=== PATIENT | female | born 1980 ===

== ENCOUNTER 2020-07-04 11:26 | Outpatient (REF) | payer OTHER, SELFPAY ==
--- NOTE | 2020-07-04 11:44 | XR_ITS ---
EXAMINATION: XR SOFT TISSUE NECK CLINICAL INDICATION: Cervalgia COMPARISON: None TECHNIQUE: 2 views of the soft tissue neck were obtained. FINDINGS: Soft tissue films of the neck demonstrate a normal larynx, pharynx and upper trachea. No soft tissue swelling or opaque foreign body is demonstrated. There is straightening of the cervical spine. No significant disc space narrowing is seen. No bony destructive lesions are seen. XR/XR soft tissue neck IMPRESSION: Unremarkable examination.
[2020-07-04 12:40] LABS: MANUAL DIFF FLAG NO
[2020-07-04 12:53] LABS: Basophils Percent Auto 0.4 % (0-2); Eosinophils Absolute Auto 0.1 X10*3/uL (0.0-0.4); Eosinophils Percent Auto 1.7 % (0-4); Hematocrit 40.7 % (37-47); Hemoglobin 12.6 g/dl (12.0-16.0); Imm Gran Abs Auto 0.01 X10*3/uL (0.00-0.03); Imm Gran Pct Auto 0.1 % (0.0-0.4); Lymphocytes Absolute Auto 1.9 X10*3/uL (1.2-4.9); Lymphocytes Percent Auto 27.5 % (20-40); Mean Corpuscular Hemoglobin 27.6 pg (27.0-33.0); Mean Corpuscular Volume 89.1 fL (80-98); Mean Platelet Volume 11.7 fL (9.4-12.3); Monocytes Absolute Auto 0.5 X10*3/uL (0.1-1.2); Monocytes Percent Auto 7.6 % (2-11); Neutrophils Absolute Auto 4.3 X10*3/uL (2.0-8.3); Neutrophils Percent Auto 62.7 % (45-73); Platelet Count 282 X10*3/uL (160-400); Red Blood Count 4.57 X10*6/uL (4.20-5.50); Red Cell Distribution Width 13.7 % (11.0-16.0); White Blood Count 6.9 X10*3/uL (4.8-10.8)
[2020-07-04 13:29] LABS: Anion Gap 12 (12-20); Blood Urea Nitrogen 15 mg/dL (9-16); Calcium 8.7 mg/dL (8.4-10.2); Carbon Dioxide 26 mmol/L (22-29); Chloride 105 mmol/L (96-108); Cholesterol 168 mg/dL; Estimated Glomerular Filt Rate > 60; Glucose Fasting 104 mg/dL (60-99); HDL Cholesterol 47 mg/dL; LDL Cholesterol Calculated 94 mg/dl; Potassium 4.2 mmol/l (3.3-5.1); Sodium 139 mmol/L (135-145); Triglycerides 135 mg/dL
[2020-07-04 14:09] LABS: Erythrocyte Sedimentation Rate 10 MM/HR (0-20)
== END 2020-07-04 11:27 | disposition home or self-care (01) ==
LOC: HO.LAB 11:26
PROVIDERS: PCP Internal Medicine; Visit Provider Nurse Practitioner Family
DX: M54.2 Cervicalgia (principal); M19.90 Unspecified osteoarthritis, unspecified site; E13.69 Other specified diabetes mellitus with other specified complication
CPT/HCPCS: 36415; 70360; 80048; 80061; 85025; 85652

== ENCOUNTER 2020-07-12 16:10 | Outpatient (REF) | payer OTHER, SELFPAY | END 2020-07-12 16:11 | disposition home or self-care (01) | LOC: HO.LAB 16:10 | PROVIDERS: Visit Provider Nurse Practitioner Family | DX: Z20.828 Contact with and (suspected) exposure to other viral communicable diseases (principal); R06.02 Shortness of breath | CPT/HCPCS: U0003 ==

== ENCOUNTER 2020-09-18 16:07 | Outpatient (REF) | payer OTHER, SELFPAY ==
--- NOTE | 2020-09-18 16:12 | XR_ITS ---
EXAMINATION: XR CHEST CLINICAL INFORMATION: Moderate persistent asthma with acute exacerbation COMPARISON: Previous chest x-rays most recent November 2019 TECHNIQUE: 2 views of the chest were obtained. FINDINGS: No significant abnormality is noted involving the heart, lungs, mediastinum, bony thorax or soft tissues. XR/XR chest 2V IMPRESSION: Unremarkable examination.
== END 2020-09-18 16:08 | disposition home or self-care (01) ==
LOC: HO.XRAY 16:07
PROVIDERS: PCP Internal Medicine; Visit Provider Internal Medicine
DX: J45.41 Moderate persistent asthma with (acute) exacerbation (principal)
CPT/HCPCS: 71046

== ENCOUNTER 2020-09-29 | Outpatient (REF) | payer OTHER, SELFPAY ==
[2020-09-29 14:49] LABS: MANUAL DIFF FLAG NO
[2020-09-29 14:54] LABS: Basophils Percent Auto 0.5 % (0-2); Eosinophils Absolute Auto 0.2 X10*3/uL (0.0-0.4); Eosinophils Percent Auto 2.5 % (0-4); Hematocrit 39.6 % (37-47); Hemoglobin 12.7 g/dl (12.0-16.0); Imm Gran Abs Auto 0.02 X10*3/uL (0.00-0.03); Imm Gran Pct Auto 0.3 % (0.0-0.4); Lymphocytes Absolute Auto 2.2 X10*3/uL (1.2-4.9); Lymphocytes Percent Auto 29.4 % (20-40); Mean Corpuscular HGB Conc 32.1 g/dl (31.0-35.0); Mean Corpuscular Hemoglobin 28.2 pg (27.0-33.0); Mean Platelet Volume 11.4 fL (9.4-12.3); Monocytes Absolute Auto 0.5 X10*3/uL (0.1-1.2); Monocytes Percent Auto 6.9 % (2-11); Neutrophils Absolute Auto 4.6 X10*3/uL (2.0-8.3); Neutrophils Percent Auto 60.4 % (45-73); Platelet Count 306 X10*3/uL (160-400); Red Cell Distribution Width 14.1 % (11.0-16.0); White Blood Count 7.6 X10*3/uL (4.8-10.8)
[2020-09-29 15:24] LABS: Alanine Aminotransferase 20 U/L (0-31); Albumin Level 4.3 g/dL (3.5-5.0); Alkaline Phosphatase 91 U/L (39-117); Anion Gap 11 (12-20); Aspartate Amino Transferase 18 U/L (5-31); Bilirubin Total 0.3 mg/dL (0.0-1.0); Blood Urea Nitrogen 12 mg/dL (9-16); C Reactive Protein 0.68 mg/dL (< or = 0.50); Calcium 9.3 mg/dL (8.4-10.2); Carbon Dioxide 28 mmol/L (22-29); Chloride 104 mmol/L (96-108); Creatinine Clr Calc Pharmacy 109.1; Estimated Glomerular Filt Rate > 60; Glucose Random 119 mg/dL (60-115); Potassium 4.3 mmol/l (3.3-5.1); Sodium 139 mmol/L (135-145); Total Protein 7.5 g/dL (6.5-8.0)
[2020-09-29 16:07] LABS: Erythrocyte Sedimentation Rate 12 MM/HR (0-20)
[2020-10-01 04:01] LABS: HBc Num1 0.06 S/CO (0.00-0.79); HBsAGNum1 0.18 S/CO (0.00-0.99); Hepatitis B Core Antibody Nonreactive (Nonreactive); Hepatitis B Surface Antigen Negative (Negative); ~HepC Num1 0.07 S/CO (0.00-0.79); ~Hepatitis B Surface Antibody NONREACTIVE (Nonreactive); ~Hepatitis C Antibody Nonreactive (Nonreactive)
[2020-10-01 04:15] LABS: Hepatitis A Antibody IgM 0.13 Index (0-0.79); ~Hepatitis A Antibody IgM Nonreactive (Nonreactive)
[2020-10-02 01:02] LABS: TS Negative Control Passed; TS Panel A 0; TS Panel B 0; TS Positive Control Passed; TSpotTB Negative (SeeBelow)
== END 2020-09-29 00:01 | disposition home or self-care (01) ==
LOC: HO.LNP
PROVIDERS: Visit Provider Student in an Organized Health Care Education/Training Program
DX: M05.9 Rheumatoid arthritis with rheumatoid factor, unspecified (principal)
CPT/HCPCS: 36415; 80053; 85025; 85652; 86140; 86481; 86704; 86706; 86709; 86803; 87340

== ENCOUNTER → 2020-09-29 12:48 | Outpatient (BNVA) | payer OTHER, SELFPAY | PROVIDERS: PCP Internal Medicine; Referring Provider Internal Medicine; Visit Provider Student in an Organized Health Care Education/Training Program | DX: M05.9 Rheumatoid arthritis with rheumatoid factor, unspecified (principal) | CPT/HCPCS: 36415; 80053; 85025; 86704; 86706; 87340; 99212 ==

== ENCOUNTER 2020-10-03 10:38 | Emergency (ER) | payer OTHER, SELFPAY ==
[2020-10-03 11:40] VITALS: BP 134/82; PULSE 78; RESP 20; TEMP 36.7; O2SAT 100; BMI 36.6
--- NOTE | 2020-10-03 11:52 | XR_ITS ---
EXAMINATION: XR CHEST CLINICAL INFORMATION: Dyspnea. COMPARISON: Chest 09/18/2020 TECHNIQUE: Frontal view of the chest was obtained. FINDINGS: No significant abnormality is noted involving the heart, lungs, mediastinum, bony thorax or soft tissues. XR/XR chest 1V IMPRESSION: Unremarkable chest examination.
--- NOTE | 2020-10-03 11:53 | ED_ITS ---
HPI - URI/Sore Throat General Chief Complaint: Upper Respiratory Symptoms Stated Complaint: covid symptons Time Seen by Provider: 10/03/20 11:43 Source: patient Mode of arrival: ambulatory Limitations: no limitations History of Present Illness MD elicited complaint: other (body aches, cough, chest tightness, asthma) Pertinent past history: asthma Onset (ago): day(s) (5) Consistency: constant Severity: moderate Able to tolerate fluids by mouth: Yes Exacerbating factors: nothing Relieving factors: nothing Associated symptoms: chills, myalgias, headache, nasal congestion and cough Treatments prior to arrival: other (uses her inhalers, states prednisone never works for her) Related Data Home Medications Medication Instructions Recorded Confirmed aspirin 81 mg chewable tablet 81 mg PO DAILY 06/08/20 09/18/20 metformin 500 mg tablet 500 mg PO DAILY 06/08/20 09/18/20 Previous Rx's Medication Instructions Recorded albuterol sulfate 2.5 mg INHALATION .3 to 4 times 09/27/20 daily PRN #90 ml albuterol sulfate 90 mcg/actuation 2 puff INHALATION Q4-6H PRN #6.7 g 09/27/20 aerosol inhaler fluticasone propionate 110 1 puff INHALATION BID 30 Days #12 g 09/27/20 mcg/actuation HFA aerosol inhaler prednisone 5 mg tablet See Rx Instructions PO DAILY #30 09/29/20 tab hydrocodone-homatropine 5 ml PO Q6H PRN #60 ml 10/03/20 Allergies Allergy/AdvReac Type Severity Reaction Status Date / Time doxycycline Allergy Unknown itch and Verified 09/29/20 12:52 rash UNKNOWN ANTIOBIOTIC Allergy Unknown UNKNOWN Uncoded 09/18/20 15:50 Review of Systems Review of Systems: Constitutional : positive Fever, positive Chills, positive fatigue, positive Malaise ENT/Mouth : positive sore throat, positive runny nose Eyes: No Discharge Cardiovascular : pos Chest Pain, No SOB Respiratory : pos Cough, No Sputum Gastrointestinal : No Nausea, No Vomiting, No Diarrhea Genitourinary : No Dysuria, No Urinary Frequency Musculoskeletal : positive Myalgia Skin : No rash Neuro : pos Headache all other systems reviewed and are negative [facility] Past Medical History Attestation statement: The following information was validated with the patient. Medical History Arthritis Asthma Asthma exacerbation Depression Diabetes Diabetes mellitus Fibromyalgia Frequent headaches Neck pain Obesity (BMI 30-39.9) Rheumatoid arthritis Seropositive rheumatoid arthritis Surgical History History of tooth extraction Family History Family History (Updated 09/29/20 @ 12:55 by Monika Max CMA) Father HTN (hypertension) Mother Asthma CVD (cardiovascular disease) Brain cancer Maternal Aunt Breast cancer Social History Social History Alcohol intake: never Smoking Status: Never smoker Advance Directives: No Advance Directives Information Provided: No Physical Exam Vital Signs: Vital Signs: Last Vital Signs Temp 98.0 F 10/03/20 11:40 Pulse 78 10/03/20 11:40 Resp 20 10/03/20 11:40 BP 134/82 10/03/20 11:40 Pulse Ox 100 10/03/20 11:40 Body Mass Index 36.6 Appearance: Alert. Oriented X3. No acute distress. Eyes: Pupils equal, round and reactive to light. ENT: Pharynx normal. Neck: Normal inspection. Neck supple. CVS: Normal heart rate and rhythm. Pulses normal. Respiratory: No respiratory distress. Breath sounds normal. Abdomen: Soft and nontender. Skin: Skin warm and dry. Normal skin color. Normal skin turgor. Extremities: No lower extremity edema. No calf ttp Neuro: Oriented X 3. No motor deficit. No sensory deficit. MDM - URI/Sore Throat MDM Narrative Medical decision making narrative: 40 yo female with asthma has INH at home c/o cough x 1 week but yesterday noted body aches, headaches, viral symptoms, chest tightness - will need EKG, CXR, COVID swab - PO medications for body aches, she declines prednisone states it doesn't help her, given symptoms doubt ACS, she is not tachy or hypoxic doubt PE Lab Data Labs: Lab Results 10/03/20 Range/Units 12:08 Coronavirus (PCR) NEGATIVE (Negative) Influenza Type A (PCR) NEGATIVE (Negative) Influenza Type B (PCR) NEGATIVE (Negative) RSV RNA Qual (PCR) NEGATIVE (Negative) ECG Data Attestation: I personally reviewed and interpreted this ECG as follows: ECG interpretation date: 10/03/20 ECG interpretation time: 13:27 Interpretation: Rate: 69 Rhythm: NSR [place]: normal Normal P waves. Normal JAMARI. Normal QRS complex. ST T wave : normal no DARIEL qTC: normal prior studies: no acute ischemia The study has been interpreted contemporaneously by me. . Discharge Plan Discharge Clinical Impression: Acute viral syndrome Patient Disposition: Home, Self-Care Instructions: Viral Syndrome (ED) Additional Instructions: return to ED for any worsening symptoms or concerns if symptoms persist you may want to repeat testing for COVID in 3 days Prescriptions: New hydrocodone-homatropine 5-1.5 mg/5 mL (5 mL) syrup 5 ml PO Q6H PRN (Reason: cough) Qty: 60 RF: 0 No Action albuterol sulfate 90 mcg/actuation HFA aerosol inhaler 2 puff inhalation Q4-6H PRN (Reason: shortness of breath or wheezing) Qty: 6.7 RF: 0 albuterol sulfate 2.5 mg /3 mL (0.083 %) solution for nebulization 2.5 mg inhalation .3 to 4 times daily PRN (Reason: shortness of breath or wheezing) Qty: 90 RF: 0 Flovent HFA 110 mcg/actuation HFA aerosol inhaler 1 puff inhalation BID 30 Days Qty: 12 RF: 5 metformin 500 mg tablet 500 mg PO DAILY RF: 0 aspirin 81 mg tablet,chewable 81 mg PO DAILY RF: 0 prednisone 5 mg tablet See Rx Instructions PO DAILY Qty: 30 RF: 0 Referrals: Edward Lima MD [Primary Care Provider] - 2 days (if not better) Stand Alone Forms: Work/School Release
--- NOTE | 2020-10-03 12:05 | ECG_ITS ---
Test Reason : SOB Blood Pressure : / mmHG Vent. Rate : 069 BPM Atrial Rate : 069 BPM P-R Int : 148 ms QRS Dur : 086 ms QT Int : 398 ms P-R-T Axes : 041 -02 003 degrees QTc Int : 426 ms Normal sinus rhythm with sinus arrhythmia Normal ECG When compared with ECG of 16-NOV-2019 11:50, No significant change was found Referred By: Renata Huitron Electronically Signed By:David Pineda
[2020-10-03] MEDS: Acetaminophen 325 MG TABLET 650 MG PO (12:18)
[2020-10-03 12:59] LABS: Influenza A PCR NEGATIVE (Negative); Influenza B PCR NEGATIVE (Negative); Resp Syncy Virus RNA Qual PCR NEGATIVE (Negative); SARS COV2 PCR INHOUSE NEGATIVE (Negative)
== END 2020-10-03 13:35 | disposition home or self-care (01) ==
PROVIDERS: Emergency Provider Emergency Medicine; PCP Internal Medicine
DX: B34.9 Viral infection, unspecified (principal); Z20.822 Contact with and (suspected) exposure to COVID-19; J45.909 Unspecified asthma, uncomplicated; E11.9 Type 2 diabetes mellitus without complications; Z79.899 Other long term (current) drug therapy
CPT/HCPCS: 0241U; 36415; 71045; 93005; 99283

== ENCOUNTER 2020-10-07 10:44 | Emergency (ER) | payer OTHER, SELFPAY ==
[2020-10-07 11:03] VITALS: BP 132/84; PULSE 91; RESP 18; TEMP 36.8; O2SAT 97; BMI 36.6
--- NOTE | 2020-10-07 12:36 | PC.NURSE ---
ric rodney at bedside for exam, pt napping at present time
--- NOTE | 2020-10-07 12:57 | ED_ITS ---
HPI - General Adult General Chief complaint: Extremity Problem Stated complaint: left side pain Time Seen by Provider: 10/07/20 12:57 History of Present Illness HPI narrative: Patient complains of left sided body pain for several weeks She has a headache which is more severe than normal headaches but she has had headaches before, it is gradual onset, it is a dull aching pain, there is no fever no injury She does have left-sided chest wall and left shoulder pain which is worse when touched and with movement but it is coming and going and is not continuous, it is not provoked by anything and sometimes lasts for hours or all day, the last episode was this morning about 6 or 7 hours ago. At this time she has no chest pain or shortness of breath no nausea no vomiting She also complains that she sometimes has tingling on the left side in her whole body on the left side but has never had weakness of any limb Related Data Home Medications Medication Instructions Recorded Confirmed aspirin 81 mg chewable tablet 81 mg PO DAILY 06/08/20 09/18/20 metformin 500 mg tablet 500 mg PO DAILY 06/08/20 09/18/20 Previous Rx's Medication Instructions Recorded albuterol sulfate 2.5 mg INHALATION .3 to 4 times 09/27/20 daily PRN #90 ml fluticasone propionate 110 1 puff INHALATION BID 30 Days #12 g 09/27/20 mcg/actuation HFA aerosol inhaler prednisone 5 mg tablet See Rx Instructions PO DAILY #30 09/29/20 tab hydrocodone-homatropine 5 ml PO Q6H PRN #60 ml 10/03/20 gabapentin 100 mg capsule 200 mg PO TID PRN 30 Days #90 cap 10/05/20 adalimumab 40 mg/0.4 mL 40 mg SUBCUT Q2W #2 ea 10/06/20 subcutaneous syringe kit albuterol sulfate 90 mcg/actuation 2 puff INHALATION Q6H PRN 30 Days 10/07/20 aerosol inhaler #8.5 g diazepam [Valium] 10 mg PO BID PRN #7 tab 10/07/20 hydrocodone-acetaminophen 1 tab PO Q6H PRN #10 tab 10/07/20 ibuprofen 600 mg PO Q6H PRN #20 tab 10/07/20 Allergies Allergy/AdvReac Type Severity Reaction Status Date / Time doxycycline Allergy Unknown itch and Verified 10/07/20 11:10 rash UNKNOWN ANTIOBIOTIC Allergy Unknown UNKNOWN Uncoded 10/07/20 11:10 Review of Systems Review of Systems: Positive for headache chest pain with movement and tingling Negatives are no fever no chills no dizziness no weakness no fainting no confusion, no abrupt onset headache no vision change no nausea no vomiting no in jury, chest pain is not exertional, no sweating, no abdominal pain, no leg swelling or calf pain or swelling, no weakness no loss of sensation, no loss of balance Yes all other systems are reviewed and are negative [facility] Past Medical History Attestation statement: The following information was validated with the patient. [facility] Narrative: Patient has been seen recently by both her doctor and a visit to the ER for similar complaints several days ago, including a negative COVID test on 10/03 Source: nursing notes reviewed Medical History Arthritis Asthma Asthma exacerbation Depression Diabetes Diabetes mellitus Fibromyalgia Frequent headaches Neck pain Obesity (BMI 30-39.9) Rheumatoid arthritis Seropositive rheumatoid arthritis Surgical History History of tooth extraction Family History Family History (Updated 09/29/20 @ 12:55 by Monika Max CMA) Father HTN (hypertension) Mother Asthma CVD (cardiovascular disease) Brain cancer Maternal Aunt Breast cancer Social History Social History Alcohol intake: unknown Smoking Status: Never smoker Use of substances other than those prescribed or required for medical reasons: Unknown Advance Directives: No Advance Directives Information Provided: Yes Physical Exam Vital Signs: Vital Signs: Last Vital Signs Temp 97.9 F 10/07/20 15:20 Pulse 68 10/07/20 15:20 Resp 17 10/07/20 15:20 BP 118/74 10/07/20 15:20 Pulse Ox 99 10/07/20 15:20 Body Mass Index 36.6 General appearance no acute distress, A&O x3, cooperative Pupils equal round reactive to light, extraocular motions intact, pharynx is clear Neck is supple Chest is clear to auscultation bilaterally with full symmetric equal breath sounds, chest wall did have left-sided tenderness and pain is easily reproduced to the left side chest wall with movement and deep breath, no respiratory distress The heart rate and rhythm regular, no murmur Abdomen is soft nontender Extremities no edema no rash, there is no calf tenderness or swelling Neuro the patient is interacting verbally normally with good understanding, the gait is normal with normal balance, cranial nerves 2 through tell of intact as tested The cerebellar was normal Motor is 5/5 x4 and sensation was intact and symmetrical Course Course Course Narrative: Patient's head CT was done for further evaluation of her headache and the feeling of tingling on the left side, head CT was normal with no evidence of bleed or mass EKG was normal, troponin was normal with last episode of chest pain over 3 hours ago On exam we can induce the chest pain with movements of her arm, palpation of the chest wall and movement of the arm so consistent with musculoskeletal chest wall pain 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 Result diagrams: 10/07/20 14:45 10/07/20 14:45 Labs: Lab Results 10/07/20 10/07/20 10/07/20 Range/Units 14:45 14:45 14:45 WBC 8.5 (4.8-10.8) X10*3/uL RBC 4.65 (4.20-5.50) X10*6/uL Hgb 13.2 (12.0-16.0) g/dl Hct 41.0 (37-47) % MCV 88.2 (80-98) fL MCH 28.4 (27.0-33.0) pg MCHC 32.2 (31.0-35.0) g/dl RDW 13.9 (11.0-16.0) % Plt Count 282 (160-400) X10*3/uL MPV 10.8 (9.4-12.3) fL Immature Gran % (Auto) 0.2 (0.0-0.4) % Neut % (Auto) 58.1 (45-73) % Lymph % (Auto) 32.1 (20-40) % Chase % (Auto) 6.7 (2-11) % Eos % (Auto) 2.5 (0-4) % Baso % (Auto) 0.4 (0-2) % Lymph # (Auto) 2.7 (1.2-4.9) X10*3/uL Chase # (Auto) 0.6 (0.1-1.2) X10*3/uL Eos # (Auto) 0.2 (0.0-0.4) X10*3/uL Baso # (Auto) 0.0 (0.0-0.2) X10*3/uL Abs Immat Gran (auto) 0.02 (0.00-0.03) X10*3/uL Absolute Neuts (auto) 5.0 (2.0-8.3) X10*3/uL Absolute Nucleated RBC 0.000 (0.0-0.012) X10*3/uL Nucleated RBC % (auto) 0.0 (0.0-0.2) /100WBC Sodium 141 (135-145) mmol/L Potassium 4.4 (3.3-5.1) mmol/L Chloride 107 (96-108) mmol/L Carbon Dioxide 22 (22-29) mmol/L Anion Gap 16 (12-20) BUN 15 (9-16) mg/dL Creatinine 0.77 (0.5-1.4) mg/dL Estim Creat Clear Calc 113.6 Estimated GFR > 60 Random Glucose 86 (60-115) mg/dL Calcium 9.4 (8.4-10.2) mg/dL Troponin I High Sens < 3.5 (<3.5-17.0) ng/L Imaging Data CT scan - head: Radiologist's impression: FINDINGS: There is no evidence of acute intracranial hemorrhage or territorial infarction. No abnormal mass effect or midline shift is seen. Brady to white matter differentiation is well preserved. No extra-axial fluid collections are identified. The ventricles are normal in size. There is no abnormal attenuation within the brain parenchyma. The osseous structures and soft tissues are normal. The mastoid air cells and visualized portions of the paranasal sinuses are well aerated. CT/CT head/brain wo con IMPRESSION: No acute intracranial pathology. Dictated By:DEMETRIO PECK MDSigned By:<Electronically signed by DEMETRIO PECK MD in ECG Data Interpretation: EKG was sinus rhythm, normal sinus rhythm with a rate of 70, GA was normal, QRS duration was normal, QTC normal, no acute ST changes no acute ischemic changes Discharge Plan Discharge Clinical Impression: Chest wall pain Headache Qualifiers: Headache type: unspecified Headache chronicity pattern: unspecified pattern Intractability: not intractable Qualified Code(s): R51.9 - Headache, unspecified Left shoulder pain Qualifiers: Chronicity: unspecified Qualified Code(s): M25.512 - Pain in left shoulder Patient Disposition: Home, Self-Care Additional Instructions: Follow with primary doctor and 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 Our workup today including a head CT and evaluation of her heart with EKG and troponin testing did not show any emergent condition We wrote a short term course of muscle relaxer and narcotic pain medicine Prescriptions: New diazepam [Valium] 10 mg tablet 10 mg PO BID PRN (Reason: muscle spasm) Qty: 7 RF: 0 hydrocodone-acetaminophen 5-325 mg tablet 1 tab PO Q6H PRN (Reason: pain) Qty: 10 RF: 0 ibuprofen 600 mg tablet 600 mg PO Q6H PRN (Reason: pain) Qty: 20 RF: 0 No Action albuterol sulfate 2.5 mg /3 mL (0.083 %) solution for nebulization 2.5 mg inhalation .3 to 4 times daily PRN (Reason: shortness of breath or wheezing) Qty: 90 RF: 0 Flovent HFA 110 mcg/actuation HFA aerosol inhaler 1 puff inhalation BID 30 Days Qty: 12 RF: 5 Humira(CF) 40 mg/0.4 mL syringe kit 40 mg subcut Q2W Qty: 2 RF: 3 albuterol sulfate [ProAir HFA] 90 mcg/actuation HFA aerosol inhaler 2 puff inhalation Q6H PRN (Reason: shortness of breath or wheezing) 30 Days Qty: 8.5 RF: 5 hydrocodone-homatropine 5-1.5 mg/5 mL (5 mL) syrup 5 ml PO Q6H PRN (Reason: cough) Qty: 60 RF: 0 gabapentin 100 mg capsule 200 mg PO TID PRN (Reason: pain) 30 Days Qty: 90 RF: 0 metformin 500 mg tablet 500 mg PO DAILY RF: 0 aspirin 81 mg tablet,chewable 81 mg PO DAILY RF: 0 prednisone 5 mg tablet See Rx Instructions PO DAILY Qty: 30 RF: 0 Stand Alone Forms: Work/School Release
--- NOTE | 2020-10-07 13:29 | CT_ITS ---
EXAMINATION: CT HEAD WITHOUT CONTRAST CLINICAL INFORMATION: Headache COMPARISON: None TECHNIQUE: Contiguous axial imaging was performed from the skull base to vertex without intravenous administration of contrast. This CT examination was performed using dose optimization techniques as appropriate, variously including the following: *Automated exposure control *Adjustment of mA and/or kV according to patient size (this includes techniques or standardized protocols for targeted exams where dose is matched to indication/reason for exam; i.e. extremities or head) *Use of iterative reconstruction technique DLP: 746 mGy-cm FINDINGS: There is no evidence of acute intracranial hemorrhage or territorial infarction. No abnormal mass effect or midline shift is seen. Brady to white matter differentiation is well preserved. No extra-axial fluid collections are identified. The ventricles are normal in size. There is no abnormal attenuation within the brain parenchyma. The osseous structures and soft tissues are normal. The mastoid air cells and visualized portions of the paranasal sinuses are well aerated. CT/CT head/brain wo con IMPRESSION: No acute intracranial pathology.
--- NOTE | 2020-10-07 13:31 | ECG_ITS ---
Test Reason : LEFT ARM PAIN Blood Pressure : / mmHG Vent. Rate : 070 BPM Atrial Rate : 070 BPM P-R Int : 146 ms QRS Dur : 096 ms QT Int : 406 ms P-R-T Axes : 046 000 000 degrees QTc Int : 438 ms Normal sinus rhythm with sinus arrhythmia Nonspecific T wave changes When compared with ECG of 03-OCT-2020 12:59, No significant change was found Referred By: Parag Rico Electronically Signed By:David Pineda
[2020-10-07 14:53] LABS: MANUAL DIFF FLAG NO
[2020-10-07 14:54] LABS: Basophils Percent Auto 0.4 % (0-2); Eosinophils Absolute Auto 0.2 X10*3/uL (0.0-0.4); Eosinophils Percent Auto 2.5 % (0-4); Hemoglobin 13.2 g/dl (12.0-16.0); Imm Gran Abs Auto 0.02 X10*3/uL (0.00-0.03); Imm Gran Pct Auto 0.2 % (0.0-0.4); Lymphocytes Absolute Auto 2.7 X10*3/uL (1.2-4.9); Lymphocytes Percent Auto 32.1 % (20-40); Mean Corpuscular HGB Conc 32.2 g/dl (31.0-35.0); Mean Corpuscular Hemoglobin 28.4 pg (27.0-33.0); Mean Corpuscular Volume 88.2 fL (80-98); Mean Platelet Volume 10.8 fL (9.4-12.3); Monocytes Absolute Auto 0.6 X10*3/uL (0.1-1.2); Monocytes Percent Auto 6.7 % (2-11); Neutrophils Percent Auto 58.1 % (45-73); Platelet Count 282 X10*3/uL (160-400); Red Blood Count 4.65 X10*6/uL (4.20-5.50); Red Cell Distribution Width 13.9 % (11.0-16.0); White Blood Count 8.5 X10*3/uL (4.8-10.8)
[2020-10-07 15:06] VITALS: BP 118/74; PULSE 71; RESP 16; O2SAT 99
[2020-10-07 15:20] VITALS: BP 118/74; PULSE 68; RESP 17; TEMP 36.6; O2SAT 99
[2020-10-07 15:27] LABS: Anion Gap 16 (12-20); Blood Urea Nitrogen 15 mg/dL (9-16); Calcium 9.4 mg/dL (8.4-10.2); Carbon Dioxide 22 mmol/L (22-29); Chloride 107 mmol/L (96-108); Creatinine Clr Calc Pharmacy 113.6; Estimated Glomerular Filt Rate > 60; Glucose Random 86 mg/dL (60-115); Potassium 4.4 mmol/L (3.3-5.1); Sodium 141 mmol/L (135-145)
[2020-10-07 15:35] LABS: Troponin-I High Sensitivity < 3.5 ng/L (<3.5-17.0)
[2020-10-07] MEDS: Ketorolac Tromethamine 30 MG/ML VIAL IM (17:10)
[2020-10-07 17:13] VITALS: BP 115/67; PULSE 85; RESP 16; O2SAT 100
== END 2020-10-07 17:14 | disposition home or self-care (01) ==
PROVIDERS: Physician Assistant Medical; Emergency Provider Emergency Medicine; PCP Internal Medicine
DX: R07.89 Other chest pain (principal); R51.9 Headache, unspecified; M25.512 Pain in left shoulder; E11.9 Type 2 diabetes mellitus without complications; M06.9 Rheumatoid arthritis, unspecified; Z79.84 Long term (current) use of oral hypoglycemic drugs; Z79.899 Other long term (current) drug therapy
CPT/HCPCS: 36415; 70450; 80048; 84484; 85025; 93005; 96372; 99284; J1885

== ENCOUNTER 2020-10-11 08:26 | Outpatient (REF) | payer OTHER, SELFPAY ==
--- NOTE | 2020-10-11 08:31 | XR_ITS ---
EXAMINATION: XR CERVICAL SPINE CLINICAL INFORMATION: Neck pain. COMPARISON: None TECHNIQUE: 3 views of the cervical spine were obtained. FINDINGS: There is mild straightening of cervical lordosis. The vertebral heights, alignment and disc heights are normal. There is no visible acute fracture, dislocation or subluxation seen. The neural foramina are widely patent. There is no visible acute fracture, dislocation or lytic process. The soft tissues are normal. XR/XR cervical spine 4V IMPRESSION: Unremarkable cervical spine exam.
== END 2020-10-11 08:27 | disposition home or self-care (01) ==
LOC: HO.XRAY 08:26
PROVIDERS: PCP Internal Medicine; Visit Provider Physician Assistant
DX: M54.2 Cervicalgia (principal); M54.12 Radiculopathy, cervical region
CPT/HCPCS: 72050

== ENCOUNTER → 2020-10-19 14:41 | Outpatient (BNVA) | payer OTHER, SELFPAY | PROVIDERS: PCP Internal Medicine; Visit Provider Student in an Organized Health Care Education/Training Program ==

== ENCOUNTER 2020-11-27 15:00 | Outpatient (RCR) | payer OTHER, SELFPAY ==
--- NOTE | 2020-10-26 15:31 | MHC.PT.EP ---
[facility] [place] Office [place] Office [place] Office [address] Nicholas Herrera [address] [phone] F: [phone] F: [phone] F: [phone] F: [phone] Physical Therapy Plan of Care Date of Evaluation: 10/26/20 Date of Surgery: Diagnosis: cervical radiculopathy Assessment: The patient arrived with pain in chest, left arm, left side and anterior side of neck, and radiculopathy in left arm. Pt is presenting with symptoms consistent with a posterolateral derangement of the cervical spine. The patient has poor standing, sitting posture consisting of anterior pelvic tilt, knees locked out, and trunk kyphosis. Pt is a good candidate for skilled PT. Frequency and Duration: The patient will be seen 2x/week x 4 weeks. Short Term Goals: 2 weeks 1.Pt to able to demonstrate proper sitting posture with the use of a lumbar roll to decrease aggravating factors. 2.Pt to be able to demonstrate proper posture for common leisure activities such as crocheting and phone/tablet use. 3.For the patient to demonstrate proper upright sitting posture with use of the lumbar roll to improve compliance and carryover. Segmental Paving Supervisor Goals: 1. Pt to be able to return to normal PLOF without limiting pain. 2. Pt to be able to return to overhead reaching without pain or limitation. 3. Pt to be able to manage her pain with selected exercise and stretching regime. Treatment Plan: Modalities to reduce pain, spasms and effusion. Manual therapy to restore motion and function. Therapeutic exercise to improve strength and flexibility. Neuromuscular re-education for posture and balance. Therapeutic activities to return to functional activities of daily living. Electronically signed by: Edna Balbuena PT DPT Please sign and return to therapist. Thank you for your referral.
--- NOTE | 2021-01-02 14:33 | MHC.PT.DC ---
[facility] [place] Office [place] Office [place] Office [address] Nicholsa Herrera [address] [phone] F: [phone] F: [phone] F: [phone] F: [phone] Physical Therapy Discharge Report Diagnosis: cervical radiculopathy Date of Surgery: Date of Evaluation: 10/26/20 Date of Discharge: 01/02/21 Treatments to Date: 10 Cancellations to Date: 0 No Shows to Date: 0 Discharge Status: Discharge Summary: 11/27/20- Pt arrived stating she had significant neck and back pain. Per pt her sciatica was acting up. She was unable to tolerate sitting position due to back pain. Prone press ups were attempted for back pain. She noted a decrease in LE and back pain but was unable to do it due to pec pain. She requested performing exercises for neck only in supine or standing. Due to this session was focused on stretches in supine and standing. She was able to perform all exercises without any increase in pain. Pt overall has not noted much relief with PT. Due to lack of improvement pt to be d/c from therapy in 2 visits. Same discusses with primary PT and patient and every one was in agreement with the plan. ( pt did not show up to her last scheduled visits. Therefore pt d/c from PT) Electronically signed by: Edna Balbuena PT DPT Please sign and return to therapist. Thank you for your referral.
== END 2021-01-02 14:34 | disposition other institution (70) ==
LOC: HO.PT 15:00
PROVIDERS: PCP Internal Medicine; Visit Provider Physician Assistant
DX: M54.12 Radiculopathy, cervical region (principal)
CPT/HCPCS: 97110; 97112; 97140; 97162

== ENCOUNTER → 2020-12-06 08:02 | Outpatient (BNVA) | payer OTHER, SELFPAY | PROVIDERS: PCP Internal Medicine; Visit Provider Student in an Organized Health Care Education/Training Program ==

== ENCOUNTER 2021-01-08 13:37 | Outpatient (REF) | payer OTHER, SELFPAY ==
--- NOTE | ~2021-01-08 | XR_ITS ---
EXAMINATION: XR CHEST CLINICAL INFORMATION: Respiratory disorder COMPARISON: Chest 10/03/2020 TECHNIQUE: 2 views of the chest were obtained. FINDINGS: The lungs are well-expanded and clear. The heart size and pulmonary vascularity is normal. No gross bony abnormality seen. XR/XR chest 2V IMPRESSION: Unremarkable chest exam. No change from 10/03/2020.
== END 2021-01-08 13:38 | disposition home or self-care (01) ==
LOC: HO.HMGCX 13:37
PROVIDERS: PCP Internal Medicine; Visit Provider Nurse Practitioner Family
DX: U07.1 COVID-19 (principal); J98.8 Other specified respiratory disorders
CPT/HCPCS: 71046

== ENCOUNTER 2021-01-13 09:36 | Emergency (ER) | payer OTHER, SELFPAY ==
--- NOTE | ~2021-01-13 | CT_ITS ---
EXAMINATION: CT ANGIOGRAM OF THE CHEST WITH AND WITHOUT CONTRAST (CT PULMONARY ANGIOGRAM FOR PE) CLINICAL INFORMATION: Reason for Exam hx of covid c sough/sob ? pe elevated d-dimer COMPARISON: None TECHNIQUE: Prior to contrast administration, noncontrast localization images were obtained. Subsequently, multidetector volumetric imaging was performed from the thoracic inlet to below the diaphragms following the administration of 65 mL Omnipaque 350 intravenous contrast. No contrast reaction reported Sagittal, coronal, and MIP oblique sagittal reformatted images were obtained on the CT workstation, uploaded to PACS, and reviewed. This CT examination was performed using dose optimization techniques as appropriate, variously including the following: *Automated exposure control *Adjustment of mA and/or kV according to patient size (this includes techniques or standardized protocols for targeted exams where dose is matched to indication/reason for exam; i.e. extremities or head) *Use of iterative reconstruction technique Total exam dose-length product 320 mGy-cm FINDINGS: QUALITY OF STUDY/CONTRAST BOLUS: Satisfactory. PULMONARY ARTERIES: No evidence of central or segmental pulmonary emboli. THORACIC AORTA: No aneurysm. LUNG: Small patchy opacity in the left lung base, probably atelectasis. No lobar consolidation. No suspicious nodules. PLEURA: No pleural effusion or pneumothorax. MEDIASTINUM: Normal heart size. No pericardial effusion. No hilar or mediastinal lymphadenopathy. No evidence of septal bowing or right heart strain. CHEST WALL/AXILLA: No axillary or internal mammary lymphadenopathy. OSSEOUS STRUCTURES: No acute or suspicious osseous abnormality. UPPER ABDOMEN: Unremarkable. No reflux of contrast into the hepatic veins to suggest elevated right heart pressures. CT/CT angio chest PE protocol IMPRESSION: 1. No evidence of filling defects to suggest central or segmental pulmonary emboli. 2. Mild left basilar atelectasis. No lobar consolidation. VTE: negative
--- NOTE | ~2021-01-13 | XR_ITS ---
EXAMINATION: XR CHEST CLINICAL INFORMATION: Shortness of breath. Chest discomfort. COMPARISON: None TECHNIQUE: Frontal view of the chest was obtained. FINDINGS: Lungs are well-inflated and clear. Trachea is midline in position. No interstitial disease, consolidation or mass. No pulmonary edema, pleural effusion or pneumothorax. Cardiac silhouette and pulmonary vessels are normal in size. The mediastinum and lydia have normal contour. The visualized bones, and upper abdomen, are unremarkable. XR/XR chest 1V IMPRESSION: No acute cardiopulmonary abnormality.
[2021-01-13 09:47] VITALS: BP 148/84; PULSE 96; RESP 19; TEMP 36.6; O2SAT 100; BMI 32.3
--- NOTE | 2021-01-13 10:20 | ECG_ITS ---
Test Reason : SOB Blood Pressure : / mmHG Vent. Rate : 079 BPM Atrial Rate : 079 BPM P-R Int : 148 ms QRS Dur : 082 ms QT Int : 384 ms P-R-T Axes : 052 000 -04 degrees QTc Int : 440 ms Normal sinus rhythm Nonspecific ST and T wave abnormality Borderline ECG When compared with ECG of 07-OCT-2020 13:50, No significant change was found Referred By: Sonia Gutierrez Electronically Signed By:ALEXEI YOUNG
--- NOTE | 2021-01-13 10:21 | ED.URI ---
HPI - URI/Sore Throat General Chief Complaint: Upper Respiratory Symptoms Stated Complaint: cough,sob,headache Time Seen by Provider: 01/13/21 10:03 Source: patient Mode of arrival: ambulatory Limitations: language barrier (Azerbaijani-speaking) History of Present Illness HPI Narrative: 40-year-old female with a past medical history of diabetes, obesity, frequent headaches, fibromyalgia, depression, cervical radiculopathy, rheumatoid arthritis, asthma and COVID on 12/19/2020 presenting to the ED with complaints of persistent cough since 12/08/2020 with associated chest wall discomfort, body aches, fatigue, malaise, chills, shortness of breath, dyspnea on exertion and orthopnea worsened the past few days. Reports she has never really recovered from her symptoms that started on 12/08/2020 they are just persistent and worsening. She denies any measured fevers, dizziness, headaches, nausea/vomiting, palpitations, abdominal pain, back pain, dysuria, hematuria, diarrhea, constipation, palpitations, lower extremity edema or any other symptoms complaints or concerns at this time. Related Data Home Medications Medication Instructions Recorded Confirmed aspirin 81 mg chewable tablet 81 mg PO DAILY 06/08/20 11/28/20 metformin 500 mg tablet 500 mg PO DAILY 06/08/20 11/28/20 Previous Rx's Medication Instructions Recorded fluticasone propionate 110 1 puff INHALATION BID 30 Days #12 g 09/27/20 mcg/actuation HFA aerosol inhaler albuterol sulfate 90 mcg/actuation 2 puff INHALATION Q6H PRN 30 Days 10/07/20 aerosol inhaler #8.5 g ibuprofen 600 mg PO Q6H PRN #20 tab 10/07/20 acetaminophen 500 mg tablet 500 mg PO Q6H PRN 10 Days #40 tab 12/22/20 ondansetron HCl 4 mg tablet 4 mg PO Q8H PRN 5 Days #15 tab 12/22/20 albuterol sulfate 2.5 mg CONTINUOUS NEBULIZATION .3 01/04/21 to 4 times daily PRN 30 Days #180 ml miscellaneous medical supply 1 ea MISCELLANEOUS .4 times a day 01/04/21 PRN 360 Days #1 ea dexamethasone 4 mg tablet 4 mg PO DAILY #18 tab MDD 01/08/21 TID*3days;BID*3days;1tab*3days levofloxacin 750 mg tablet 750 mg PO DAILY 5 Days #5 tab 01/08/21 albuterol sulfate 1 inh INHALATION QID PRN #8.5 g 01/13/21 azithromycin See Rx Instructions .ROUTE 01/13/21 .COMPLEX #6 tab codeine-guaifenesin [Guaifenesin 5 ml PO Q6H PRN #120 ml 01/13/21 AC] cyclobenzaprine 10 mg PO Q8H #10 tab 01/13/21 dexamethasone [Decadron] 6 mg PO DAILY 10 Days #10 tab 01/13/21 Allergies Allergy/AdvReac Type Severity Reaction Status Date / Time doxycycline Allergy Unknown itch and Verified 01/08/21 13:21 rash UNKNOWN ANTIOBIOTIC Allergy Unknown UNKNOWN Uncoded 01/08/21 13:21 Review of Systems Review of Systems: Constitutional : Positive chills/fatigue/malaise, No Weight loss, No Fever, No Night Sweats ENT/Mouth : No Hearing loss, No Ear Pain, No Nasal Congestion, No Sinus Pain, No Hoarseness, No sore throat, No Rhinorrhea, No Swallowing Difficulty Eyes: No Eye Pain, No Swelling, No Redness, No Foreign Body, No Discharge, No Vision Changes Cardiovascular : Positive shortness of breath/dyspnea on exertion/orthopnea/chest discomfort, No Edema, No extremity swelling, No Palpitations Respiratory : Positive Cough, No Sputum, No Wheezing Gastrointestinal : No Nausea, No Vomiting, No Diarrhea, No abdominal Pain, No Hematochezia, No Melena Genitourinary : No irregular bleeding, No Dysuria, No Urinary Frequency, No Hematuria, No Urinary Incontinence, No Urgency, No Flank Pain, No Urinary Flow Changes, No Hesitancy Musculoskeletal : Positive myalgias, No joint pain, No Joint Swelling Skin : No Skin Lesions, No rash Neuro : No Weakness, No Numbness, No Paresthesias, No Loss of Consciousness, No Dizziness, No Headache Psych : No Anxiety/Panic, No Depression, No SI/HI/AH/VH Heme/Lymph: No Bruising, No Bleeding,No Lymphadenopathy Endocrine : No Polyuria, No Polydipsia, No Temperature Intolerance Yes all other systems are reviewed and are negative [facility] Past Medical History Attestation statement: The following information was validated with the patient. Medical History (Updated 01/13/21 @ 14:24 by DARNELL Thompson) Asthma Depression Diabetes mellitus Fatigue Fibromyalgia Frequent headaches Obesity (BMI 30-39.9) Seropositive rheumatoid arthritis Surgical History History of tooth extraction Family History Family History Father HTN (hypertension) Mother Asthma CVD (cardiovascular disease) Brain cancer Maternal Aunt Breast cancer Social History Social History Alcohol intake: unknown Smoking Status: Never smoker Advance Directives: No Advance Directives Information Provided: Yes Patient : No Physical Exam Vital Signs: Vital Signs: Last Vital Signs Temp 98 F 01/13/21 09:47 Pulse 74 01/13/21 11:40 Resp 18 01/13/21 11:40 BP 102/68 01/13/21 11:40 Pulse Ox 98 01/13/21 11:40 Body Mass Index 32.3 vital signs have been reviewed as normal and appeared to be correct. Blood pressure normal. Heart rate normal. Respiration rate normal. Temperature normal. Oxygen saturation normal. Appearance: Alert. Oriented X3. No acute distress. Head: Normal external exam. Normocephalic. Eyes: PERRLA. EOMI. Conjunctiva and sclera normal. Eyelids normal. ENT: Pharynx normal. Uvula midline. Moist mucous membranes. No trismus noted. No drooling noted. No muffled voice noted. Neck: Normal inspection. Neck supple. FROM. No adenopathy. No meningeal signs. CVS: Normal heart rate and rhythm. Heart sound normal. No murmurs noted. Pulses normal throughout. Respiratory: No respiratory distress. Painless inspiration. Breath sounds normal. No wheezes/rales/rhonchi noted. Chest nontender. No accessory muscle usage noted or decreased air movement noted. Abdomen: Soft and nontender. Nondistended. No guarding. No rigidity. Bowel sounds normal in all 4 quadrants. No distention noted. No organomegaly noted. No visible injury noted. No rebound tenderness. Negative Rovsing sign. Negative obturator's sign. Negative psoas sign. Negative Young sign. Back: No CVA tenderness. Full range of motion noted. Skin: Skin warm and dry. Normal skin color. Normal skin turgor. No rashes/lesions/lacerations noted. Extremities: Extremities exhibit normal range of motion. Extremities nontender. Neuro: Oriented X 3. No motor deficit. No sensory deficit. Reflexes normal. Normal steady gait. Course Course Course Narrative: 14:20pm - labs reviewed and patient with an elevated D-dimer at 02:35 otherwise all other labs are within normal limits. Serum quant negative. UA within normal limits no evidence of UTI. Chest x-ray negative for any acute processes. Due to patient's elevated D-dimer she had a CTA of her chest and was negative for PE or any other acute processes. EKG normal sinus rhythm no acute ischemic changes are noted. Therefore will DC home with instructions return if any new or worsening symptoms and symptomatic treatment along with antibiotics and to follow up with primary care provider. Patient understands agrees with this plan. MDM - URI/Sore Throat MDM Narrative Medical decision making narrative: 10:30am - 40-year-old female with a past medical history of diabetes, obesity, frequent headaches, fibromyalgia, depression, cervical radiculopathy, rheumatoid arthritis, asthma and COVID on 12/19/2020 presenting to the ED with complaints of persistent cough since 12/08/2020 with associated chest wall discomfort, body aches, fatigue, malaise, chills, shortness of breath, dyspnea on exertion and orthopnea worsened the past few days. - Plan: Labs, chest x-ray, EKG then re-evaluate. Medical Records Attestation: I reviewed the patient's medical records. Lab Data Attestation: I reviewed the patient's lab results. Result diagrams: 01/13/21 10:29 01/13/21 10:29 Labs: Lab Results 01/13/21 01/13/21 01/13/21 Range/Units 10:29 10:29 10:29 WBC 7.0 (4.8-10.8) X10*3/uL RBC 4.34 (4.20-5.50) X10*6/uL Hgb 12.4 (12.0-16.0) g/dl Hct 38.1 (37-47) % MCV 87.8 (80-98) fL MCH 28.6 (27.0-33.0) pg MCHC 32.5 (31.0-35.0) g/dl RDW 14.3 (11.0-16.0) % Plt Count 243 (160-400) X10*3/uL MPV 11.1 (9.4-12.3) fL Immature Gran % (Auto) 0.4 (0.0-0.4) % Neut % (Auto) 54.3 (45-73) % Lymph % (Auto) 34.8 (20-40) % [place] % (Auto) 8.0 (2-11) % Eos % (Auto) 2.1 (0-4) % Baso % (Auto) 0.4 (0-2) % Lymph # (Auto) 2.4 (1.2-4.9) X10*3/uL [place] # (Auto) 0.6 (0.1-1.2) X10*3/uL Eos # (Auto) 0.2 (0.0-0.4) X10*3/uL Baso # (Auto) 0.0 (0.0-0.2) X10*3/uL Abs Immat Gran (auto) 0.03 (0.00-0.03) X10*3/uL Absolute Neuts (auto) 3.8 (2.0-8.3) X10*3/uL Absolute Nucleated RBC 0.000 (0.0-0.012) X10*3/uL Nucleated RBC % (auto) 0.0 (0.0-0.2) /100WBC Hold Purple Top SEE NOTE PT (10.8-13.0) SEC INR (0.9-1.1) D-Dimer NG/ML Sodium (135-145) mmol/L Potassium (3.3-5.1) mmol/L Chloride (96-108) mmol/L Carbon Dioxide (22-29) mmol/L Anion Gap (12-20) BUN (9-16) mg/dL Creatinine (0.5-1.4) mg/dL Estim Creat Clear Calc Estimated GFR Random Glucose (60-115) mg/dL Calcium (8.4-10.2) mg/dL Magnesium 1.9 (1.6-2.6) mg/dL Ferritin (10-250) ng/mL Total Bilirubin (0.0-1.0) mg/dL AST (5-31) U/L ALT (0-31) U/L Alkaline Phosphatase (39-117) U/L Lactate Dehydrogenase (122-220) U/L Troponin I High Sens (<3.5-17.0) ng/L C-Reactive Protein (< or = 0.50) mg/dL B-Natriuretic Peptide (<100) pg/mL Total Protein (6.5-8.0) g/dL Albumin (3.5-5.0) g/dL Procalcitonin ng/mL Beta HCG, Quant mIU/mL Urine Color Urine Appearance Urine pH (5.0-8.0) Ur Specific [place] (1.005-1.025) Urine Protein (NEG-TRACE) MG/DL Urine Glucose (UA) (NEG) MG/DL Urine Ketones (NEG) MG/DL Urine Blood (NEG) Urine Nitrite (NEG) Ur Leukocyte Esterase (NEG) 01/13/21 01/13/21 01/13/21 Range/Units 10:29 10:29 10:29 WBC (4.8-10.8) X10*3/uL RBC (4.20-5.50) X10*6/uL Hgb (12.0-16.0) g/dl Hct (37-47) % MCV (80-98) fL MCH (27.0-33.0) pg MCHC (31.0-35.0) g/dl RDW (11.0-16.0) % Plt Count (160-400) X10*3/uL MPV (9.4-12.3) fL Immature Gran % (Auto) (0.0-0.4) % Neut % (Auto) (45-73) % Lymph % (Auto) (20-40) % [place] % (Auto) (2-11) % Eos % (Auto) (0-4) % Baso % (Auto) (0-2) % Lymph # (Auto) (1.2-4.9) X10*3/uL [place] # (Auto) (0.1-1.2) X10*3/uL Eos # (Auto) (0.0-0.4) X10*3/uL Baso # (Auto) (0.0-0.2) X10*3/uL Abs Immat Gran (auto) (0.00-0.03) X10*3/uL Absolute Neuts (auto) (2.0-8.3) X10*3/uL Absolute Nucleated RBC (0.0-0.012) X10*3/uL Nucleated RBC % (auto) (0.0-0.2) /100WBC Hold Purple Top PT 12.6 (10.8-13.0) SEC INR 1.1 (0.9-1.1) D-Dimer 235 NG/ML Sodium 143 (135-145) mmol/L Potassium 4.2 (3.3-5.1) mmol/L Chloride 109 H (96-108) mmol/L Carbon Dioxide 27 (22-29) mmol/L Anion Gap 11 L (12-20) BUN 16 (9-16) mg/dL Creatinine 0.71 (0.5-1.4) mg/dL Estim Creat Clear Calc 119.4 Estimated GFR > 60 Random Glucose 151 H D (60-115) mg/dL Calcium 9.1 (8.4-10.2) mg/dL Magnesium (1.6-2.6) mg/dL Ferritin 25 (10-250) ng/mL Total Bilirubin 0.5 (0.0-1.0) mg/dL AST 15 (5-31) U/L ALT 28 (0-31) U/L Alkaline Phosphatase 93 (39-117) U/L Lactate Dehydrogenase 127 (122-220) U/L Troponin I High Sens < 3.5 (<3.5-17.0) ng/L C-Reactive Protein 0.61 H (< or = 0.50) mg/dL B-Natriuretic Peptide 44 (<100) pg/mL Total Protein 6.9 (6.5-8.0) g/dL Albumin 4.0 (3.5-5.0) g/dL Procalcitonin ng/mL Beta HCG, Quant < 2 mIU/mL Urine Color Urine Appearance Urine pH (5.0-8.0) Ur Specific [place] (1.005-1.025) Urine Protein (NEG-TRACE) MG/DL Urine Glucose (UA) (NEG) MG/DL Urine Ketones (NEG) MG/DL Urine Blood (NEG) Urine Nitrite (NEG) Ur Leukocyte Esterase (NEG) 01/13/21 01/13/21 Range/Units 10:29 12:27 WBC (4.8-10.8) X10*3/uL RBC (4.20-5.50) X10*6/uL Hgb (12.0-16.0) g/dl Hct (37-47) % MCV (80-98) fL MCH (27.0-33.0) pg MCHC (31.0-35.0) g/dl RDW (11.0-16.0) % Plt Count (160-400) X10*3/uL MPV (9.4-12.3) fL Immature Gran % (Auto) (0.0-0.4) % Neut % (Auto) (45-73) % Lymph % (Auto) (20-40) % [place] % (Auto) (2-11) % Eos % (Auto) (0-4) % Baso % (Auto) (0-2) % Lymph # (Auto) (1.2-4.9) X10*3/uL [place] # (Auto) (0.1-1.2) X10*3/uL Eos # (Auto) (0.0-0.4) X10*3/uL Baso # (Auto) (0.0-0.2) X10*3/uL Abs Immat Gran (auto) (0.00-0.03) X10*3/uL Absolute Neuts (auto) (2.0-8.3) X10*3/uL Absolute Nucleated RBC (0.0-0.012) X10*3/uL Nucleated RBC % (auto) (0.0-0.2) /100WBC Hold Purple Top PT (10.8-13.0) SEC INR (0.9-1.1) D-Dimer NG/ML Sodium (135-145) mmol/L Potassium (3.3-5.1) mmol/L Chloride (96-108) mmol/L Carbon Dioxide (22-29) mmol/L Anion Gap (12-20) BUN (9-16) mg/dL Creatinine (0.5-1.4) mg/dL Estim Creat Clear Calc Estimated GFR Random Glucose (60-115) mg/dL Calcium (8.4-10.2) mg/dL Magnesium (1.6-2.6) mg/dL Ferritin (10-250) ng/mL Total Bilirubin (0.0-1.0) mg/dL AST (5-31) U/L ALT (0-31) U/L Alkaline Phosphatase (39-117) U/L Lactate Dehydrogenase (122-220) U/L Troponin I High Sens (<3.5-17.0) ng/L C-Reactive Protein (< or = 0.50) mg/dL B-Natriuretic Peptide (<100) pg/mL Total Protein (6.5-8.0) g/dL Albumin (3.5-5.0) g/dL Procalcitonin < 0.02 ng/mL Beta HCG, Quant mIU/mL Urine Color YELLOW Urine Appearance CLEAR Urine pH 6.0 (5.0-8.0) Ur Specific [place] 1.025 (1.005-1.025) Urine Protein NEG (NEG-TRACE) MG/DL Urine Glucose (UA) NEG (NEG) MG/DL Urine Ketones NEG (NEG) MG/DL Urine Blood NEG (NEG) Urine Nitrite NEG (NEG) Ur Leukocyte Esterase NEG (NEG) Imaging Data Chest x-ray: Attestation: I personally reviewed and interpreted this imaging study as follows: Radiologist's impression: FINDINGS: Lungs are well-inflated and clear. Trachea is midline in position. No interstitial disease, consolidation or mass. No pulmonary edema, pleural effusion or pneumothorax. Cardiac silhouette and pulmonary vessels are normal in size. The mediastinum and lydia have normal contour. The visualized bones, and upper abdomen, are unremarkable. XR/XR chest 1V IMPRESSION: No acute cardiopulmonary abnormality. CT of chest for PE: Attestation: I personally reviewed and interpreted this imaging study as follows: Radiologist's impression: FINDINGS: QUALITY OF STUDY/CONTRAST BOLUS: Satisfactory. PULMONARY ARTERIES: No evidence of central or segmental pulmonary emboli. THORACIC AORTA: No aneurysm. LUNG: Small patchy opacity in the left lung base, probably atelectasis. No lobar consolidation. No suspicious nodules. PLEURA: No pleural effusion or pneumothorax. MEDIASTINUM: Normal heart size. No pericardial effusion. No hilar or mediastinal lymphadenopathy. No evidence of septal bowing or right heart strain. CHEST WALL/AXILLA: No axillary or internal mammary lymphadenopathy. OSSEOUS STRUCTURES: No acute or suspicious osseous abnormality. UPPER ABDOMEN: Unremarkable. No reflux of contrast into the hepatic veins to suggest elevated right heart pressures. CT/CT angio chest PE protocol IMPRESSION: 1. No evidence of filling defects to suggest central or segmental pulmonary emboli. 2. Mild left basilar atelectasis. No lobar consolidation. VTE: negative ECG Data Attestation: I personally reviewed and interpreted this ECG as follows: ECG interpretation date: 01/13/21 ECG interpretation time: 10:30 Interpretation: Normal sinus rhythm ventricular rate of 79 with normal MS interval normal QRS duration normal QT/QTC interval. No acute ischemic changes are noted. Similar when compared to prior EKG 10/07/2020 Critical Care Time Critical Care Time Critical Care Time: Yes Total Critical Care Time: 60 Attestation: I personally attest to this time spent taking care of the patient Discharge Plan Discharge Clinical Impression: COVID-19 [place] Patient Disposition: Home, Self-Care Instructions: COVID-19 (Coronavirus Disease 2019) (ED) Prescriptions: New cyclobenzaprine 10 mg tablet 10 mg PO Q8H Qty: 10 RF: 0 azithromycin 250 mg tablet See Rx Instructions .ROUTE .COMPLEX Qty: 6 RF: 0 codeine-guaifenesin [Guaifenesin AC] 10-100 mg/5 mL liquid 5 ml PO Q6H PRN (Reason: cold symptoms) Qty: 120 RF: 0 albuterol sulfate 90 mcg/actuation HFA aerosol inhaler 1 inh inhalation QID PRN (Reason: shortness of breath or wheezing) Qty: 8.5 RF: 0 dexamethasone [Decadron] 6 mg tablet 6 mg PO DAILY 10 Days Qty: 10 RF: 0 No Action Flovent HFA 110 mcg/actuation HFA aerosol inhaler 1 puff inhalation BID 30 Days Qty: 12 RF: 5 albuterol sulfate [ProAir HFA] 90 mcg/actuation HFA aerosol inhaler 2 puff inhalation Q6H PRN (Reason: shortness of breath or wheezing) 30 Days Qty: 8.5 RF: 5 ondansetron HCl 4 mg tablet 4 mg PO Q8H PRN (Reason: nausea and vomiting) 5 Days Qty: 15 RF: 1 acetaminophen 500 mg tablet 500 mg PO Q6H PRN (Reason: fever or pain) 10 Days Qty: 40 RF: 1 albuterol sulfate 2.5 mg /3 mL (0.083 %) solution for nebulization 2.5 mg continuous nebulization .3 to 4 times daily PRN (Reason: shortness of breath or wheezing) 30 Days Qty: 180 RF: 3 miscellaneous medical supply Misc 1 ea miscellaneous .4 times a day PRN (Reason: shortness of breath or wheezing) 360 Days Qty: 1 RF: 0 ibuprofen 600 mg tablet 600 mg PO Q6H PRN (Reason: pain) Qty: 20 RF: 0 metformin 500 mg tablet 500 mg PO DAILY RF: 0 aspirin 81 mg tablet,chewable 81 mg PO DAILY RF: 0 dexamethasone [Decadron] 4 mg tablet 4 mg PO DAILY MDD TID*3days;BID*3days;1tab*3days Qty: 18 RF: 0 levofloxacin 750 mg tablet 750 mg PO DAILY 5 Days Qty: 5 RF: 0 Referrals: Edward Lima MD [Primary Care Provider] - 2 days Stand Alone Forms: Work/School Release Print Language: Azerbaijani
[2021-01-13 10:37] LABS: MANUAL DIFF FLAG NO
[2021-01-13 10:39] LABS: Basophils Percent Auto 0.4 % (0-2); Eosinophils Absolute Auto 0.2 X10*3/uL (0.0-0.4); Eosinophils Percent Auto 2.1 % (0-4); Hematocrit 38.1 % (37-47); Hemoglobin 12.4 g/dl (12.0-16.0); Imm Gran Abs Auto 0.03 X10*3/uL (0.00-0.03); Imm Gran Pct Auto 0.4 % (0.0-0.4); Lymphocytes Absolute Auto 2.4 X10*3/uL (1.2-4.9); Lymphocytes Percent Auto 34.8 % (20-40); Mean Corpuscular HGB Conc 32.5 g/dl (31.0-35.0); Mean Corpuscular Hemoglobin 28.6 pg (27.0-33.0); Mean Corpuscular Volume 87.8 fL (80-98); Mean Platelet Volume 11.1 fL (9.4-12.3); Monocytes Absolute Auto 0.6 X10*3/uL (0.1-1.2); Neutrophils Absolute Auto 3.8 X10*3/uL (2.0-8.3); Neutrophils Percent Auto 54.3 % (45-73); Platelet Count 243 X10*3/uL (160-400); Red Blood Count 4.34 X10*6/uL (4.20-5.50); Red Cell Distribution Width 14.3 % (11.0-16.0)
[2021-01-13 10:45] LABS: INTERNATIONAL NORM RATIO 1.1 (0.9-1.1); Prothrombin Time 12.6 SEC (10.8-13.0)
[2021-01-13 10:48] LABS: D Dimer 235 NG/ML
[2021-01-13 11:08] LABS: Magnesium 1.9 mg/dL (1.6-2.6)
[2021-01-13 11:10] LABS: Alanine Aminotransferase 28 U/L (0-31); Alkaline Phosphatase 93 U/L (39-117); Anion Gap 11 (12-20); Aspartate Amino Transferase 15 U/L (5-31); Bilirubin Total 0.5 mg/dL (0.0-1.0); Blood Urea Nitrogen 16 mg/dL (9-16); C Reactive Protein 0.61 mg/dL (< or = 0.50); Calcium 9.1 mg/dL (8.4-10.2); Carbon Dioxide 27 mmol/L (22-29); Chloride 109 mmol/L (96-108); Creatinine Clr Calc Pharmacy 119.4; Estimated Glomerular Filt Rate > 60; Glucose Random 151 mg/dL (60-115); Lactate Dehydrogenase 127 U/L (122-220); Potassium 4.2 mmol/L (3.3-5.1); Sodium 143 mmol/L (135-145); Total Protein 6.9 g/dL (6.5-8.0)
[2021-01-13 11:16] LABS: B Type Natriuretic Peptide 44 pg/mL (<100); Troponin-I High Sensitivity < 3.5 ng/L (<3.5-17.0)
[2021-01-13 11:19] LABS: HCG Quantitative < 2 mIU/mL
[2021-01-13 11:28] LABS: Procalcitonin < 0.02 ng/mL
[2021-01-13 11:31] LABS: Ferritin 25 ng/mL (10-250)
[2021-01-13 11:40] VITALS: BP 102/68; PULSE 74; RESP 18; O2SAT 98
[2021-01-13 12:34] LABS: Appearance Urine CLEAR; Color Urine YELLOW; Glucose Urine UA NEG (NEG); Leukocyte Esterase Urine NEG (NEG); Nitrite Urine NEG (NEG); Specific Gravity - Urine 1.025 (1.005-1.025); Urine Blood NEG (NEG); Urine Ketones NEG (NEG); Urine Protein NEG (NEG-TRACE)
[2021-01-13] MEDS: iohexoL 350 MG/ML 100 ML INFUS..BTL IV (13:46)
[2021-01-13] MEDS: Butalb/Acetamin/Caff 50/325/40 TABLET 2 TAB PO (14:54)
[2021-01-13 14:57] VITALS: BP 108/67; PULSE 77; RESP 17; O2SAT 99
== END 2021-01-13 14:58 | disposition home or self-care (01) ==
PROVIDERS: Physician Assistant Medical; Emergency Provider Emergency Medicine; PCP Internal Medicine
DX: U07.1 COVID-19 (principal); R07.89 Other chest pain; J98.11 Atelectasis; E11.9 Type 2 diabetes mellitus without complications; J45.909 Unspecified asthma, uncomplicated
CPT/HCPCS: 36415; 71045; 71275; 80053; 81003; 82728; 83615; 83735; 83880; 84145; 84484; 84702; 85025; 85379; 85610; 86140; 93005; 99284; 99291; Q9967

== ENCOUNTER → 2021-03-16 07:49 | Outpatient (BNVA) | payer OTHER, SELFPAY | PROVIDERS: PCP Internal Medicine; Visit Provider Surgery ==

== ENCOUNTER 2021-03-21 07:23 | Outpatient (REF) | payer OTHER, SELFPAY ==
[2021-03-21 08:26] LABS: MANUAL DIFF FLAG NO
[2021-03-21 08:37] LABS: Basophils Percent Auto 0.7 % (0-2); Eosinophils Absolute Auto 0.1 X10*3/uL (0.0-0.4); Hematocrit 38.3 % (37-47); Hemoglobin 12.2 g/dl (12.0-16.0); Imm Gran Abs Auto 0.02 X10*3/uL (0.00-0.03); Imm Gran Pct Auto 0.3 % (0.0-0.4); Lymphocytes Absolute Auto 1.8 X10*3/uL (1.2-4.9); Lymphocytes Percent Auto 29.9 % (20-40); Mean Corpuscular HGB Conc 31.9 g/dl (31.0-35.0); Mean Corpuscular Hemoglobin 28.4 pg (27.0-33.0); Mean Corpuscular Volume 89.3 fL (80-98); Mean Platelet Volume 11.8 fL (9.4-12.3); Monocytes Absolute Auto 0.5 X10*3/uL (0.1-1.2); Monocytes Percent Auto 7.7 % (2-11); Neutrophils Absolute Auto 3.6 X10*3/uL (2.0-8.3); Neutrophils Percent Auto 59.4 % (45-73); Platelet Count 249 X10*3/uL (160-400); Red Blood Count 4.29 X10*6/uL (4.20-5.50); Red Cell Distribution Width 14.1 % (11.0-16.0); White Blood Count 6.1 X10*3/uL (4.8-10.8)
[2021-03-21 09:00] LABS: Estimated Average Glucose 114 mg/dL; Hemoglobin A1c % 5.6 %
[2021-03-21 09:19] LABS: Erythrocyte Sedimentation Rate 7 MM/HR (0-20)
[2021-03-21 09:23] LABS: Alanine Aminotransferase 20 U/L (0-31); Alkaline Phosphatase 81 U/L (39-117); Anion Gap 13 (12-20); Aspartate Amino Transferase 19 U/L (5-31); Bilirubin Total 0.4 mg/dL (0.0-1.0); Blood Urea Nitrogen 12 mg/dL (9-16); C Reactive Protein 0.65 mg/dL (< or = 0.50); Calcium 9.2 mg/dL (8.4-10.2); Carbon Dioxide 25 mmol/L (22-29); Chloride 107 mmol/L (96-108); Cholesterol 152 mg/dL; Estimated Glomerular Filt Rate > 60; Ferritin 15 ng/mL (10-250); Glucose Random 105 mg/dL (60-115); HDL Cholesterol 43 mg/dL; Iron 68 mcg/dL (30-160); LDL Cholesterol Calculated 98 mg/dl; Percent Iron Saturation 17 % (15-50); Potassium 4.6 mmol/L (3.3-5.1); Sodium 140 mmol/L (135-145); TSH reflex Free T4 1.36 uIU/mL (0.32-4.0); Total Iron Binding Capacity 396 mcg/dL (228-428); Total Protein 6.8 g/dL (6.5-8.0); Triglycerides 58 mg/dL; Unsaturated Iron Binding 328 ug/dL; Vitamin D 25-OH Total 20.8 ng/mL (>30)
[2021-03-21 09:24] LABS: TSH reflex Free T4 1.45 uIU/mL (0.32-4.0)
[2021-03-21 09:32] LABS: Vitamin B12 359 pg/mL (200-900)
[2021-03-22 14:31] LABS: H Pylori Breath Test NOT DETECTED (NOT DETECTED)
[2021-03-22 14:56] LABS: Calcium (PTHI) 9.2 mg/dL (8.6-10.2); PTHI 54 pg/mL (14-64)
[2021-03-22 23:26] LABS: Insulin Level Total 7.5 uIU/mL
[2021-03-24 16:56] LABS: Zinc 70 mcg/dL (60-130)
[2021-03-26 03:31] LABS: Vitamin A 35 mcg/dL (38-98)
[2021-03-28 13:16] LABS: Vitamin B1 9 nmol/L (8-30)
== END 2021-03-21 07:24 | disposition home or self-care (01) ==
LOC: HO.LAB 07:23
PROVIDERS: Student in an Organized Health Care Education/Training Program; PCP Internal Medicine; Visit Provider Surgery
DX: M05.9 Rheumatoid arthritis with rheumatoid factor, unspecified (principal); R53.83 Other fatigue; E66.9 Obesity, unspecified; J45.909 Unspecified asthma, uncomplicated
CPT/HCPCS: 36415; 80053; 80061; 82306; 82607; 82728; 82746; 83013; 83036; 83525; 83540; 83970; 84425; 84443; 84590; 84630; 85025; 85652; 86140; 99211

== ENCOUNTER 2021-04-17 08:11 | Outpatient (REF) | payer OTHER, SELFPAY ==
--- NOTE | ~2021-04-17 | FL_ITS ---
EXAMINATION: XR GI SERIES CLINICAL INFORMATION: Obesity. COMPARISON: None. TECHNIQUE: Air contrast upper GI examination. FINDINGS: There is normal elevation of the soft palate while saying candy. There is normal apposition of the focal cords while saying E. Patient drank thin and thick barium without aspiration or nasopharyngeal reflux. There was normal esophageal motility without mucosal abnormality. The stomach appears unremarkable without evidence of abnormal mass lesion, ulceration, or nondistensibility. There was no delay in gastric emptying. The duodenal bulb and sweep appeared unremarkable. FLUOROSCOPY TIME: 2.1 minutes. DOSE AREA PRODUCT: 19.671 Gy-cm2 (vega-centimeter squared). FL/FL upper GI series IMPRESSION: Normal air contrast upper GI examination.
--- NOTE | ~2021-04-17 | US_ITS ---
EXAMINATION: US COMPLETE ABDOMEN WITH LIVER ELASTOGRAPHY CLINICAL INFORMATION: This is a 40-year-old female with a diagnosis of obesity, unspecified. COMPARISON: None. TECHNIQUE: Real-time imaging of the abdominal viscera. Noninvasive ultrasound liver fibrosis assessment is performed using Davi ElastPQ point quantification shear wave elastography (pSWE) with a C5-2 MHz transducer. Multiple elastography samples are obtained. FINDINGS: PANCREAS: Normal. The visualized pancreatic head and body are normal in appearance. The remainder of the pancreas is obscured from visualization by the overlying bowel gas. ABDOMINAL AORTA: The proximal, middle, and distal aortic segments are normal in caliber. INFERIOR VENA CAVA: Visualized portions are normal. LIVER: Normal. The liver demonstrates normal size, contour and echogenicity. No focal lesion or intrahepatic biliary duct dilatation. The right lobe measures 21.1 cm in length. The left lobe measures 12.2 cm in length. Portal flow is hepatopedal Shear wave liver elastography median stiffness is 1.50 m/s (reference: normal median stiffness is 1.3 m/s or less). IQR/median stiffness to assess sampling precision is 0.62 (reference: good quality data set is IQR/median stiffness of 0.15 or less). GALLBLADDER: Normal. The gallbladder is physiologically distended without evidence of stones, sludge, polyps, wall thickening or pericholecystic fluid. COMMON BILE DUCT: Normal in caliber measuring 0.3 cm in diameter. RIGHT KIDNEY: Normal. No hydronephrosis. No renal calculi or focal parenchymal lesions. The kidney 11.3 cm in maximum dimension. LEFT KIDNEY: Normal. No hydronephrosis. No renal calculi or focal parenchymal lesions. The kidney measures 11.6 cm in maximum dimension. SPLEEN: Normal. The spleen 9.7 cm in maximum dimension. FREE FLUID: None. US/US abdomen comp w elastography IMPRESSION: 1. The liver appears enlarged with primary hepatocellular disease. 2. Liver elastography: Although measurements appear to rule out compensated advanced chronic liver disease, there is statistical variability of the sampling which decreases accuracy. REFERENCE: Society of Radiologists in Ultrasound Liver Stiffness Thresholds (2019): LIVER STIFFNESS THRESHOLDS: *Liver Stiffness equal or less than 1.3 m/s: High probability of being normal. *Liver Stiffness less than 1.7 m/s: In the absence of other known clinical signs, rules out compensated advanced chronic liver disease. *Liver Stiffness 1.7-2.1 m/s: Suggestive of compensated advanced chronic liver disease but need further test for confirmation. *Liver Stiffness over 2.1 m/s: Rules in compensated advanced chronic liver disease. *Liver Stiffness over 2.4 m/s: Suggestive of clinically significant portal hypertension. QUALITY OF DATA SET: *IQR/Median value equal or less than 0.15 implies a quality data set. *IQR/Median value over 0.15 implies a poor quality data set. SIGNIFICANT CHANGE FROM PRIOR EXAM: Significant change if liver stiffness measurement is 10% or greater from prior exam. OTHER CONSIDERATIONS: The stage of liver fibrosis may be overestimated in the setting of acute hepatitis, liver inflammation, elevated liver function tests, hepatic vascular congestion, obstructive cholestasis, non-fasting state, and infiltrative diseases such as amyloidosis and lymphoma. In some patients with NAFLD, the liver stiffness thresholds for compensated advanced chronic liver disease may be lower. In causes other than viral hepatitis and NAFLD, liver stiffness thresholds are not well established.
== END 2021-04-17 08:12 | disposition home or self-care (01) ==
LOC: HO.US 08:11
PROVIDERS: Visit Provider Surgery
DX: Z01.818 Encounter for other preprocedural examination (principal); E66.01 Morbid (severe) obesity due to excess calories; J45.909 Unspecified asthma, uncomplicated; K21.9 Gastro-esophageal reflux disease without esophagitis; E11.9 Type 2 diabetes mellitus without complications
CPT/HCPCS: 74240; 76705; 76981

== ENCOUNTER 2021-04-26 14:06 | Outpatient (REF) | payer OTHER, SELFPAY | END 2021-04-26 14:07 | disposition home or self-care (01) | LOC: HO.LNP 14:06 | PROVIDERS: Visit Provider Hospitalist | DX: Z20.822 Contact with and (suspected) exposure to COVID-19 (principal); B34.9 Viral infection, unspecified | CPT/HCPCS: U0003; U0005 ==

== ENCOUNTER → 2021-04-30 07:19 | Outpatient (BNVA) | payer OTHER, SELFPAY | PROVIDERS: PCP Internal Medicine; Visit Provider Surgery ==

== ENCOUNTER 2021-05-01 12:55 | Outpatient (REF) | payer OTHER, SELFPAY ==
--- NOTE | ~2021-05-01 | US_ITS ---
EXAMINATION: US THYROID CLINICAL INFORMATION: Localized swelling, mass and lump, neck. COMPARISON: X-ray soft tissue neck dated 07/04/2020. Ultrasound soft tissue head/neck thyroid dated 03/01/2020. TECHNIQUE: Linear transducer grayscale and color Doppler examination with attention to the region of the thyroid. FINDINGS: SIZE: Measurements of the thyroid lobes and nodules are given in sagittal, anteroposterior and transverse dimensions respectively. Right Thyroid Lobe: 5.1 x 1.3 x 1.5 cm, volume 5.2 mL. Previously 4.8 x 1.4 x 1.5 cm, volume 5.3 mL. Parenchyma: The gland echotexture is homogeneous. Thyroid vascularity is normal. Left Thyroid Lobe: 4.9 x 1.1 x 1.6 cm, volume 4.5 mL. Previously 4.1 x 1.2 x 1.6 cm, volume 4.1 mL. Parenchyma: The gland echotexture is homogeneous. Thyroid vascularity is normal. Isthmus: 0.2 cm in maximum AP dimension. Previously 0.2 cm. No focal thyroid nodule is seen. NODES: There are prominent bilateral level 2 cervical lymph nodes on the right measuring 2.7 x 0.6 x 1.4 cm and on the left measuring 2.1 x 0.8 x 1.8 cm. These demonstrate normal ultrasound morphology and flow. US/US thyroid IMPRESSION: Normal-appearing thyroid gland. Prominent bilateral cervical lymph nodes.
== END 2021-05-01 12:56 | disposition home or self-care (01) ==
LOC: HO.HMGCX 12:55
PROVIDERS: PCP Internal Medicine; Visit Provider Hospitalist
DX: R22.1 Localized swelling, mass and lump, neck (principal)
CPT/HCPCS: 76536

== ENCOUNTER 2021-05-10 10:47 | Outpatient (REF) | payer OTHER, SELFPAY ==
--- NOTE | ~2021-05-10 | XR_ITS ---
EXAMINATION: XR LUMBOSACRAL SPINE CLINICAL INFORMATION: Low back pain COMPARISON: Lumbar spine radiographs on 04/01/2019 TECHNIQUE: Three views of the lumbosacral spine. FINDINGS: The vertebral bodies and posterior elements are normal. The disc spaces are preserved and the vertebral alignment is normal. The paraspinal soft tissues are normal. XR/XR lumbar spine 2-3V IMPRESSION: Unremarkable examination.
== END 2021-05-10 10:48 | disposition home or self-care (01) ==
LOC: HO.XRAY 10:47
PROVIDERS: PCP Internal Medicine; Visit Provider Nurse Practitioner Family
DX: M54.5 Low back pain (principal)
CPT/HCPCS: 72100

== ENCOUNTER → 2021-05-15 14:51 | Outpatient (BNVA) | payer OTHER, SELFPAY | PROVIDERS: PCP Internal Medicine; Referring Provider Internal Medicine; Visit Provider Dietitian, Registered | DX: E66.01 Morbid (severe) obesity due to excess calories (principal); E11.9 Type 2 diabetes mellitus without complications; R53.83 Other fatigue; Z68.33 Body mass index [BMI] 33.0-33.9, adult; Z88.1 Allergy status to other antibiotic agents | CPT/HCPCS: 97802 ==

== ENCOUNTER → 2021-06-01 08:13 | Outpatient (BNVA) | payer OTHER, SELFPAY | PROVIDERS: PCP Internal Medicine; Visit Provider Surgery ==

== ENCOUNTER → 2021-06-08 07:05 | Outpatient (BNVA) | payer OTHER, SELFPAY | PROVIDERS: PCP Internal Medicine; Visit Provider Surgery ==

== ENCOUNTER 2021-06-14 16:00 | Outpatient (RCR) | payer OTHER, SELFPAY ==
--- NOTE | 2021-06-12 18:54 | MHC.PT.EP ---
[facility] [place] Office [place] Office [place] Office [address] Nicholas Herrera [address] [phone] F: [phone] F: [phone] F: [phone] F: [phone] Physical Therapy Plan of Care Date of Evaluation: Date of Surgery: n/a Diagnosis: LBP Assessment: Pt is a 41/yo F referred to PT for eval and treat of LBP. Signs and symptoms are consistent with lumbar dysfunction resulting in decreased tolerance for WB activities like standing and walking, difficulty with sitting for duration, disrupted sleep, and decreased tolerance physically tasking activities at her work. Functional limitations are secondary to limited lumbar and hip ROM, decreased L IR strength, TTP of R QL and L2-3 to 5, antalgic gait, hx of insult to LBP, as well as pain w/ radicular symptoms in B LE. Pt is deemed appropriate to receive skilled PT to address her physical impairment and improve her functional ability. 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 Manual therapy to restore motion and function. Therapeutic exercise to improve strength and flexibility. Neuromuscular re-education for posture and balance. Therapeutic activities to return to functional activities of daily living. Electronically signed by: Mickey Hicks PT Please sign and return to therapist. Thank you for your referral.
--- NOTE | 2021-09-17 09:09 | MHC.PT.DC ---
[facility] [place] Office [place] Office [place] Office [address] Herrera [address] [phone] F: [phone] F: [phone] F: [phone] F: [phone] Physical Therapy Discharge Report Diagnosis: LBP Date of Surgery: n/a Date of Evaluation: 06/12/21 Date of Discharge: 09/17/21 Treatments to Date: 2 Cancellations to Date: 2 No Shows to Date: 2 Discharge Status: Visit Non-compliance Discharge Summary: 06/13: pt responds well to extension based exercise - pt challenged with abdominal and Hip strengthening exercise. pt responded with appropriate fatigue and centralized symptoms. trial STS and TM walk for next visit - cont progressing pt's POC according to pt response. Pt is a 41/yo F referred to PT for eval and treat of LBP. Signs and symptoms are consistent with lumbar dysfunction resulting in decreased tolerance for WB activities like standing and walking, difficulty with sitting for duration, disrupted sleep, and decreased tolerance physically tasking activities at her work. Functional limitations are secondary to limited lumbar and hip ROM, decreased L IR strength, TTP of R QL and L2-3 to 5, antalgic gait, hx of insult to LBP, as well as pain w/ radicular symptoms in B LE. Pt is deemed appropriate to receive skilled PT to address her physical impairment and improve her functional ability. Electronically signed by: Mickey Hicks PT. Please sign and return to therapist. Thank you for your referral.
== END 2021-09-17 09:10 | disposition home or self-care (01) ==
LOC: HO.PTCHIC 16:00
PROVIDERS: PCP Internal Medicine; Visit Provider Internal Medicine
DX: M54.50 Low back pain, unspecified (principal)
CPT/HCPCS: 97110; 97161

== ENCOUNTER 2021-06-19 12:36 | Outpatient (REF) | payer OTHER, SELFPAY ==
[2021-06-19 13:03] LABS: MANUAL DIFF FLAG NO
[2021-06-19 13:31] LABS: Basophils Percent Auto 0.5 % (0-2); Eosinophils Absolute Auto 0.3 X10*3/uL (0.0-0.4); Eosinophils Percent Auto 4.4 % (0-4); Hematocrit 39.5 % (37-47); Hemoglobin 12.8 g/dl (12.0-16.0); Imm Gran Abs Auto 0.02 X10*3/uL (0.00-0.03); Imm Gran Pct Auto 0.3 % (0.0-0.4); Lymphocytes Absolute Auto 2.6 X10*3/uL (1.2-4.9); Lymphocytes Percent Auto 34.5 % (20-40); Mean Corpuscular HGB Conc 32.4 g/dl (31.0-35.0); Mean Corpuscular Hemoglobin 28.1 pg (27.0-33.0); Mean Corpuscular Volume 86.8 fL (80-98); Mean Platelet Volume 11.5 fL (9.4-12.3); Monocytes Absolute Auto 0.6 X10*3/uL (0.1-1.2); Monocytes Percent Auto 7.5 % (2-11); Neutrophils Percent Auto 52.8 % (45-73); Platelet Count 278 X10*3/uL (160-400); Red Blood Count 4.55 X10*6/uL (4.20-5.50); Red Cell Distribution Width 14.1 % (11.0-16.0); White Blood Count 7.5 X10*3/uL (4.8-10.8)
[2021-06-19 13:59] LABS: Alanine Aminotransferase 24 U/L (0-31); Albumin Level 4.3 g/dL (3.5-5.0); Alkaline Phosphatase 81 U/L (39-117); Anion Gap 11 (12-20); Aspartate Amino Transferase 20 U/L (5-31); Bilirubin Total 0.3 mg/dL (0.0-1.0); Blood Urea Nitrogen 14 mg/dL (9-16); C Reactive Protein 0.63 mg/dL (< or = 0.50); Calcium 9.6 mg/dL (8.4-10.2); Carbon Dioxide 28 mmol/L (22-29); Chloride 104 mmol/L (96-108); Estimated Glomerular Filt Rate > 60; Glucose Random 85 mg/dL (60-115); Potassium 4.6 mmol/L (3.3-5.1); Sodium 138 mmol/L (135-145); Total Protein 7.4 g/dL (6.5-8.0)
[2021-06-19 14:36] LABS: Erythrocyte Sedimentation Rate 10 MM/HR (0-20)
== END 2021-06-19 12:37 | disposition home or self-care (01) ==
LOC: HO.LAB 12:36
PROVIDERS: PCP Internal Medicine; Visit Provider Nurse Practitioner Family
DX: R10.9 Unspecified abdominal pain (principal); M05.9 Rheumatoid arthritis with rheumatoid factor, unspecified
CPT/HCPCS: 36415; 80053; 85025; 85652; 86140; 99212

== ENCOUNTER 2021-06-19 14:19 | Emergency (ER) | payer OTHER, SELFPAY ==
--- NOTE | ~2021-06-19 | CT_ITS ---
EXAMINATION: CT ABDOMEN AND PELVIS WITH CONTRAST CLINICAL INFORMATION: Right lower quadrant pain COMPARISON: None TECHNIQUE: Multidetector volumetric images were obtained from the superior aspect of the liver through the pubic symphysis following administration 85 mL of Omnipaque 350 intravenous contrast. Sagittal and coronal reformatted images were obtained on the technologist's workstation. Oral contrast: Yes This CT examination was performed using dose optimization techniques as appropriate, variously including the following: *Automated exposure control *Adjustment of mA and/or kV according to patient size (this includes techniques or standardized protocols for targeted exams where dose is matched to indication/reason for exam; i.e. extremities or head) *Use of iterative reconstruction technique DLP: 572 mGy-cm FINDINGS: LUNG BASES: The visualized lung bases are unremarkable. LIVER, GALLBLADDER, AND BILIARY TREE: The liver is normal in size, shape, and attenuation. No focal hepatic lesion or biliary ductal dilatation is present. The gallbladder is unremarkable with no evidence of radiopaque gallstones, gallbladder wall thickening, or obvious pericholecystic inflammatory changes. PANCREAS: Unremarkable. SPLEEN: Unremarkable. ADRENAL GLANDS: Unremarkable. KIDNEYS AND URETERS: The kidneys are lobulated in shape. The kidneys are otherwise normal. No renal stone or hydronephrosis is seen. No evidence of pyelonephritis is seen. BLADDER: Unremarkable. GASTROINTESTINAL TRACT: The small and large bowel are unremarkable. The appendix is unremarkable. ABDOMINAL WALL: No significant hernia is appreciated. LYMPH NODES: Normal. VASCULAR: Unremarkable. PELVIC VISCERA: Unremarkable. OSSEOUS STRUCTURES: Unremarkable. CT/CT abdomen pelvis w con IMPRESSION: Unremarkable exam. No renal stone, hydronephrosis or evidence of pyelonephritis. Normal-appearing appendix.
[2021-06-19 14:38] VITALS: BP 139/77; PULSE 75; RESP 18; TEMP 36.9; O2SAT 100; BMI 33.9
[2021-06-19 15:01] LABS: MANUAL DIFF FLAG NO
[2021-06-19 15:06] LABS: Appearance Urine CLEAR; Color Urine YELLOW; Glucose Urine UA NEG (NEG); Leukocyte Esterase Urine NEG (NEG); Nitrite Urine NEG (NEG); Urine Blood NEG (NEG); Urine Ketones NEG (NEG); Urine Protein NEG (NEG-TRACE)
[2021-06-19 15:07] LABS: Basophils Percent Auto 0.5 % (0-2); Eosinophils Absolute Auto 0.3 X10*3/uL (0.0-0.4); Eosinophils Percent Auto 3.8 % (0-4); Hematocrit 38.6 % (37-47); Hemoglobin 12.5 g/dl (12.0-16.0); Imm Gran Abs Auto 0.03 X10*3/uL (0.00-0.03); Imm Gran Pct Auto 0.4 % (0.0-0.4); Lymphocytes Absolute Auto 3.1 X10*3/uL (1.2-4.9); Mean Corpuscular HGB Conc 32.4 g/dl (31.0-35.0); Mean Corpuscular Volume 86.5 fL (80-98); Monocytes Absolute Auto 0.6 X10*3/uL (0.1-1.2); Monocytes Percent Auto 6.5 % (2-11); Neutrophils Absolute Auto 4.5 X10*3/uL (2.0-8.3); Neutrophils Percent Auto 52.8 % (45-73); Platelet Count 279 X10*3/uL (160-400); Red Blood Count 4.46 X10*6/uL (4.20-5.50); White Blood Count 8.5 X10*3/uL (4.8-10.8)
[2021-06-19 15:19] LABS: Alanine Aminotransferase 24 U/L (0-31); Albumin Level 4.3 g/dL (3.5-5.0); Alkaline Phosphatase 81 U/L (39-117); Anion Gap 13 (12-20); Aspartate Amino Transferase 20 U/L (5-31); Bilirubin Total 0.4 mg/dL (0.0-1.0); Blood Urea Nitrogen 12 mg/dL (9-16); Calcium 9.3 mg/dL (8.4-10.2); Carbon Dioxide 24 mmol/L (22-29); Chloride 103 mmol/L (96-108); Creatinine Clr Calc Pharmacy 124.8; Estimated Glomerular Filt Rate > 60; Glucose Random 84 mg/dL (60-115); Potassium 4.3 mmol/L (3.3-5.1); Sodium 136 mmol/L (135-145); Total Protein 7.5 g/dL (6.5-8.0)
--- NOTE | 2021-06-19 19:58 | ED.ABDPAIN ---
HPI - Abdominal Pain General Chief Complaint: Abdominal Pain Stated Complaint: rt side abd pain Time Seen by Provider: 06/19/21 19:34 Source: patient Mode of arrival: ambulatory History of Present Illness HPI narrative: 41-year-old female with a past medical history of asthma, depression, diabetes, fibromyalgia, frequent headaches, obesity, rheumatoid arthritis, presenting to the ED complaining intermittent headache, right flank, and RLQ abdominal pain radiating to right side x2 weeks. Admits symptoms wax and wane. Denies fever, chills, nausea, vomiting, diarrhea/constipation, dysuria/hematuria, vaginal bleeding/discharge MD elicited complaint: abdominal pain and flank pain Related Data Home Medications Medication Instructions Recorded Confirmed aspirin 81 mg chewable tablet 81 mg PO DAILY 06/08/20 06/19/21 etanercept 50 mg/mL (1 mL) 50 mg SUBCUT QWEEK 05/10/21 06/19/21 subcutaneous pen injector (Enbrel SureClick) Previous Rx's Medication Instructions Recorded albuterol sulfate 90 mcg/actuation 2 puff INHALATION Q6H PRN 30 Days 10/07/20 aerosol inhaler (ProAir HFA) #8.5 g acetaminophen 500 mg tablet 500 mg PO Q6H PRN 10 Days #40 tab 12/22/20 albuterol sulfate 2.5 mg CONTINUOUS NEBULIZATION .3 01/04/21 to 4 times daily PRN 30 Days #180 ml miscellaneous medical supply 1 ea MISCELLANEOUS .4 times a day 01/04/21 PRN 360 Days #1 ea albuterol sulfate 90 mcg/actuation 1 inh INHALATION QID PRN #8.5 g 01/13/21 aerosol inhaler mecobalamin (vitamin B12) 1,000 1,000 mcg SUBLINGUAL DAILY #30 tab 03/23/21 mcg disintegrating tablet,sublingual cholecalciferol (vitamin D3) 125 125 mcg PO DAILY 90 Days #90 cap 05/02/21 mcg (5,000 unit) capsule fluticasone propionate 110 2 puff INHALATION BID 30 Days #12 g 05/02/21 mcg/actuation HFA aerosol inhaler (Flovent HFA) metformin 500 mg tablet 500 mg PO DAILY 90 Days #90 tab 05/02/21 montelukast 10 mg tablet 10 mg PO BEDTIME 90 Days #90 tab 05/02/21 cyclobenzaprine 10 mg tablet 10 mg PO BEDTIME #10 tab 05/09/21 meloxicam 15 mg tablet 15 mg PO DAILY #14 tab 05/09/21 aluminum-mag hydroxide-simethicone 5 ml PO 5XD PRN #30 ml 06/19/21 200 mg-200 mg-20 mg/5 mL oral susp (Maalox Advanced) famotidine 20 mg tablet (Pepcid) 20 mg PO DAILY #10 tab 06/19/21 Allergies Allergy/AdvReac Type Severity Reaction Status Date / Time doxycycline Allergy Unknown itch and Verified 06/19/21 14:38 rash Review of Systems Review of Systems Constitutional: No Fever, No Chills, No Fatigue, No Malaise ENT/Mouth: No Ear Pain, No Nasal Congestion, No Hoarseness, No sore throat Eyes: No Eye Pain, No Swelling, No Redness,No Vision Changes Cardiovascular: No Chest Pain, No SOB, No Orthopnea, No Palpitations Respiratory: No Cough, No Dyspnea Gastrointestinal: No Nausea, No Vomiting, No Diarrhea, No Constipation, + Abdominal pain Genitourinary: No irregular bleeding, No Dysuria, No Urinary Frequency, No Hematuria, + Flank Pain, No Urinary Flow Changes Musculoskeletal: No joint pain, No Myalgias, No Joint Swelling Skin: No Skin Lesions, No rash Neuro: No Weakness, No Loss of Consciousness, No Dizziness, + Headache Yes all other systems are reviewed and are negative Physical Exam Vital Signs: Vital Signs: Last Vital Signs Temp 98.4 F 06/19/21 14:38 Pulse 60 06/19/21 21:15 Resp 16 06/19/21 21:15 BP 114/71 06/19/21 21:15 Pulse Ox 100 06/19/21 21:15 Body Mass Index 33.9 Const: General: cooperative, healthy appearing, no acute distress and well developed Orientation/consciousness: patient oriented x3 Limitations: no limitations HENMT: Head: Yes normal to inspection and Yes atraumatic Ears: hearing grossly normal bilaterally General nose exam: Normal external nose present Face and sinus: Yes normal facial exam Eyes: General: appearance normal, both eyes and all related structures EOM: EOMs intact bilaterally Neck: Neck: Yes normal visual inspection and Yes no meningeal signs Resp: Effort & Inspection: normal respiratory effort Auscultation: lung sounds not diminished Cardio: Rate: regular rate Heart sounds: S1 normal heart sound present and S2 normal heart sound present GI: Inspection: Yes normal to inspection Palpation (GI): Soft to palpation, Tenderness to palpation present (GI) in the RLQ, no guarding and not rigid : General: Yes CVA tenderness on the right Back/Spine/Pelvis: Back: CVA tenderness Skin: Rashes: no rashes Wounds: no wounds Neuro: General: patient oriented x3 and no meningeal signs Gait exam (Neuro): Normal gait present Extrem: General: Yes normal to inspection Course Course Course Narrative: -2213--no leukocytosis, labs otherwise unremarkable. UA negative. CT abdomen pelvis w con IMPRESSION: Unremarkable exam. No renal stone, hydronephrosis or evidence of pyelonephritis. Normal-appearing appendix. 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 Patient verbalized understanding feel safe for discharge home MDM - Abdominal Pain MDM Narrative Medical decision making narrative: 41-year-old female with a past medical history of asthma, depression, diabetes, fibromyalgia, frequent headaches, obesity, rheumatoid arthritis, presenting to the ED complaining intermittent headache, right flank, and RLQ abdominal pain radiating to right side x2 weeks. On exam VSS, NAD, nontoxic appearing, right CVAT and RLQ TTP noted on exam, abdomen is soft. Concern for renal stone/pyelo vs appendicitis. R/o infectious etiology. Lower concern for diverticulitis, cholecystitis/cholelithiasis or pancreatitis Plan: Labs, UA, IVF, CT AP, reassess Medical Records Attestation: I reviewed the patient's medical records. Lab Data Attestation: I reviewed the patient's lab results. Result diagrams: 06/19/21 14:52 06/19/21 14:52 Labs: Lab Results 06/19/21 06/19/21 06/19/21 Range/Units 14:52 14:52 14:52 WBC 8.5 (4.8-10.8) X10*3/uL RBC 4.46 (4.20-5.50) X10*6/uL Hgb 12.5 (12.0-16.0) g/dl Hct 38.6 (37-47) % MCV 86.5 (80-98) fL MCH 28.0 (27.0-33.0) pg MCHC 32.4 (31.0-35.0) g/dl RDW 14.0 (11.0-16.0) % Plt Count 279 (160-400) X10*3/uL MPV 11.0 (9.4-12.3) fL Immature Gran % (Auto) 0.4 (0.0-0.4) % Neut % (Auto) 52.8 (45-73) % Lymph % (Auto) 36.0 (20-40) % [place] % (Auto) 6.5 (2-11) % Eos % (Auto) 3.8 (0-4) % Baso % (Auto) 0.5 (0-2) % Lymph # (Auto) 3.1 (1.2-4.9) X10*3/uL [place] # (Auto) 0.6 (0.1-1.2) X10*3/uL Eos # (Auto) 0.3 (0.0-0.4) X10*3/uL Baso # (Auto) 0.0 (0.0-0.2) X10*3/uL Abs Immat Gran (auto) 0.03 (0.00-0.03) X10*3/uL Absolute Neuts (auto) 4.5 (2.0-8.3) X10*3/uL Absolute Nucleated RBC 0.000 (0.0-0.012) X10*3/uL Nucleated RBC % (auto) 0.0 (0.0-0.2) /100WBC Sodium 136 (135-145) mmol/L Potassium 4.3 (3.3-5.1) mmol/L Chloride 103 (96-108) mmol/L Carbon Dioxide 24 (22-29) mmol/L Anion Gap 13 (12-20) BUN 12 (9-16) mg/dL Creatinine 0.69 (0.5-1.4) mg/dL Estim Creat Clear Calc 124.8 Estimated GFR > 60 Random Glucose 84 (60-115) mg/dL Calcium 9.3 (8.4-10.2) mg/dL Magnesium 1.9 (1.6-2.6) mg/dL Total Bilirubin 0.4 (0.0-1.0) mg/dL AST 20 (5-31) U/L ALT 24 (0-31) U/L Alkaline Phosphatase 81 (39-117) U/L Total Protein 7.5 (6.5-8.0) g/dL Albumin 4.3 (3.5-5.0) g/dL Lipase 10 (8-78) U/L Beta HCG, Quant < 2 mIU/mL Urine Color YELLOW Urine Appearance CLEAR Urine pH 7.0 (5.0-8.0) Ur Specific [place] 1.020 (1.005-1.025) Urine Protein NEG (NEG-TRACE) MG/DL Urine Glucose (UA) NEG (NEG) MG/DL Urine Ketones NEG (NEG) MG/DL Urine Blood NEG (NEG) Urine Nitrite NEG (NEG) Ur Leukocyte Esterase NEG (NEG) Discharge Plan Discharge Clinical Impression: Abdominal pain Qualifiers: Abdominal location: right lower quadrant Qualified Code(s): R10.31 - Right lower quadrant pain Patient Disposition: Home, Self-Care Instructions: Abdominal Pain (ED) Additional Instructions: Blood work and urine look unremarkable CT scan did not show any acute findings It is important for you to follow-up with your primary care doctor as well as manager of product Maalox and Pepcid will help with acid reduction If her symptoms persist or worsen, pain becomes unbearable, you are unable to eat or drink, or developed fever please return to the ED Los an?lisis de patrick y la orina parecen normales La tomograf?a computarizada no mostr? geneva?n hallazgo frantz Es importante que realice un seguimiento con saba m?dico de atenci?n primaria y con saba gastroenter?logo. Maalox y Pepcid ayudar?n con la reducci?n del ?cido. Si moshe s?ntomas persisten o empeoran, el dolor se vuelve insoportable, no puede comer ni beber, o tiene fiebre, vuelva al servicio de urgencias. Prescriptions: New alum-mag hydroxide-simeth [Maalox Advanced] 200-200-20 mg/5 mL suspension 5 ml PO 5XD PRN (Reason: dyspepsia) Qty: 30 RF: 0 famotidine [Pepcid] 20 mg tablet 20 mg PO DAILY Qty: 10 RF: 0 No Action albuterol sulfate [ProAir HFA] 90 mcg/actuation HFA aerosol inhaler 2 puff inhalation Q6H PRN (Reason: shortness of breath or wheezing) 30 Days Qty: 8.5 RF: 5 acetaminophen 500 mg tablet 500 mg PO Q6H PRN (Reason: fever or pain) 10 Days Qty: 40 RF: 1 albuterol sulfate 2.5 mg /3 mL (0.083 %) solution for nebulization 2.5 mg continuous nebulization .3 to 4 times daily PRN (Reason: shortness of breath or wheezing) 30 Days Qty: 180 RF: 3 miscellaneous medical supply Misc 1 ea miscellaneous .4 times a day PRN (Reason: shortness of breath or wheezing) 360 Days Qty: 1 RF: 0 mecobalamin (vitamin B12) 1,000 mcg tablet,disintegrating 1,000 mcg sublingual DAILY Qty: 30 RF: 2 albuterol sulfate 90 mcg/actuation HFA aerosol inhaler 1 inh inhalation QID PRN (Reason: shortness of breath or wheezing) Qty: 8.5 RF: 0 meloxicam 15 mg tablet 15 mg PO DAILY Qty: 14 RF: 0 cyclobenzaprine 10 mg tablet 10 mg PO BEDTIME Qty: 10 RF: 0 aspirin 81 mg tablet,chewable 81 mg PO DAILY RF: 0 montelukast 10 mg tablet 10 mg PO BEDTIME 90 Days Qty: 90 RF: 1 Flovent HFA 110 mcg/actuation HFA aerosol inhaler 2 puff inhalation BID 30 Days Qty: 12 RF: 5 cholecalciferol (vitamin D3) 125 mcg (5,000 unit) capsule 125 mcg PO DAILY 90 Days Qty: 90 RF: 3 metformin 500 mg tablet 500 mg PO DAILY 90 Days Qty: 90 RF: 1 Enbrel SureClick 50 mg/mL (1 mL) pen injector 50 mg subcut QWEEK RF: 0 Referrals: Edward Lima MD [Primary Care Provider] - 2 days Carlyn Hale MD [Physician] - 1 week (as needed) Print Language: [facility] Past Medical History Attestation statement: The following information was validated with the patient. Medical History Asthma Depression Diabetes mellitus Fatigue Fibromyalgia Frequent headaches Non-insulin dependent diabetes mellitus Obesity Obesity (BMI 30-39.9) Seropositive rheumatoid arthritis Surgical History History of tooth extraction Hx of section Family History Family History Father HTN (hypertension) Mother Asthma CVD (cardiovascular disease) Brain cancer Maternal Aunt Breast cancer Sister No problems noted. Sister No problems noted. Sister No problems noted. Son Arthritis Daughter Lupus Daughter No problems noted. Social History Social History Housing: House Alcohol intake: never Patient Tobacco Use Status: Never used Tobacco Second Hand Smoke Exposure: Yes Advance Directives: No Advance Directives Information Provided: Yes Patient : No service: No Current occupational status: employed
[2021-06-19 20:12] LABS: Lipase 10 U/L (8-78); Magnesium 1.9 mg/dL (1.6-2.6)
[2021-06-19 20:22] LABS: HCG Quantitative < 2 mIU/mL
[2021-06-19] MEDS: iohexoL 350 MG/ML 100 ML INFUS..BTL IV (21:05)
[2021-06-19] MEDS: 0.9 % Sodium Chloride 1,000 ML 999 ML IVCONT (21:07)
[2021-06-19] MEDS: Ketorolac Tromethamine 15 MG/ML VIAL IVPUSH (21:08)
[2021-06-19 21:15] VITALS: BP 114/71; PULSE 60; RESP 16; O2SAT 100
== END 2021-06-19 23:03 | disposition home or self-care (01) ==
PROVIDERS: Physician Assistant; Emergency Provider Emergency Medicine Emergency Medical Services; PCP Internal Medicine
DX: R10.31 Right lower quadrant pain (principal)
CPT/HCPCS: 36415; 74177; 80053; 81003; 83690; 83735; 84702; 85025; 96361; 96374; 99284; J1885; Q9967

== ENCOUNTER → 2021-09-14 15:05 | Outpatient (BNVA) | payer OTHER, SELFPAY | PROVIDERS: PCP Internal Medicine; Visit Provider Internal Medicine Pulmonary Disease | DX: J45.41 Moderate persistent asthma with (acute) exacerbation (principal); Z91.09 Other allergy status, other than to drugs and biological substances | CPT/HCPCS: 99202 ==

== ENCOUNTER 2021-09-14 15:24 | Outpatient (REF) | payer OTHER, SELFPAY ==
[2021-09-14 15:34] LABS: MANUAL DIFF FLAG NO
[2021-09-14 16:48] LABS: Basophils Percent Auto 0.5 % (0-2); Eosinophils Absolute Auto 0.2 X10*3/uL (0.0-0.4); Eosinophils Percent Auto 2.6 % (0-4); Hematocrit 40.6 % (37.0-47.0); Imm Gran Abs Auto 0.02 X10*3/uL (0.00-0.03); Imm Gran Pct Auto 0.3 % (0.0-0.4); Lymphocytes Absolute Auto 2.7 X10*3/uL (1.2-4.9); Mean Corpuscular Volume 87.3 fL (80.0-98.0); Mean Platelet Volume 11.1 fL (9.4-12.3); Monocytes Absolute Auto 0.4 X10*3/uL (0.1-1.2); Monocytes Percent Auto 5.5 % (2-11); Neutrophils Absolute Auto 3.3 x10*3/uL (2.0-8.3); Neutrophils Percent Auto 50.1 % (45-73); Platelet Count 314 X10*3/uL (160-400); Red Blood Count 4.65 X10*6/uL (4.20-5.50); Red Cell Distribution Width 13.7 % (11.0-16.0); White Blood Count 6.5 X10*3/uL (4.8-10.8)
== END 2021-09-14 15:25 | disposition home or self-care (01) ==
LOC: HO.LAB 15:24
PROVIDERS: PCP Internal Medicine; Visit Provider Internal Medicine Pulmonary Disease
DX: Z91.09 Other allergy status, other than to drugs and biological substances (principal)
CPT/HCPCS: 36415; 82785; 85025; 86003

== ENCOUNTER 2021-09-28 09:00 | Outpatient (REF) | payer OTHER, SELFPAY ==
--- NOTE | ~2021-09-28 | XR_ITS ---
EXAMINATION: XR LUMBOSACRAL SPINE CLINICAL INFORMATION: Radiculopathy, lumbar region COMPARISON: CT abdomen and pelvis 06/19/2021 TECHNIQUE: Three views of the lumbosacral spine. FINDINGS: Vertebral body heights are preserved. Mild intervertebral disc height loss at L5-S1 with minimal retrolisthesis of L5 on S1. Small marginal osteophyte formation throughout the lumbar spine. Posterior elements are intact. Sacroiliac joints intact. XR/XR lumbar spine 2-3V IMPRESSION: Mild degenerative disc disease and minimal retrolisthesis at L5-S1.
== END 2021-09-28 09:01 | disposition home or self-care (01) ==
LOC: HO.XRAY 09:00
PROVIDERS: PCP Internal Medicine; Visit Provider Nurse Practitioner Acute Care
DX: M54.16 Radiculopathy, lumbar region (principal); M05.9 Rheumatoid arthritis with rheumatoid factor, unspecified; R10.31 Right lower quadrant pain
CPT/HCPCS: 72100; 99212

== ENCOUNTER 2021-10-03 12:00 | Outpatient (REF) | payer OTHER, SELFPAY ==
[2021-10-03 12:18] LABS: MANUAL DIFF FLAG NO
[2021-10-03 12:36] LABS: Basophils Percent Auto 0.5 % (0-2); Eosinophils Absolute Auto 0.2 X10*3/uL (0.0-0.4); Eosinophils Percent Auto 3.2 % (0-4); Hematocrit 39.6 % (37.0-47.0); Hemoglobin 12.6 g/dl (12.0-16.0); Imm Gran Abs Auto 0.02 X10*3/uL (0.00-0.03); Imm Gran Pct Auto 0.3 % (0.0-0.4); Lymphocytes Absolute Auto 1.7 X10*3/uL (1.2-4.9); Mean Corpuscular HGB Conc 31.8 g/dl (31.0-35.0); Mean Corpuscular Hemoglobin 27.7 pg (27.0-33.0); Mean Platelet Volume 11.2 fL (9.4-12.3); Monocytes Absolute Auto 0.6 X10*3/uL (0.1-1.2); Monocytes Percent Auto 9.1 % (2-11); Neutrophils Absolute Auto 4.1 x10*3/uL (2.0-8.3); Neutrophils Percent Auto 61.9 % (45-73); Platelet Count 260 X10*3/uL (160-400); Red Blood Count 4.55 X10*6/uL (4.20-5.50); Red Cell Distribution Width 14.3 % (11.0-16.0); White Blood Count 6.6 X10*3/uL (4.8-10.8)
[2021-10-03 12:36] LABS: Appearance Urine CLEAR; Color Urine YELLOW; Glucose Urine UA NEG (NEG); Leukocyte Esterase Urine NEG (NEG); Nitrite Urine NEG (NEG); Specific Gravity - Urine 1.025 (1.005-1.025); Urine Blood NEG (NEG); Urine Ketones NEG (NEG); Urine Protein NEG (NEG-TRACE)
[2021-10-03 12:53] LABS: Estimated Average Glucose 123 mg/dL; Hemoglobin A1c % 5.9 %
[2021-10-03 12:57] LABS: Creatinine Urine 98.29 mg/dL; Microalbum/Creatinine Ratio Ur 7.1 ug/mg cr
[2021-10-03 12:59] LABS: Alanine Aminotransferase 16 U/L (0-31); Albumin Level 4.1 g/dL (3.5-5.0); Alkaline Phosphatase 83 U/L (39-117); Anion Gap 13 (12-20); Aspartate Amino Transferase 15 U/L (5-31); Bilirubin Total 0.2 mg/dL (0.0-1.0); Blood Urea Nitrogen 10 mg/dL (9-16); C Reactive Protein 1.08 mg/dL (< or = 0.50); Calcium 9.7 mg/dL (8.4-10.2); Carbon Dioxide 26 mmol/L (22-29); Chloride 106 mmol/L (96-108); Cholesterol 179 mg/dL; Estimated Glomerular Filt Rate > 60; Glucose Fasting 118 mg/dL (60-99); HDL Cholesterol 39 mg/dL; LDL Cholesterol Calculated 111 mg/dl; Potassium 4.6 mmol/L (3.3-5.1); Sodium 140 mmol/L (135-145); Total Protein 7.5 g/dL (6.5-8.0); Triglycerides 145 mg/dL
[2021-10-03 13:15] LABS: Erythrocyte Sedimentation Rate 20 MM/HR (0-20)
[2021-10-03 13:19] LABS: TSH reflex Free T4 1.64 uIU/mL (0.32-4.0)
[2021-10-04 06:47] LABS: Immunoglobulin E 41 kU/L (<OR=114)
== END 2021-10-03 12:01 | disposition home or self-care (01) ==
LOC: HO.LAB 12:00
PROVIDERS: Internal Medicine Pulmonary Disease; PCP Internal Medicine; Visit Provider Nurse Practitioner Family
DX: R53.83 Other fatigue (principal); M05.9 Rheumatoid arthritis with rheumatoid factor, unspecified; E11.9 Type 2 diabetes mellitus without complications; E66.9 Obesity, unspecified; J45.909 Unspecified asthma, uncomplicated; Z91.09 Other allergy status, other than to drugs and biological substances; E78.00 Pure hypercholesterolemia, unspecified
CPT/HCPCS: 36415; 80053; 80061; 81003; 82043; 82785; 83036; 84443; 85025; 85652; 86140

== ENCOUNTER 2021-10-09 15:01 | Outpatient (REF) | payer OTHER, SELFPAY ==
--- NOTE | 2021-10-09 16:27 | PFT_ITS ---
INDICATION: Dyspnea. SPIROMETRY: The FEV1 to FVC 90% with an FEV1 of 2.51 L which is 81% predicted, FVC of 2.78 L, which is 74% predicted. No significant response to bronchodilators noted. Maximum voluntary ventilation 81% predicted. LUNG VOLUMES: Total lung capacity 82% predicted with an expiratory reserve volume of 26% predicted. DIFFUSION CAPACITY: DLCO 94% predicted. COMPARISONS: None. INTERPRETATION: No definitive obstructive nor restrictive ventilatory defects identified. No significant response to bronchodilators noted. Normal maximum voluntary ventilation. Her total lung capacity is low normal, which could be secondary to an elevated BMI, although occult interstitial lung conditions cannot be ruled out. Diffusion capacity is within normal limits. If asthma is in the differential, methacholine challenge may be helpful in assessing for hyper-reactive airways, otherwise clinical correlation warranted. MD LIA Jones/MODL / [id number]
== END 2021-10-09 15:02 | disposition home or self-care (01) ==
LOC: HO.RESP 15:01
PROVIDERS: PCP Internal Medicine; Visit Provider Internal Medicine Pulmonary Disease
DX: J45.41 Moderate persistent asthma with (acute) exacerbation (principal); Z91.09 Other allergy status, other than to drugs and biological substances
CPT/HCPCS: 94060; 94727; 94729; 99212

== ENCOUNTER 2021-10-24 08:19 | Outpatient (REF) | payer OTHER, SELFPAY | END 2021-10-24 08:20 | disposition home or self-care (01) | LOC: HO.MDS 08:19 | PROVIDERS: PCP Internal Medicine; Visit Provider Internal Medicine Pulmonary Disease | DX: J45.50 Severe persistent asthma, uncomplicated (principal) | CPT/HCPCS: 96372; J2357 ==

== ENCOUNTER 2021-11-21 08:37 | Outpatient (REF) | payer OTHER, SELFPAY | END 2021-11-21 08:38 | disposition home or self-care (01) | LOC: HO.MDS 08:37 | PROVIDERS: PCP Internal Medicine; Visit Provider Internal Medicine Pulmonary Disease | DX: J45.50 Severe persistent asthma, uncomplicated (principal) | CPT/HCPCS: 96372; J2357 ==

== ENCOUNTER → 2021-11-27 13:52 | Outpatient (BNVA) | payer OTHER, SELFPAY | PROVIDERS: PCP Internal Medicine; Visit Provider Nurse Practitioner Family | DX: M05.9 Rheumatoid arthritis with rheumatoid factor, unspecified (principal); M54.16 Radiculopathy, lumbar region; M25.511 Pain in right shoulder; M25.512 Pain in left shoulder; M25.561 Pain in right knee; M25.562 Pain in left knee; Z79.899 Other long term (current) drug therapy | CPT/HCPCS: 99212 ==

== ENCOUNTER 2021-11-29 06:29 | Outpatient (REF) | payer OTHER, SELFPAY ==
--- NOTE | ~2021-11-29 | XR_ITS ---
EXAMINATION: XR knee RT 3V, XR knee LT 3V CLINICAL INFORMATION: Reason for Exam M25.561 - Pain in right knee COMPARISON: None available at the time of this dictation. TECHNIQUE: frontal, lateral, tunnel and patella sunrise views FINDINGS: BONES: No fracture or dislocation is present. JOINTS: Narrowing of joint spaces and developed osteophytes from the edges of articular surfaces suggest degenerative osteoarthritis. This has involved left more than right knee, medial more than lateral compartments. SOFT TISSUE: Normal XR/XR knee RT 3V IMPRESSION: Mild to moderate degenerative osteoarthritis involving left more than right knee, medial more than lateral compartments. No joint effusion, no bone erosions.
--- NOTE | ~2021-11-29 | XR_ITS ---
EXAMINATION: XR knee RT 3V, XR knee LT 3V CLINICAL INFORMATION: Reason for Exam M25.561 - Pain in right knee COMPARISON: None available at the time of this dictation. TECHNIQUE: frontal, lateral, tunnel and patella sunrise views FINDINGS: BONES: No fracture or dislocation is present. JOINTS: Narrowing of joint spaces and developed osteophytes from the edges of articular surfaces suggest degenerative osteoarthritis. This has involved left more than right knee, medial more than lateral compartments. SOFT TISSUE: Normal XR/XR knee LT 3V IMPRESSION: Mild to moderate degenerative osteoarthritis involving left more than right knee, medial more than lateral compartments. No joint effusion, no bone erosions.
[2021-11-29 06:46] LABS: MANUAL DIFF FLAG NO
[2021-11-29 07:02] LABS: Basophils Percent Auto 0.4 % (0-2); Eosinophils Absolute Auto 0.2 X10*3/uL (0.0-0.4); Eosinophils Percent Auto 2.7 % (0-4); Hematocrit 39.2 % (37.0-47.0); Hemoglobin 12.6 g/dl (12.0-16.0); Imm Gran Abs Auto 0.05 X10*3/uL (0.00-0.03); Imm Gran Pct Auto 0.6 % (0.0-0.4); Lymphocytes Percent Auto 24.2 % (20-40); Mean Corpuscular HGB Conc 32.1 g/dl (31.0-35.0); Mean Corpuscular Hemoglobin 28.3 pg (27.0-33.0); Mean Corpuscular Volume 87.9 fL (80.0-98.0); Mean Platelet Volume 11.1 fL (9.4-12.3); Monocytes Absolute Auto 0.6 X10*3/uL (0.1-1.2); Monocytes Percent Auto 7.6 % (2-11); Neutrophils Absolute Auto 5.2 x10*3/uL (2.0-8.3); Neutrophils Percent Auto 64.5 % (45-73); Platelet Count 271 X10*3/uL (160-400); Red Blood Count 4.46 X10*6/uL (4.20-5.50); Red Cell Distribution Width 14.9 % (11.0-16.0); White Blood Count 8.1 X10*3/uL (4.8-10.8)
[2021-11-29 07:48] LABS: Erythrocyte Sedimentation Rate 13 MM/HR (0-20)
[2021-11-29 08:14] LABS: Appearance Urine CLEAR; Color Urine YELLOW; Glucose Urine UA NEG (NEG); Leukocyte Esterase Urine NEG (NEG); Nitrite Urine NEG (NEG); PH 5.5 (5.0-8.0); Specific Gravity - Urine >= 1.030 (1.005-1.025); Urine Blood NEG (NEG); Urine Ketones NEG (NEG); Urine Protein NEG (NEG-TRACE)
[2021-11-29 08:19] LABS: Estimated Average Glucose 120 mg/dL; Hemoglobin A1c % 5.8 %
[2021-11-29 09:38] LABS: Alanine Aminotransferase 21 U/L (0-31); Albumin Level 4.1 g/dL (3.5-5.0); Alkaline Phosphatase 89 U/L (39-117); Anion Gap 12 (12-20); Aspartate Amino Transferase 19 U/L (5-31); Bilirubin Total 0.6 mg/dL (0.0-1.0); Blood Urea Nitrogen 12 mg/dL (9-16); C Reactive Protein 1.32 mg/dL (< or = 0.50); Calcium 9.5 mg/dL (8.4-10.2); Carbon Dioxide 23 mmol/L (22-29); Chloride 107 mmol/L (96-108); Cholesterol 176 mg/dL; Estimated Glomerular Filt Rate > 60; Glucose Fasting 151 mg/dL (60-99); HDL Cholesterol 47 mg/dL; LDL Cholesterol Calculated 98 mg/dl; Potassium 4.5 mmol/L (3.3-5.1); Sodium 137 mmol/L (135-145); Total Protein 7.4 g/dL (6.5-8.0); Triglycerides 157 mg/dL
[2021-11-29 10:08] LABS: TSH reflex Free T4 2.21 uIU/mL (0.32-4.0)
[2021-11-29 14:47] LABS: Vitamin D 25-OH Total 16.6 ng/mL (>30)
== END 2021-11-29 06:30 | disposition home or self-care (01) ==
LOC: HO.XRAY 06:29
PROVIDERS: PCP Internal Medicine; Visit Provider Nurse Practitioner Family
DX: M25.561 Pain in right knee (principal); M25.562 Pain in left knee; E78.00 Pure hypercholesterolemia, unspecified; E11.9 Type 2 diabetes mellitus without complications; I10 Essential (primary) hypertension; E55.9 Vitamin D deficiency, unspecified; M05.9 Rheumatoid arthritis with rheumatoid factor, unspecified
CPT/HCPCS: 36415; 73562; 80053; 80061; 81003; 82306; 83036; 84443; 85025; 85652; 86140

== ENCOUNTER 2021-12-12 09:01 | Emergency (ER) | payer OTHER, SELFPAY ==
--- NOTE | ~2021-12-12 | XR_ITS ---
EXAMINATION: XR CHEST CLINICAL INFORMATION: Chest pain. COMPARISON: 01/13/2021 chest radiograph. TECHNIQUE: 2 views of the chest were obtained. FINDINGS: No significant abnormality is noted involving the heart, lungs, mediastinum, bony thorax or soft tissues. XR/XR chest 2V IMPRESSION: No acute cardiopulmonary process.
[2021-12-12 09:04] VITALS: BP 144/84; PULSE 85; RESP 16; TEMP 36.8; O2SAT 99; BMI 35.5
[2021-12-12 09:37] VITALS: BP 132/86; PULSE 68; RESP 25; TEMP 37.2; O2SAT 98
--- NOTE | 2021-12-12 09:38 | ED_ITS ---
HPI - General Adult General Chief complaint: General Medical Stated complaint: headaches/chest pains/numbness on the tounge Time Seen by Provider: 12/12/21 09:35 Source: patient and talkback host Mode of arrival: ambulatory Limitations: language barrier History of Present Illness HPI narrative: ?41-year-old female with a past medical history of asthma, depression, diabetes, fibromyalgia, frequent headaches, obesity, rheumatoid arthritis here with complaints of left sided BROWN since waking this morning with pressure behind both of her eyes with nausea and numbness on the tip of her tongue. H/o frequent BROWN and this feels similar although denies history of migraines. No photophobia/vomiting/fever/neck pain or stiffness. Pain radiates from the head to the left side of the chest and down the left arm with no associated paresthesias or weakness. No associated SOB, cough, AP, vomiting, diarrhea, leg swelling or leg pain. No recent travel or sick contact. Related Data Home Medications Medication Instructions Recorded Confirmed aspirin 81 mg chewable tablet 81 mg PO DAILY 06/08/20 12/05/21 Previous Rx's Medication Instructions Recorded acetaminophen 500 mg tablet 500 mg PO Q6H PRN 10 Days #40 tab 12/22/20 albuterol sulfate 2.5 mg (3 mL) CONTINUOUS 01/04/21 NEBULIZATION .3 to 4 times daily PRN 30 Days #180 ml miscellaneous medical supply 1 ea MISCELLANEOUS .4 times a day 01/04/21 PRN 360 Days #1 ea albuterol sulfate 90 mcg/actuation 1 inh INHALATION QID PRN #8.5 g 01/13/21 aerosol inhaler montelukast 10 mg tablet 10 mg PO BEDTIME 90 Days #90 tab 05/02/21 aluminum-mag hydroxide-simethicone 5 ml PO 5XD PRN #30 ml 06/19/21 200 mg-200 mg-20 mg/5 mL oral susp (Maalox Advanced) famotidine 20 mg tablet (Pepcid) 20 mg PO DAILY #10 tab 06/19/21 fluticasone propionate 230 2 puff INHALATION BID 30 Days #1 ea 09/16/21 mcg-salmeterol 21 mcg/actuation HFA inhaler (Advair HFA) omalizumab 150 mg subcutaneous 300 mg SUBCUT Q4W 28 Days #1 ea 10/11/21 solution (Xolair) cyclobenzaprine 10 mg tablet 10 mg PO BEDTIME #10 tab 10/24/21 adalimumab 40 mg/0.4 mL See Rx Instructions SUBCUT 11/29/21 subcutaneous pen kit (Humira(CF) .COMPLEX #2 ea Pen) albuterol sulfate 90 mcg/actuation 2 puff INHALATION Q6H PRN 30 Days 12/05/21 aerosol inhaler (ProAir HFA) #8.5 g pregabalin 75 mg capsule 75 mg PO BID 30 Days #60 cap 12/05/21 trazodone 50 mg tablet 50 mg PO BEDTIME PRN 30 Days #30 12/05/21 tab Allergies Allergy/AdvReac Type Severity Reaction Status Date / Time doxycycline Allergy Unknown itch and Verified 12/05/21 16:15 rash Review of Systems Review of Systems: Yes all other systems are reviewed and are negative Constitutional: Constitutional: Reports no additional constitutional complaints, Denies body ache(s), Denies chills, Denies fever(s), Reports headache(s) and Denies weakness Eyes: Eyes: Reports no additional eye complaints and Denies change in vision ENT: Reports system reviewed and no additional complaints, except as documented, Denies dizziness, Reports headache(s), Denies nasal congestion, Denies nasal discharge and Denies neck pain Cardiovascular: Cardiovascular: Reports no additional cardiovascular complaints, Reports chest pain, Denies leg edema and Denies dyspnea Respiratory: Respiratory: Reports no additional respiratory complaints, Denies cough and Denies dyspnea Gastrointestinal: Gastrointestinal: Reports no additional gastrointestinal complaints, Denies abdominal pain, Denies diarrhea, Reports nausea and Denies vomiting Genitourinary: Genitourinary: Reports no additional female genitourinary complaints and Denies urinary incontinence Musculoskeletal: Musculoskeletal: Reports no additional musculoskeletal complaints, Denies back pain, Denies arthralgias, Denies joint swelling, Denies neck pain, Reports numbness, Reports radiating pain into limb and Denies tingling Integumentary/Breasts: Skin/Breast: Reports system reviewed and no additional complaints, except as docu and Denies rash Neurologic: Reports system reviewed and no additional complaints, except as documented, Denies dizziness, Reports headache(s), Reports numbness, Denies tingling and Denies weakness PMF Past Medical History Attestation statement: The following information was validated with the patient. Source: old records reviewed and nursing notes reviewed Medical History Asthma Depression Diabetes mellitus Fatigue Fibromyalgia Fibromyalgia Frequent headaches Insomnia Non-insulin dependent diabetes mellitus Obesity Obesity (BMI 30-39.9) Seropositive rheumatoid arthritis Surgical History History of tooth extraction Hx of section Family History Family History Father HTN (hypertension) Mother Asthma CVD (cardiovascular disease) Brain cancer Maternal Aunt Breast cancer Sister No problems noted. Sister No problems noted. Sister No problems noted. Son Arthritis Daughter Lupus Daughter No problems noted. Social History Social History Housing: House Alcohol intake: never Patient Tobacco Use Status: Never used Tobacco e-Cigarette/Vaping Use: Never Used Second Hand Smoke Exposure: Yes Advance Directives: No Advance Directives Information Provided: Yes Patient : No service: No Current occupational status: unemployed Cognitive needs: No Hearing needs: No Vision needs: No Physical Exam ED Vital Signs: Vital Signs - 24 hr 12/12/21 09:04 12/12/21 09:37 12/12/21 11:01 Temperature 98.3 F 99.0 F 98.3 F Pulse Rate 85 68 67 Respiratory Rate 16 25 H 16 Blood Pressure 144/84 H 132/86 118/76 Pulse Oximetry 99 98 100 12/12/21 13:18 Temperature Pulse Rate 74 Respiratory Rate 25 H Blood Pressure 107/71 Pulse Oximetry 96 BMI result Body Mass Index 35.5 Const General: cooperative, healthy appearing, comfortable and no acute distress Orientation/consciousness: patient oriented x3 Limitations: no limitations HENMT Head: Yes normal to inspection Ears: hearing grossly normal bilaterally and TM's normal bilaterally General nose exam: Normal external nose present Face and sinus: Yes normal facial exam Mouth: Normal oral and palatal mucosa present Teeth and gingiva: dentition normal Throat: Yes posterior oropharynx normal, Yes tonsils normal and Yes uvula midline Eyes General: appearance normal, both eyes and all related structures Pupils: Equal, round and reactive pupils present Neck Neck: Yes normal visual inspection, Yes full ROM, Yes no lymphadenopathy and Yes no meningeal signs Chest Chest palpation & inspection: normal inspection of the chest Resp Effort & Inspection: normal respiratory effort Auscultation: clear to auscultation bilaterally Cardio Rate: regular rate Rhythm: regular rhythm Peripheral pulses: Peripheral pulses 2+ throughout GI Inspection: Yes normal to inspection Palpation (GI): Soft to palpation and nontender General: Yes no CVA tenderness Back/Spine/Pelvis Back: no CVA tenderness Thoracic/Lumbar Spine: thoracic and lumbar spine normal to inspection Skin General skin exam: no rashes or lesions noted Neuro General: patient oriented x3, moves all extremities and no meningeal signs Cranial nerves: Yes CN's II-XII intact bilaterally, Yes Equal, round and reactive pupils present, Yes Bilaterally intact EOM present, Yes Nystagmus not present, Yes Normal facial strength present and Yes Midline tongue present Cognition (Neuro): normal cognition Speech: Other speech findings present (Neuro) (normal speech) Gait exam (Neuro): Normal gait present Motor exam (neuro): 5/5 motor strength present throughout Sensory Exam: Normal double simultaneous stimulation for sensation Coordination: [id number] test normal, [id number] test normal and tandem gait normal Extrem General: Yes normal to inspection, Yes no pedal edema and Yes no calf tenderness Course Course Course Narrative: 41 yo female here with complaints of waking with left sided BROWN with radiation to left chest and down left arm with associated pressure behind both eyes, [place], numbness in the top of her tongue. Normal neuro exam with no deficits. VSS. Has h/o recurrent BROWN. CP seems atypical for ACS. Will check EKG, CXR, labs. Give NSB, analgesia. 1200-patient feels symptoms are improving (chest pain gone, numbness gone, headache just a little pain ) Fluids continue to infuse. Anticipate discharge post fluids. 1320-fluids completed. Patient is feeling improved. Will discharge home. Reviewed worrisome signs and symptoms of when to return to the emergency department. Comfortable discharge home. Medical Decision Making MDM Narrative Medical decision making narrative: ACS-less likely with normal EKG, flat troponin, atypical symptoms BROWN-which feels similar to previous BROWN's, no reports of trauma/injury or sudden onset concerning for ICH, normal neurological exam Medical Records Medical records reviewed: Yes I reviewed the patient's medical records. Lab Data Lab results reviewed: Yes I reviewed the patient's lab results. Result diagrams: 12/12/21 10:39 12/12/21 10:39 Labs: Lab Results 12/12/21 12/12/21 12/12/21 Range/Units 10:15 10:15 10:39 WBC 6.7 (4.8-10.8) X10*3/uL RBC 4.40 (4.20-5.50) X10*6/uL Hgb 12.2 (12.0-16.0) g/dl Hct 38.8 (37.0-47.0) % MCV 88.2 (80.0-98.0) fL MCH 27.7 (27.0-33.0) pg MCHC 31.4 (31.0-35.0) g/dl RDW 14.1 (11.0-16.0) % Plt Count 261 (160-400) X10*3/uL MPV 10.9 (9.4-12.3) fL Immature Gran % (Auto) 0.3 (0.0-0.4) % Neut % (Auto) 56.6 (45-73) % Lymph % (Auto) 31.8 (20-40) % [place]born % (Auto) 8.5 (2-11) % Eos % (Auto) 2.4 (0-4) % Baso % (Auto) 0.4 (0-2) % Lymph # (Auto) 2.1 (1.2-4.9) X10*3/uL [place] # (Auto) 0.6 (0.1-1.2) X10*3/uL Eos # (Auto) 0.2 (0.0-0.4) X10*3/uL Baso # (Auto) 0.0 (0.0-0.2) X10*3/uL Abs Immat Gran (auto) 0.02 (0.00-0.03) X10*3/uL Absolute Neuts (auto) 3.8 (2.0-8.3) x10*3/uL Absolute Nucleated RBC 0.000 (0.0-0.012) X10*3/uL Nucleated RBC % (auto) 0.0 (0.0-0.2) /100WBC PT (9.9-13.0) SEC INR (0.9-1.1) Sodium (135-145) mmol/L Potassium (3.3-5.1) mmol/L Chloride (96-108) mmol/L Carbon Dioxide (22-29) mmol/L Anion Gap (12-20) BUN (9-16) mg/dL Creatinine (0.5-1.4) mg/dL Estim Creat Clear Calc Estimated GFR Random Glucose (60-115) mg/dL Calcium (8.4-10.2) mg/dL Magnesium (1.6-2.6) mg/dL Total Bilirubin (0.0-1.0) mg/dL Direct Bilirubin (0.0-0.5) mg/dL AST (5-31) U/L ALT (0-31) U/L Alkaline Phosphatase (39-117) U/L Troponin I High Sens (<3.5-17.0) ng/L Total Protein (6.5-8.0) g/dL Albumin (3.5-5.0) g/dL COVID-19 (MICHAEL) Negative (Negative) COVID-19 Clin Com See Note Influenza Type A (ANGELICA) Negative (Negative) Influenza Type B (ANGELICA) Negative (Negative) Influenza A & B Note See Note 12/12/21 12/12/21 12/12/21 Range/Units 10:39 10:39 10:39 WBC (4.8-10.8) X10*3/uL RBC (4.20-5.50) X10*6/uL Hgb (12.0-16.0) g/dl Hct (37.0-47.0) % MCV (80.0-98.0) fL MCH (27.0-33.0) pg MCHC (31.0-35.0) g/dl RDW (11.0-16.0) % Plt Count (160-400) X10*3/uL MPV (9.4-12.3) fL Immature Gran % (Auto) (0.0-0.4) % Neut % (Auto) (45-73) % Lymph % (Auto) (20-40) % Sanborn % (Auto) (2-11) % Eos % (Auto) (0-4) % Baso % (Auto) (0-2) % Lymph # (Auto) (1.2-4.9) X10*3/uL [place]born # (Auto) (0.1-1.2) X10*3/uL Eos # (Auto) (0.0-0.4) X10*3/uL Baso # (Auto) (0.0-0.2) X10*3/uL Abs Immat Gran (auto) (0.00-0.03) X10*3/uL Absolute Neuts (auto) (2.0-8.3) x10*3/uL Absolute Nucleated RBC (0.0-0.012) X10*3/uL Nucleated RBC % (auto) (0.0-0.2) /100WBC PT 11.9 (9.9-13.0) SEC INR 1.0 (0.9-1.1) Sodium 137 (135-145) mmol/L Potassium 4.6 (3.3-5.1) mmol/L Chloride 107 (96-108) mmol/L Carbon Dioxide 22 (22-29) mmol/L Anion Gap 13 (12-20) BUN 10 (9-16) mg/dL Creatinine 0.66 (0.5-1.4) mg/dL Estim Creat Clear Calc 133.6 Estimated GFR > 60 Random Glucose 85 (60-115) mg/dL Calcium 9.1 (8.4-10.2) mg/dL Magnesium 2.1 (1.6-2.6) mg/dL Total Bilirubin 0.3 (0.0-1.0) mg/dL Direct Bilirubin < 0.2 (0.0-0.5) mg/dL AST 20 (5-31) U/L ALT 28 (0-31) U/L Alkaline Phosphatase 84 (39-117) U/L Troponin I High Sens < 3.5 (<3.5-17.0) ng/L Total Protein 6.9 (6.5-8.0) g/dL Albumin 3.9 (3.5-5.0) g/dL COVID-19 (MICHAEL) (Negative) COVID-19 Clin Com Influenza Type A (ANGELICA) (Negative) Influenza Type B (ANGELICA) (Negative) Influenza A & B Note Imaging Data Chest x-ray: Attestation: I personally reviewed and interpreted this imaging study as follows: Radiologist's impression: [id number] [place] [address] XRay Report Signed Patient: Candace Amaya MR#: [id number] : 1980 Acct:[id number] Age/Sex: 41 / F ADM Date: 12/12/21 Loc: .ED Attending Dr: Ordering Physician: Annalisa Lopez NP Date of Service: 12/12/21 Procedure(s): XR chest 2V Accession Number(s): [id number] cc: Annalisa Lopez NP~ EXAMINATION: XR CHEST CLINICAL INFORMATION: Chest pain. COMPARISON: 01/13/2021 chest radiograph. TECHNIQUE: 2 views of the chest were obtained. FINDINGS: No significant abnormality is noted involving the heart, lungs, mediastinum, bony thorax or soft tissues. XR/XR chest 2V IMPRESSION: No acute cardiopulmonary process. ECG Data Attestation: I personally reviewed and interpreted this ECG as follows: Interpretation: Normal sinus rhythm with a rate of 69, normal ND, normal QRS, normal QT, T-wave inversions in leads 3 and V1 which are unchanged when compared to EKG 01/13/2021 Discharge Plan Discharge Clinical Impression: Headache, Atypical chest pain Patient Disposition: Home, Self-Care Instructions: Chest Pain (ED), Acute Headache (DC) Additional Instructions: Testing for flu and COVID are negative. Your blood work was normal as well as your EKG and chest x-ray Drink plenty of fluids, get rest, avoid stress, follow-up with your PCP Prescriptions: No Action acetaminophen 500 mg tablet 500 mg PO Q6H PRN (Reason: fever or pain) 10 Days Qty: 40 1RF albuterol sulfate 2.5 mg /3 mL (0.083 %) solution for nebulization 2.5 mg continuous nebulization .3 to 4 times daily PRN (Reason: shortness of breath or wheezing) 30 Days Qty: 180 3RF miscellaneous medical supply Misc 1 ea miscellaneous .4 times a day PRN (Reason: shortness of breath or wheezing) 360 Days Qty: 1 0RF Rx Instructions: Nebulizer Machine Advair HFA 230-21 mcg/actuation HFA aerosol inhaler 2 puff inhalation BID 30 Days Qty: 1 6RF Xolair 150 mg recon soln 300 mg subcut Q4W 28 Days Qty: 1 12RF Rx Instructions: requires multiple injection sites; do not exceed 150 mg per injection site Humira(CF) Pen 40 mg/0.4 mL pen injector kit See Rx Instructions subcut .COMPLEX Qty: 2 1RF Rx Instructions: inject one - 40 mg/0.4 mL pen every 2 weeks subcut albuterol sulfate [ProAir HFA] 90 mcg/actuation HFA aerosol inhaler 2 puff inhalation Q6H PRN (Reason: shortness of breath or wheezing) 30 Days Qty: 8.5 0RF albuterol sulfate 90 mcg/actuation HFA aerosol inhaler 1 inh inhalation QID PRN (Reason: shortness of breath or wheezing) Qty: 8.5 0RF alum-mag hydroxide-simeth [Maalox Advanced] 200-200-20 mg/5 mL suspension 5 ml PO 5XD PRN (Reason: dyspepsia) Qty: 30 0RF Rx Instructions: administer between meals and at bedtime famotidine [Pepcid] 20 mg tablet 20 mg PO DAILY Qty: 10 0RF aspirin 81 mg tablet,chewable 81 mg PO DAILY 0RF montelukast 10 mg tablet 10 mg PO BEDTIME 90 Days Qty: 90 1RF pregabalin 75 mg capsule 75 mg PO BID 30 Days Qty: 60 1RF trazodone 50 mg tablet 50 mg PO BEDTIME PRN (Reason: sleep) 30 Days Qty: 30 1RF cyclobenzaprine 10 mg tablet 10 mg PO BEDTIME Qty: 10 0RF Referrals: Edward Lima MD [Primary Care Provider] - 1 week (for a re-evaluation) Interventions: ED Discharge Assessment Last Done: 12/12/21 13:31 Discharge Date/Time: 12/12/21 13:32 Print Language: Citizen [place]
--- NOTE | 2021-12-12 09:49 | ECG_ITS ---
Test Reason : CHEST PAIN Blood Pressure : / mmHG Vent. Rate : 069 BPM Atrial Rate : 069 BPM P-R Int : 152 ms QRS Dur : 094 ms QT Int : 406 ms P-R-T Axes : 040 000 002 degrees QTc Int : 435 ms Normal sinus rhythm Normal ECG When compared to the previous EKG of No significant changes seen Referred By: Annalisa Lopez Electronically Signed By:DONTE HERNANDEZ MD
[2021-12-12 10:37] LABS: COVID-19 Test Negative (Negative)
[2021-12-12 10:41] LABS: Influenza A Negative (Negative); Influenza B2 Negative (Negative)
[2021-12-12 10:43] LABS: MANUAL DIFF FLAG NO
[2021-12-12 10:49] LABS: Basophils Percent Auto 0.4 % (0-2); Eosinophils Absolute Auto 0.2 X10*3/uL (0.0-0.4); Eosinophils Percent Auto 2.4 % (0-4); Hematocrit 38.8 % (37.0-47.0); Hemoglobin 12.2 g/dl (12.0-16.0); Imm Gran Abs Auto 0.02 X10*3/uL (0.00-0.03); Imm Gran Pct Auto 0.3 % (0.0-0.4); Lymphocytes Absolute Auto 2.1 X10*3/uL (1.2-4.9); Lymphocytes Percent Auto 31.8 % (20-40); Mean Corpuscular HGB Conc 31.4 g/dl (31.0-35.0); Mean Corpuscular Hemoglobin 27.7 pg (27.0-33.0); Mean Corpuscular Volume 88.2 fL (80.0-98.0); Mean Platelet Volume 10.9 fL (9.4-12.3); Monocytes Absolute Auto 0.6 X10*3/uL (0.1-1.2); Monocytes Percent Auto 8.5 % (2-11); Neutrophils Absolute Auto 3.8 x10*3/uL (2.0-8.3); Neutrophils Percent Auto 56.6 % (45-73); Platelet Count 261 X10*3/uL (160-400); Red Cell Distribution Width 14.1 % (11.0-16.0); White Blood Count 6.7 X10*3/uL (4.8-10.8)
[2021-12-12 10:56] LABS: Prothrombin Time 11.9 SEC (9.9-13.0)
[2021-12-12 11:00] LABS: Alanine Aminotransferase 28 U/L (0-31); Albumin Level 3.9 g/dL (3.5-5.0); Alkaline Phosphatase 84 U/L (39-117); Anion Gap 13 (12-20); Aspartate Amino Transferase 20 U/L (5-31); Bilirubin Direct < 0.2 mg/dL (0.0-0.5); Bilirubin Total 0.3 mg/dL (0.0-1.0); Blood Urea Nitrogen 10 mg/dL (9-16); Calcium 9.1 mg/dL (8.4-10.2); Carbon Dioxide 22 mmol/L (22-29); Chloride 107 mmol/L (96-108); Creatinine Clr Calc Pharmacy 133.6; Estimated Glomerular Filt Rate > 60; Glucose Random 85 mg/dL (60-115); Magnesium 2.1 mg/dL (1.6-2.6); Potassium 4.6 mmol/L (3.3-5.1); Sodium 137 mmol/L (135-145); Total Protein 6.9 g/dL (6.5-8.0)
[2021-12-12 11:01] VITALS: BP 118/76; PULSE 67; RESP 16; TEMP 36.8; O2SAT 100
[2021-12-12] MEDS: Ketorolac Tromethamine 30 MG/ML VIAL IVPUSH (11:03)
[2021-12-12] MEDS: 0.9 % Sodium Chloride 1,000 ML 999 ML IV (11:03)
[2021-12-12] MEDS: LORazepam 2 MG/ML VIAL 0.5 MG IVPUSH (11:04)
[2021-12-12 11:06] LABS: Troponin-I High Sensitivity < 3.5 ng/L (<3.5-17.0)
[2021-12-12 13:18] VITALS: BP 107/71; PULSE 74; RESP 25; O2SAT 96
== END 2021-12-12 13:32 | disposition home or self-care (01) ==
PROVIDERS: Nurse Practitioner Family; Emergency Provider Emergency Medicine Emergency Medical Services; PCP Internal Medicine
DX: R51.9 Headache, unspecified (principal); R20.0 Anesthesia of skin; R07.89 Other chest pain; Z20.822 Contact with and (suspected) exposure to COVID-19; Z79.899 Other long term (current) drug therapy
CPT/HCPCS: 36415; 71046; 80048; 80076; 83735; 84484; 85025; 85610; 87502; 87635; 93005; 96361; 96374; 96375; 99284; J1885; J2060

== ENCOUNTER 2021-12-19 08:33 | Outpatient (REF) | payer OTHER, SELFPAY | END 2021-12-19 08:34 | disposition home or self-care (01) | LOC: HO.MDS 08:33 | PROVIDERS: PCP Internal Medicine; Visit Provider Internal Medicine Pulmonary Disease | DX: J45.50 Severe persistent asthma, uncomplicated (principal) | CPT/HCPCS: 96372; J2357 ==

== ENCOUNTER 2022-01-02 10:13 | Emergency (ER) | payer OTHER, SELFPAY ==
[2022-01-02 11:16] VITALS: BP 159/99; PULSE 108; RESP 18; TEMP 37.1; O2SAT 100; BMI 37.0
--- NOTE | 2022-01-02 11:50 | ED_ITS ---
HPI - Allergic Reaction General Chief complaint: Allergic Reaction Stated complaint: Swollen Lips/Trouble swallowing/body aches Time Seen by Provider: 01/02/22 11:50 Source: patient Mode of arrival: ambulatory Limitations: no limitations History of Present Illness HPI narrative: 41 y/o female with history of fibromyalgia, asthma, RA who presents to the ER c/o diffuse body and joint pain for the last 2 weeks as well as what she feels are swollen bottom lip. She feels like she may be having an allergic reaction to her new medications - Humira and Xolair. She states symptoms have been present for 2 weeks but worsening over the last 3 days. She states her leg muscles are very sore and she cannot take it anymore. She also has diffuse body aches, mostly in her LE. She called her [facility] but could not be seen today so she came to the ER for further evaluation. MD complaint: facial swelling Onset (ago): week(s) Exposure: medication Symptoms: lip swelling Severity: mild Treatment prior to arrival: none Previous Allergic Reaction History: none Related Data Home Medications Medication Instructions Recorded Confirmed aspirin 81 mg chewable tablet 81 mg PO DAILY 06/08/20 12/20/21 Previous Rx's Medication Instructions Recorded albuterol sulfate 2.5 mg (3 mL) CONTINUOUS 01/04/21 NEBULIZATION .3 to 4 times daily PRN 30 Days #180 ml miscellaneous medical supply 1 ea MISCELLANEOUS .4 times a day 01/04/21 PRN 360 Days #1 ea albuterol sulfate 90 mcg/actuation 1 inh INHALATION QID PRN #8.5 g 01/13/21 aerosol inhaler montelukast 10 mg tablet 10 mg PO BEDTIME 90 Days #90 tab 05/02/21 aluminum-mag hydroxide-simethicone 5 ml PO 5XD PRN #30 ml 06/19/21 200 mg-200 mg-20 mg/5 mL oral susp (Maalox Advanced) famotidine 20 mg tablet (Pepcid) 20 mg PO DAILY #10 tab 06/19/21 fluticasone propionate 230 2 puff INHALATION BID 30 Days #1 ea 09/16/21 mcg-salmeterol 21 mcg/actuation HFA inhaler (Advair HFA) omalizumab 150 mg subcutaneous 300 mg SUBCUT Q4W 28 Days #1 ea 10/11/21 solution (Xolair) cyclobenzaprine 10 mg tablet 10 mg PO BEDTIME #10 tab 10/24/21 adalimumab 40 mg/0.4 mL See Rx Instructions SUBCUT 11/29/21 subcutaneous pen kit (Humira(CF) .COMPLEX #2 ea Pen) albuterol sulfate 90 mcg/actuation 2 puff INHALATION Q6H PRN 30 Days 12/05/21 aerosol inhaler (ProAir HFA) #8.5 g pregabalin 75 mg capsule 75 mg PO BID 30 Days #60 cap 12/05/21 trazodone 50 mg tablet 50 mg PO BEDTIME PRN 30 Days #30 12/05/21 tab acetaminophen 500 mg tablet 1,000 mg PO Q6H PRN #40 tab 12/20/21 ondansetron HCl 4 mg tablet 4 mg PO Q12H PRN #10 tab 12/20/21 Allergies Allergy/AdvReac Type Severity Reaction Status Date / Time doxycycline Allergy Unknown itch and Verified 12/20/21 16:26 rash Review of Systems Review of Systems: Constitutional: No Fever, No Chills ENT/Mouth: + sore throat, No Rhinorrhea, No Swallowing Difficulty Cardiovascular: No Chest Pain, No SOB, No Orthopnea, No Edema Respiratory: No Cough, No Sputum, No Wheezing, No dyspnea Gastrointestinal: No Nausea, No Vomiting, No Diarrhea, No abdominal Pain Genitourinary: No Dysuria, No Urinary Frequency, No Hematuria Musculoskeletal: + joint pain, + Myalgias Skin: No Skin Lesions, No rash Neuro: + Weakness, No Numbness, No Dizziness, + Headache Psych: +Anxiety/Panic, + Depression Heme/Lymph: No Bruising, No Lymphadenopathy Endocrine: No Polyuria, No Polydipsia [facility] Past Medical History Medical History Asthma Depression Diabetes mellitus Fatigue Fibromyalgia Fibromyalgia Frequent headaches Insomnia Non-insulin dependent diabetes mellitus Obesity Obesity (BMI 30-39.9) Seropositive rheumatoid arthritis Surgical History History of tooth extraction Hx of section Family History Family History Father HTN (hypertension) Mother Asthma CVD (cardiovascular disease) Brain cancer Maternal Aunt Breast cancer Sister No problems noted. Sister No problems noted. Sister No problems noted. Son Arthritis Daughter Lupus Daughter No problems noted. Social History Social History Housing: House Alcohol intake: never Patient Tobacco Use Status: Never used Tobacco e-Cigarette/Vaping Use: Never Used Second Hand Smoke Exposure: Yes Advance Directives: No service: No Current occupational status: unemployed Cognitive needs: No Hearing needs: No Vision needs: No Physical Exam ED Vital Signs: Vital Signs - 24 hr 01/02/22 11:16 Temperature 98.8 F Pulse Rate 108 H Respiratory Rate 18 Blood Pressure 159/99 H Pulse Oximetry 100 BMI result Body Mass Index 37.0 Appearance: Alert. Oriented X3. No acute distress. Eyes: Pupils equal, round and reactive to light. ENT: Pharynx with mild generalized erythema. Lips are normal in appearance. normal voice and handling secretions normally. Neck: Normal inspection. Neck supple. CVS: Normal heart rate and rhythm. Pulses normal. Respiratory: No respiratory distress. Breath sounds normal. Abdomen: Soft and nontender. +BS x4 Skin: Skin warm and dry. Normal skin color. Normal skin turgor. No rashes. Extremities: No lower extremity edema. Compartments soft and compressible. Joints and soft tissues are diffusely tender without any skin changes or warmth. Normal ROM throughout. Neuro: Oriented X 3. No motor deficit. No sensory deficit. Course Course Course Narrative: 41 y/o female with history of RA, fibromyalgia, asthma presenting with diffuse body aches and joint pains, worsening over the last 2 weeks. She does not have any evidence of angioedema or allergic reaction from her Humira and Xolair. Airway is patent. Will check COVID and Flu swabs. Reevaluation(s) Reevaluation #1: Patient found to be Influenza A positive. Not in treatment window for Tamiflu. She is stable for discharge home with supportive care. MDM - Allergic Reaction Lab Data Labs: Lab Results 01/02/22 01/02/22 Range/Units 12:58 12:58 COVID-19 (MICHAEL) Negative (Negative) COVID-19 Clin Com See Note Influenza Type A (ANGELICA) Positive A (Negative) Influenza Type B (ANGELICA) Negative (Negative) Influenza A & B Note See Note Critical Care Time Critical Care Time Critical Care Time: No Discharge Plan Discharge Clinical Impression: Influenza A Patient Disposition: Home, Self-Care Instructions: Influenza (DC) Additional Instructions: You were found to be Influenza A POSITIVE today. Rest. Drink plenty of fluids. Do not go out in public while you are not feeling well. Take over the counter cold/flu medications as needed for your symptoms. Take Tylenol and/or Motrin as needed for fevers and body aches. Follow up with your doctor this week. If you develop new or worsening symptoms call 911 or come back to the ER for further evaluation. Prescriptions: No Action albuterol sulfate 2.5 mg /3 mL (0.083 %) solution for nebulization 2.5 mg continuous nebulization .3 to 4 times daily PRN (Reason: shortness of breath or wheezing) 30 Days Qty: 180 3RF miscellaneous medical supply Misc 1 ea miscellaneous .4 times a day PRN (Reason: shortness of breath or wheezing) 360 Days Qty: 1 0RF Rx Instructions: Nebulizer Machine Advair HFA 230-21 mcg/actuation HFA aerosol inhaler 2 puff inhalation BID 30 Days Qty: 1 6RF Xolair 150 mg recon soln 300 mg subcut Q4W 28 Days Qty: 1 12RF Rx Instructions: requires multiple injection sites; do not exceed 150 mg per injection site Humira(CF) Pen 40 mg/0.4 mL pen injector kit See Rx Instructions subcut .COMPLEX Qty: 2 1RF Rx Instructions: inject one - 40 mg/0.4 mL pen every 2 weeks subcut albuterol sulfate [ProAir HFA] 90 mcg/actuation HFA aerosol inhaler 2 puff inhalation Q6H PRN (Reason: shortness of breath or wheezing) 30 Days Qty: 8.5 0RF albuterol sulfate 90 mcg/actuation HFA aerosol inhaler 1 inh inhalation QID PRN (Reason: shortness of breath or wheezing) Qty: 8.5 0RF alum-mag hydroxide-simeth [Maalox Advanced] 200-200-20 mg/5 mL suspension 5 ml PO 5XD PRN (Reason: dyspepsia) Qty: 30 0RF Rx Instructions: administer between meals and at bedtime famotidine [Pepcid] 20 mg tablet 20 mg PO DAILY Qty: 10 0RF aspirin 81 mg tablet,chewable 81 mg PO DAILY 0RF montelukast 10 mg tablet 10 mg PO BEDTIME 90 Days Qty: 90 1RF pregabalin 75 mg capsule 75 mg PO BID 30 Days Qty: 60 1RF trazodone 50 mg tablet 50 mg PO BEDTIME PRN (Reason: sleep) 30 Days Qty: 30 1RF cyclobenzaprine 10 mg tablet 10 mg PO BEDTIME Qty: 10 0RF ondansetron HCl 4 mg tablet 4 mg PO Q12H PRN (Reason: nausea and vomiting) Qty: 10 0RF acetaminophen 500 mg tablet 1,000 mg PO Q6H PRN (Reason: headache) Qty: 40 0RF Print Language: [place]se
[2022-01-02 13:40] LABS: COVID-19 Test Negative (Negative); IDNOW Serial# 16C4AD1C; Influenza A Positive (Negative); Influenza B2 Negative (Negative)
[2022-01-02 13:50] VITALS: BP 106/68; PULSE 86; RESP 14; O2SAT 96
[2022-01-02] MEDS: Ketorolac Tromethamine 30 MG/ML VIAL IM (13:51)
[2022-01-02] MEDS: oxyCODONE HCl Immed Release 5 MG TABLET PO (13:52)
== END 2022-01-02 14:00 | disposition home or self-care (01) ==
PROVIDERS: Physician Assistant; Emergency Provider Emergency Medicine; PCP Internal Medicine
DX: J10.1 Influenza due to other identified influenza virus with other respiratory manifestations (principal); J45.909 Unspecified asthma, uncomplicated; E11.9 Type 2 diabetes mellitus without complications; M05.9 Rheumatoid arthritis with rheumatoid factor, unspecified; Z79.899 Other long term (current) drug therapy; Z20.822 Contact with and (suspected) exposure to COVID-19
CPT/HCPCS: 87502; 87635; 96372; 99284; J1885

== ENCOUNTER 2022-01-16 08:24 | Outpatient (REF) | payer OTHER, SELFPAY | END 2022-01-16 08:25 | disposition home or self-care (01) | LOC: HO.MDS 08:24 | PROVIDERS: Visit Provider Internal Medicine Pulmonary Disease | DX: J45.50 Severe persistent asthma, uncomplicated (principal) | CPT/HCPCS: 96372; 99212; J2357 ==

== ENCOUNTER 2022-02-13 10:33 | Outpatient (REF) | payer OTHER, SELFPAY | END 2022-02-13 10:34 | disposition home or self-care (01) | LOC: HO.MDS 10:33 | PROVIDERS: Visit Provider Internal Medicine Pulmonary Disease | DX: J45.50 Severe persistent asthma, uncomplicated (principal) | CPT/HCPCS: 96372; J2357 ==

== ENCOUNTER 2022-02-22 06:50 | Outpatient (REF) | payer OTHER, SELFPAY ==
[2022-02-22 07:00] LABS: MANUAL DIFF FLAG NO
[2022-02-22 07:24] LABS: Basophils Percent Auto 0.5 % (0-2); Eosinophils Absolute Auto 0.1 X10*3/uL (0.0-0.4); Eosinophils Percent Auto 2.1 % (0-4); Hematocrit 38.5 % (37.0-47.0); Hemoglobin 12.4 g/dl (12.0-16.0); Imm Gran Abs Auto 0.02 X10*3/uL (0.00-0.03); Imm Gran Pct Auto 0.3 % (0.0-0.4); Lymphocytes Absolute Auto 1.9 X10*3/uL (1.2-4.9); Lymphocytes Percent Auto 28.2 % (20-40); Mean Corpuscular HGB Conc 32.2 g/dl (31.0-35.0); Mean Corpuscular Volume 86.9 fL (80.0-98.0); Mean Platelet Volume 11.5 fL (9.4-12.3); Monocytes Absolute Auto 0.5 X10*3/uL (0.1-1.2); Monocytes Percent Auto 7.3 % (2-11); Neutrophils Percent Auto 61.6 % (45-73); Platelet Count 245 X10*3/uL (160-400); Red Blood Count 4.43 X10*6/uL (4.20-5.50); Red Cell Distribution Width 14.6 % (11.0-16.0); White Blood Count 6.6 X10*3/uL (4.8-10.8)
[2022-02-22 07:39] LABS: Estimated Average Glucose 123 mg/dL; Hemoglobin A1c % 5.9 %
[2022-02-22 07:50] LABS: Alanine Aminotransferase 28 U/L (0-31); Albumin Level 3.9 g/dL (3.5-5.0); Alkaline Phosphatase 76 U/L (39-117); Anion Gap 13 (12-20); Aspartate Amino Transferase 24 U/L (5-31); Bilirubin Total 0.4 mg/dL (0.0-1.0); Blood Urea Nitrogen 11 mg/dL (9-16); Calcium 8.9 mg/dL (8.4-10.2); Carbon Dioxide 23 mmol/L (22-29); Chloride 106 mmol/L (96-108); Cholesterol 163 mg/dL; Estimated Glomerular Filt Rate > 60; Glucose Fasting 118 mg/dL (60-99); HDL Cholesterol 42 mg/dL; LDL Cholesterol Calculated 98 mg/dl; Potassium 4.6 mmol/L (3.3-5.1); Sodium 137 mmol/L (135-145); Triglycerides 117 mg/dL
[2022-02-22 07:54] LABS: Appearance Urine CLEAR; Color Urine YELLOW; Glucose Urine UA NEG (NEG); Leukocyte Esterase Urine NEG (NEG); Nitrite Urine NEG (NEG); PH 5.5 (5.0-8.0); Specific Gravity - Urine >= 1.030 (1.005-1.025); Urine Blood NEG (NEG); Urine Ketones NEG (NEG); Urine Protein NEG (NEG-TRACE)
[2022-02-22 08:05] LABS: TSH reflex Free T4 1.61 uIU/mL (0.32-4.0); Vitamin D 25-OH Total 22.7 ng/mL (>30)
== END 2022-02-22 06:51 | disposition home or self-care (01) ==
LOC: HO.LAB 06:50
PROVIDERS: Absent Provider Nurse Practitioner Family; PCP Internal Medicine; Visit Provider Internal Medicine
DX: E55.9 Vitamin D deficiency, unspecified (principal); I10 Essential (primary) hypertension; E78.00 Pure hypercholesterolemia, unspecified; E11.9 Type 2 diabetes mellitus without complications
CPT/HCPCS: 36415; 80053; 80061; 81003; 82306; 83036; 84443; 85025

== ENCOUNTER 2022-02-27 11:16 | Outpatient (REF) | payer OTHER, SELFPAY ==
[2022-02-27 11:27] LABS: MANUAL DIFF FLAG NO
[2022-02-27 11:41] LABS: Basophils Percent Auto 0.3 % (0-2); Eosinophils Absolute Auto 0.1 X10*3/uL (0.0-0.4); Eosinophils Percent Auto 1.4 % (0-4); Hematocrit 38.9 % (37.0-47.0); Hemoglobin 12.9 g/dl (12.0-16.0); Imm Gran Abs Auto 0.03 X10*3/uL (0.00-0.03); Imm Gran Pct Auto 0.4 % (0.0-0.4); Lymphocytes Percent Auto 29.5 % (20-40); Mean Corpuscular HGB Conc 33.2 g/dl (31.0-35.0); Mean Corpuscular Hemoglobin 28.4 pg (27.0-33.0); Mean Corpuscular Volume 85.5 fL (80.0-98.0); Mean Platelet Volume 11.4 fL (9.4-12.3); Monocytes Absolute Auto 0.5 X10*3/uL (0.1-1.2); Monocytes Percent Auto 7.4 % (2-11); Neutrophils Absolute Auto 4.2 x10*3/uL (2.0-8.3); Platelet Count 239 X10*3/uL (160-400); Red Blood Count 4.55 X10*6/uL (4.20-5.50); Red Cell Distribution Width 14.4 % (11.0-16.0); White Blood Count 6.9 X10*3/uL (4.8-10.8)
[2022-02-27 12:05] LABS: Alanine Aminotransferase 22 U/L (0-31); Albumin Level 4.1 g/dL (3.5-5.0); Alkaline Phosphatase 83 U/L (39-117); Anion Gap 11 (12-20); Aspartate Amino Transferase 19 U/L (5-31); Bilirubin Total 0.3 mg/dL (0.0-1.0); Blood Urea Nitrogen 13 mg/dL (9-16); C Reactive Protein 0.78 mg/dL (< or = 0.50); Calcium 9.4 mg/dL (8.4-10.2); Carbon Dioxide 23 mmol/L (22-29); Chloride 108 mmol/L (96-108); Estimated Glomerular Filt Rate > 60; Glucose Random 125 mg/dL (60-115); Potassium 4.2 mmol/L (3.3-5.1); Sodium 138 mmol/L (135-145); Total Protein 7.4 g/dL (6.5-8.0)
[2022-02-27 12:27] LABS: Erythrocyte Sedimentation Rate 9 MM/HR (0-20)
[2022-02-27 14:06] LABS: Appearance Urine CLEAR; Color Urine YELLOW; Glucose Urine UA NEG (NEG); Leukocyte Esterase Urine NEG (NEG); Nitrite Urine NEG (NEG); PH 5.5 (5.0-8.0); Specific Gravity - Urine >= 1.030 (1.005-1.025); Urine Blood NEG (NEG); Urine Ketones NEG (NEG); Urine Protein NEG (NEG-TRACE)
[2022-02-27 14:42] LABS: Creatinine Urine 155.65 mg/dL; Total Protein Urine Random < 7 mg/dL (<12)
[2022-03-01 13:47] LABS: Anti Nuclear Antibody Screen NEGATIVE (NEGATIVE)
[2022-03-02 07:37] LABS: Anti DNA DS Antibody <1 IU/mL; SM/Ribonucleoprotein Ab <1.0 NEG AI (<1.0 NEG); Smith Protein <1.0 NEG AI (<1.0 NEG)
== END 2022-02-27 11:17 | disposition home or self-care (01) ==
LOC: HO.LAB 11:16
PROVIDERS: PCP Internal Medicine; Visit Provider Nurse Practitioner Family
DX: M05.9 Rheumatoid arthritis with rheumatoid factor, unspecified (principal); M54.16 Radiculopathy, lumbar region; M25.561 Pain in right knee; M25.562 Pain in left knee; M25.512 Pain in left shoulder; R30.0 Dysuria
CPT/HCPCS: 36415; 80053; 81003; 84156; 85025; 85652; 86038; 86039; 86140; 86225; 86235; 99212

== ENCOUNTER 2022-03-06 06:45 | Outpatient (REF) | payer OTHER, SELFPAY ==
--- NOTE | ~2022-03-06 | XR_ITS ---
EXAMINATION: BILATERAL FOOT, BILATERAL HAND AND LEFT SHOULDER. CLINICAL INFORMATION: Rheumatoid arthritis with positive rheumatoid factor. COMPARISON: None TECHNIQUE: 3 views each foot. 3 views each hand. 4 views left shoulder. FINDINGS: Left shoulder: The glenohumeral and AC joint is maintained normal. No bony erosive changes, loose bodies or dislocation seen. There is no fracture. The soft tissues are normal. Left foot: The joint spaces and visualized bones are mostly unremarkable. No bony erosive changes. The ankle mortise and 6 subtalar joints are normal. The small calcaneal heel and retrocalcaneal enthesophytes. Right foot: The joint spaces and visualized bones are unremarkable. No fracture, dislocation seen. Ankle mortise and subtalar joints are normal. There is a small calcaneal and retrocalcaneal enthesophytes. There is mild loss of first metatarsophalangeal joint with dorsal spurring. Left hand: The PIP, DIP and MCP joint space is maintained. The intercarpal and radiocarpal joint spaces are normal as well. No fracture, dislocation is bony erosive changes. The soft tissues are normal. Right hand: The PIP, DIP and MCP joint space is maintained normal. No bony erosive changes. The intercarpal and radiocarpal joint spaces are normal. The soft tissues are normal. No visible fracture or dislocation seen. XR/XR hand LT min 3V IMPRESSION: Mild dorsal spurring first metatarsal phalangeal joint right foot. Small calcaneal spur. Mild calcaneal heel and retrocalcaneal enthesophyte left foot. Rest of the left foot is unremarkable. Unremarkable left shoulder. Unremarkable bilateral hand and wrist exam.
--- NOTE | ~2022-03-06 | XR_ITS ---
EXAMINATION: BILATERAL FOOT, BILATERAL HAND AND LEFT SHOULDER. CLINICAL INFORMATION: Rheumatoid arthritis with positive rheumatoid factor. COMPARISON: None TECHNIQUE: 3 views each foot. 3 views each hand. 4 views left shoulder. FINDINGS: Left shoulder: The glenohumeral and AC joint is maintained normal. No bony erosive changes, loose bodies or dislocation seen. There is no fracture. The soft tissues are normal. Left foot: The joint spaces and visualized bones are mostly unremarkable. No bony erosive changes. The ankle mortise and 6 subtalar joints are normal. The small calcaneal heel and retrocalcaneal enthesophytes. Right foot: The joint spaces and visualized bones are unremarkable. No fracture, dislocation seen. Ankle mortise and subtalar joints are normal. There is a small calcaneal and retrocalcaneal enthesophytes. There is mild loss of first metatarsophalangeal joint with dorsal spurring. Left hand: The PIP, DIP and MCP joint space is maintained. The intercarpal and radiocarpal joint spaces are normal as well. No fracture, dislocation is bony erosive changes. The soft tissues are normal. Right hand: The PIP, DIP and MCP joint space is maintained normal. No bony erosive changes. The intercarpal and radiocarpal joint spaces are normal. The soft tissues are normal. No visible fracture or dislocation seen. XR/XR foot LT 2V IMPRESSION: Mild dorsal spurring first metatarsal phalangeal joint right foot. Small calcaneal spur. Mild calcaneal heel and retrocalcaneal enthesophyte left foot. Rest of the left foot is unremarkable. Unremarkable left shoulder. Unremarkable bilateral hand and wrist exam.
--- NOTE | ~2022-03-06 | XR_ITS ---
EXAMINATION: BILATERAL FOOT, BILATERAL HAND AND LEFT SHOULDER. CLINICAL INFORMATION: Rheumatoid arthritis with positive rheumatoid factor. COMPARISON: None TECHNIQUE: 3 views each foot. 3 views each hand. 4 views left shoulder. FINDINGS: Left shoulder: The glenohumeral and AC joint is maintained normal. No bony erosive changes, loose bodies or dislocation seen. There is no fracture. The soft tissues are normal. Left foot: The joint spaces and visualized bones are mostly unremarkable. No bony erosive changes. The ankle mortise and 6 subtalar joints are normal. The small calcaneal heel and retrocalcaneal enthesophytes. Right foot: The joint spaces and visualized bones are unremarkable. No fracture, dislocation seen. Ankle mortise and subtalar joints are normal. There is a small calcaneal and retrocalcaneal enthesophytes. There is mild loss of first metatarsophalangeal joint with dorsal spurring. Left hand: The PIP, DIP and MCP joint space is maintained. The intercarpal and radiocarpal joint spaces are normal as well. No fracture, dislocation is bony erosive changes. The soft tissues are normal. Right hand: The PIP, DIP and MCP joint space is maintained normal. No bony erosive changes. The intercarpal and radiocarpal joint spaces are normal. The soft tissues are normal. No visible fracture or dislocation seen. XR/XR foot RT 2V IMPRESSION: Mild dorsal spurring first metatarsal phalangeal joint right foot. Small calcaneal spur. Mild calcaneal heel and retrocalcaneal enthesophyte left foot. Rest of the left foot is unremarkable. Unremarkable left shoulder. Unremarkable bilateral hand and wrist exam.
--- NOTE | ~2022-03-06 | XR_ITS ---
EXAMINATION: BILATERAL FOOT, BILATERAL HAND AND LEFT SHOULDER. CLINICAL INFORMATION: Rheumatoid arthritis with positive rheumatoid factor. COMPARISON: None TECHNIQUE: 3 views each foot. 3 views each hand. 4 views left shoulder. FINDINGS: Left shoulder: The glenohumeral and AC joint is maintained normal. No bony erosive changes, loose bodies or dislocation seen. There is no fracture. The soft tissues are normal. Left foot: The joint spaces and visualized bones are mostly unremarkable. No bony erosive changes. The ankle mortise and 6 subtalar joints are normal. The small calcaneal heel and retrocalcaneal enthesophytes. Right foot: The joint spaces and visualized bones are unremarkable. No fracture, dislocation seen. Ankle mortise and subtalar joints are normal. There is a small calcaneal and retrocalcaneal enthesophytes. There is mild loss of first metatarsophalangeal joint with dorsal spurring. Left hand: The PIP, DIP and MCP joint space is maintained. The intercarpal and radiocarpal joint spaces are normal as well. No fracture, dislocation is bony erosive changes. The soft tissues are normal. Right hand: The PIP, DIP and MCP joint space is maintained normal. No bony erosive changes. The intercarpal and radiocarpal joint spaces are normal. The soft tissues are normal. No visible fracture or dislocation seen. XR/XR shoulder LT min 2V IMPRESSION: Mild dorsal spurring first metatarsal phalangeal joint right foot. Small calcaneal spur. Mild calcaneal heel and retrocalcaneal enthesophyte left foot. Rest of the left foot is unremarkable. Unremarkable left shoulder. Unremarkable bilateral hand and wrist exam.
--- NOTE | ~2022-03-06 | XR_ITS ---
EXAMINATION: BILATERAL FOOT, BILATERAL HAND AND LEFT SHOULDER. CLINICAL INFORMATION: Rheumatoid arthritis with positive rheumatoid factor. COMPARISON: None TECHNIQUE: 3 views each foot. 3 views each hand. 4 views left shoulder. FINDINGS: Left shoulder: The glenohumeral and AC joint is maintained normal. No bony erosive changes, loose bodies or dislocation seen. There is no fracture. The soft tissues are normal. Left foot: The joint spaces and visualized bones are mostly unremarkable. No bony erosive changes. The ankle mortise and 6 subtalar joints are normal. The small calcaneal heel and retrocalcaneal enthesophytes. Right foot: The joint spaces and visualized bones are unremarkable. No fracture, dislocation seen. Ankle mortise and subtalar joints are normal. There is a small calcaneal and retrocalcaneal enthesophytes. There is mild loss of first metatarsophalangeal joint with dorsal spurring. Left hand: The PIP, DIP and MCP joint space is maintained. The intercarpal and radiocarpal joint spaces are normal as well. No fracture, dislocation is bony erosive changes. The soft tissues are normal. Right hand: The PIP, DIP and MCP joint space is maintained normal. No bony erosive changes. The intercarpal and radiocarpal joint spaces are normal. The soft tissues are normal. No visible fracture or dislocation seen. XR/XR hand RT min 3V IMPRESSION: Mild dorsal spurring first metatarsal phalangeal joint right foot. Small calcaneal spur. Mild calcaneal heel and retrocalcaneal enthesophyte left foot. Rest of the left foot is unremarkable. Unremarkable left shoulder. Unremarkable bilateral hand and wrist exam.
== END 2022-03-06 06:46 | disposition home or self-care (01) ==
LOC: HO.XRAY 06:45
PROVIDERS: PCP Internal Medicine; Visit Provider Nurse Practitioner Family
DX: M05.9 Rheumatoid arthritis with rheumatoid factor, unspecified (principal)
CPT/HCPCS: 73030; 73130; 73620

== ENCOUNTER 2022-03-25 11:37 | Outpatient (REF) | payer OTHER, SELFPAY | END 2022-03-25 11:38 | disposition home or self-care (01) | LOC: HO.MDS 11:37 | PROVIDERS: Visit Provider Internal Medicine Pulmonary Disease | DX: J45.50 Severe persistent asthma, uncomplicated (principal) | CPT/HCPCS: 96372; J2357 ==

== ENCOUNTER → 2022-03-27 09:56 | Outpatient (BNVA) | payer OTHER, SELFPAY | PROVIDERS: PCP Internal Medicine; Visit Provider Internal Medicine Pulmonary Disease | DX: J45.41 Moderate persistent asthma with (acute) exacerbation (principal); Z91.09 Other allergy status, other than to drugs and biological substances; Z79.899 Other long term (current) drug therapy | CPT/HCPCS: 99212 ==

== ENCOUNTER 2022-04-12 09:01 | Outpatient (REF) | payer OTHER, SELFPAY ==
--- NOTE | ~2022-04-12 | MR_ITS ---
EXAMINATION: MR OF THE BRAIN WITHOUT CONTRAST CLINICAL INFORMATION: 41-year-old with chronic headaches and diplopia with decreased vision. Evaluate for possible parasellar lesion. COMPARISON: None TECHNIQUE: Multiplanar multisequence MR imaging of the brain was done utilizing routine sequences with the addition of thin-section 3-D T2-weighted imaging. FINDINGS: Brain Volume: Within normal limits within the limitations of qualitative assessment. Structural: Partially empty sella, normal variant. Brain and Meninges: DWI sequence demonstrates no restricted diffusion. Specifically, there is no evidence for acute or subacute cerebral ischemia/infarct. A few scattered punctate foci of FLAIR/T2 signal hyperintensity are seen within the subcortical white matter of both cerebral hemispheres which are nonspecific findings. Given the patient's history, these could be secondary to migraine-associated vasculopathy. The remainder of the brain is normal in morphology and signal intensity. Gradient refocused imaging demonstrates no evidence for hemorrhage, hemosiderin staining or abnormal mineral deposition. Thin-section 3-D T2-weighted imaging of the sella and parasellar regions was limited due to susceptibility artifact from the sphenoid sinus. Within these limitations, no suprasellar or juxtasellar masses are identified. The optic tract and optic chiasm appear uncompromised within the limitations of the study. Ventricles and Subarachnoid Spaces: The ventricular system and subarachnoid spaces are within normal limits without hydrocephalus. Orbital Structures: The visualized orbital structures are grossly unremarkable within the limitations of the study. Vascular: Signal voids are noted in the visualized major intracranial vessels. Osseous Structures, Sinuses/Mastoids, Extracranial Soft Tissues: Minor mucosal thickening in the ethmoid complex and right maxillary sinus. Osseous marrow signal intensity appears grossly unremarkable. Visualized extracranial soft tissue structures appear unremarkable. MR/MR head/brain wo con IMPRESSION: 1. Scattered nonspecific subcortical white matter T2 hyperintensities in the cerebral hemispheres. These could reflect migraine-associated vasculopathy in the appropriate clinical setting. 2. No acute intracranial process. No evidence for hemorrhage, extra-axial fluid collection, space-occupying process, mass effect, or hydrocephalus. 3. Limited assessment of the sella and parasellar regions is unrevealing. No obvious mass effect on the optic chiasm. Dedicated MRI of the orbits and optic apparatus can be done for additional assessment if clinically warranted.
== END 2022-04-12 09:02 | disposition home or self-care (01) ==
LOC: HO.MRI 09:01
PROVIDERS: Visit Provider Psychiatry & Neurology Neurology
DX: G43.909 Migraine, unspecified, not intractable, without status migrainosus (principal); H53.2 Diplopia; H54.7 Unspecified visual loss
CPT/HCPCS: 70551

== ENCOUNTER 2022-04-23 13:48 | Outpatient (REF) | payer OTHER, SELFPAY ==
[2022-04-23 19:02] LABS: CT PCR NOT DETECTED (Not Detect.); NG PCR NOT DETECTED (Not Detect.)
[2022-04-24 13:07] LABS: BV Int Neg Control Negative (Negative); BV Int Pos Control Positive (Positive)
[2022-04-27 06:12] LABS: HPV mRNA E6/E7 rflx Not Detected (Not Detected)
== END 2022-04-23 13:49 | disposition home or self-care (01) ==
LOC: HO.LAB 13:48
PROVIDERS: Visit Provider Obstetrics & Gynecology
DX: Z01.419 Encounter for gynecological examination (general) (routine) without abnormal findings (principal); R31.29 Other microscopic hematuria; R10.31 Right lower quadrant pain; B37.3 Candidiasis of vulva and vagina
CPT/HCPCS: 87086; 87147; 87480; 87491; 87510; 87591; 87624; 87660; 88142; 99212

== ENCOUNTER → 2022-05-02 09:20 | Outpatient (BNVA) | payer OTHER, SELFPAY | PROVIDERS: PCP Internal Medicine; Visit Provider Internal Medicine Pulmonary Disease | DX: J45.41 Moderate persistent asthma with (acute) exacerbation (principal); Z91.09 Other allergy status, other than to drugs and biological substances; M05.9 Rheumatoid arthritis with rheumatoid factor, unspecified; M25.512 Pain in left shoulder; M25.561 Pain in right knee; M25.562 Pain in left knee; M79.671 Pain in right foot; M79.672 Pain in left foot; M79.7 Fibromyalgia; M54.16 Radiculopathy, lumbar region; R30.0 Dysuria | CPT/HCPCS: 99212 ==

== ENCOUNTER 2022-05-09 06:16 | Outpatient (REF) | payer OTHER, SELFPAY ==
[2022-05-09 07:43] LABS: C Reactive Protein 0.85 mg/dL (< or = 0.50)
[2022-05-09 08:32] LABS: Erythrocyte Sedimentation Rate 11 MM/HR (0-20)
== END 2022-05-09 06:17 | disposition home or self-care (01) ==
LOC: HO.LAB 06:16
PROVIDERS: Absent Provider Internal Medicine; PCP Internal Medicine; Visit Provider Nurse Practitioner Family
DX: M05.9 Rheumatoid arthritis with rheumatoid factor, unspecified (principal)
CPT/HCPCS: 36415; 85652; 86140

== ENCOUNTER 2022-05-10 13:50 | Outpatient (REF) | payer OTHER, SELFPAY ==
--- NOTE | ~2022-05-10 | MM_ITS ---
EXAMINATION: MM SCREENING DIGITAL BREAST TOMOSYNTHESIS, BILATERAL CLINICAL INFORMATION: Screening. Asymptomatic. Age 41. No prior breast imaging. The lifetime risk of breast cancer based on the Tyrer-Cuzick Model is 11%. COMPARISON: None (current study represents initial baseline exam). TECHNIQUE: Digital breast tomosynthesis is performed in both the craniocaudal and mediolateral oblique views along with computer-aided detection (CAD). Synthesized 2D images are generated from the tomosynthesis. FINDINGS: There are scattered areas of fibroglandular density (ACR BI-RADS breast composition Category b). There are no significant masses, abnormal calcifications, or other abnormalities. Breast tissue composition borders on heterogeneously dense. No architectural abnormality. The axilla are unremarkable. MM/MM tomosynthesis screening BI IMPRESSION: No mammographic evidence of malignancy. ASSESSMENT: BI-RADS 1: Negative RECOMMENDATION: Routine annual mammography screening. This patient's information was entered into a reminder system with a target due date for their next mammogram.
== END 2022-05-10 13:51 | disposition home or self-care (01) ==
LOC: HO.MAMMO 13:50
PROVIDERS: PCP Internal Medicine; Visit Provider Obstetrics & Gynecology
DX: Z12.31 Encounter for screening mammogram for malignant neoplasm of breast (principal)
CPT/HCPCS: 77063; 77067

== ENCOUNTER → 2022-05-22 15:11 | Outpatient (BNVA) | payer OTHER, SELFPAY | PROVIDERS: PCP Internal Medicine; Visit Provider Physician Assistant Surgical | DX: E66.9 Obesity, unspecified (principal); Z68.37 Body mass index [BMI] 37.0-37.9, adult | CPT/HCPCS: 99212 ==

== ENCOUNTER 2022-05-27 06:26 | Outpatient (REF) | payer OTHER, SELFPAY ==
[2022-05-27 06:46] LABS: MANUAL DIFF FLAG NO
[2022-05-27 07:39] LABS: Alanine Aminotransferase 30 U/L (0-31); Albumin Level 4.1 g/dL (3.5-5.0); Alkaline Phosphatase 89 U/L (39-117); Anion Gap 16 (12-20); Aspartate Amino Transferase 17 U/L (5-31); Bilirubin Total 0.5 mg/dL (0.0-1.0); Blood Urea Nitrogen 12 mg/dL (9-16); C Reactive Protein 1.86 mg/dL (< or = 0.50); Calcium 9.3 mg/dL (8.4-10.2); Carbon Dioxide 23 mmol/L (22-29); Chloride 104 mmol/L (96-108); Cholesterol 196 mg/dL; Estimated Glomerular Filt Rate > 60; Glucose Random 127 mg/dL (60-115); HDL Cholesterol 46 mg/dL; Iron 80 mcg/dL (30-160); LDL Cholesterol Calculated 127 mg/dl; Percent Iron Saturation 18 % (15-50); Potassium 3.9 mmol/L (3.3-5.1); Sodium 139 mmol/L (135-145); Total Iron Binding Capacity 434 mcg/dL (228-428); Total Protein 7.3 g/dL (6.5-8.0); Triglycerides 117 mg/dL; Unsaturated Iron Binding 354 ug/dL
[2022-05-27 07:46] LABS: Basophils Percent Auto 0.5 % (0-2); Eosinophils Absolute Auto 0.2 X10*3/uL (0.0-0.4); Eosinophils Percent Auto 2.3 % (0-4); Hematocrit 38.7 % (37.0-47.0); Hemoglobin 12.5 g/dl (12.0-16.0); Imm Gran Abs Auto 0.05 X10*3/uL (0.00-0.03); Imm Gran Pct Auto 0.6 % (0.0-0.4); Lymphocytes Absolute Auto 2.8 X10*3/uL (1.2-4.9); Lymphocytes Percent Auto 33.7 % (20-40); Mean Corpuscular HGB Conc 32.3 g/dl (31.0-35.0); Mean Corpuscular Hemoglobin 27.6 pg (27.0-33.0); Mean Corpuscular Volume 85.4 fL (80.0-98.0); Mean Platelet Volume 11.3 fL (9.4-12.3); Monocytes Absolute Auto 0.7 X10*3/uL (0.1-1.2); Monocytes Percent Auto 7.8 % (2-11); Neutrophils Absolute Auto 4.6 x10*3/uL (2.0-8.3); Neutrophils Percent Auto 55.1 % (45-73); Platelet Count 274 X10*3/uL (160-400); Red Blood Count 4.53 X10*6/uL (4.20-5.50); White Blood Count 8.4 X10*3/uL (4.8-10.8)
[2022-05-27 07:51] LABS: Estimated Average Glucose 134 mg/dL; Hemoglobin A1c % 6.3 %
[2022-05-27 08:00] LABS: Ferritin 35 ng/mL (10-250); Insulin 22 uU/mL (2-29); TSH reflex Free T4 2.79 uIU/mL (0.32-4.0); Vitamin D 25-OH Total 26.4 ng/mL (>30)
[2022-05-27 08:09] LABS: Folate 10.8 ng/mL (> or = 4.0); Vitamin B12 325 pg/mL (200-900)
[2022-05-28 12:47] LABS: Calcium (PTHI) 9.3 mg/dL (8.6-10.2); PTHI 82 pg/mL (16-77)
[2022-05-29 12:21] LABS: Anti DNA DS Antibody <1 IU/mL; Antibody to SS-A Antigen <1.0 NEG AI (<1.0 NEG); Antibody to SS-B Antigen <1.0 NEG AI (<1.0 NEG)
[2022-05-30 01:27] LABS: Zinc 82 mcg/dL (60-130)
[2022-05-30 13:32] LABS: Anti Nuclear Antibody Screen NEGATIVE (NEGATIVE)
[2022-05-30 18:37] LABS: Vitamin A 40 mcg/dL (38-98)
[2022-06-01 12:42] LABS: Vitamin B1 9 nmol/L (8-30)
== END 2022-05-27 06:27 | disposition home or self-care (01) ==
LOC: HO.LAB 06:26
PROVIDERS: Absent Provider Physician Assistant Medical; PCP Internal Medicine; Visit Provider Physician Assistant Surgical
DX: L30.9 Dermatitis, unspecified (principal); E66.9 Obesity, unspecified
CPT/HCPCS: 36415; 80053; 80061; 82306; 82607; 82728; 82746; 83036; 83525; 83540; 83970; 84425; 84443; 84590; 84630; 85025; 86038; 86039; 86140; 86225; 86235

== ENCOUNTER 2022-05-28 06:37 | Outpatient (REF) | payer OTHER, SELFPAY ==
--- NOTE | ~2022-05-28 | XR_ITS ---
EXAMINATION: XR CHEST CLINICAL INFORMATION: Bariatric service evaluation. E66.9. COMPARISON: Chest radiographs 12/12/2021, 01/13/2021 TECHNIQUE: 2 views of the chest were obtained. FINDINGS: The lungs are clear. There is no airspace consolidation or groundglass opacity or effusion. The costophrenic sulci are well-defined. The heart is normal in size. The hilar and mediastinal contours are normal. No acute bony abnormality. XR/XR chest 2V IMPRESSION: Unremarkable examination.
--- NOTE | 2022-05-28 06:57 | ECG_ITS ---
Test Reason : e66.9 Blood Pressure : / mmHG Vent. Rate : 079 BPM Atrial Rate : 079 BPM P-R Int : 152 ms QRS Dur : 082 ms QT Int : 400 ms P-R-T Axes : 053 006 000 degrees QTc Int : 458 ms Normal sinus rhythm Normal ECG When compared with ECG of 12-DEC-2021 10:03, No significant change was found Referred By: Rolando Doyle Electronically Signed By:TEMO GUTIERREZ
== END 2022-05-28 06:38 | disposition home or self-care (01) ==
LOC: HO.XRAY 06:37
PROVIDERS: PCP Internal Medicine; Visit Provider Physician Assistant Surgical
DX: E66.9 Obesity, unspecified (principal)
CPT/HCPCS: 71046; 93005

== ENCOUNTER 2022-06-19 07:42 | Outpatient (REF) | payer OTHER, SELFPAY | END 2022-06-19 07:43 | disposition home or self-care (01) | LOC: HO.MDS 07:42 | PROVIDERS: Visit Provider Internal Medicine Pulmonary Disease | DX: J45.50 Severe persistent asthma, uncomplicated (principal) | CPT/HCPCS: 96372; 97802; J2182 ==

== ENCOUNTER → 2022-07-03 13:55 | Outpatient (BNVA) | payer OTHER, SELFPAY | PROVIDERS: PCP Internal Medicine; Visit Provider Internal Medicine Pulmonary Disease | DX: J45.41 Moderate persistent asthma with (acute) exacerbation (principal); Z91.09 Other allergy status, other than to drugs and biological substances; Z79.899 Other long term (current) drug therapy | CPT/HCPCS: 99212 ==

== ENCOUNTER 2022-07-11 13:17 | Outpatient (REF) | payer OTHER, SELFPAY ==
--- NOTE | ~2022-07-11 | US_ITS ---
EXAMINATION: US PELVIS CLINICAL INFORMATION: Pain COMPARISON: Previous CT of the abdomen and pelvis June 2021 TECHNIQUE: Ultrasound of the pelvis is performed using both transabdominal and transvaginal transducers along with Doppler. Transvaginal imaging is performed due to inadequate visualization transabdominally. FINDINGS: The uterus is anteverted and retroflexed and measures 8.1 x 4.3 x 4.9 cm in dimension. There is a 1.1 x 1.2 x 1 cm iso to slightly hyperechoic lesion in the anterior upper uterine body suggestive of a fibroid. No other focal uterine lesion. Endometrial thickness is normal measuring 1.3 cm. There are nabothian cysts in the cervix. The right ovary measures 3.8 x 2.4 x 2.8 cm. There is a 1.5 x 1 x 1.2 cm cyst with internal echoes probably representing a corpus luteum. The left ovary measures 1.9 x 1.4 x 1.5 cm. There is question of a 1.2 x 0.8 x 1.6 cm left adnexal cysts in between the left ovary and uterus possibly representing a hydatid or cyst of Morganii versus a small amount of loculated pelvic fluid. No other evidence of pelvic fluid. US/US pelvic and transvaginal IMPRESSION: Small uterine fibroid. Small right ovarian cyst probably representing a corpus luteum. Question small left 1.2 x 0.6 x 1.6 cm left paraovarian or adnexal cyst, possibly representing a hydatid of Morgagni vs loculated fluid. Otherwise unremarkable exam.
== END 2022-07-11 13:18 | disposition home or self-care (01) ==
LOC: HO.US 13:17
PROVIDERS: Visit Provider Obstetrics & Gynecology
DX: R10.2 Pelvic and perineal pain (principal)
CPT/HCPCS: 76830; 76856

== ENCOUNTER → 2022-07-22 14:18 | Outpatient (BNVA) | payer OTHER, SELFPAY | PROVIDERS: PCP Internal Medicine; Visit Provider Obstetrics & Gynecology | DX: R10.2 Pelvic and perineal pain (principal); R31.29 Other microscopic hematuria; D21.9 Benign neoplasm of connective and other soft tissue, unspecified; N83.299 Other ovarian cyst, unspecified side | CPT/HCPCS: 81003; 99212 ==

== ENCOUNTER → 2022-08-14 13:56 | Outpatient (BNVA) | payer OTHER, SELFPAY | PROVIDERS: PCP Internal Medicine; Visit Provider Internal Medicine Pulmonary Disease | DX: J45.41 Moderate persistent asthma with (acute) exacerbation (principal); Z91.09 Other allergy status, other than to drugs and biological substances | CPT/HCPCS: 99212 ==

== ENCOUNTER 2022-08-30 07:43 | Outpatient (REF) | payer OTHER, SELFPAY | END 2022-08-30 07:44 | disposition home or self-care (01) | LOC: HO.MDS 07:43 | PROVIDERS: Visit Provider Internal Medicine Pulmonary Disease | DX: J45.50 Severe persistent asthma, uncomplicated (principal) | CPT/HCPCS: 96372 ==

== ENCOUNTER 2022-09-11 06:38 | Outpatient (REF) | payer OTHER, SELFPAY ==
[2022-09-11 06:47] LABS: MANUAL DIFF FLAG NO
[2022-09-11 07:37] LABS: Basophils Percent Auto 0.4 % (0-2); Eosinophils Absolute Auto 0.1 X10*3/uL (0.0-0.4); Eosinophils Percent Auto 0.9 % (0-4); Hemoglobin 12.3 g/dl (12.0-16.0); Imm Gran Abs Auto 0.03 X10*3/uL (0.00-0.03); Imm Gran Pct Auto 0.4 % (0.0-0.4); Lymphocytes Absolute Auto 2.5 X10*3/uL (1.2-4.9); Lymphocytes Percent Auto 32.4 % (20-40); Mean Corpuscular HGB Conc 32.4 g/dl (31.0-35.0); Mean Corpuscular Hemoglobin 27.3 pg (27.0-33.0); Mean Corpuscular Volume 84.4 fL (80.0-98.0); Mean Platelet Volume 11.2 fL (9.4-12.3); Monocytes Absolute Auto 0.6 X10*3/uL (0.1-1.2); Neutrophils Absolute Auto 4.5 x10*3/uL (2.0-8.3); Neutrophils Percent Auto 57.9 % (45-73); Platelet Count 284 X10*3/uL (160-400); Red Cell Distribution Width 14.6 % (11.0-16.0); White Blood Count 7.7 X10*3/uL (4.8-10.8)
[2022-09-11 07:46] LABS: Estimated Average Glucose 131 mg/dL; Hemoglobin A1c % 6.2 %
[2022-09-11 07:59] LABS: Alanine Aminotransferase 28 U/L (0-31); Albumin Level 3.8 g/dL (3.5-5.0); Alkaline Phosphatase 83 U/L (39-117); Anion Gap 9 (12-20); Aspartate Amino Transferase 18 U/L (5-31); Bilirubin Total 0.4 mg/dL (0.0-1.0); Blood Urea Nitrogen 11 mg/dL (9-16); C Reactive Protein 0.98 mg/dL (< or = 0.50); Calcium 9.1 mg/dL (8.4-10.2); Carbon Dioxide 25 mmol/L (22-29); Chloride 107 mmol/L (96-108); Cholesterol 167 mg/dL; Estimated Glomerular Filt Rate > 60; Glucose Fasting 105 mg/dL (60-99); Glucose Random 103 mg/dL (60-115); HDL Cholesterol 41 mg/dL; LDL Cholesterol Calculated 103 mg/dl; Potassium 4.7 mmol/L (3.3-5.1); Sodium 136 mmol/L (135-145); Total Protein 6.8 g/dL (6.5-8.0); Triglycerides 116 mg/dL
[2022-09-11 08:23] LABS: Erythrocyte Sedimentation Rate 13 MM/HR (0-20)
== END 2022-09-11 06:39 | disposition home or self-care (01) ==
LOC: HO.LAB 06:38
PROVIDERS: Absent Provider Internal Medicine; PCP Internal Medicine; Visit Provider Nurse Practitioner Family
DX: E11.9 Type 2 diabetes mellitus without complications (principal); E78.00 Pure hypercholesterolemia, unspecified; M05.9 Rheumatoid arthritis with rheumatoid factor, unspecified; I10 Essential (primary) hypertension
CPT/HCPCS: 36415; 80053; 80061; 83036; 85025; 85652; 86140

== ENCOUNTER → 2022-09-16 08:56 | Outpatient (BNVA) | payer OTHER, SELFPAY | PROVIDERS: PCP Internal Medicine; Visit Provider Nurse Practitioner Family | DX: M05.9 Rheumatoid arthritis with rheumatoid factor, unspecified (principal); R20.0 Anesthesia of skin; R20.2 Paresthesia of skin; M54.16 Radiculopathy, lumbar region; M25.561 Pain in right knee; M25.562 Pain in left knee | CPT/HCPCS: 99212 ==

== ENCOUNTER 2022-09-27 07:42 | Outpatient (REF) | payer OTHER, SELFPAY | END 2022-09-27 07:43 | disposition home or self-care (01) | LOC: HO.MDS 07:42 | PROVIDERS: Visit Provider Internal Medicine Pulmonary Disease | DX: J45.50 Severe persistent asthma, uncomplicated (principal) | CPT/HCPCS: 96372; J2182 ==

== ENCOUNTER 2022-10-11 06:12 | Outpatient (REF) | payer OTHER, SELFPAY ==
[2022-10-11 06:23] LABS: MANUAL DIFF FLAG NO
[2022-10-11 08:11] LABS: Basophils Percent Auto 0.5 % (0-2); Eosinophils Absolute Auto 0.1 X10*3/uL (0.0-0.4); Eosinophils Percent Auto 0.9 % (0-4); Hematocrit 37.5 % (37.0-47.0); Hemoglobin 12.1 g/dl (12.0-16.0); Imm Gran Abs Auto 0.02 X10*3/uL (0.00-0.03); Imm Gran Pct Auto 0.3 % (0.0-0.4); Lymphocytes Absolute Auto 1.9 X10*3/uL (1.2-4.9); Lymphocytes Percent Auto 32.9 % (20-40); Mean Corpuscular HGB Conc 32.3 g/dl (31.0-35.0); Mean Corpuscular Hemoglobin 27.5 pg (27.0-33.0); Mean Corpuscular Volume 85.2 fL (80.0-98.0); Mean Platelet Volume 12.2 fL (9.4-12.3); Monocytes Absolute Auto 0.4 X10*3/uL (0.1-1.2); Monocytes Percent Auto 6.8 % (2-11); Neutrophils Absolute Auto 3.4 x10*3/uL (2.0-8.3); Neutrophils Percent Auto 58.6 % (45-73); Platelet Count 266 X10*3/uL (160-400); Red Cell Distribution Width 14.7 % (11.0-16.0); White Blood Count 5.9 X10*3/uL (4.8-10.8)
[2022-10-11 08:15] LABS: Appearance Urine Clear; Color Urine Yellow; Glucose Urine UA Negative (Negative); Leukocyte Esterase Urine Trace (Negative); Nitrite Urine Negative (Negative); PH 6.5 (5.0-9.0); UMIC TRIGGER UACC YES; Urine Blood Negative (Negative); Urine Ketones Negative (Negative); Urine Protein Negative (Neg-Trace)
[2022-10-11 08:21] LABS: Bacteria Urine None Seen (None Seen); Hyaline Casts Urine 0-2 /LPF (0-2); RBC Urine 0-2 /HPF (0-2); Squamous Epithelial Cell Urine 0-2 /HPF (0-2); WBC Urine 0-5 /HPF (0-5)
[2022-10-11 08:40] LABS: Alanine Aminotransferase 23 U/L (0-31); Albumin Level 3.9 g/dL (3.5-5.0); Alkaline Phosphatase 89 U/L (39-117); Anion Gap 11 (12-20); Aspartate Amino Transferase 18 U/L (5-31); Bilirubin Total 0.5 mg/dL (0.0-1.0); Blood Urea Nitrogen 12 mg/dL (9-16); C Reactive Protein 0.96 mg/dL (< or = 0.50); Calcium 9.1 mg/dL (8.4-10.2); Carbon Dioxide 25 mmol/L (22-29); Chloride 106 mmol/L (96-108); Estimated Glomerular Filt Rate > 60; Glucose Random 125 mg/dL (60-115); Potassium 4.5 mmol/L (3.3-5.1); Rheumatoid Factor 52.7 IU/mL (<15.0); Sodium 137 mmol/L (135-145); Total Protein 6.8 g/dL (6.5-8.0)
[2022-10-11 08:59] LABS: TSH reflex Free T4 2.57 uIU/mL (0.32-4.0)
[2022-10-11 09:01] LABS: Erythrocyte Sedimentation Rate 16 MM/HR (0-20)
[2022-10-15 21:08] LABS: CK-BB None Detected (None Detected); CK-MB 0 % (<5); CK-MM 100 % (95-100); Creatine Kinase,Total,Serum 48 U/L (29-143)
[2022-10-16 14:13] LABS: Anti Nuclear Antibody Screen NEGATIVE (NEGATIVE)
== END 2022-10-11 06:13 | disposition home or self-care (01) ==
LOC: HO.LAB 06:12
PROVIDERS: Nurse Practitioner Family; Physician Assistant Surgical; PCP Internal Medicine; Visit Provider Internal Medicine
DX: M79.7 Fibromyalgia (principal); R30.0 Dysuria; M54.50 Low back pain, unspecified; M25.50 Pain in unspecified joint; E66.9 Obesity, unspecified; M05.9 Rheumatoid arthritis with rheumatoid factor, unspecified
CPT/HCPCS: 36415; 80053; 81001; 81003; 82552; 84443; 85025; 85652; 86038; 86039; 86140; 86431

== ENCOUNTER → 2022-10-23 10:37 | Outpatient (BNVA) | payer OTHER, SELFPAY | PROVIDERS: PCP Internal Medicine; Visit Provider Internal Medicine Pulmonary Disease | DX: J45.41 Moderate persistent asthma with (acute) exacerbation (principal); Z91.09 Other allergy status, other than to drugs and biological substances | CPT/HCPCS: 99212 ==

== ENCOUNTER 2022-10-24 10:44 | Outpatient (REF) | payer OTHER, SELFPAY ==
--- NOTE | ~2022-10-24 | US_ITS ---
EXAMINATION: US PELVIS COMPLETE CLINICAL INFORMATION: Benign neoplasm of connective tissue COMPARISON: Ultrasound 07/11/2020 TECHNIQUE: Transabdominal and transvaginal imaging was performed. FINDINGS: The uterus is of normal size and echogenicity measuring 7.4 x 4.3 x 4.9 cm. A regular homogeneous endometrium is identified measuring 0.6 cm. Previously seen myoma was not identified. Both ovaries are of normal size. The right measures 2.9 x 2.3 x 2.3 cm for a volume of 8.0 mL. The left measures 2.0 x 1.9 x 1.7 cm for a volume of 3.4 mL. Simple 0.9 cm left paraovarian cyst, likely benign, no follow-up imaging recommended. A 0.8 cm echogenic lesion without internal vascularity in the left ovary. There is no pelvic free fluid. US/US pelvic and transvaginal IMPRESSION: A 0.8 cm echogenic lesion without internal vascularity in the left ovary, unclear if this could be technical artifact versus small dermoid, not previously seen. Recommend a 6-8 week follow-up pelvic ultrasound, if findings persist MRI could be obtained, although the lesion may remain too small to characterize given small size. Previously seen myoma was not identified. A 0.9 cm simple left paraovarian cyst, likely benign no follow-up imaging recommended.
== END 2022-10-24 10:45 | disposition home or self-care (01) ==
LOC: HO.US 10:44
PROVIDERS: Visit Provider Obstetrics & Gynecology
DX: N83.299 Other ovarian cyst, unspecified side (principal); D21.9 Benign neoplasm of connective and other soft tissue, unspecified
CPT/HCPCS: 76830; 76856

== ENCOUNTER 2022-10-25 07:18 | Outpatient (REF) | payer OTHER, SELFPAY | END 2022-10-25 07:19 | disposition home or self-care (01) | LOC: HO.MDS 07:18 | PROVIDERS: Visit Provider Internal Medicine Pulmonary Disease | DX: J45.50 Severe persistent asthma, uncomplicated (principal) | CPT/HCPCS: 96372 ==

== ENCOUNTER 2022-11-27 20:09 | Emergency (ER) | payer OTHER, SELFPAY ==
--- NOTE | ~2022-11-27 | XR_ITS ---
EXAMINATION: Right ankle and right knee. CLINICAL INDICATIONS: Trauma. COMPARISON: Right knee 11/29/2021. TECHNIQUE: 4 views right knee and 3 views right ankle. FINDINGS: Right knee: There is no visible acute fracture, dislocation or subluxation seen. There is mild periarticular spurring medial compartment. There are no loose bodies or joint effusion. Right ankle: There is moderate lateral malleolar soft tissue swelling. No visible acute fracture, dislocation or subluxation seen. There is a small calcaneal heel enthesophyte. XR/XR knee RT 3V IMPRESSION: 1. Moderate lateral malleolar soft tissue swelling likely ligamentous injury. No visible acute fracture or dislocation seen. 2. Small calcaneal heel enthesophyte. 3. Mild periarticular spurring medial compartment. No visible acute fracture or dislocation seen. No joint effusion noted.
--- NOTE | ~2022-11-27 | XR_ITS ---
EXAMINATION: Right ankle and right knee. CLINICAL INDICATIONS: Trauma. COMPARISON: Right knee 11/29/2021. TECHNIQUE: 4 views right knee and 3 views right ankle. FINDINGS: Right knee: There is no visible acute fracture, dislocation or subluxation seen. There is mild periarticular spurring medial compartment. There are no loose bodies or joint effusion. Right ankle: There is moderate lateral malleolar soft tissue swelling. No visible acute fracture, dislocation or subluxation seen. There is a small calcaneal heel enthesophyte. XR/XR ankle RT min 3V IMPRESSION: 1. Moderate lateral malleolar soft tissue swelling likely ligamentous injury. No visible acute fracture or dislocation seen. 2. Small calcaneal heel enthesophyte. 3. Mild periarticular spurring medial compartment. No visible acute fracture or dislocation seen. No joint effusion noted.
[2022-11-27 20:35] VITALS: BP 123/90; PULSE 101; RESP 20; TEMP 37; O2SAT 98; BMI 37.3
--- NOTE | 2022-11-27 20:40 | ED.GENADULT ---
HPI - General Adult General Chief complaint: Extremity Injury, Lower Stated complaint: Fall/ Right ankle pain Time Seen by Provider: 11/28/22 00:38 Related Data Previous Rx's Medication Instructions Recorded fluticasone propionate 230 2 puff inhalation BID #36 ea 04/12/22 mcg-salmeterol 21 mcg/actuation HFA inhaler (Advair HFA) albuterol sulfate 2.5 mg/3 mL 2.5 mg (3 mL) continuous 01/21/23 (0.083 %) solution for nebulization nebulization .3 to 4 times daily PRN shortness of breath or wheezing 30 days #180 mL albuterol sulfate 90 mcg/actuation 2 puff inhalation Q6H PRN 05/28/23 aerosol inhaler (ProAir HFA) shortness of breath or wheezing 30 days #8.5 grams blood sugar diagnostic (FreeStyle #100 ea 05/28/23 Lite Strips) lancets 28 gauge (FreeStyle #100 ea 05/28/23 Lancets) metformin 500 mg tablet 500 mg PO DAILY 90 days #90 tabs 05/28/23 Allergies Allergy/AdvReac Type Severity Reaction Status Date / Time doxycycline Allergy Unknown itch and Verified 05/28/23 11:08 rash adalimumab [From Humira] Allergy Rash Verified 05/28/23 11:08 PMFSH Past Medical History Medical History Insomnia Fibromyalgia Non-insulin dependent diabetes mellitus Obesity Fatigue Seropositive rheumatoid arthritis Frequent headaches Depression Fibromyalgia Obesity (BMI 30-39.9) Diabetes mellitus Asthma Surgical History Hx of section History of tooth extraction Family History Family History Father HTN (hypertension) Mother Asthma CVD (cardiovascular disease) Brain cancer Maternal Aunt Breast cancer Sister No problems noted. Sister No problems noted. Sister No problems noted. Son Arthritis Daughter Lupus Daughter No problems noted. Social History Social History Housing: House Alcohol intake: never Patient Tobacco Use Status: Never used Tobacco e-Cigarette/Vaping Use: Never Used Second Hand Smoke Exposure: Yes service: No Current occupational status: unemployed Cognitive needs: No Hearing needs: No Vision needs: No Physical Exam ED Vital Signs: Vital Signs - 24 hr 11/27/22 20:35 Temperature 98.6 F Pulse Rate 101 H Respiratory Rate 20 Blood Pressure 123/90 H Pulse Oximetry 98 Oxygen Delivery Method Room Air BMI result Body Mass Index 37.3 Course Course Course Narrative: 42-year-old female primarily German-speaking presents for evaluation of right ankle and knee pain. She reports that she is walking the stairs when she tripped and twisted the leg. She is ambulatory with a noticeable limp. X-rays ordered Medications Administered Discontinued Medications Generic Name Dose Route Start Last Admin Trade Name Freq PRN Reason Stop Dose Admin Ibuprofen 600 mg 11/28/22 00:56 11/28/22 01:13 Ibuprofen 600 Mg Tablet PO 11/28/22 00:57 600 mg ONCE ONE Administration Discharge Plan Discharge Clinical Impression: Right ankle sprain, Contusion of right knee Patient Disposition: Home, Self-Care Additional Instructions: Please follow-up with your primary care physician tomorrow. If you have any worsening or new symptoms, please return to the emergency room or call 911 Prescriptions: No Action Advair HFA 230-21 mcg/actuation HFA aerosol inhaler 2 puff inhalation BID Qty: 36 2RF (DME) FreeStyle Lite Strips Strip See Rx Instructions .Route Qty: 100 12RF Rx Instructions: As directed- To test blood sugar daily - ONCE A DAY (DME) lancets [FreeStyle Lancets] 28 gauge misc See Rx Instructions .Route Qty: 100 12RF Rx Instructions: As directed- to test blood sugar daily - ONCE A DAY albuterol sulfate [ProAir HFA] 90 mcg/actuation HFA aerosol inhaler 2 puff inhalation Q6H PRN (Reason: shortness of breath or wheezing) 30 Days Qty: 8.5 0RF metformin 500 mg tablet 500 mg PO DAILY 90 Days Qty: 90 1RF albuterol sulfate 2.5 mg /3 mL (0.083 %) solution for nebulization 2.5 mg continuous nebulization .3 to 4 times daily PRN (Reason: shortness of breath or wheezing) 30 Days Qty: 180 3RF Referrals: Paola Patel PA-C [Physician Sealing Machine Operator] - 12/05/22 Interventions: ED Discharge Assessment Last Done: 11/28/22 01:21 Discharge Date/Time: 11/28/22 01:22
--- NOTE | 2022-11-28 00:57 | ED.LOWEXIN ---
HPI - Extremity Injury (Lower) General Chief Complaint: Extremity Injury, Lower Stated Complaint: Fall/ Right ankle pain Time Seen by Provider: 11/28/22 00:38 Source: patient Mode of arrival: ambulatory Limitations: no limitations History of Present Illness HPI Narrative: Patient comes to the emergency room complaining of right knee pain and right ankle pain. Patient states that she was in the stairs, missed a step and injured her ankle. Patient has been able to bear weight minimally with the assistance of a cane that she brought from home. Patient denies any other injuries, patient is not on any blood thinners Related Data Home Medications Medication Instructions Recorded Confirmed aspirin 81 mg chewable tablet 81 mg PO DAILY 06/08/20 10/11/22 meloxicam 15 mg tablet 15 mg PO DAILY 02/27/22 10/11/22 gabapentin 300 mg capsule 600 mg PO BID PRN 05/02/22 10/11/22 mepolizumab 100 mg/mL subcutaneous mg subcut 09/16/22 10/11/22 syringe (Nucala) Previous Rx's Medication Instructions Recorded albuterol sulfate 2.5 mg/3 mL 2.5 mg (3 mL) continuous 01/04/21 (0.083 %) solution for nebulization nebulization .3 to 4 times daily PRN shortness of breath or wheezing 30 days #180 mL miscellaneous medical supply 1 ea miscellaneous .4 times a day 01/04/21 PRN shortness of breath or wheezing 12 months #1 ea cyclobenzaprine 10 mg tablet 10 mg PO BEDTIME Muscle spasm #10 10/24/21 tabs albuterol sulfate 90 mcg/actuation 2 puff inhalation Q6H PRN 12/05/21 aerosol inhaler (ProAir HFA) shortness of breath or wheezing 30 days #8.5 grams acetaminophen 500 mg tablet 1,000 mg PO Q6H PRN headache #40 12/20/21 tabs ondansetron HCl 4 mg tablet 4 mg PO Q12H PRN nausea and 12/20/21 vomiting #10 tabs blood sugar diagnostic (FreeStyle #100 ea 02/14/22 Lite Strips) lancets 28 gauge (FreeStyle #100 ea 02/14/22 Lancets) fluticasone propionate 230 2 puff inhalation BID #36 ea 04/12/22 mcg-salmeterol 21 mcg/actuation HFA inhaler (Advair HFA) cholecalciferol (vitamin D3) 125 125 mcg PO DAILY #30 caps 05/27/22 mcg (5,000 unit) capsule montelukast 10 mg tablet 10 mg PO BEDTIME #90 tabs 07/13/22 cock up splints #2 ea 09/16/22 metformin 500 mg tablet 500 mg PO DAILY 30 days #30 tabs 09/27/22 cyanocobalamin (vitamin B-12) 1,000 mcg sublingual DAILY #30 tabs 10/07/22 1,000 mcg sublingual tablet pregabalin 50 mg capsule 50 mg PO TID 30 days #90 caps 10/10/22 azithromycin 250 mg tablet See Rx Instructions PO .COMPLEX #6 10/23/22 tabs ibuprofen 600 mg tablet 600 mg PO QID PRN pain #20 tabs 11/28/22 Allergies Allergy/AdvReac Type Severity Reaction Status Date / Time doxycycline Allergy Unknown itch and Verified 11/01/22 09:02 rash adalimumab [From Humira] Allergy Rash Verified 11/01/22 09:02 Review of Systems Review of Systems: Constitutional : No Weight loss, No Fever, No Chills, No Night Sweats, No Fatigue, No Malaise ENT/Mouth : No Hearing loss, No Ear Pain, No Nasal Congestion, No Sinus Pain, No Hoarseness, No sore throat, No Rhinorrhea, No Swallowing Difficulty Eyes: No Eye Pain, No Swelling, No Redness, No Foreign Body, No Discharge, No Vision Changes Cardiovascular : No Chest Pain, No SOB, No Dyspnea on Exertion, No Orthopnea, No Edema, No Palpitations Respiratory : No Cough, No Sputum, No Wheezing, No Smoke Exposure, No Dyspnea Gastrointestinal : No Nausea, No Vomiting, No Diarrhea, No Constipation, No abdominal Pain, No Hematochezia, No Melena Genitourinary : no irregular bleeding, No Dysuria, No Urinary Frequency, No Hematuria, No Urinary Incontinence, No Urgency, No Flank Pain, No Urinary Flow Changes, No Hesitancy Musculoskeletal : Complaining of right knee pain and also right ankle pain and swelling. No Myalgias, No Joint Swelling Skin : No Skin Lesions, No rash Neuro : No Weakness, No Numbness, No Paresthesias, No Loss of Consciousness, No Dizziness, No Headache Psych : No Anxiety/Panic, No Depression, No SI/HI/AH/VH, No Social Issues, Heme/Lymph: No Bruising, No Bleeding,No Lymphadenopathy Endocrine : No Polyuria, No Polydipsia, No Temperature Intolerance [facility] Past Medical History Medical History Asthma Depression Diabetes mellitus Fatigue Fibromyalgia Fibromyalgia Frequent headaches Insomnia Non-insulin dependent diabetes mellitus Obesity Obesity (BMI 30-39.9) Seropositive rheumatoid arthritis Surgical History History of tooth extraction Hx of section Family History Family History Father HTN (hypertension) Mother Asthma CVD (cardiovascular disease) Brain cancer Maternal Aunt Breast cancer Sister No problems noted. Sister No problems noted. Sister No problems noted. Son Arthritis Daughter Lupus Daughter No problems noted. Social History Social History Housing: House Alcohol intake: never Patient Tobacco Use Status: Never used Tobacco e-Cigarette/Vaping Use: Never Used Second Hand Smoke Exposure: Yes Advance Directives: No service: No Current occupational status: unemployed Cognitive needs: No Hearing needs: No Vision needs: No Physical Exam Vital Signs: Vital Signs: Last Vital Signs Temp 98.6 F 11/27/22 20:35 Pulse 101 H 11/27/22 20:35 Resp 20 11/27/22 20:35 BP 123/90 H 11/27/22 20:35 Pulse Ox 98 11/27/22 20:35 O2 Del Method 11/27/22 20:35 BMI result Body Mass Index 37.3 Const: Other: Appearance: Alert. Oriented X3. No acute distress. Eyes: Pupils equal, round and reactive to light. ENT: Pharynx normal. Neck: Normal inspection. Neck supple. No lymph nodes noted. No crepitus CVS: Normal heart rate and rhythm. Pulses normal. Normal S1 and S2 Respiratory: No respiratory distress. Breath sounds normal. No Wheezing. No rales Abdomen: Soft and nontender. No rigidity. No distention. Skin: Skin warm and dry. Normal skin color. Normal skin turgor. Extremities: No lower extremity edema. Mild pain to palpation over the patella on the right side, no obvious effusion. Patient able to flex and extend the knee. Also, there is swelling to the lateral malleolus, pain to palpation to the malleolus and the right heel. Pedal pulses present bilaterally Neuro: Oriented X 3. No motor deficit. No sensory deficit. Moving all extremities. No slurred speech. CN 2 through 12 grossly intact Psych: calm, cooperative, normal affect Course Course Course Narrative: - Medical Decision Making Medical Decision Making [facility] Narrative: -x-rays negative for fracture. -patient was given p.o. ibuprofen -patient was provided with crutches -discussed with the patient to try to keep her ankle moving with small exercises to avoid stiffening of the joint Differential Diagnosis Differential Diagnoses: The differential diagnosis associated with the presentation includes (Malleolar fracture, sprain ankle, contusion, joint effusion) Independent Interpretation I performed an independent interpretation of an: Plain X-Ray (My interpretation of ankle x-ray: No fracture) Radiology Impression Discussion of test interpretation with radiology: I have reviewed the radiologist's reading. Radiologist Impression: FINDINGS: Right knee: There is no visible acute fracture, dislocation or subluxation seen. There is mild periarticular spurring medial compartment. There are no loose bodies or joint effusion. Right ankle: There is moderate lateral malleolar soft tissue swelling. No visible acute fracture, dislocation or subluxation seen. There is a small calcaneal heel enthesophyte. XR/XR knee RT 3V IMPRESSION: 1.? Moderate lateral malleolar soft tissue swelling likely ligamentous injury. No visible acute fracture or dislocation seen. 2.? Small calcaneal heel enthesophyte. 3.? Mild periarticular spurring medial compartment. No visible acute fracture or dislocation seen. No joint effusion noted. Discharge Plan Discharge Clinical Impression: Right ankle sprain, Contusion of right knee Patient Disposition: Home, Self-Care Instructions: Ankle Sprain (ED), Knee Pain (ED), R.I.C.E. Treatment (ED) Additional Instructions: Please follow-up with your primary care physician tomorrow. If you have any worsening or new symptoms, please return to the emergency room or call 911 Prescriptions: New ibuprofen 600 mg tablet 600 mg PO QID PRN (Reason: pain) Qty: 20 0RF No Action albuterol sulfate 2.5 mg /3 mL (0.083 %) solution for nebulization 2.5 mg continuous nebulization .3 to 4 times daily PRN (Reason: shortness of breath or wheezing) 30 Days Qty: 180 3RF [facility] 1 ea miscellaneous .4 times a day PRN (Reason: shortness of breath or wheezing) 360 Days Qty: 1 0RF Rx Instructions: Nebulizer Machine albuterol sulfate [ProAir HFA] 90 mcg/actuation HFA aerosol inhaler 2 puff inhalation Q6H PRN (Reason: shortness of breath or wheezing) 30 Days Qty: 8.5 0RF (DME) lancets [FreeStyle Lancets] 28 gauge misc See Rx Instructions .Route Qty: 100 12RF Rx Instructions: As directed- to test blood sugar daily - ONCE A DAY (DME) FreeStyle Lite Strips Strip See Rx Instructions .Route Qty: 100 12RF Rx Instructions: As directed- To test blood sugar daily - ONCE A DAY Advair HFA 230-21 mcg/actuation HFA aerosol inhaler 2 puff inhalation BID Qty: 36 2RF cholecalciferol (vitamin D3) 125 mcg (5,000 unit) capsule 125 mcg PO DAILY Qty: 30 2RF montelukast 10 mg tablet 10 mg PO BEDTIME Qty: 90 0RF metformin 500 mg tablet 500 mg PO DAILY 30 Days Qty: 30 3RF cyanocobalamin (vitamin B-12) 1,000 mcg tablet, sublingual 1,000 mcg sublingual DAILY Qty: 30 2RF aspirin 81 mg tablet,chewable 81 mg PO DAILY cyclobenzaprine 10 mg tablet 10 mg PO BEDTIME Qty: 10 0RF ondansetron HCl 4 mg tablet 4 mg PO Q12H PRN (Reason: nausea and vomiting) Qty: 10 0RF acetaminophen 500 mg tablet 1,000 mg PO Q6H PRN (Reason: headache) Qty: 40 0RF pregabalin 50 mg capsule 50 mg PO TID 30 Days Qty: 90 0RF azithromycin 250 mg tablet See Rx Instructions PO .COMPLEX Qty: 6 0RF Rx Instructions: For 250 mg dose pack: take 500 mg today (day 1), then 250 mg for 4 days (days 2-5) PO Nucala 100 mg/mL syringe subcut (DME) cock up splints See Rx Instructions .Route .MEDSUPPLY Qty: 2 0RF Rx Instructions: wear on both wrists at night meloxicam 15 mg tablet 15 mg PO DAILY gabapentin 300 mg capsule 600 mg PO BID PRN Referrals: Paola Patel PA-C [Physician Form Worker] - 12/05/22
[2022-11-28] MEDS: Ibuprofen 600 MG TABLET PO (01:13)
== END 2022-11-28 01:22 | disposition home or self-care (01) ==
PROVIDERS: Emergency Provider Emergency Medicine; PCP Internal Medicine
DX: S93.401A Sprain of unspecified ligament of right ankle, initial encounter (principal); S80.01XA Contusion of right knee, initial encounter; W10.8XXA Fall (on) (from) other stairs and steps, initial encounter; E11.9 Type 2 diabetes mellitus without complications; Y93.89 Activity, other specified; Y92.9 Unspecified place or not applicable; Y99.9 Unspecified external cause status
CPT/HCPCS: 73562; 73610; 99283; 99284

== ENCOUNTER → 2023-01-06 08:30 | Outpatient (BNVA) | payer OTHER, SELFPAY | PROVIDERS: PCP Internal Medicine; Visit Provider Obstetrics & Gynecology | DX: N83.292 Other ovarian cyst, left side (principal) | CPT/HCPCS: 99212 ==

== ENCOUNTER 2023-01-09 12:52 | Outpatient (REF) | payer OTHER, SELFPAY ==
--- NOTE | ~2023-01-09 | US_ITS ---
EXAMINATION: US PELVIS CLINICAL INFORMATION: Ovarian cyst; the last menstrual period was on 12/11/2022. COMPARISON: Pelvic ultrasound dated 10/24/2022. TECHNIQUE: Ultrasound of the pelvis is performed using both transabdominal and transvaginal transducers along with Doppler. Transvaginal imaging is performed due to inadequate visualization transabdominally. FINDINGS: Uterus: The uterus is anteverted and measures 7.8 x 4.2 x 5.2 cm. There is a mildly arcuate appearance. Nabothian cysts are seen within the cervix. The double wall endometrial thickness is 1.0 mm. The uterus is smooth in contour and has normal myometrial echogenicity. No visible fibroid. Adnexa: Both ovaries are visualized. There is normal color flow to the adnexa. There is no ovarian torsion. There is trace right paraovarian free fluid. A 9 mm left paraovarian cyst is incidentally redemonstrated. Right ovary measures 3.7 x 2.2 x 2.7 cm, volume 11.6 mL. The right ovary contains a 2.3 cm physiologic cyst. Left ovary measures 2.1 x 2.4 x 1.6 cm, volume 4.3 mL. The left ovary contains a 2 mm punctate, echogenic focus. US/US pelvic and transvaginal IMPRESSION: 1. The previously noted left ovarian 8 mm echogenic lesion is less well appreciated than was noted previously. A 2 mm punctate echogenic focus is now appreciated within the left ovary, possibly a benign calcification related to a dermoid tumor. This could be further evaluated with MRI, if clinically indicated. Consider Gynecology evaluation and management. 2. A 9 mm left paraovarian cyst incidentally redemonstrated. 3. Nabothian cysts are seen within the cervix. 4. There is trace right paraovarian free fluid.
== END 2023-01-09 12:53 | disposition home or self-care (01) ==
LOC: HO.HMGCX 12:52
PROVIDERS: PCP Internal Medicine; Visit Provider Obstetrics & Gynecology
DX: N83.299 Other ovarian cyst, unspecified side (principal)
CPT/HCPCS: 76830; 76856

== ENCOUNTER → 2023-02-19 08:42 | Outpatient (BNVA) | payer OTHER, SELFPAY | PROVIDERS: PCP Internal Medicine; Visit Provider Obstetrics & Gynecology | DX: R93.5 Abnormal findings on diagnostic imaging of other abdominal regions, including retroperitoneum (principal) | CPT/HCPCS: 99212 ==

== ENCOUNTER 2023-04-15 06:03 | Outpatient (REF) | payer OTHER, SELFPAY ==
[2023-04-15 06:30] LABS: MANUAL DIFF FLAG NO
[2023-04-15 07:12] LABS: Basophils Percent Auto 0.4 % (0-2); Eosinophils Absolute Auto 0.2 X10*3/uL (0.0-0.4); Hemoglobin 12.4 g/dl (12.0-16.0); Imm Gran Abs Auto 0.01 X10*3/uL (0.00-0.03); Imm Gran Pct Auto 0.1 % (0.0-0.4); Lymphocytes Absolute Auto 1.9 X10*3/uL (1.2-4.9); Lymphocytes Percent Auto 25.1 % (20-40); Mean Corpuscular HGB Conc 31.8 g/dl (31.0-35.0); Mean Corpuscular Hemoglobin 27.3 pg (27.0-33.0); Mean Corpuscular Volume 85.9 fL (80.0-98.0); Mean Platelet Volume 11.6 fL (9.4-12.3); Monocytes Absolute Auto 0.5 X10*3/uL (0.1-1.2); Monocytes Percent Auto 6.9 % (2-11); Neutrophils Absolute Auto 4.8 x10*3/uL (2.0-8.3); Neutrophils Percent Auto 64.5 % (45-73); Platelet Count 257 X10*3/uL (160-400); Red Blood Count 4.54 X10*6/uL (4.20-5.50); Red Cell Distribution Width 15.4 % (11.0-16.0); White Blood Count 7.4 X10*3/uL (4.8-10.8)
[2023-04-15 07:24] LABS: Estimated Average Glucose 126 mg/dL
[2023-04-15 07:44] LABS: Appearance Urine Clear; Color Urine Yellow; Glucose Urine UA Negative (Negative); Leukocyte Esterase Urine Moderate (2+) (Negative); Nitrite Urine Negative (Negative); PH 5.5 (5.0-9.0); Specific Gravity - Urine >= 1.030 (1.005-1.025); UMIC TRIGGER UACC YES; Urine Blood Negative (Negative); Urine Ketones Trace mg/dL (Negative); Urine Protein Negative (Neg-Trace)
[2023-04-15 07:45] LABS: Creatinine Urine 224.42 mg/dL; Microalbum/Creatinine Ratio Ur 6.2 ug/mg cr
[2023-04-15 07:47] LABS: Bacteria Urine Trace (None Seen); Hyaline Casts Urine 0-2 /LPF (0-2); RBC Urine 0-2 /HPF (0-2); UACC Culture Trigger YES
[2023-04-15 07:52] LABS: Alanine Aminotransferase 21 U/L (0-31); Albumin Level 3.9 g/dL (3.5-5.0); Alkaline Phosphatase 73 U/L (39-117); Anion Gap 12 (12-20); Aspartate Amino Transferase 19 U/L (5-31); Bilirubin Total 0.6 mg/dL (0.0-1.0); Blood Urea Nitrogen 13 mg/dL (9-16); Calcium 9.2 mg/dL (8.4-10.2); Carbon Dioxide 24 mmol/L (22-29); Chloride 109 mmol/L (96-108); Cholesterol 142 mg/dL; Estimated Glomerular Filt Rate > 60; Glucose Fasting 124 mg/dL (60-99); HDL Cholesterol 35 mg/dL; LDL Cholesterol Calculated 90 mg/dl; Potassium 4.3 mmol/L (3.3-5.1); Sodium 141 mmol/L (135-145); Total Protein 7.2 g/dL (6.5-8.0); Triglycerides 86 mg/dL
[2023-04-15 08:07] LABS: TSH reflex Free T4 1.82 uIU/mL (0.32-4.0); Vitamin D 25-OH Total 31.1 ng/mL (>30)
== END 2023-04-15 06:04 | disposition home or self-care (01) ==
LOC: HO.LAB 06:03
PROVIDERS: PCP Internal Medicine; Visit Provider Internal Medicine
DX: E78.00 Pure hypercholesterolemia, unspecified (principal); E11.9 Type 2 diabetes mellitus without complications; E55.9 Vitamin D deficiency, unspecified; I10 Essential (primary) hypertension
CPT/HCPCS: 36415; 80053; 80061; 81001; 82043; 82306; 83036; 84443; 85025; 87086; 87147

== ENCOUNTER 2023-04-24 13:42 | Outpatient (AMB) | payer OTHER, SELFPAY ==
[2023-04-24 13:49] VITALS: BP 122/82; BMI 36.6
--- NOTE | 2023-04-24 13:49 | MHC.OFFVIS ---
Intake Vital Signs 04/24/23 13:49 Height 5 ft 5 in Weight 220 lb BMI 36.6 BP 122/82 Intake Visit Reasons: [employer] annual exam/MRI Follow up Director Of Sustainability Required: Yes Director Of Sustainability Language: Shipping Receiving Clerk Name: Monika CAMPBELL Information Interpreted: non-clinical & clinical Wastewater Manager: Wastewater Manager Present (Monika) Allergies doxycycline Allergy (Unknown, Verified 04/24/23 13:53) itch and rash adalimumab [From Humira] Allergy (Verified 04/24/23 13:53) Rash Is last menstrual period known: Yes Last menstrual period: 04/21/23 Post menopausal: No HPI HPI Comments History of Present Illness Details Presenting for follow-up pelvic MRI regarding ovarian calcifications seen on pelvic ultrasound in 01/28. Pelvic MRI done at [facility] showed a suspicious lesion on either ovary with a left corpus luteum cyst [facility] Medical History Asthma Depression Diabetes mellitus Fatigue Fibromyalgia Fibromyalgia Frequent headaches Insomnia Non-insulin dependent diabetes mellitus Obesity Obesity (BMI 30-39.9) Seropositive rheumatoid arthritis Surgical History History of tooth extraction Hx of section Family History Father HTN (hypertension) Mother Asthma CVD (cardiovascular disease) Brain cancer Maternal Aunt Breast cancer Sister No problems noted. Sister No problems noted. Sister No problems noted. Son Arthritis Daughter Lupus Daughter No problems noted. Social History Housing: House Alcohol intake: never Patient Tobacco Use Status: Never used Tobacco e-Cigarette/Vaping Use: Never Used Second Hand Smoke Exposure: Yes service: No Current occupational status: unemployed Cognitive needs: No Hearing needs: No Vision needs: No Female Reproductive History Menstrual Age of Menarche: 15 Duration of menses: 3-5 days Date of last menstrual period: 04/21/23 control method: none Total pregnancies: 3 Full term: 3 Number of Living Children: 3 Date of last pap smear: 04/24/22 (negative) Date of Mammogram: 05/10/22 Review of Systems Const All systems reviewed & are unremarkable except as noted in HPI and below Reports as per HPI and Reports no additional complaints GI Reports no additional complaints Reports no additional complaints Physical Exam Vital Signs: Last Vital Signs BP 122/82 04/24/23 13:49 BMI result Body Mass Index 36.6 Assessment & Plan Assessment & Plan (1) Abnormal ultrasound of ovary: Comment: Left ovarian mm punctate echogenic focus Code(s): R93.5 - Abnormal findings on diagnostic imaging of other abdominal regions, including retroperitoneum Plan: Discussed with the patient the finding on MRI no suspicious ovarian lesions bilaterally, the patient was reassured. All questions answered, the patient verbalized understanding Coding Level of Care Code Est Pt Level 3 (37625) Diagnoses Abnormal ultrasound of ovary R93.5
== END 2023-04-24 15:12 | disposition home or self-care (01) ==
PROVIDERS: PCP Internal Medicine; Visit Provider Obstetrics & Gynecology
DX: R93.5 Abnormal findings on diagnostic imaging of other abdominal regions, including retroperitoneum (principal)
CPT/HCPCS: 99213

== ENCOUNTER → 2023-04-24 13:42 | Outpatient (BNVA) | payer OTHER, SELFPAY | PROVIDERS: PCP Internal Medicine; Visit Provider Obstetrics & Gynecology | DX: R93.5 Abnormal findings on diagnostic imaging of other abdominal regions, including retroperitoneum (principal) | CPT/HCPCS: 99212 ==

== ENCOUNTER 2023-04-30 10:41 | Outpatient (AMB) | payer OTHER, SELFPAY ==
--- NOTE | 2023-04-30 10:43 | A.OFFVIS_ITS ---
Intake Vital Signs 04/30/23 10:45 Height 5 ft 5 in Weight 221 lb 9.033 oz BMI 36.9 BP 118/80 Blood Pressure Location Lt brachial Position Sitting Pulse 96 Pulse Source Pulse Oximeter Pulse Oximetry (%) 99 Oxygen Delivery Method Room Air Intake Visit Reasons: Asthma Allergies doxycycline Allergy (Unknown, Verified 04/30/23 10:48) itch and rash adalimumab [From Humira] Allergy (Verified 04/30/23 10:48) Rash HPI Asthma HPI Details 42-year-old lady, nonsmoker, with underlying history of rheumatoid arthritis previously on Humira now followed for moderate to severe persistent allergic asthma.? Previously on Xolair, stopped secondary to development of rash, though unclear whether from Xolair or Humira.? Patient states that her rash has not improved after being off Xolair, however her breathing symptoms did get worse when off of it.? Later she has been started on Nucala, however she complained of severe headache and some difficulty breathing after the 1st injection, however then patient thought that it was related to her rheumatologic medication and was restarted on Nucala with improved control of her symptoms.? Recently patient decided to stop Nucala and now continues on Advair 230 and albuterol MDI/nebs with good control of his symptoms. She denies any recent exacerbations. [facility] Medical History Asthma Depression Diabetes mellitus Fatigue Fibromyalgia Fibromyalgia Frequent headaches Insomnia Non-insulin dependent diabetes mellitus Obesity Obesity (BMI 30-39.9) Seropositive rheumatoid arthritis Surgical History History of tooth extraction Hx of section Family History Father HTN (hypertension) Mother Asthma CVD (cardiovascular disease) Brain cancer Maternal Aunt Breast cancer Sister No problems noted. Sister No problems noted. Sister No problems noted. Son Arthritis Daughter Lupus Daughter No problems noted. Social History Housing: House Alcohol intake: never Patient Tobacco Use Status: Never used Tobacco e-Cigarette/Vaping Use: Never Used Second Hand Smoke Exposure: Yes service: No Current occupational status: unemployed Cognitive needs: No Hearing needs: No Vision needs: No Female Reproductive History Menstrual Age of Menarche: 15 Review of Systems Const Denies daytime sleepiness, Denies excessive sweating, Denies fatigue, Denies fever(s), Denies lethargy, Denies malaise, Denies night sweats, Denies snoring and Denies weight loss Eyes Denies blurry vision and Denies itchy eyes ENT Denies nasal congestion, Denies post nasal drip, Denies sinus pain, Denies sinus pressure and Denies other ( Thrush) Card Denies chest pain, Denies pedal edema, Denies dyspnea, Denies orthopnea and Denies paroxysmal nocturnal dyspnea Resp Denies cough, Denies hemoptysis, Denies excessive phlegm production, Denies dyspnea, Denies snoring and Denies wheezing GI Denies abdominal pain and Denies heartburn Musc Denies myalgias, Denies arthralgias and Denies joint swelling Skin/Breast Denies rash Neuro Denies memory loss and Denies seizure-like activity Psych Denies abnormal sleep pattern, Denies anxiety and Denies memory loss Endo Denies excessive sweating, Denies fatigue and Denies heat intolerance Kelvin/Lymph Denies easy bruising Aller/Immun Denies itchy eyes, Denies seasonal rhinorrhea and Denies wheezing Physical Exam Vital Signs: Last Vital Signs Pulse 96 04/30/23 10:45 BP 118/80 04/30/23 10:45 Pulse Ox 99 04/30/23 10:45 Oxygen Delivery Method Room Air 04/30/23 10:45 BMI result Body Mass Index 36.9 Const General: no acute distress and alert Nutritional Appearance: obese Orientation/consciousness: Other orientation findings ( oriented) HEENT Head: Yes atraumatic Eyes General: appearance normal, both eyes and all related structures Sclerae: sclerae normal EOM: EOMs intact bilaterally Neck Neck: Yes supple Lymphatic: no lymphadenopathy noted Resp Effort & Inspection: normal respiratory effort and no use of accessory muscles Auscultation: clear to auscultation bilaterally Cardio Rate: regular rate Rhythm: regular rhythm Heart sounds: no gallops, no murmurs and no rubs Skin General skin exam: other ( warm) Extrem General: No clubbing, No cyanosis and No edema Assessment & Plan Assessment & Plan (1) Asthma: Code(s): J45.909 - Unspecified asthma, uncomplicated Qualifiers: Asthma severity: moderate Asthma persistence: persistent Asthma complication type: with acute exacerbation Qualified Code(s): J45.41 - Moderate persistent asthma with (acute) exacerbation Plan: Now well controlled on Advair and albuterol MDI. Continue current regimen. Coding Level of Care Code Est Pt Level 3 (54195) Diagnoses Asthma J45.41 Asthma severity: moderate Asthma persistence: persistent Asthma complication type: with acute exacerbation
[2023-04-30 10:45] VITALS: BP 118/80; PULSE 96; O2SAT 99; BMI 36.9
== END 2023-04-30 10:53 | disposition home or self-care (01) ==
PROVIDERS: PCP Internal Medicine; Visit Provider Internal Medicine Pulmonary Disease
DX: J45.41 Moderate persistent asthma with (acute) exacerbation (principal)
CPT/HCPCS: 99213

== ENCOUNTER → 2023-04-30 10:41 | Outpatient (BNVA) | payer OTHER, SELFPAY | PROVIDERS: PCP Internal Medicine; Visit Provider Internal Medicine Pulmonary Disease | DX: J45.41 Moderate persistent asthma with (acute) exacerbation (principal); Z79.899 Other long term (current) drug therapy | CPT/HCPCS: 99212 ==

== ENCOUNTER 2023-05-16 12:37 | Outpatient (REF) | payer OTHER, SELFPAY | END 2023-05-16 12:38 | disposition home or self-care (01) | LOC: HO.MAMMO 12:37 | PROVIDERS: PCP Internal Medicine; Visit Provider Internal Medicine | DX: Z12.31 Encounter for screening mammogram for malignant neoplasm of breast (principal) | CPT/HCPCS: 77063; 77067 ==

== ENCOUNTER → 2023-05-16 12:45 | Outpatient (BNV) | payer OTHER, SELFPAY | PROVIDERS: PCP Internal Medicine; Visit Provider Radiology Diagnostic Radiology | DX: Z12.31 Encounter for screening mammogram for malignant neoplasm of breast (principal) | CPT/HCPCS: 77063; 77067 ==

== ENCOUNTER 2023-05-17 09:53 | Outpatient (AMB) | payer OTHER, SELFPAY ==
--- NOTE | 2023-05-17 09:56 | MHC.OFFWIV ---
Intake Vital Signs 05/17/23 09:59 Temp 98.4 F Temp Source Oral Pulse Oximetry (%) 96 Oxygen Delivery Method Room Air Intake Visit Reasons: EST/itchy eyes and neck Intake Note: Pt c/o rash in eyes and back of ears x 1 week Patient Tobacco Use Status: Never used Tobacco Allergies doxycycline Allergy (Unknown, Verified 05/17/23 09:58) itch and rash adalimumab [From Humira] Allergy (Verified 05/17/23 09:58) Rash HPI HPI Comments History of Present Illness Details 45 year old female hx asthma presents w/ rash to fack and left side of neck few days, patient reports rash is itchy and uncomfortable. Denies fevers, chills, numbness, tingling, recent illness, penile discharge, urinary changes, changes in bowel habits, chest pain, shortness of breath, headache, vision changes, dizziness weakness, changes in vision. Physical examination with maculopapular rash to face and left side of neck, no signs of gangrene or necrotizing infection. Concerns for possible contact dermatitis versus heat rash versus folliculitis versus eczema versus psoriasis. Unlikely necrotizing infection, gangrene,. History and physical exam not consistent with shingles Plan- prednisone and dc home w/ pcp follow-up. Educated patient on diagnosis and treatment plan, answered all question, patient verbalizes understanding. At this time patient will be discharged home, advised to return with new or worsening symptoms. Educated on worrisome signs and symptoms and when to return. At this time I feel comfortable discharge [facility] Medical History Asthma Depression Diabetes mellitus Fatigue Fibromyalgia Fibromyalgia Frequent headaches Insomnia Non-insulin dependent diabetes mellitus Obesity Obesity (BMI 30-39.9) Seropositive rheumatoid arthritis Surgical History History of tooth extraction Hx of section Family History Father HTN (hypertension) Mother Asthma CVD (cardiovascular disease) Brain cancer Maternal Aunt Breast cancer Sister No problems noted. Sister No problems noted. Sister No problems noted. Son Arthritis Daughter Lupus Daughter No problems noted. Social History Housing: House Alcohol intake: never Patient Tobacco Use Status: Never used Tobacco e-Cigarette/Vaping Use: Never Used Second Hand Smoke Exposure: Yes service: No Current occupational status: unemployed Cognitive needs: No Hearing needs: No Vision needs: No Female Reproductive History Menstrual Age of Menarche: 15 Review of Systems Const Details: Constitutional : No Weight loss, No Fever, No Chills, No Fatigue, No Malaise ENT/Mouth : No sore throat, No Rhinorrhea Eyes: No Eye Pain, No Swelling, No Redness Cardiovascular : No Chest Pain, No SOB, No Dyspnea on Exertion, No Orthopnea, No Edema, No Palpitations Respiratory : No Cough, No Sputum, No Wheezing Gastrointestinal : No Nausea, No Vomiting, No Diarrhea, No Constipation, No abdominal Pain, No Hematochezia, No Melena Genitourinary : No Dysuria, No Urinary Frequency, No Hematuria, Musculoskeletal : No joint pain, No Myalgias, No Joint Swelling Skin : No Skin Lesions, + rash Neuro : No Weakness, No Numbness, No Dizziness, No Headache Psych : No Anxiety/Panic, No Depression All other systems reviewed and are negative All systems reviewed & are unremarkable except as noted in HPI and below Physical Exam Vital Signs: Last Vital Signs Temp 98.4 F 05/17/23 09:59 Pulse Ox 96 05/17/23 09:59 Oxygen Delivery Method Room Air 05/17/23 09:59 Vital signs stable Appearance: Alert.? Oriented X3.? No acute distress.? Head: Normocephalic, atraumatic, no step-offs or deformities Eyes: Pupils equal, round and reactive to light.? CVS: Normal heart rate and rhythm.? Pulses normal.? Respiratory: No respiratory distress.? Breath sounds normal.? Abdomen: Soft and nontender.? Skin: Skin warm and dry.? Normal skin color.? Normal skin turgor.?+ maculopapular rash to face and left side of neck, no signs of gangrene or necrotizing infection. Extremities: No lower extremity edema.? No calf ttp. 5/5 strength to bilateral upper and lower extremities Neuro: Oriented X 3.? No motor deficit.? No sensory deficit. CN 2-12 intact Assessment & Plan Assessment & Plan (1) Rash: Code(s): R21 - Rash and other nonspecific skin eruption Plan Take your medications as prescribed. If you were prescribed antibiotics today, it is important that you take your medication to their entirety, do not skip any doses, do not finish them early. Follow-up with your primary care provider this week. Return to the emergency department with new or worsening symptoms. Such as fevers, chills, chest pain, shortness of breath, nausea, vomiting, dizziness, headache, vision changes, lethargy In case of emergency call 911 Medications: New prednisone 40 mg (2 x 20 mg) PO DAILY 10 tabs 0RF 5 days Coding Level of Care Code Est Pt Level 3 (81155) Diagnoses Rash R21
[2023-05-17 09:59] VITALS: TEMP 36.9; O2SAT 96
== END 2023-05-17 10:18 | disposition home or self-care (01) ==
PROVIDERS: PCP Internal Medicine; Visit Provider Physician Assistant
DX: R21 Rash and other nonspecific skin eruption (principal)
CPT/HCPCS: 99051; 99213

== ENCOUNTER 2023-05-19 15:47 | Outpatient (AMB) | payer OTHER, SELFPAY ==
--- NOTE | 2023-05-19 15:52 | MHC.OFFVIS ---
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 Plant Machinist Name: Gem #[id number] Accompanied by: Self / Same As Patient Allergies doxycycline Allergy (Unknown, Verified 05/19/23 15:54) itch and rash adalimumab [From Humira] Allergy (Verified 05/19/23 15:54) Rash Medication List - Last Reconciled 05/19/23 by Cookie Carter MD albuterol sulfate 90 mcg/actuation (ProAir HFA) 2 puffs inhalation Q6H PRN 30 days albuterol sulfate 2.5 mg (3 mL) continuous nebulization .3 to 4 times daily PRN 30 days blood sugar diagnostic (FreeStyle Lite Strips) As directed- To test blood sugar daily - ONCE A DAY fluticasone propion-salmeterol 230-21 mcg/actuation (Advair HFA) 2 puffs inhalation BID lancets (FreeStyle Lancets) As directed- to test blood sugar daily - ONCE A DAY metformin 500 mg PO DAILY prednisone 40 mg (2 x 20 mg) PO DAILY 5 days HPI HPI Comments History of Present Illness Details This is a 42-year-old female who was previously diagnosed with seropositive RA (++RF-ve CCP) presents for follow-up. States that she feels well overall on she denies any swollen or painful or stiff joints. States that she has been off all medications for rheumatoid arthritis and is now using teas and she feels better overall. Her only pain is intermittent left knee pain with walking. [facility] Medical History Insomnia Fibromyalgia Non-insulin dependent diabetes mellitus Obesity Fatigue Seropositive rheumatoid arthritis Frequent headaches Depression Fibromyalgia Obesity (BMI 30-39.9) Diabetes mellitus Asthma Surgical History Hx of section History of tooth extraction Family History Father HTN (hypertension) Mother Asthma CVD (cardiovascular disease) Brain cancer Maternal Aunt Breast cancer Sister No problems noted. Sister No problems noted. Sister No problems noted. Son Arthritis Daughter Lupus Daughter No problems noted. Social History Housing: House Alcohol intake: never Patient Tobacco Use Status: Never used Tobacco e-Cigarette/Vaping Use: Never Used Second Hand Smoke Exposure: Yes service: No Current occupational status: unemployed Cognitive needs: No Hearing needs: No Vision needs: No Female Reproductive History Menstrual Age of Menarche: 15 Review of Systems [facility]ralgias and Denies joint swelling Physical Exam Vital Signs: Last Vital Signs Temp 97.3 F 05/19/23 15:53 Pulse 82 05/19/23 15:53 BP 126/70 05/19/23 15:53 Pulse Ox 99 05/19/23 15:53 BMI result Body Mass Index 36.1 Const General: cooperative, healthy appearing and comfortable Nutritional Appearance: obese Orientation/consciousness: patient oriented x3 Limitations: no limitations HEENT Head: Yes normocephalic and Yes atraumatic Mouth: moist mucous membranes Resp Effort & Inspection: normal respiratory effort and able to speak in complete sentences Auscultation: clear to auscultation bilaterally Neuro General: patient oriented x3 Extrem Other: No active synovitis Bilateral knee crepitus Left knee pain with flexion Normal nailfold capillaroscopy Assessment & Plan Assessment & Plan (1) Osteoarthritis of left knee: Code(s): M17.12 - Unilateral primary osteoarthritis, left knee Qualifiers: Osteoarthritis type: primary Qualified Code(s): M17.12 - Unilateral primary osteoarthritis, left knee Plan: This is a 42-year-old female was previously diagnosed with seropositive RA presents for follow-up. Patient was diagnosed with seropositive RA (++RF-ve CCP) in 2018. She has been on numerous DMARDs which were ineffective and could not be tolerated. Over the last 16 months or so patient has been off all DMARDs with improvement in her joint pain. Her only pain today is left knee pain which is likely due to left knee osteoarthritis. Advised patient to use Voltaren gel as needed Follow-up as needed Plan I spent 15 minutes reviewing patient's chart, evaluating patient, ordering diagnostic workup, counseling patient and documenting in the chart Coding Level of Care Code Est Pt Level 3 (72775) Diagnoses Primary osteoarthritis of left knee M17.12 Osteoarthritis type: primary
[2023-05-19 15:53] VITALS: BP 126/70; PULSE 82; TEMP 36.3; O2SAT 99; BMI 36.1
== END 2023-05-19 16:11 | disposition home or self-care (01) ==
PROVIDERS: PCP Internal Medicine; Referring Provider Internal Medicine; Visit Provider Student in an Organized Health Care Education/Training Program
DX: M17.12 Unilateral primary osteoarthritis, left knee (principal)
CPT/HCPCS: 99213

== ENCOUNTER → 2023-05-19 15:47 | Outpatient (BNVA) | payer OTHER, SELFPAY | PROVIDERS: PCP Internal Medicine; Referring Provider Internal Medicine; Visit Provider Student in an Organized Health Care Education/Training Program | DX: M17.12 Unilateral primary osteoarthritis, left knee (principal); M05.9 Rheumatoid arthritis with rheumatoid factor, unspecified | CPT/HCPCS: 99212 ==

== ENCOUNTER 2023-05-28 10:37 | Outpatient (AMB) | payer OTHER, SELFPAY ==
[2023-05-28 10:44] VITALS: BP 118/78; PULSE 90; O2SAT 98; BMI 35.5
--- NOTE | 2023-05-28 10:44 | A.OFFPC_ITS ---
Vital Signs 05/28/23 10:44 Height 5 ft 5 in Weight 213 lb 8 oz BMI 35.5 BP 118/78 Blood Pressure Location Lt brachial Position Sitting Pulse 90 Pulse Source Pulse Oximeter Pulse Oximetry (%) 98 Oxygen Delivery Method Room Air Intake Visit Reasons: pe Healthcare Marketer Required: No Accompanied by: Self / Same As Patient Allergies doxycycline Allergy (Unknown, Verified 10/01/23 10:13) itch and rash adalimumab [From Humira] Allergy (Verified 10/01/23 10:13) Rash Medication List - Last Reconciled 05/28/23 by Edward Liam MD albuterol sulfate 90 mcg/actuation (ProAir HFA) 2 puffs inhalation Q6H PRN 30 days albuterol sulfate 2.5 mg (3 mL) continuous nebulization .3 to 4 times daily PRN 30 days blood sugar diagnostic (FreeStyle Lite Strips) As directed- To test blood sugar daily - ONCE A DAY fluticasone propion-salmeterol 230-21 mcg/actuation (Advair HFA) 2 puffs inhalation BID lancets (FreeStyle Lancets) As directed- to test blood sugar daily - ONCE A DAY metformin 500 mg PO DAILY Tobacco use date assessed: 05/28/23 Dental Screening Dental Screen Date: 05/28/23 Did you have a dental visit in the last 12 months?: No Did you have a dental problem in the last 6 months where you did not have access to dental care?: No Was dental information given to patient?: No HPI pe HPI Details Patient comes in today for her annual physical examination States that she feels okay She denies any headaches or dizziness Denies any chest pains, no SOB No nausea/vomiting, no abdominal pain No change in bowel habits noted Denies any acute urinary symptoms Needs her Metformin Rx refilled Would also like to request for a referral to help address her excess abdominal skin folds as she has been experiencing frequent and recurrent irritation and sometimes infection of her skin under the excess skin folds around her abdomen for the past few months Had her follow up labs done earlier last month - to discuss her results States that she is up-to-date with her annual mammography and annual pap smear/ob/gyn physician exam [facility] Medical History Insomnia Fibromyalgia Non-insulin dependent diabetes mellitus Obesity Fatigue Seropositive rheumatoid arthritis Frequent headaches Depression Fibromyalgia Obesity (BMI 30-39.9) Diabetes mellitus Asthma Surgical History Hx of tubal ligation Hx of section History of tooth extraction Family History Father HTN (hypertension) Mother Asthma CVD (cardiovascular disease) Brain cancer Maternal Aunt Breast cancer Sister No problems noted. Sister No problems noted. Sister No problems noted. Son Arthritis Daughter Lupus Daughter No problems noted. Social History Housing: House Alcohol intake: never Patient Tobacco Use Status: Never used Tobacco e-Cigarette/Vaping Use: Never Used Second Hand Smoke Exposure: Yes service: No Current occupational status: unemployed Cognitive needs: No Hearing needs: No Vision needs: No Female Reproductive History Menstrual Age of Menarche: 15 Questionnaire PHQ-9 Over the last 2 weeks, how often have you been bothered by any of the following problems? 1. Little interest or pleasure in doing things: not at all 2. Feeling down, depressed, or hopeless: not at all 3. Trouble falling or staying asleep, or sleeping too much: not at all 4. Feeling tired or having little energy: not at all 5. Poor appetite or overeating: not at all 6. Feeling bad about yourself - or that you are a failure or have let yourself or your family down: not at all 7. Trouble concentrating on things, such as reading the newspaper or watching television: not at all 8. Moving or speaking so slowly that other people could have noticed. Or the opposite - being so fidgety or restless that you have been moving around a lot more than usual: not at all 9. Thoughts that you would be better off or of hurting yourself in some way: not at all Total score: 0 Depression Screening Interpretation: Negative 71402 - PHQ-9 Billing: Yes Source: Developed by Drs. Philippe Root, Aimee Stevens, Samuel Patricio and colleagues, with an educational sadie from [employer]. Thrive Questionnaire Date Thrive assessed: 05/28/23 I am a: Patient What is your living situation today?: I have a steady place to live Within the past 12 months, did the food you bought not last and you didn't have the money to get more?: Never true Within the past 12 months, did you worry whether your food would run out before you got money to buy more?: Never true Do you have trouble paying for medicines?: No Do you have trouble getting transportation to medical appointments?: No Do you have trouble paying your heating and electricity bill?: No Do you have trouble taking care of your child, family member or friend?: No Do you have trouble with day-to-day activities such as bathing, preparing meals, shopping, managing finances, etc.?: No Are you currently unemployed and looking for a job?: No Are you interested in more education?: No Please select the resources that you would like help with: None Currently or been in a relationship where the following occur: no concerns reported AUDIT C Alcohol Use Questionnaire (AUDIT-C) 1. How often do you have a drink containing alcohol?: Never 3. How often do you have six or more drinks on one occasion?: Never Total Score: 0 Score Reviewed/Action Taken: Yes MARCOS-7 AMB Questionnaire MARCOS-7 Date MARCOS - 7 assessed: 05/28/23 Feeling nervous, anxious, or on edge: 0 = Not at all Not being able to stop or control worryin = Not at all Worrying too much about different things: 0 = Not at all Trouble relaxin = Not at all Being so restless that it is hard to sit still: 0 = Not at all Becoming easily annoyed or irritable: 0 = Not at all Feeling afraid as if something awful might happen: 0 = Not at all Total MARCOS-7 score (0-4 normal; 5-9 mild; 10-14 moderate; 15-21 severe): 0 Source: Developed by Drs. Philippe Root, Aimee Stevens, Samuel Patricio and colleagues, with an educational sadie from [employer]. Review of Systems Const Denies chills, Denies fatigue, Denies fever(s), Denies headache(s) and Denies malaise Eyes Denies blurry vision, Denies change in vision, Denies irritation and Denies itchy eyes ENT Denies dysphagia, Denies dizziness, Denies otalgia, Denies headache(s), Denies nasal congestion, Denies neck pain, Denies odynophagia, Denies sinus pain and Denies sore throat Card Denies chest pain, Denies rapid heart rate, Denies irregular heart rhythm, Denies palpitations and Denies dyspnea Resp Denies chest congestion, Denies cough, Denies dyspnea and Denies wheezing GI Denies abdominal pain, Denies bloating, Denies constipation, Denies dysphagia, Denies heartburn, Denies diarrhea, Denies nausea, Denies odynophagia and Denies vomiting Denies hematuria, Denies urinary frequency, Denies dysuria, Denies urinary incontinence and Denies urinary urgency Musc Denies back pain, Denies arthralgias, Denies joint swelling, Denies muscle weakness and Denies neck pain Skin/Breast Details: (+) recurrent rash and skin infections under her excess abdominal skin folds Denies breast pain, Denies breast mass and Denies unusual bruising Neuro Denies dizziness, Denies headache(s) and Denies paresthesias Psych Denies anxiety and Denies depression Endo Denies fatigue and Denies palpitations Kelvin/Lymph Denies easy bruising Aller/Immun Denies itchy eyes and Denies wheezing Physical exam (Primary Care) Vital Signs: Last Vital Signs Pulse 90 05/28/23 10:44 BP 118/78 05/28/23 10:44 Pulse Ox 98 05/28/23 10:44 Oxygen Delivery Method Room Air 05/28/23 10:44 BMI result Body Mass Index 35.5 Tobacco/Smoking Status: Tobacco use Status Tobacco use date assessed 05/28/23 05/28/23 10:49 Patient Tobacco Use Status Never used Tobacco 05/28/23 10:49 e-Cigarette/Vaping Use Never Used 05/28/23 10:49 PHQ-9: PHQ-9 Score PHQ-9: Total score 0 05/28/23 11:10 Depression Screening Interpretation: Negative Thrive Assessment: Date of Thrive Assessment Date Thrive assessed 05/28/23 05/28/23 10:49 Currently or been in a relationship where the following occur: no concerns reported Const General: no acute distress, alert and awake Orientation/consciousness: patient oriented x3 HENMT Head: Yes normocephalic and Yes atraumatic Ears: external ears normal, TM's normal bilaterally and EAC's normal General nose exam: No nasal discharge present Face and sinus: Yes normal facial exam and Yes sinuses nontender Teeth and gingiva: dentition normal Throat: Yes posterior oropharynx normal and Yes tonsils normal (no TP congestion) Eyes Eyelids: Yes eyelids normal Conjunctivae: conjunctivae normal Pupils: Equal, round and reactive pupils present EOM: EOMs intact bilaterally Neck Neck: Yes no lymphadenopathy and Yes supple Thyroid: Thyroid normal Resp Auscultation: clear to auscultation bilaterally, no rales and no wheezes Cardio Rate: regular rate Rhythm: regular rhythm Heart sounds: no murmurs GI Palpation (GI): Soft to palpation, nontender and No hepatosplenomegaly present Auscultation: normal bowel sounds General: Yes no CVA tenderness Back/Spine/Pelvis Back: no CVA tenderness Thoracic/Lumbar Spine: thoracic and lumbar spine normal to inspection Skin Other: (+) scattered scars and some small nodular lesions under the abdominal pannus on both sides Neuro General: patient oriented x3, moves all extremities, no focal motor deficits and CN's II-XI intact bilaterally Cranial nerves: Yes Equal, round and reactive pupils present Cognition (Neuro): normal cognition Gait exam (Neuro): Normal gait present Extrem General: Yes no clubbing, cyanosis or edema Results Reviewed Results Reviewed: Laboratory Tests 04/15/23 04/15/23 06:25 06:29 WBC 7.4 Hgb 12.4 Hct 39.0 Plt Count 257 Sodium 141 Potassium 4.3 Creatinine 0.73 Estimated GFR > 60 Fasting Glucose 124 H Hemoglobin A1c % 6.0 Calcium 9.2 AST 19 ALT 21 Triglycerides 86 Cholesterol 142 LDL Cholesterol, Calc 90 HDL Cholesterol 35 25-OH Vitamin D Total 31.1 TSH 1.82 Urine pH 5.5 Ur Specific [place] >= 1.030 H Urine Protein Negative Urine Glucose (UA) Negative Urine Blood Negative Microalb/Creat Ratio 6.2 Assessment and Plan Assessment & Plan (1) Annual physical exam: Code(s): Z00.00 - Encounter for general adult medical examination without abnormal findings Plan: Results of her labs done last month reviewed and discussed with patient (2) Symptomatic abdominal panniculus: Code(s): E65 - Localized adiposity Plan: Per request, will refer her to plastic surgery for consideration for abdominoplasty to help address her recurrent symptomatic panniculitis (3) Asthma: Code(s): J45.909 - Unspecified asthma, uncomplicated Qualifiers: Asthma severity: moderate Asthma persistence: persistent Asthma complication type: with acute exacerbation Qualified Code(s): J45.41 - Moderate persistent asthma with (acute) exacerbation Plan: Stable/controlled lately Continue Advair HFA 230-21 mcg 2 puffs BID and Albuterol HFA 2 inhalations every 6 hours PRN Also uses her nebulizer when needed She was on Nucala 100 mg SQ Q 4 weeks previously but felt that the injection was actually making her asthma feel worse Follow up with pulmonary as scheduled (4) Seropositive rheumatoid arthritis: Comment: Methotrexate 08/2018- 03/2019- GI upset Leflunomide 10/2018- 03/2019- GI upset Sulfasalzine 03/2019- 06/2019- GI upset 03/2019 - 09/2020 not seen in clinic 09/2020- Humira started due to synovitis on exam. Took 3 doses and was changed to Enbrel 11/2020 due to continued pain. Enbrel was stopped 11/2020 due to COVID and was discontinued in 06/2021 due to abdominal pain at the injection site. Restarted on Humira 09/2021 due to active synovitis on exam- stopped due to rash 01/2022. Code(s): M05.9 - Rheumatoid arthritis with rheumatoid factor, unspecified Plan: Follow up with rheumatology as scheduled Patient has not been able to tolerate trials of several biologics and DMARDs so far, including MTx, Sulfasalazine, Leflunomide and Humira Labs done a few months ago revealed normal ESR although CRP was slightly elevated; patient was advised that she does not have any clinical evidence of joint inflammation at this time and given her intolerance to multiple Tx options, did not recommend any additional Tx at this time She has been advised to wear wrist splints at night regularly to see if her hand and wrist symptoms will improve; will otherwise have her get EMG & NCV for further evaluation of 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 (5) Fibromyalgia: Code(s): M79.7 - Fibromyalgia Plan: Encouraged again on regular exercise and physical activity to help manage her fibromyalgia symptoms more effectively Was on Cyclobenzaprine 10 mg every 8 hours PRN and Pregabalin 50 mg TID and previously on Gabapentin 600 mg TID in the past but none of these have helped much with her symptoms and she is currently OFF all of these Rx (6) Diabetes mellitus: Code(s): E11.9 - Type 2 diabetes mellitus without complications Qualifiers: Diabetes mellitus type: type 2 Diabetes mellitus buttermaker continuous churn insulin use: without buttermaker continuous churn use Diabetes mellitus complication status: without complication Qualified Code(s): E11.9 - Type 2 diabetes mellitus without complications Plan: HgbA1c was last at 6.0% on her labs done last month (was at 6.2% a few months ago) - goal is <7.0% Reinforced diabetic diet Continue Metformin 500 mg QD Will recheck her labs in 4 months for follow up (7) Lumbar back pain with radiculopathy affecting lower extremity: Code(s): M54.16 - Radiculopathy, lumbar region Plan: Had an MRI of the lumbar spine done through [facility] a few months ago - copy of this is not available for review Was being scheduled for a lumbar spine injection at [facility] but this never happened - we also have not received any correspondence at all from [facility] for review despite putting in requests for them Follow up with [facility] as scheduled (8) Vitamin D deficiency: Code(s): E55.9 - Vitamin D deficiency, unspecified Plan: Continue Vitamin D3 5000 units QD (9) Obesity (BMI 30-39.9): Code(s): E66.9 - Obesity, unspecified Plan: Reinforced diet/exercise as tolerated/lose weight Follow up with [facility] Management at [facility] as scheduled Plan Follow up in 4 months Orders: Orders Comprehensive [place]. Panel Fast 4 Months E78.00 - Pure hypercholesterolemia, unspecified Complete Blood Count Auto Diff 4 Months I10 - Essential (primary) hypertension Microalbumin, Random (w Creat) 4 Months E11.9 - Type 2 diabetes mellitus without complications Vitamin D 25-OH Total 4 Months E55.9 - Vitamin D deficiency, unspecified Lipid Panel 4 Months E78.00 - Pure hypercholesterolemia, unspecified Hemoglobin A1c 4 Months E11.9 - Type 2 diabetes mellitus without complications UA CC w/rflx Micro + Cult 4 Months R30.0 - Dysuria Referrals Plastic Surgery Referral E65 - Localized adiposity, B37.2 - Candidiasis of skin and nail Medications: Changed From metformin 500 mg PO DAILY To metformin 500 mg PO DAILY 90 tabs 1RF 90 days Coding Level of Care Code Est Pt Prev Care 40-64y(13781) Diagnoses Annual physical exam Z00.00 Symptomatic abdominal panniculus E65 Moderate persistent asthma with acute exacerbation J45.41 Asthma severity: moderate Asthma persistence: persistent Asthma complication type: with acute exacerbation Seropositive rheumatoid arthritis M05.9 Fibromyalgia M79.7 Type 2 diabetes mellitus without complication, without long-term current use of insulin E11.9 Diabetes mellitus type: type 2 Diabetes mellitus skilled nursing insulin use: without buttermaker continuous churn use Diabetes mellitus complication status: without complication Lumbar back pain with radiculopathy affecting lower extremity M54.16 Vitamin D deficiency E55.9 Obesity (BMI 30-39.9) E66.9
== END 2023-05-28 11:16 | disposition home or self-care (01) ==
PROVIDERS: Visit Provider Internal Medicine
DX: Z00.00 Encounter for general adult medical examination without abnormal findings (principal); M05.9 Rheumatoid arthritis with rheumatoid factor, unspecified; E11.9 Type 2 diabetes mellitus without complications; E65 Localized adiposity; J45.41 Moderate persistent asthma with (acute) exacerbation; M79.7 Fibromyalgia; M54.16 Radiculopathy, lumbar region; E55.9 Vitamin D deficiency, unspecified; E66.9 Obesity, unspecified
CPT/HCPCS: 99396

== ENCOUNTER 2023-08-28 13:15 | Outpatient (AMB) | payer OTHER, SELFPAY ==
[2023-08-28 13:19] VITALS: BP 112/68; BMI 36.1
--- NOTE | 2023-08-28 13:19 | MHC.OFFVIS ---
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 No complaints. Last Pap/HPV was negative in 04/29 Last Mammogram was BI-RADS 1 in 05/31 [facility] Medical History Insomnia Fibromyalgia Non-insulin dependent diabetes mellitus Obesity Fatigue Seropositive rheumatoid arthritis Frequent headaches Depression Fibromyalgia Obesity (BMI 30-39.9) Diabetes mellitus Asthma Surgical History Hx of tubal ligation Hx of section History of tooth extraction Family History Father HTN (hypertension) Mother Asthma CVD (cardiovascular disease) Brain cancer Maternal Aunt Breast cancer Sister No problems noted. Sister No problems noted. Sister No problems noted. Son Arthritis Daughter Lupus Daughter No problems noted. Social History Housing: House Alcohol intake: never Patient Tobacco Use Status: Never used Tobacco e-Cigarette/Vaping Use: Never Used Second Hand Smoke Exposure: Yes service: No Current occupational status: unemployed Cognitive needs: No Hearing needs: No Vision needs: No Female Reproductive History Menstrual Age of Menarche: 15 Duration of menses: 3-5 days Date of last menstrual period: 08/01/23 control method: permanent sterilization Total pregnancies: 3 Full term: 3 Number of Living Children: 3 Date of last pap smear: 04/24/22 (negative) Date of Mammogram: 05/16/23 Review of Systems Const All systems reviewed & are unremarkable except as noted in HPI and below Card Reports as per HPI Resp Reports as per HPI GI Reports as per HPI and Reports no additional complaints Reports as per HPI Physical Exam Vital Signs: Last Vital Signs BP 112/68 08/28/23 13:19 BMI result Body Mass Index 36.1 Const General: cooperative, healthy appearing and comfortable Chest Chest palpation & inspection: normal inspection of the chest and normal palpation of entire chest wall Breast/axilla inspection: normal inspection of the breasts and normal inspection of the axillae Breast/axilla palpation: normal palpation of the breasts, normal palpation of the axillae and no axillary lymphadenopathy Resp Effort & Inspection: normal respiratory effort Auscultation: clear to auscultation bilaterally Percussion: percussion normal Cardio Palpation: normal PMI Rate: regular rate Rhythm: regular rhythm Heart sounds: no murmurs and no rubs Peripheral pulses: Peripheral pulses 2+ throughout GI Inspection: Yes normal to inspection Palpation (GI): Soft to palpation, nontender, no guarding, not rigid and No hepatosplenomegaly present Percussion: Yes normal to percussion Auscultation: normal bowel sounds Rectal Exam - Female: deferred General: Yes bladder normal to palpation External Female Exam: No lesion Speculum Exam - Vagina: normal appearance of the vagina, normal palpation, normal vaginal discharge and not erythematous Speculum Exam - Cervix: normal appearance of the cervix and normal palpation Bimanual exam- vagina & uterus: normal bimanual exam, normal palpation, uterine size normal, bladder normal to palpation, consistency normal and normal palpation Bimanual Exam- Adnexa, other: normal adnexae, no masses and no tenderness Assessment & Plan Assessment & Plan (1) Well woman exam: Code(s): Z01.419 - Encounter for gynecological examination (general) (routine) without abnormal findings Plan: Cotesting not indicated this year. Instructions given the patient to schedule next screen Mammogram in 06/01. Counseled the patient about the recommended dietary allowance of 1000 mg of Calcium & 600 IU of vitamin D. The patient was instructed to perform monthly self-breast exams and to schedule an annual exam in a year; All questions answered and the patient verbalized understanding. Instructed the patient to schedule annual exam in a year Coding Level of Care Code Est Pt Prev Care 40-64y(66239) Diagnoses Well woman exam Z01.419
== END 2023-08-28 13:44 | disposition home or self-care (01) ==
PROVIDERS: PCP Internal Medicine; Visit Provider Obstetrics & Gynecology
DX: Z01.419 Encounter for gynecological examination (general) (routine) without abnormal findings (principal)
CPT/HCPCS: 99396

== ENCOUNTER → 2023-08-28 13:15 | Outpatient (BNVA) | payer OTHER, SELFPAY | PROVIDERS: PCP Internal Medicine; Visit Provider Obstetrics & Gynecology | DX: Z01.419 Encounter for gynecological examination (general) (routine) without abnormal findings (principal) | CPT/HCPCS: 99396 ==

== ENCOUNTER 2023-09-26 06:54 | Outpatient (REF) | payer OTHER, SELFPAY ==
[2023-09-26 07:05] LABS: MANUAL DIFF FLAG NO
[2023-09-26 07:37] LABS: Basophils Percent Auto 0.5 % (0-2); Eosinophils Absolute Auto 0.2 X10*3/uL (0.0-0.4); Eosinophils Percent Auto 2.3 % (0-4); Hematocrit 38.8 % (37.0-47.0); Hemoglobin 12.5 g/dl (12.0-16.0); Imm Gran Abs Auto 0.02 X10*3/uL (0.00-0.03); Imm Gran Pct Auto 0.3 % (0.0-0.4); Lymphocytes Absolute Auto 2.7 X10*3/uL (1.2-4.9); Mean Corpuscular HGB Conc 32.2 g/dl (31.0-35.0); Mean Corpuscular Hemoglobin 27.2 pg (27.0-33.0); Mean Corpuscular Volume 84.5 fL (80.0-98.0); Mean Platelet Volume 11.3 fL (9.4-12.3); Monocytes Absolute Auto 0.5 X10*3/uL (0.1-1.2); Monocytes Percent Auto 6.9 % (2-11); Neutrophils Absolute Auto 4.4 x10*3/uL (2.0-8.3); Platelet Count 284 X10*3/uL (160-400); Red Blood Count 4.59 X10*6/uL (4.20-5.50); Red Cell Distribution Width 14.6 % (11.0-16.0); White Blood Count 7.9 X10*3/uL (4.8-10.8)
[2023-09-26 07:39] LABS: Appearance Urine Clear; Color Urine Yellow; Glucose Urine UA Negative (Negative); Leukocyte Esterase Urine Trace (Negative); Nitrite Urine Negative (Negative); Specific Gravity - Urine 1.025 (1.005-1.025); UMIC TRIGGER UACC YES; Urine Blood Negative (Negative); Urine Ketones Negative (Negative); Urine Protein Negative (Neg-Trace)
[2023-09-26 07:45] LABS: Bacteria Urine 1+ (None Seen); Hyaline Casts Urine 0-2 /LPF (0-2); RBC Urine 0-2 /HPF (0-2); WBC Urine 0-5 /HPF (0-5)
[2023-09-26 07:49] LABS: Estimated Average Glucose 126 mg/dL
[2023-09-26 08:08] LABS: Creatinine Urine 148.33 mg/dL
[2023-09-26 08:18] LABS: Alanine Aminotransferase 25 U/L (0-31); Albumin Level 3.9 g/dL (3.5-5.0); Alkaline Phosphatase 86 U/L (39-117); Anion Gap 13 (12-20); Aspartate Amino Transferase 22 U/L (5-31); Bilirubin Total 0.3 mg/dL (0.0-1.0); Blood Urea Nitrogen 10 mg/dL (9-16); Calcium 9.3 mg/dL (8.4-10.2); Carbon Dioxide 26 mmol/L (22-29); Chloride 107 mmol/L (96-108); Cholesterol 160 mg/dL (<200); Estimated Glomerular Filt Rate > 60; Glucose Fasting 120 mg/dL (60-99); HDL Cholesterol 47 mg/dL (>40); LDL Cholesterol Calculated 94 mg/dL (<100); Potassium 4.4 mmol/L (3.3-5.1); Sodium 142 mmol/L (135-145); Total Protein 7.2 g/dL (6.5-8.0); Triglycerides 99 mg/dL (<150)
[2023-09-26 08:30] LABS: Vitamin D 25-OH Total 15.9 ng/mL (>30)
== END 2023-09-26 06:55 | disposition home or self-care (01) ==
LOC: HO.LAB 06:54
PROVIDERS: PCP Internal Medicine; Visit Provider Internal Medicine
DX: E78.00 Pure hypercholesterolemia, unspecified (principal); E55.9 Vitamin D deficiency, unspecified; I10 Essential (primary) hypertension; E11.9 Type 2 diabetes mellitus without complications; R30.0 Dysuria
CPT/HCPCS: 36415; 80053; 80061; 81001; 82043; 82306; 82570; 83036; 85025

== ENCOUNTER 2023-10-01 09:31 | Outpatient (AMB) | payer OTHER, SELFPAY ==
[2023-10-01 09:43] VITALS: BP 100/72; PULSE 101; O2SAT 97; BMI 35.3
--- NOTE | 2023-10-01 09:43 | MHC.PC.OV ---
Vital Signs 10/01/23 09:43 Height 5 ft 5 in Weight 212 lb 4 oz BMI 35.3 BP 100/72 Blood Pressure Location Lt brachial Position Sitting Pulse 101 H Pulse Source Pulse Oximeter Pulse Oximetry (%) 97 Oxygen Delivery Method Room Air Intake Visit Reasons: 4mon F/U Hand Coke Drawer Required: No Accompanied by: Self / Same As Patient Allergies doxycycline Allergy (Unknown, Verified 10/01/23 10:13) itch and rash adalimumab [From Humira] Allergy (Verified 10/01/23 10:13) Rash Medication List - Last Reconciled 10/01/23 by Edward Lima MD albuterol sulfate 2.5 mg (3 mL) continuous nebulization .3 to 4 times daily PRN 30 days albuterol sulfate 90 mcg/actuation (ProAir HFA) 2 puffs inhalation Q6H PRN 30 days blood sugar diagnostic (FreeStyle Lite Strips) As directed- To test blood sugar daily - ONCE A DAY fluticasone propion-salmeterol 230-21 mcg/actuation (Advair HFA) 2 puffs inhalation BID lancets (FreeStyle Lancets) As directed- to test blood sugar daily - ONCE A DAY metformin 500 mg PO DAILY 90 days Tobacco use date assessed: 10/01/23 Dental Screening Dental Screen Date: 10/01/23 Did you have a dental visit in the last 12 months?: No Did you have a dental problem in the last 6 months where you did not have access to dental care?: No Was dental information given to patient?: Patient has dentist HPI 4mon F/U HPI Details Patient comes in today for her follow up visit States that she feels okay She denies any headaches or dizziness Denies any chest pains, no SOB - states that her asthma has been well-controlled lately and she only has to use her inhalers when needed No nausea/vomiting, no abdominal pain No change in bowel habits noted States that she has been experiencing recurrent pain over her right side just above her right hip recently and that the pain seems to radiate inward to her right groin area at times States that the pain occurs even when she is sitting down although prolonged walking seems to aggravate it further Does not recall any recent injury or trauma to her right hip area Had her follow up labs done last week - to discuss her results States that she has not yet heard back from the plastic surgeon that she was referred to a few months ago for consideration for abdominoplasty [facility] [place] Medical History Insomnia Fibromyalgia Non-insulin dependent diabetes mellitus Obesity Fatigue Seropositive rheumatoid arthritis Frequent headaches Depression Fibromyalgia Obesity (BMI 30-39.9) Diabetes mellitus Asthma Surgical History Hx of tubal ligation Hx of section History of tooth extraction Family History Father HTN (hypertension) Mother Asthma CVD (cardiovascular disease) Brain cancer Maternal Aunt Breast cancer Sister No problems noted. Sister No problems noted. Sister No problems noted. Son Arthritis Daughter Lupus Daughter No problems noted. Social History Housing: House Alcohol intake: never Patient Tobacco Use Status: Never used Tobacco e-Cigarette/Vaping Use: Never Used Second Hand Smoke Exposure: Yes service: No Current occupational status: unemployed Cognitive needs: No Hearing needs: No Vision needs: No Female Reproductive History Menstrual Age of Menarche: 15 Questionnaire PHQ-9 Over the last 2 weeks, how often have you been bothered by any of the following problems? 1. Little interest or pleasure in doing things: not at all 2. Feeling down, depressed, or hopeless: not at all 3. Trouble falling or staying asleep, or sleeping too much: not at all 4. Feeling tired or having little energy: not at all 5. Poor appetite or overeating: not at all 6. Feeling bad about yourself - or that you are a failure or have let yourself or your family down: not at all 7. Trouble concentrating on things, such as reading the newspaper or watching television: not at all 8. Moving or speaking so slowly that other people could have noticed. Or the opposite - being so fidgety or restless that you have been moving around a lot more than usual: not at all 9. Thoughts that you would be better off or of hurting yourself in some way: not at all Total score: 0 Depression Screening Interpretation: Negative Depression Screening Done: Yes 69103 - PHQ-9 Billing: Yes Source: Developed by Drs. Philippe Root, Aimee Stevens, Samuel Patricio and colleagues, with an educational sadie from [email or web address]. Thrive Questionnaire Date Thrive assessed: 10/01/23 I am a: Patient What is your living situation today?: I have a steady place to live Within the past 12 months, did the food you bought not last and you didn't have the money to get more?: Never true Within the past 12 months, did you worry whether your food would run out before you got money to buy more?: Never true Do you have trouble paying for medicines?: No Do you have trouble getting transportation to medical appointments?: No Do you have trouble paying your heating and electricity bill?: No Do you have trouble taking care of your child, family member or friend?: No Do you have trouble with day-to-day activities such as bathing, preparing meals, shopping, managing finances, etc.?: No Are you currently unemployed and looking for a job?: No Are you interested in more education?: No Please select the resources that you would like help with: None Currently or been in a relationship where the following occur: no concerns reported THRIVE Score: 0 AUDIT C Alcohol Use Questionnaire (AUDIT-C) 1. How often do you have a drink containing alcohol?: Never 3. How often do you have six or more drinks on one occasion?: Never Total Score: 0 Score Reviewed/Action Taken: Yes MARCOS-7 AMB Questionnaire MARCOS-7 Date MARCOS - 7 assessed: 10/01/23 Feeling nervous, anxious, or on edge: 0 = Not at all Not being able to stop or control worryin = Not at all Worrying too much about different things: 0 = Not at all Trouble relaxin = Not at all Being so restless that it is hard to sit still: 0 = Not at all Becoming easily annoyed or irritable: 0 = Not at all Feeling afraid as if something awful might happen: 0 = Not at all Total MARCOS-7 score (0-4 normal; 5-9 mild; 10-14 moderate; 15-21 severe): 0 Source: Developed by Aimee Cameron Kurt Kroenke and colleagues, with an educational sadie from [email or web address]. Review of Systems Const Denies chills, Denies fatigue, Denies fever(s) and Denies headache(s) ENT Denies dysphagia, Denies dizziness, Denies otalgia, Denies headache(s), Denies neck pain, Denies odynophagia and Denies sore throat Card Denies chest pain, Denies rapid heart rate, Denies irregular heart rhythm, Denies palpitations and Denies dyspnea Resp Denies chest congestion, Denies cough, Denies dyspnea and Denies wheezing GI Denies abdominal pain, Denies constipation, Denies dysphagia, Denies diarrhea, Denies nausea, Denies odynophagia and Denies vomiting Denies urinary frequency, Denies dysuria and Denies urinary urgency Musc Reports back pain (on and off), Reports arthralgias (increased pain over the right hip area - see HPI) and Denies neck pain Skin/Breast Details: (+) recurrent rash and skin infections under her excess abdominal skin folds Neuro Denies dizziness and Denies headache(s) Psych Denies anxiety and Denies depression Endo Denies fatigue and Denies palpitations Aller/Immun Denies wheezing Physical exam (Primary Care) Vital Signs: Last Vital Signs Pulse 101 H 10/01/23 09:43 BP 100/72 10/01/23 09:43 Pulse Ox 97 10/01/23 09:43 Oxygen Delivery Method Room Air 10/01/23 09:43 BMI result Body Mass Index 35.3 Tobacco/Smoking Status: Tobacco use Status Tobacco use date assessed 10/01/23 10/01/23 09:47 Patient Tobacco Use Status Never used Tobacco 10/01/23 09:47 e-Cigarette/Vaping Use Never Used 10/01/23 09:47 PHQ-9: PHQ-9 Score PHQ-9: Total score 0 10/01/23 10:14 Depression Screening Interpretation: Negative Thrive Assessment: Date of Thrive Assessment Date Thrive assessed 10/01/23 10/01/23 09:47 Currently or been in a relationship where the following occur: no concerns reported Const General: no acute distress and alert HENMT Ears: TM's normal bilaterally and EAC's normal Throat: Yes posterior oropharynx normal and Yes tonsils normal (no TP congestion) Neck Neck: Yes no lymphadenopathy and Yes supple Thyroid: Thyroid normal Resp Auscultation: clear to auscultation bilaterally, no rales and no wheezes Cardio Rate: regular rate Rhythm: regular rhythm Heart sounds: no murmurs GI Palpation (GI): Soft to palpation and nontender Auscultation: normal bowel sounds General: Yes no CVA tenderness Back/Spine/Pelvis Back: no CVA tenderness Thoracic/Lumbar Spine: lumbar spinal tenderness (mild) Skin Other: (+) scattered scars and some small nodular lesions under the abdominal pannus on both sides Extrem General: Yes no clubbing, cyanosis or edema Right lower extremity: hip/thigh Details: tenderness (mild) Location: of the hip Location: laterally and anteromedially and normal ROM Results Reviewed Results Reviewed: Laboratory Tests 09/26/23 09/26/23 09/26/23 07:03 07:03 07:03 WBC 7.9 Hgb 12.5 Hct 38.8 Plt Count 284 Sodium 142 Potassium 4.4 Creatinine 0.68 Estimated GFR > 60 Fasting Glucose 120 H Hemoglobin A1c % 6.0 Calcium 9.3 AST 22 ALT 25 Triglycerides 99 Cholesterol 160 LDL Cholesterol, Calc 94 HDL Cholesterol 47 25-OH Vitamin D Total 15.9 L Urine pH Ur Specific [place] Urine Protein Urine Glucose (UA) Urine Blood Urine Nitrite Ur Leukocyte Esterase Microalb/Creat Ratio 09/26/23 09/26/23 07:05 07:05 WBC Hgb Hct Plt Count Sodium Potassium Creatinine Estimated GFR Fasting Glucose Hemoglobin A1c % Calcium AST ALT Triglycerides Cholesterol LDL Cholesterol, Calc HDL Cholesterol 25-OH Vitamin D Total Urine pH 6.0 Ur Specific [place] 1.025 Urine Protein Negative Urine Glucose (UA) Negative Urine Blood Negative Urine Nitrite Negative Ur Leukocyte Esterase Trace H Microalb/Creat Ratio 6.0 Assessment and Plan Assessment & Plan (1) Asthma: Code(s): J45.909 - Unspecified asthma, uncomplicated Qualifiers: Asthma severity: moderate Asthma persistence: persistent Asthma complication type: with acute exacerbation Qualified Code(s): J45.41 - Moderate persistent asthma with (acute) exacerbation Plan: Stable/controlled lately Continue Advair HFA 230-21 mcg 2 puffs BID and Albuterol HFA 2 inhalations every 6 hours PRN Also uses her nebulizer when needed She was on Nucala 100 mg SQ Q 4 weeks previously but felt that the injection was actually making her asthma feel worse Follow up with pulmonary as scheduled (2) Seropositive rheumatoid arthritis: Comment: Methotrexate 08/2018- 03/2019- GI upset Leflunomide 10/2018- 03/2019- GI upset Sulfasalzine 03/2019- 06/2019- GI upset 03/2019 - 09/2020 not seen in clinic 09/2020- Humira started due to synovitis on exam. Took 3 doses and was changed to Enbrel 11/2020 due to continued pain. Enbrel was stopped 11/2020 due to COVID and was discontinued in 06/2021 due to abdominal pain at the injection site. Restarted on Humira 09/2021 due to active synovitis on exam- stopped due to rash 01/2022. Code(s): M05.9 - Rheumatoid arthritis with rheumatoid factor, unspecified Plan: Follow up with rheumatology as scheduled Patient has not been able to tolerate trials of several biologics and DMARDs so far, including MTx, Sulfasalazine, Leflunomide and Humira Labs done a few months ago revealed normal ESR although CRP was slightly elevated; patient was advised that she does not have any clinical evidence of joint inflammation at this time and given her intolerance to multiple Tx options, did not recommend any additional Tx at this time She has been advised to wear wrist splints at night regularly to see if her hand and wrist symptoms will improve; will otherwise have her get EMG & NCV for further evaluation of 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 (3) Fibromyalgia: Code(s): M79.7 - Fibromyalgia Plan: Encouraged again on regular exercise and physical activity to help manage her fibromyalgia symptoms more effectively Was on Cyclobenzaprine 10 mg every 8 hours PRN and Pregabalin 50 mg TID and previously on Gabapentin 600 mg TID in the past but none of these have helped much with her symptoms and she has been OFF all of these Rx for a while now (4) Diabetes mellitus: Code(s): E11.9 - Type 2 diabetes mellitus without complications Qualifiers: Diabetes mellitus type: type 2 Diabetes mellitus intermediate insulin use: without intermediate use Diabetes mellitus complication status: without complication Qualified Code(s): E11.9 - Type 2 diabetes mellitus without complications Plan: HgbA1c remains at 6.0% on her labs done last week (was also at 6.0% when last checked several months ago) - goal is <7.0% Reinforced diabetic diet Continue Metformin 500 mg QD Will recheck her labs in 4 months for follow up (5) Lumbar back pain with radiculopathy affecting lower extremity: Code(s): M54.16 - Radiculopathy, lumbar region Plan: States that she had an MRI of the lumbar spine done through [facility] a few months ago although it appears to be actually of the pelvis for evaluation of some gynecologic issues Was being scheduled for a lumbar spine injection at [facility] but this never happened - we also have not received any correspondence at all from [facility] for review despite putting in requests for them Follow up with [facility] as scheduled (6) Right hip pain: Code(s): M25.551 - Pain in right hip Plan: Will send patient for x-rays of the right hip for further evaluation (7) Symptomatic abdominal panniculus: Code(s): E65 - Localized adiposity Plan: Per request, she was referred to plastic surgery for consideration for abdominoplasty a few months ago to help address her recurrent symptomatic panniculitis but states that she has not yet heard back from the specialist's office Will have the referral team look into this - patient is advised to speak to the staff at checkout regarding this (8) Vitamin D deficiency: Code(s): E55.9 - Vitamin D deficiency, unspecified Plan: She is advised that her vitamin D level was very low on her recent labs and she should start back on her Vitamin D supplements - patient admits that she stopped taking it a while ago Will start her back on Vitamin D3 5000 units QD - Rx sent (9) Obesity (BMI 30-39.9): Code(s): E66.9 - Obesity, unspecified Plan: Reinforced diet/exercise as tolerated/lose weight Follow up with Weight Management at [facility] as scheduled Plan Follow up in 4 months Orders: Orders Comprehensive [place]. Panel Fast 4 Months E78.00 - Pure hypercholesterolemia, unspecified Microalbumin, Random (w Creat) 4 Months E11.9 - Type 2 diabetes mellitus without complications TSH reflex Free T4 4 Months E78.00 - Pure hypercholesterolemia, unspecified Vitamin D 25-OH Total 4 Months E55.9 - Vitamin D deficiency, unspecified XR hip RT min 2V Today M25.551 - Pain in right hip Complete Blood Count Auto Diff 4 Months D64.9 - Anemia, unspecified Lipid Panel 4 Months E78.00 - Pure hypercholesterolemia, unspecified UA CC w/rflx Micro + Cult 4 Months R30.0 - Dysuria Hemoglobin A1c 4 Months E11.9 - Type 2 diabetes mellitus without complications Medications: New cholecalciferol (vitamin D3) 50 mcg PO DAILY 90 caps 3RF 90 days E55.9 - Vitamin D deficiency, unspecified Coding Level of Care Code Est Pt Level 4 (72976) Diagnoses Moderate persistent asthma with acute exacerbation J45.41 Asthma severity: moderate Asthma persistence: persistent Asthma complication type: with acute exacerbation Seropositive rheumatoid arthritis M05.9 Fibromyalgia M79.7 Type 2 diabetes mellitus without complication, without long-term current use of insulin E11.9 Diabetes mellitus type: type 2 Diabetes mellitus 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
== END 2023-10-01 10:19 | disposition home or self-care (01) ==
PROVIDERS: PCP Internal Medicine; Visit Provider Internal Medicine
DX: J45.41 Moderate persistent asthma with (acute) exacerbation (principal); M05.9 Rheumatoid arthritis with rheumatoid factor, unspecified; M79.7 Fibromyalgia; E11.9 Type 2 diabetes mellitus without complications; M54.16 Radiculopathy, lumbar region; M25.551 Pain in right hip; E65 Localized adiposity; E55.9 Vitamin D deficiency, unspecified; E66.9 Obesity, unspecified
CPT/HCPCS: 99214

== ENCOUNTER 2023-12-16 06:39 | Outpatient (REF) | payer SELFPAY ==
--- NOTE | ~2023-12-16 | XR_ITS ---
EXAMINATION: XR HIP, RIGHT CLINICAL INFORMATION: Right hip pain COMPARISON: None available. TECHNIQUE: Two views of the right hip. FINDINGS: No fracture. Alignment is anatomic. Hip joint space is maintained. Soft tissues are unremarkable. XR/XR hip RT min 2V IMPRESSION: Normal right hip.
== END 2023-12-16 06:40 | disposition home or self-care (01) ==
LOC: HO.XRAY 06:39
PROVIDERS: PCP Internal Medicine; Visit Provider Internal Medicine
DX: M25.551 Pain in right hip (principal)
CPT/HCPCS: 73502

== ENCOUNTER 2024-01-24 08:30 | Outpatient (REF) | payer SELFPAY ==
[2024-01-24 08:46] LABS: MANUAL DIFF FLAG NO
[2024-01-24 09:12] LABS: Basophils Percent Auto 0.6 % (0-2); Eosinophils Absolute Auto 0.2 X10*3/uL (0.0-0.4); Eosinophils Percent Auto 3.1 % (0-4); Hematocrit 38.4 % (37.0-47.0); Hemoglobin 12.2 g/dl (12.0-16.0); Imm Gran Abs Auto 0.05 X10*3/uL (0.00-0.03); Imm Gran Pct Auto 0.7 % (0.0-0.4); Lymphocytes Absolute Auto 2.2 X10*3/uL (1.2-4.9); Lymphocytes Percent Auto 31.8 % (20-40); Mean Corpuscular HGB Conc 31.8 g/dl (31.0-35.0); Mean Corpuscular Hemoglobin 26.7 pg (27.0-33.0); Mean Platelet Volume 10.9 fL (9.4-12.3); Monocytes Absolute Auto 0.6 X10*3/uL (0.1-1.2); Monocytes Percent Auto 8.4 % (2-11); Neutrophils Absolute Auto 3.9 x10*3/uL (2.0-8.3); Neutrophils Percent Auto 55.4 % (45-73); Platelet Count 255 X10*3/uL (160-400); Red Blood Count 4.57 X10*6/uL (4.20-5.50); Red Cell Distribution Width 14.6 % (11.0-16.0)
[2024-01-24 09:39] LABS: Appearance Urine Clear; Color Urine Yellow; Glucose Urine UA Negative (Negative); Leukocyte Esterase Urine Negative (Negative); Nitrite Urine Negative (Negative); PH 5.5 (5.0-9.0); Specific Gravity - Urine 1.025 (1.005-1.025); Urine Blood Negative (Negative); Urine Ketones Negative (Negative); Urine Protein Negative (Neg-Trace)
[2024-01-24 09:47] LABS: Estimated Average Glucose 137 mg/dL; Hemoglobin A1c % 6.4 % (<6.0)
[2024-01-24 10:09] LABS: Alanine Aminotransferase 27 U/L (0-31); Albumin Level 3.8 g/dL (3.5-5.0); Alkaline Phosphatase 89 U/L (39-117); Anion Gap 11 (12-20); Aspartate Amino Transferase 18 U/L (5-31); Bilirubin Total 0.2 mg/dL (0.0-1.0); Blood Urea Nitrogen 15 mg/dL (9-16); Calcium 8.5 mg/dL (8.4-10.2); Carbon Dioxide 23 mmol/L (22-29); Chloride 108 mmol/L (96-108); Cholesterol 168 mg/dL (<200); Estimated Glomerular Filt Rate > 60; Glucose Fasting 132 mg/dL (60-99); HDL Cholesterol 49 mg/dL (>40); LDL Cholesterol Calculated 95 mg/dL (<100); Sodium 138 mmol/L (135-145); Total Protein 7.3 g/dL (6.5-8.0); Triglycerides 123 mg/dL (<150)
[2024-01-24 10:13] LABS: TSH reflex Free T4 2.49 uIU/mL (0.32-4.0); Vitamin D 25-OH Total 17.6 ng/mL (>30)
[2024-01-24 10:22] LABS: Creatinine Urine 134.26 mg/dL; Microalbum/Creatinine Ratio Ur 5.9 ug/mg cr (<30)
== END 2024-01-24 08:31 | disposition home or self-care (01) ==
LOC: HO.LAB 08:30
PROVIDERS: PCP Internal Medicine; Visit Provider Internal Medicine
DX: E78.00 Pure hypercholesterolemia, unspecified (principal); E11.9 Type 2 diabetes mellitus without complications; E55.9 Vitamin D deficiency, unspecified; D64.9 Anemia, unspecified; R30.0 Dysuria
CPT/HCPCS: 36415; 80053; 80061; 81003; 82043; 82306; 82570; 83036; 84443; 85025

== ENCOUNTER 2024-01-29 11:39 | Emergency (ER) | payer SELFPAY ==
--- NOTE | ~2024-01-29 | XR_ITS ---
EXAMINATION: XR LUMBOSACRAL SPINE CLINICAL INFORMATION: Pain. COMPARISON: Lumbar spine radiographs dated 09/28/2021. TECHNIQUE: Three views of the lumbosacral spine. FINDINGS: There are 5 nonrib-bearing lumbar vertebrae. There is mild curvature of the lumbar spine, concave towards the right side. In the sagittal projection, spinal alignment is anatomic. Vertebral body heights are maintained. There is mild degenerative disc disease at L5-S1. There is mild facet arthropathy at this level. No fracture. The sacroiliac joints are maintained. XR/XR lumbar spine 2-3V IMPRESSION: No acute osseous lumbar spine abnormality. Mild degenerative disease at L5-S1.
[2024-01-29 12:03] VITALS: BP 141/79; PULSE 89; RESP 18; TEMP 36.7; O2SAT 100; BMI 36.5
--- NOTE | 2024-01-29 12:05 | ED.BACK ---
HPI - Back Pain/Injury General Chief Complaint: Extremity Injury, Lower Stated Complaint: Back pain radiating to legs Time Seen by Provider: 01/29/24 15:09 Source: patient, RN notes reviewed and old records reviewed Mode of arrival: ambulatory Limitations: no limitations History of Present Illness ED Provider: HARDIK LIM PA-C HPI Narrative: 43-year-old female with past medical history significant for insomnia, fibromyalgia, diabetes, GERD, asthma, depression, seropositive rheumatoid arthritis presents to the emergency department today for evaluation of atraumatic bilateral low back pain, left worse than right. Reports history of chronic low back pain and lumbar radiculopathy. Reports receiving corticosteroid injections in the past with temporary relief of pain. States she stood from seated position the other day and felt a twinge to her low back. Since this time reports continued pain. Pain radiates down bilateral lower extremities. Denies hx of spinal surgery. Denies IV drug use. Denies fever, chills, neck pain, bowel or bladder incontinence or retention, numbness/tingling/weakness in the lower extremities, dysuria, hematuria, saddle anesthesia. Related Data Previous Rx's ?Medication ?Instructions ?Recorded fluticasone propionate 230 2 puff inhalation BID #36 ea 04/12/22 mcg-salmeterol 21 mcg/actuation HFA inhaler (Advair HFA) albuterol sulfate 2.5 mg/3 mL 2.5 mg (3 mL) continuous 01/21/23 (0.083 %) solution for nebulization nebulization .3 to 4 times daily PRN shortness of breath or wheezing 30 days #180 mL blood sugar diagnostic (FreeStyle #100 ea 05/28/23 Lite Strips) lancets 28 gauge (FreeStyle #100 ea 05/28/23 Lancets) metformin 500 mg tablet 500 mg PO DAILY 90 days #90 tabs 05/28/23 albuterol sulfate 90 mcg/actuation 2 puff inhalation Q6H PRN 06/24/23 aerosol inhaler (ProAir HFA) shortness of breath or wheezing 30 days #8.5 grams cholecalciferol (vitamin D3) 50 50 mcg PO DAILY 90 days #90 caps 10/01/23 mcg (2,000 unit) capsule baclofen 5 mg tablet 5 mg PO TID PRN muscle spasm #7 01/29/24 tabs lidocaine 5 % topical patch 1 patch topical DAILY #15 ea 01/29/24 (Lidoderm) naproxen 500 mg tablet 500 mg PO Q8-12H PRN pain (scale 01/29/24 score 4-6) #30 tabs Allergies Allergy/AdvReac Type Severity Reaction Status Date / Time doxycycline Allergy Unknown itch and Verified 01/29/24 12:05 rash adalimumab [From Humira] Allergy Rash Verified 01/29/24 12:05 Review of Systems Review of Systems: Constitutional: No fever, chills, fatigue, night sweats, weight changes ENT/Mouth: No ear pain, hearing loss, nasal congestion, sinus pain, rhinorrhea, sore throat Eyes: No eye pain, swelling, redness, vision changes, discharge Cardio: No chest pain, palpitations, SOSA, orthopnea, peripheral edema Pulm: No SOB, cough, sputum, wheezing, dyspnea, hemoptysis GI: No nausea, vomiting, hematemesis, abdominal pain, diarrhea, constipation, hematochezia, melena : No irregular bleeding, dysuria, frequency, urgency, hesitancy, hematuria, flank pain, urinary flow changes, urinary incontinence or retention MSK: +back pain, No neck pain, joint pain, myalgias Skin: No lesions, rashes Neuro: No weakness, numbness, paresthesias, LOC, dizziness, headache Psych: No anxiety/panic, depression, SI/HI, AH/VH All other systems reviewed and are negative. [facility] Past Medical History Attestation statement: The following information was validated with the patient. Source: old records reviewed and nursing notes reviewed Medical History Insomnia Fibromyalgia Non-insulin dependent diabetes mellitus Obesity Fatigue Seropositive rheumatoid arthritis Frequent headaches Depression Fibromyalgia Obesity (BMI 30-39.9) Diabetes mellitus Asthma Surgical History Hx of tubal ligation Hx of section History of tooth extraction Family History Family History Father HTN (hypertension) Mother Asthma CVD (cardiovascular disease) Brain cancer Maternal Aunt Breast cancer Sister No problems noted. Sister No problems noted. Sister No problems noted. Son Arthritis Daughter Lupus Daughter No problems noted. Social History Social History Housing: House Alcohol intake: never Patient Tobacco Use Status: Never used Tobacco e-Cigarette/Vaping Use: Never Used Second Hand Smoke Exposure: Yes Advance Directives: No Advance Directives Information Provided: No Do you have a plan to hurt others: No Plan service: No Current occupational status: unemployed Cognitive needs: No Hearing needs: No Vision needs: No Physical Exam Vital Signs: Vital Signs: Last Vital Signs Temp 97.9 F 01/29/24 16:10 Pulse 85 01/29/24 16:10 Resp 20 01/29/24 16:10 BP 135/89 01/29/24 16:10 Pulse Ox 98 01/29/24 16:10 O2 Del Method Room Air 01/29/24 16:10 BMI result Body Mass Index 36.5 Vital signs stable, afebrile Const: General: cooperative, healthy appearing, comfortable, no acute distress, alert, awake and Physically active Orientation/consciousness: patient oriented x3 HEENT: Head: Yes normal to inspection, Yes No palpable skull fracture present, Yes normocephalic and Yes atraumatic Eyes: General: appearance normal, both eyes and all related structures Pupils: Equal, round and reactive pupils present EOM: EOMs intact bilaterally Neck: Other: + no cervical midline spinous tenderness or step-off deformity. Neck: Yes normal visual inspection, Yes full ROM and Yes no meningeal signs Resp: Effort & Inspection: normal respiratory effort and able to speak in complete sentences Auscultation: clear to auscultation bilaterally Cardio: Rate: regular rate Rhythm: regular rhythm GI: Inspection: Yes normal to inspection Palpation (GI): Soft to palpation and nontender : General: Yes no CVA tenderness Back/Spine/Pelvis: Other: No midline spinous tenderness or step off deformity. +right lumbar paraspinal muscle tenderness to palpation. no palpable mass, warmth, fluctuance. Back: no CVA tenderness Skin: General skin exam: no rashes or lesions noted Neuro: Other: Strength 5/5 intact throughout.? No saddle anesthesia.? Sensation intact to light touch.? Neurovascular intact distally.? General: patient oriented x3, gait normal and no meningeal signs Cranial nerves: Yes Equal, round and reactive pupils present Gait exam (Neuro): Normal gait present Course Course Course Narrative: This is a Rapid Medical Examination (RME) performed by Carla Lim PA-C in triage. Full HPI, ROS, assessment and treatment plan per primary provider in the Main ED. 43 yo female here w/ acute on chronic low back pain x 1 week, radiating down right leg. pain began when she went to stand from seated position. states this has been happening for a long time but they don't know what it is . hx of corticosteroid injections with temporary relief. denies injury/trauma. Fever, chills, bowel or bladder incontinence or retention, saddle anesthesia, numbness/tingling/weakness of the lower extremities, dysuria, hematuria. no cvat b/l. No midline spinous tenderness or step off deformity. +lumbar paraspinal mm ttp Plan: xr, UA Reevaluation(s) Reevaluation #1: 1550-- x-ray lumbar spine without acute bony abnormality. There is mild degenerative disease noted to L5-S1. No acute fracture or subluxation. Urine with moderate amount of leukocyte esterase, 0-2 RBC, over 50 WBC, 6-10 squamous epithelial cells, 3+ bacteria and negative nitrites. Patient is asymptomatic. This is likely contamination. Her urine is negative. I discussed these results with patient. Will hold off on antibiotics at this time. I advised patient that she will receive a call if her urine culture requires treatment. she is agreeable with this. she has been treated with both lidocaine patch and toradol shot. Baclofen, naproxen and lidocaine patch sent to pharmacy. I feel patient is safe for discharge at this time. Ambulating with steady gait. Patient has remained stable throughout ED visit today. Discussed worrisome signs and symptoms and when to return to the ED. All questions answered at this time. Patient is agreeable with disposition and stable for discharge. Medications Administered Discontinued Medications Generic Name Dose Route Start Last Admin Trade Name Ervinq PRN Reason Stop Dose Admin Ketorolac Tromethamine 30 mg 01/29/24 15:09 01/29/24 15:23 Ketorolac Tromethamine 30 Mg/Ml Vial IM 01/29/24 15:10 30 mg ONCE ONE Administration Lidocaine 1 patch 01/29/24 15:01/29/24 15:23 Lidocaine 4 % Patch Adh..Patch TRANSDERMA 01/29/24 15:10 1 patch ONCE ONE Administration Protocol Medical Decision Making Medical Decision Making [facility] Narrative: 43-year-old female with past medical history significant for insomnia, fibromyalgia, diabetes, GERD, asthma, depression, seropositive rheumatoid arthritis presents to the emergency department today for evaluation of atraumatic bilateral low back pain, left worse than right. Patient initially hypertensive to 151/79, now normotensive. Afebrile. She is nontoxic-appearing and in no acute distress. On exam, ambulating with steady gait. No midline spinous tenderness or step off deformity. there is right lumbar paraspinal muscle tenderness to palpation. no palpable mass, warmth, fluctuance.No saddle anesthesia. Neurovascularly intact distally. strength 5/5 intact throughout. Differential diagnosis includes MSK sprain, MSK strain, fracture, subluxation, disc herniation, sciatica, urinary tract infection, renal colic. Unlikely hydronephrosis, pyelonephritis, cord compression, Guillain-[place], cauda equina, epidural abscess. Plan for imaging, UA, pain control, re-eval. Differential Diagnosis Differential Diagnoses: The differential diagnosis associated with the presentation includes as above Admission/Observation Not indicated. Lab Data [facility] Lab Attestation statement: I reviewed the patient's lab results. As above Labs: Lab Results 01/29/24 Range/Units 15:00 Urine Color Yellow Urine Appearance Clear Urine pH 5.5 (5.0-9.0) Ur Specific [place] 1.025 (1.005-1.025) Urine Protein Negative (Neg-Trace) mg/dL Urine Glucose (UA) Negative (Negative) mg/dL Urine Ketones Negative (Negative) mg/dL Urine Blood Negative (Negative) Urine Nitrite Negative (Negative) Ur Leukocyte Esterase Moderate (2+) H (Negative) Urine RBC 0-2 (0-2) /HPF Urine WBC >50 H (0-5) /HPF Ur Squamous Epith Cells 6-10 (0-2) /HPF Urine Bacteria 3+ (None Seen) Hyaline Casts 3-5 (0-2) /LPF Urine Test NEGATIVE (NEGATIVE) Independent Interpretation I performed an independent interpretation of an: Plain X-Ray Interpretation: X-ray lumbar spine without fracture, agree with radiologist's interpretation. Radiology Impression Discussion of test interpretation with radiology: I have reviewed the radiologist's reading. Radiologist Impression: EXAMINATION: XR LUMBOSACRAL SPINE CLINICAL INFORMATION: Pain. COMPARISON: Lumbar spine radiographs dated 09/28/2021. TECHNIQUE: Three views of the lumbosacral spine. FINDINGS: There are 5 nonrib-bearing lumbar vertebrae. There is mild curvature of the lumbar spine, concave towards the right side. In the sagittal projection, spinal alignment is anatomic. Vertebral body heights are maintained. There is mild degenerative disc disease at L5-S1. There is mild facet arthropathy at this level. No fracture. The sacroiliac joints are maintained. XR/XR lumbar spine 2-3V IMPRESSION: No acute osseous lumbar spine abnormality. Mild degenerative disease at L5-S1. External Record Review External record reviewed: Inpatient record Prescription Management I considered prescription management with: Pain Medication (Naproxen) and Other (Baclofen, lidocaine patch) Social Determinants Patient?s care significantly limited by Social Determinants of Health including: Other Social Determinant of Health Critical Care Time Critical Care Time Critical Care Time: No Discharge Plan Discharge Clinical Impression: Lumbar spine strain Patient Disposition: Home, Self-Care Instructions: Low Back Strain (ED), Back Pain (ED), Lower Back Exercises (ED) Additional Instructions: Your imaging studies today did not show acute fracture. Your urine does show bacteria however this is likely contamination as discussed. You are asymptomatic. Your urine will be sent for culture and you will be called in a few days with any positive results. Your pain is likely musculoskeletal. Avoid bending, lifting, or twisting. Use ice several times per day for 20 minutes at a time for the next 48 hours and then change to heat. Baclofen is a muscle relaxer. Take this at night as it makes you drowsy. Do not drive, drink alcohol, or operate machinery while taking it. Naproxen is an anti-inflammatory / pain medication. Take with food. Do not take this with Ibuprofen or other NSAIDs as this may increase risk of GI bleeding. Lidoderm patches are numbing patches. Apply to painful areas. In addition you may take Tylenol at home. Follow up with your primary care provider as needed If your pain worsens, if you develop new numbness, tingling, weakness, loss of bowel or bladder function call 911 or return to the ER immediately for evaluation. Prescriptions: New lidocaine [Lidoderm] 5 % adhesive patch,medicated 1 patch topical DAILY Qty: 15 0RF Rx Instructions: leave on most painful area for up to 12 hrs naproxen 500 mg tablet 500 mg PO Q8-12H PRN (Reason: pain (scale score 4-6)) Qty: 30 0RF baclofen 5 mg tablet 5 mg PO TID PRN (Reason: muscle spasm) Qty: 7 0RF No Action Advair HFA 230-21 mcg/actuation HFA aerosol inhaler 2 puff inhalation BID Qty: 36 2RF (DME) FreeStyle Lite Strips Strip See Rx Instructions .Route Qty: 100 12RF Rx Instructions: As directed- To test blood sugar daily - ONCE A DAY (DME) lancets [FreeStyle Lancets] 28 gauge misc See Rx Instructions .Route Qty: 100 12RF Rx Instructions: As directed- to test blood sugar daily - ONCE A DAY albuterol sulfate [ProAir HFA] 90 mcg/actuation HFA aerosol inhaler 2 puff inhalation Q6H PRN (Reason: shortness of breath or wheezing) 30 Days Qty: 8.5 0RF metformin 500 mg tablet 500 mg PO DAILY 90 Days Qty: 90 1RF cholecalciferol (vitamin D3) 50 mcg (2,000 unit) capsule 50 mcg PO DAILY 90 Days Qty: 90 3RF albuterol sulfate 2.5 mg /3 mL (0.083 %) solution for nebulization 2.5 mg continuous nebulization .3 to 4 times daily PRN (Reason: shortness of breath or wheezing) 30 Days Qty: 180 3RF Referrals: Edward Lima MD [Primary Care Provider] - Interventions: ED Discharge Assessment Last Done: 01/29/24 16:10 Discharge Date/Time: 01/29/24 16:12 Print Language: Chinese
[2024-01-29 15:07] LABS: Appearance Urine Clear; Color Urine Yellow; Glucose Urine UA Negative (Negative); Leukocyte Esterase Urine Moderate (2+) (Negative); Nitrite Urine Negative (Negative); PH 5.5 (5.0-9.0); Specific Gravity - Urine 1.025 (1.005-1.025); UMIC TRIGGER UACC YES; Urine Blood Negative (Negative); Urine Ketones Negative (Negative); Urine Protein Negative (Neg-Trace)
[2024-01-29 15:09] LABS: UPreg QC Valid YES; Urine Pregnancy NEGATIVE (NEGATIVE)
[2024-01-29 15:10] LABS: Bacteria Urine 3+ (None Seen); RBC Urine 0-2 /HPF (0-2); UACC Culture Trigger YES; WBC Urine >50 /HPF (0-5)
[2024-01-29] MEDS: Lidocaine 4 % Patch ADH..PATCH 1 PATCH TRANSDERMA (15:23)
[2024-01-29] MEDS: Ketorolac Tromethamine 30 MG/ML VIAL IM (15:23)
[2024-01-29 16:10] VITALS: BP 135/89; PULSE 85; RESP 20; TEMP 36.6; O2SAT 98
== END 2024-01-29 16:12 | disposition home or self-care (01) ==
PROVIDERS: Physician Assistant Medical; Emergency Provider Emergency Medicine; PCP Internal Medicine
DX: S39.012A Strain of muscle, fascia and tendon of lower back, initial encounter (principal); X58.XXXA Exposure to other specified factors, initial encounter; Y93.9 Activity, unspecified; Y92.9 Unspecified place or not applicable; Y99.9 Unspecified external cause status; E11.9 Type 2 diabetes mellitus without complications; K21.9 Gastro-esophageal reflux disease without esophagitis; Z79.899 Other long term (current) drug therapy
CPT/HCPCS: 72100; 81001; 81025; 87086; 87147; 96372; 99284; J1885

== ENCOUNTER 2024-04-13 09:14 | Outpatient (AMB) | payer MEDICARE, MEDICAID, SELFPAY ==
[2024-04-13 09:17] VITALS: BP 128/84; PULSE 84; TEMP 36; O2SAT 98; BMI 37.4
--- NOTE | 2024-04-13 09:17 | AM.OFFWIN_ITS ---
Intake Vital Signs 04/13/24 09:17 Height 5 ft 6 in Weight 232 lb BMI 37.4 BP 128/84 Blood Pressure Location Lt brachial Position Sitting Pulse 84 Pulse Source Pulse Oximeter Temp 96.8 F Temp Source Temporal Artery Scan Pulse Oximetry (%) 98 Oxygen Delivery Method Room Air Intake Visit Reasons: EP Hot sensation on head/headache Intake Note: pt c/o heat sensation on head and headache Patient Tobacco Use Status: Never used Tobacco Allergies doxycycline Allergy (Unknown, Verified 04/13/24 10:02) itch and rash adalimumab [From Humira] Allergy (Verified 04/13/24 10:02) Rash Medication List - Last Reconciled 04/13/24 by Carlos Chavira MD albuterol sulfate 2.5 mg (3 mL) continuous nebulization .3 to 4 times daily PRN 30 days albuterol sulfate 90 mcg/actuation (ProAir HFA) 2 puffs inhalation Q6H PRN 30 days baclofen 5 mg PO TID PRN blood sugar diagnostic (FreeStyle Lite Strips) As directed- To test blood sugar daily - ONCE A DAY cholecalciferol (vitamin D3) 50 mcg PO DAILY 90 days fluticasone propion-salmeterol 230-21 mcg/actuation (Advair HFA) 2 puffs inhalation BID lancets (FreeStyle Lancets) As directed- to test blood sugar daily - ONCE A DAY lidocaine 5% (Lidoderm) 1 patch topical DAILY metformin 500 mg PO DAILY 90 days naproxen 500 mg PO Q8-12H PRN Do you need a note to return to daycare/school/sports/work: No HPI EP Hot sensation on head/headache HPI Details 43-year-old female presents to the [facility] for a sick visit. Patient is complaining of headache on the left side, behind the left eye. Symptoms present for the past few days. No nausea or vomiting. No blurred vision. [facility] Medical History Insomnia Fibromyalgia Non-insulin dependent diabetes mellitus Obesity Fatigue Seropositive rheumatoid arthritis Frequent headaches Depression Fibromyalgia Obesity (BMI 30-39.9) Diabetes mellitus Asthma Surgical History Hx of tubal ligation Hx of section History of tooth extraction Family History Father HTN (hypertension) Mother Asthma CVD (cardiovascular disease) Brain cancer Maternal Aunt Breast cancer Sister No problems noted. Sister No problems noted. Sister No problems noted. Son Arthritis Daughter Lupus Daughter No problems noted. Social History Housing: House Alcohol intake: never Patient Tobacco Use Status: Never used Tobacco e-Cigarette/Vaping Use: Never Used Second Hand Smoke Exposure: Yes service: No Current occupational status: unemployed Cognitive needs: No Hearing needs: No Vision needs: No Female Reproductive History Menstrual Age of Menarche: 15 Physical Exam Vital Signs: Last Vital Signs Temp 96.8 F 04/13/24 09:17 Pulse 84 04/13/24 09:17 BP 128/84 04/13/24 09:17 Pulse Ox 98 04/13/24 09:17 Oxygen Delivery Method Room Air 04/13/24 09:17 BMI result Body Mass Index 37.4 Const General: cooperative and healthy appearing Nutritional Appearance: well nourished Orientation/consciousness: patient oriented x3 Limitations: no limitations HEENT Head: Yes normal to inspection Eyes General: appearance normal, both eyes and all related structures Neck Neck: Yes normal visual inspection Chest Chest palpation & inspection: normal palpation of entire chest wall Resp Effort & Inspection: normal respiratory effort Neuro General: patient oriented x3 Results AMB Random Glucose (hemocue) AMB Random Glucose (hemocue) 116 mg/dL Last Edit by Horace Linder CMA on 04/13/24 09:56 Results Reviewed Results Reviewed: Laboratory Last Values Random Glu (Clinic) 116 mg/dL 04/13/24 09:55 Assessment & Plan Assessment & Plan (1) Headache: Code(s): R51.9 - Headache, unspecified Plan: Most likely vascular in etiology. Meloxicam called in. Blood sugar in range. Orders: Orders AMB Random Glucose (hemocue) Today Z13.9 - Encounter for screening, unspecified Medications: New meloxicam 15 mg PO DAILY 14 tabs 0RF Discontinued naproxen Discontinued Reason: Doctor's Order 500 mg PO Q8-12H PRN 30 tabs 0RF pain (scale score 4-6) Coding Level of Care Code Est Pt Level 4 (15655) Diagnoses Headache R51.9
== END 2024-04-13 11:07 | disposition home or self-care (01) ==
PROVIDERS: PCP Internal Medicine; Visit Provider Internal Medicine
DX: R51.9 Headache, unspecified (principal); Z13.9 Encounter for screening, unspecified
CPT/HCPCS: 82948; 99214

== ENCOUNTER 2024-05-21 12:37 | Outpatient (REF) | payer MEDICARE, MEDICAID, SELFPAY ==
--- NOTE | ~2024-05-21 | MM_ITS ---
EXAMINATION: MM SCREENING DIGITAL BREAST TOMOSYNTHESIS, BILATERAL CLINICAL INFORMATION: Screening. Asymptomatic. COMPARISON: Mammography: Comparison is made with available priors TECHNIQUE: Digital breast mammography with tomosynthesis is performed in both the craniocaudal and mediolateral oblique views along with computer-aided detection (CAD). FINDINGS: The breasts are heterogeneously dense, which may obscure small masses (ACR BI-RADS breast composition Category c). There are no significant masses, abnormal calcifications, or other abnormalities. MM/MM tomosynthesis screening BI IMPRESSION: No mammographic evidence of malignancy. ASSESSMENT: BI-RADS BI-RADS 1 - Negative RECOMMENDATION: Routine annual mammography screening. 1 year F/U This examination should not preclude the clinical evaluation of a suspicious palpable abnormality. This patient's information was entered into a reminder system with a target due date for their next mammogram. Electronically signed by: Aundrea Brandt DO 06/03/2024 08:17 PM EDT
== END 2024-05-21 12:38 | disposition home or self-care (01) ==
LOC: HO.MAMMO 12:37
PROVIDERS: PCP Internal Medicine; Visit Provider Internal Medicine
DX: Z12.31 Encounter for screening mammogram for malignant neoplasm of breast (principal)
CPT/HCPCS: 77063; 77067

== ENCOUNTER → 2024-05-21 13:00 | Outpatient (BNV) | payer MEDICARE, MEDICAID, SELFPAY | PROVIDERS: PCP Internal Medicine; Visit Provider Internal Medicine | DX: Z12.31 Encounter for screening mammogram for malignant neoplasm of breast (principal) | CPT/HCPCS: 77063; 77067 ==

== ENCOUNTER 2024-05-27 08:02 | Outpatient (AMB) | payer MEDICARE, MEDICAID, SELFPAY ==
[2024-05-27 08:14] VITALS: BP 122/88; PULSE 79; O2SAT 97; BMI 37.0
--- NOTE | 2024-05-27 08:14 | A.OFFPC_ITS ---
Vital Signs 05/27/24 08:14 Height 5 ft 6 in Weight 229 lb BMI 37.0 BP 122/88 Blood Pressure Location Lt brachial Position Sitting Pulse 79 Pulse Source Pulse Oximeter Pulse Oximetry (%) 97 Oxygen Delivery Method Room Air Intake Visit Reasons: EDF [facility] 05/18 Dizziness possible Stroke Allergies doxycycline Allergy (Unknown, Verified 05/27/24 08:15) itch and rash adalimumab [From Humira] Allergy (Verified 05/27/24 08:15) Rash Tobacco use date assessed: 10/01/23 Dental Screening Dental Screen Date: 10/01/23 HPI HPI Comments History of Present Illness Details 43 y/o female patient who presents to [facility] for EDF. She was admitted at [facility] on 05/12/24 for Dizziness. She was discharged home stable on the same day. She had CT Scan Brain/head with no acute intracranial pathology. She was put on ASA 81 mg and Plavix 75 mg Daily due to ?? TIA. She will need to follow up with Neurology (Referral Placed). Today patient reports feelig much better. FORMERLY [facility] Medical History Insomnia Fibromyalgia Non-insulin dependent diabetes mellitus Obesity Fatigue Seropositive rheumatoid arthritis Frequent headaches Depression Fibromyalgia Obesity (BMI 30-39.9) Diabetes mellitus Asthma Surgical History Hx of tubal ligation Hx of section History of tooth extraction Family History Father HTN (hypertension) Mother Asthma CVD (cardiovascular disease) Brain cancer Maternal Aunt Breast cancer Sister No problems noted. Sister No problems noted. Sister No problems noted. Son Arthritis Daughter Lupus Daughter No problems noted. Social History Housing: House Alcohol intake: never Patient Tobacco Use Status: Never used Tobacco Tobacco use type: Cigarette e-Cigarette/Vaping Use: Never Used Second Hand Smoke Exposure: Yes service: No Current occupational status: unemployed Cognitive needs: No Hearing needs: No Vision needs: No Female Reproductive History Menstrual Age of Menarche: 15 Questionnaire PHQ-9 Over the last 2 weeks, how often have you been bothered by any of the following problems? 1. Little interest or pleasure in doing things: not at all 2. Feeling down, depressed, or hopeless: not at all 3. Trouble falling or staying asleep, or sleeping too much: not at all 4. Feeling tired or having little energy: not at all 5. Poor appetite or overeating: not at all 6. Feeling bad about yourself - or that you are a failure or have let yourself or your family down: not at all 7. Trouble concentrating on things, such as reading the newspaper or watching television: not at all 8. Moving or speaking so slowly that other people could have noticed. Or the o pposite - being so fidgety or restless that you have been moving around a lot more than usual: not at all 9. Thoughts that you would be better off or of hurting yourself in some way: not at all Total score: 0 Depression Screening Interpretation: Negative Depression Screening Done: Yes 25376 - PHQ-9 Billing: Yes Source: Developed by Drs. Philippe Root, Samuel Zurita and colleagues, with an educational sadie from [employer]. Thrive Questionnaire Date Thrive assessed: 10/01/23 AUDIT C Alcohol Use Questionnaire (AUDIT-C) 1. How often do you have a drink containing alcohol?: Never 3. How often do you have six or more drinks on one occasion?: Never Total Score: 0 Score Reviewed/Action Taken: Yes MARCOS-7 AMB Questionnaire MARCOS-7 Date MARCOS - 7 assessed: 10/01/23 Source: Developed by Drs. Philippe Root, Samuel Zurita and colleagues, with an educational sadie from [employer]. Review of Systems Const All systems reviewed & are unremarkable except as noted in HPI and below Physical exam (Primary Care) Vital Signs: Last Vital Signs Pulse 79 05/27/24 08:14 BP 122/88 05/27/24 08:14 Pulse Ox 97 05/27/24 08:14 Oxygen Delivery Method Room Air 05/27/24 08:14 BMI result Body Mass Index 37.0 Tobacco/Smoking Status: Tobacco use Status Tobacco use date assessed 10/01/23 05/27/24 08:17 Patient Tobacco Use Status Never used Tobacco 05/27/24 08:17 Tobacco use type Cigarette 05/27/24 08:17 e-Cigarette/Vaping Use Never Used 05/27/24 08:17 PHQ-9: PHQ-9 Score PHQ-9: Total score 0 05/27/24 08:43 Depression Screening Interpretation: Negative Thrive Assessment: Date of Thrive Assessment Date Thrive assessed 10/01/23 05/27/24 08:17 Const General: cooperative, comfortable and no acute distress Nutritional Appearance: obese Orientation/consciousness: patient oriented x3 HENMT Head: Yes normocephalic Ears: external ears normal and TM's normal bilaterally General nose exam: Normal external nose present Face and sinus: Yes sinuses nontender Mouth: moist mucous membranes Eyes Pupils: Equal, round and reactive pupils present EOM: EOMs intact bilaterally Resp Effort & Inspection: normal respiratory effort and able to speak in complete sentences Auscultation: clear to auscultation bilaterally Cardio Heart sounds: S1 normal heart sound present and S2 normal heart sound present Neuro General: patient oriented x3 Cranial nerves: Yes Equal, round and reactive pupils present Assessment and Plan Assessment & Plan (1) Peripheral vertigo: Code(s): H81.399 - Other peripheral vertigo, unspecified ear Qualifiers: Laterality: left Qualified Code(s): H81.392 - Other peripheral vertigo, left ear Plan: Placed referral with Neurology (2) TIA (transient ischemic attack): Code(s): G45.9 - Transient cerebral ischemic attack, unspecified Plan: Currently on Plavix and ASA per TIA protocol (3) Generalized headaches: Code(s): R51.9 - Headache, unspecified Plan: Acetaminophen 1000 mg prn for pain relief. Orders: Referrals Neurology Referral H81.399 - Other peripheral vertigo, unspecified ear, R51.9 - Headache, unspecified Coding Level of Care Code Est Pt Level 4 (24619) Diagnoses Peripheral vertigo involving left ear H81.392 Laterality: left TIA (transient ischemic attack) G45.9 Generalized headaches R51.9 Time Spent (min) 20 Comment Spent reviewing hospital notes
== END 2024-05-27 08:41 | disposition home or self-care (01) ==
PROVIDERS: PCP Internal Medicine; Visit Provider Nurse Practitioner Family
DX: H81.392 Other peripheral vertigo, left ear (principal); G45.9 Transient cerebral ischemic attack, unspecified; R51.9 Headache, unspecified

== ENCOUNTER → 2024-05-27 08:02 | Outpatient (BNVA) | payer MEDICARE, MEDICAID, SELFPAY | PROVIDERS: PCP Internal Medicine; Visit Provider Nurse Practitioner Family | DX: H81.392 Other peripheral vertigo, left ear (principal); G45.9 Transient cerebral ischemic attack, unspecified; R51.9 Headache, unspecified | CPT/HCPCS: 99212 ==

== ENCOUNTER 2024-05-31 09:56 | Outpatient (AMB) | payer MEDICARE, MEDICAID, SELFPAY ==
[2024-05-31 10:16] VITALS: BP 130/80; PULSE 71; O2SAT 98; BMI 36.7
--- NOTE | 2024-05-31 10:16 | MHC.PC.OV ---
Vital Signs 05/31/24 10:16 Height 5 ft 6 in Weight 227 lb 8 oz BMI 36.7 BP 130/80 Blood Pressure Location Lt brachial Position Sitting Pulse 71 Pulse Source Pulse Oximeter Pulse Oximetry (%) 98 Oxygen Delivery Method Room Air Intake Visit Reasons: Annual Exam Management Department Chair Required: No Accompanied by: Self / Same As Patient Allergies doxycycline Allergy (Unknown, Verified 05/31/24 11:16) itch and rash adalimumab [From Humira] Allergy (Verified 05/31/24 11:16) Rash Medication List - Last Reconciled 05/31/24 by Edward Lima MD albuterol sulfate 2.5 mg (3 mL) continuous nebulization .3 to 4 times daily PRN 30 days albuterol sulfate 90 mcg/actuation (ProAir HFA) 2 puffs inhalation Q6H PRN 30 days aspirin 81 mg PO DAILY blood sugar diagnostic (FreeStyle Lite Strips) As directed- To test blood sugar daily - ONCE A DAY clopidogrel (Plavix) 75 mg PO DAILY lancets (FreeStyle Lancets) As directed- to test blood sugar daily - ONCE A DAY meclizine 25 mg PO TID PRN Tobacco use date assessed: 05/31/24 Dental Screening Dental Screen Date: 05/31/24 Did you have a dental visit in the last 12 months?: No Did you have a dental problem in the last 6 months where you did not have access to dental care?: No Was dental information given to patient?: Patient has dentist HPI Annual Exam HPI Details Patient comes in today for her annual physical examination States that she's had 2 bouts of headaches this past week, with each bout lasting for about an hour She reports no associated photophobia or nausea with her recent headaches Relates (+) runny nose but denies any nasal congestion, cough or cold symptoms or sore throat She denies any dizziness Denies any chest pains, no increased SOB No vomiting, no abdominal pain and no change in bowel habits noted She denies any acute urinary symptoms Relates (+) recurrent leg pains and cramping lately that are often worse at night She has also noticed (+) spontaneous bruisings on her legs lately Patient was diagnosed with seropositive RA (++RF-ve CCP) back in 2018. She has been on numerous DMARDs which were ineffective and she could not tolerate. 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 Sister No problems noted. Sister No problems noted. Son Arthritis Daughter Lupus Daughter No problems noted. Social History Housing: House Alcohol intake: never Patient Tobacco Use Status: Never used Tobacco Tobacco use type: Cigarette e-Cigarette/Vaping Use: Never Used Second Hand Smoke Exposure: Yes service: No Current occupational status: unemployed Cognitive needs: No Hearing needs: No Vision needs: No Female Reproductive History Menstrual Age of Menarche: 15 Questionnaire PHQ-9 Over the last 2 weeks, how often have you been bothered by any of the following problems? 1. Little interest or pleasure in doing things: nearly every day 2. Feeling down, depressed, or hopeless: not at all 3. Trouble falling or staying asleep, or sleeping too much: not at all 4. Feeling tired or having little energy: not at all 5. Poor appetite or overeating: not at all 6. Feeling bad about yourself - or that you are a failure or have let yourself or your family down: not at all 7. Trouble concentrating on things, such as reading the newspaper or watching television: not at all 8. Moving or speaking so slowly that other people could have noticed. Or the opposite - being so fidgety or restless that you have been moving around a lot more than usual: not at all 9. Thoughts that you would be better off or of hurting yourself in some way: not at all Total score: 3 Depression Screening Interpretation: Negative Depression Screening Done: Yes 74392 - PHQ-9 Billing: Yes Source: Developed by Drs. Philippe Root, Aimee Stevens, Samuel Patricio and colleagues, with an educational sadie from [employer]. Thrive Questionnaire Date Thrive assessed: 05/31/24 I am a: Patient What is your living situation today?: I choose not to answer this question Within the past 12 months, did the food you bought not last and you didn't have the money to get more?: I choose not to answer this question Within the past 12 months, did you worry whether your food would run out before you got money to buy more?: I choose not to answer this question Do you have trouble paying for medicines?: I choose not to answer this question Do you have trouble getting transportation to medical appointments?: I choose not to answer this question Do you have trouble paying your heating and electricity bill?: I choose not to answer this question Do you have trouble taking care of your child, family member or friend?: I choose not to answer this question Do you have trouble with day-to-day activities such as bathing, preparing meals, shopping, managing finances, etc.?: I choose not to answer this question Are you currently unemployed and looking for a job?: I choose not to answer this question Are you interested in more education?: I choose not to answer this question Please select the resources that you would like help with: None Currently or been in a relationship where the following occur: I choose not to answer THRIVE Score: 0 AUDIT C Alcohol Use Questionnaire (AUDIT-C) 1. How often do you have a drink containing alcohol?: Never 3. How often do you have six or more drinks on one occasion?: Never Total Score: 0 Score Reviewed/Action Taken: Yes MARCOS-7 AMB Questionnaire MARCOS-7 Date MARCOS - 7 assessed: 05/31/24 Feeling nervous, anxious, or on edge: 0 = Not at all Not being able to stop or control worryin = Not at all Worrying too much about different things: 0 = Not at all Trouble relaxin = Not at all Being so restless that it is hard to sit still: 0 = Not at all Becoming easily annoyed or irritable: 0 = Not at all Feeling afraid as if something awful might happen: 0 = Not at all Total MARCOS-7 score (0-4 normal; 5-9 mild; 10-14 moderate; 15-21 severe): 0 Source: Developed by Drs. Philippe Root, Aimee Stevens, Samuel Patricio and colleagues, with an educational sadie from [employer]. Review of Systems Const Denies chills, Denies fatigue, Denies fever(s), Reports headache(s) (see HPI) and Denies malaise Eyes Denies blurry vision, Denies change in vision, Denies irritation and Denies itchy eyes ENT Denies dysphagia, Denies dizziness, Denies otalgia, Reports headache(s) (see HPI), Denies nasal congestion, Reports nasal discharge (associated with her recent headaches), Denies neck pain, Denies odynophagia, Denies sinus pain and Denies sore throat Card Denies chest pain, Denies rapid heart rate, Denies irregular heart rhythm, Denies palpitations and Denies dyspnea Resp Denies chest congestion, Denies cough, Denies dyspnea and Denies wheezing GI Denies abdominal pain, Denies bloating, Denies constipation, Denies dysphagia, Denies heartburn, Denies diarrhea, Denies nausea, Denies odynophagia and Denies vomiting Denies hematuria, Denies urinary frequency, Denies dysuria, Denies urinary incontinence and Denies urinary urgency Musc Denies back pain, Denies arthralgias, Denies joint swelling, Reports muscle cramps (recurrent, often at night), Denies muscle weakness and Denies neck pain Skin/Breast Denies breast pain, Denies breast mass, Denies change in pigmentation, Denies lesions, Denies rash and Reports unusual bruising (recurrent spontaneous bruising) Neuro Denies dizziness, Reports headache(s) (see HPI) and Denies paresthesias Psych Denies anxiety and Denies depression Endo Denies fatigue and Denies palpitations Kelvin/Lymph Reports easy bruising Aller/Immun Denies itchy eyes and Denies wheezing Physical exam (Primary Care) Vital Signs: Last Vital Signs Pulse 71 05/31/24 10:16 BP 130/80 05/31/24 10:16 Pulse Ox 98 05/31/24 10:16 Oxygen Delivery Method Room Air 05/31/24 10:16 BMI result Body Mass Index 36.7 Tobacco/Smoking Status: Tobacco use Status Tobacco use date assessed 05/31/24 05/31/24 10:21 Patient Tobacco Use Status Never used Tobacco 05/31/24 10:21 Tobacco use type Cigarette 05/31/24 10:21 e-Cigarette/Vaping Use Never Used 05/31/24 10:21 PHQ-9: PHQ-9 Score PHQ-9: Total score 3 05/31/24 11:17 Depression Screening Interpretation: Negative Thrive Assessment: Date of Thrive Assessment Date Thrive assessed 05/31/24 05/31/24 10:21 Currently or been in a relationship where the following occur: I choose not to answer Const General: no acute distress, alert and awake Orientation/consciousness: patient oriented x3 HENMT Head: Yes normocephalic and Yes atraumatic Ears: external ears normal, TM's normal bilaterally and EAC's normal General nose exam: No nasal discharge present Face and sinus: Yes normal facial exam and Yes sinuses nontender Teeth and gingiva: dentition normal Throat: Yes posterior oropharynx normal and Yes tonsils normal (no TP congestion) Eyes Eyelids: Yes eyelids normal Conjunctivae: conjunctivae normal Pupils: Equal, round and reactive pupils present EOM: EOMs intact bilaterally Neck Neck: Yes no lymphadenopathy and Yes supple Thyroid: Thyroid normal Resp Auscultation: clear to auscultation bilaterally, no rales and no wheezes Cardio Rate: regular rate Rhythm: regular rhythm Heart sounds: no murmurs GI Palpation (GI): Soft to palpation, nontender and No hepatosplenomegaly present Auscultation: normal bowel sounds General: Yes no CVA tenderness Back/Spine/Pelvis Back: no CVA tenderness Thoracic/Lumbar Spine: lumbar spinal tenderness Skin General skin exam: ecchymosis (few, scattered) Rashes: no rashes Neuro General: patient oriented x3, moves all extremities, no focal motor deficits and CN's II-XI intact bilaterally Cranial nerves: Yes Equal, round and reactive pupils present Cognition (Neuro): normal cognition Gait exam (Neuro): Normal gait present Extrem General: Yes no clubbing, cyanosis or edema Results AMB Hemoglobin A1c AMB Hemoglobin A1c 5.8 % Last Edit by ADRIAN Israel on 05/31/24 11:13 Results Reviewed Results Reviewed: Laboratory Last Values Hgb A1c (Clinic) 5.8 % (4.0-6.0) 05/31/24 11:12 Assessment and Plan Assessment & Plan (1) Annual physical exam: Code(s): Z00.00 - Encounter for general adult medical examination without abnormal findings Plan: Check labs She is currently up-to-date with her cancer screenings (2) Asthma: Code(s): J45.909 - Unspecified asthma, uncomplicated Qualifiers: Asthma severity: moderate Asthma persistence: persistent Asthma complication type: with acute exacerbation Qualified Code(s): J45.41 - Moderate persistent asthma with (acute) exacerbation Plan: Stable/controlled lately Continue Advair HFA 230-21 mcg 2 puffs BID and Albuterol HFA 2 inhalations every 6 hours PRN She also uses her nebulizer when needed She was on Nucala 100 mg SQ Q 4 weeks previously but felt that the injection was actually making her asthma feel worse Follow up with pulmonary as scheduled (3) Headache: Code(s): R51.9 - Headache, unspecified Qualifiers: Headache chronicity pattern: unspecified pattern Headache type: unspecified Intractability: not intractable Qualified Code(s): R51.9 - Headache, unspecified Plan: Discussed that these are likely tension headaches or migraine headaches - patient has never been diagnosed with migraines in the past although brain MRI done in 04/2022 revealed (+) scattered nonspecific subcortical white matter T2 hyperintensities in the cerebral hemispheres, that could reflect migraine-associated vasculopathy Will consider referring her to neurology for further evaluation and management if her headaches continue to recur (4) Seropositive rheumatoid arthritis: Comment: Methotrexate 08/2018- 03/2019- GI upset Leflunomide 10/2018- 03/2019- GI upset Sulfasalzine 03/2019- 06/2019- GI upset 03/2019 - 09/2020 not seen in clinic 09/2020- Humira started due to synovitis on exam. Took 3 doses and was changed to Enbrel 11/2020 due to continued pain. Enbrel was stopped 11/2020 due to COVID and was discontinued in 06/2021 due to abdominal pain at the injection site. Restarted on Humira 09/2021 due to active synovitis on exam- stopped due to rash 01/2022. Code(s): M05.9 - Rheumatoid arthritis with rheumatoid factor, unspecified Plan: Follow up with rheumatology as scheduled Patient has not been able to tolerate trials of several biologics and DMARDs so far, including MTx, Sulfasalazine, Leflunomide and Humira Labs done a few months ago revealed normal ESR although CRP was slightly elevated; patient was advised that she does not have any clinical evidence of joint inflammation at this time and given her intolerance to multiple Tx options, did not recommend any additional Tx at this time Patient has been off all DMARDs for the past year and a half, with subsequent improvement in her joint pains She has been advised to wear wrist splints at night regularly to see if her hand and wrist symptoms will improve; will otherwise have her get EMG & NCV for further evaluation of 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 (5) Fibromyalgia: Code(s): M79.7 - Fibromyalgia Plan: She is encouraged again on regular exercise and physical activity to help manage her fibromyalgia symptoms more effectively She was on Cyclobenzaprine 10 mg every 8 hours PRN and Pregabalin 50 mg TID and previously on Gabapentin 600 mg TID in the past but none of these have helped much with her symptoms and she has been OFF all of these Rx for a while now (6) Diabetes mellitus: Code(s): E11.9 - Type 2 diabetes mellitus without complications Qualifiers: Diabetes mellitus type: type 2 Diabetes mellitus senior living insulin use: without terminal computer operator use Diabetes mellitus complication status: without complication Qualified Code(s): E11.9 - Type 2 diabetes mellitus without complications Plan: In-office HgbA1c done today is at 5.8% (her HgbA1c was at 6.0% a few months ago) - goal is <7.0% Reinforced diabetic diet Continue Metformin 500 mg QD Will recheck her labs in 4 months for follow up (7) Lumbar back pain with radiculopathy affecting lower extremity: Code(s): M54.16 - Radiculopathy, lumbar region Plan: States that she had an MRI of the lumbar spine done through [facility] a few months ago although it appears to be actually of the pelvis for evaluation of some gynecologic issues She was being scheduled for a lumbar spine injection at [facility] but unclear if this went through, as we have not received any correspondence at all from [facility] for review despite requesting for them Follow up with [facility] as scheduled (8) Vitamin D deficiency: Code(s): E55.9 - Vitamin D deficiency, unspecified Plan: Continue Vitamin D3 5000 units QD (9) Obesity (BMI 30-39.9): Code(s): E66.9 - Obesity, unspecified Plan: Reinforced diet/exercise as tolerated/lose weight Follow up with Weight Management at [facility] as scheduled Plan Follow up as scheduled next month Orders: Orders Rheumatoid Factor 06/03/24 M25.50 - Pain in unspecified joint NANCI Reflex Titer and Pattern 06/03/24 M25.50 - Pain in unspecified joint C Reactive Protein 06/03/24 M25.50 - Pain in unspecified joint Erythrocyte Sedimentation Rate 06/03/24 M25.50 - Pain in unspecified joint Cyclic Citrullinated Peptide 06/03/24 M25.50 - Pain in unspecified joint Complete Blood Count Auto Diff 06/03/24 D64.9 - Anemia, unspecified, Z00.00 - Encounter for general adult medical examination without abnormal findings Lipid Panel 06/03/24 E78.00 - Pure hypercholesterolemia, unspecified, Z00.00 - Encounter for general adult medical examination without abnormal findings UA CC w/rflx Micro + Cult 06/03/24 R30.0 - Dysuria, Z00.00 - Encounter for general adult medical examination without abnormal findings Magnesium 06/03/24 E83.42 - Hypomagnesemia, Z00.00 - Encounter for general adult medical examination without abnormal findings AMB Hemoglobin A1c 05/31/24 E11.9 - Type 2 diabetes mellitus without complications Comprehensive [place]. Panel Fast 06/03/24 E78.00 - Pure hypercholesterolemia, unspecified, Z00.00 - Encounter for general adult medical examination without abnormal findings TSH reflex Free T4 06/03/24 E78.00 - Pure hypercholesterolemia, unspecified, Z00.00 - Encounter for general adult medical examination without abnormal findings Vitamin B12 and Folate 06/03/24 E53.8 - Deficiency of other specified B group vitamins, Z00.00 - Encounter for general adult medical examination without abnormal findings Vitamin D 25-OH Total 06/03/24 E55.9 - Vitamin D deficiency, unspecified, Z00.00 - Encounter for general adult medical examination without abnormal findings Coding Level of Care Code Est Pt Prev Care 40-64y(46930) Diagnoses Annual physical exam Z00.00 Moderate persistent asthma with acute exacerbation J45.41 Asthma severity: moderate Asthma persistence: persistent Asthma complication type: with acute exacerbation Headache R51.9 Headache chronicity pattern: unspecified pattern Headache type: unspecified Intractability: not intractable Seropositive rheumatoid arthritis M05.9 Fibromyalgia M79.7 Type 2 diabetes mellitus without complication, without long-term current use of insulin E11.9 Diabetes mellitus type: type 2 Diabetes mellitus senior living insulin use: without terminal computer operator use Diabetes mellitus complication status: without complication Lumbar back pain with radiculopathy affecting lower extremity M54.16 Vitamin D deficiency E55.9 Obesity (BMI 30-39.9) E66.9
== END 2024-05-31 11:33 | disposition home or self-care (01) ==
PROVIDERS: PCP Internal Medicine; Visit Provider Internal Medicine
DX: Z00.00 Encounter for general adult medical examination without abnormal findings (principal); M05.9 Rheumatoid arthritis with rheumatoid factor, unspecified; E11.9 Type 2 diabetes mellitus without complications; J45.41 Moderate persistent asthma with (acute) exacerbation; R51.9 Headache, unspecified; M79.7 Fibromyalgia; M54.16 Radiculopathy, lumbar region; E55.9 Vitamin D deficiency, unspecified; E66.9 Obesity, unspecified; Z68.36 Body mass index [BMI] 36.0-36.9, adult

== ENCOUNTER → 2024-05-31 09:56 | Outpatient (BNVA) | payer MEDICARE, MEDICAID, SELFPAY | PROVIDERS: PCP Internal Medicine; Visit Provider Internal Medicine | DX: Z00.00 Encounter for general adult medical examination without abnormal findings (principal); E11.9 Type 2 diabetes mellitus without complications; M25.50 Pain in unspecified joint; D64.9 Anemia, unspecified; E78.00 Pure hypercholesterolemia, unspecified; R30.0 Dysuria; E83.42 Hypomagnesemia | CPT/HCPCS: 83036; 99396 ==

== ENCOUNTER 2024-06-03 06:32 | Outpatient (REF) | payer MEDICARE, MEDICAID, SELFPAY ==
[2024-06-03 06:50] LABS: MANUAL DIFF FLAG NO
[2024-06-03 07:47] LABS: Estimated Average Glucose 140 mg/dL; Hemoglobin A1C 148.0356 umol/L; Hemoglobin A1c % 6.5 % (<6.0)
[2024-06-03 07:49] LABS: Appearance Urine Clear; Color Urine Yellow; Glucose Urine UA Negative (Negative); Leukocyte Esterase Urine Negative (Negative); Nitrite Urine Negative (Negative); PH 5.5 (5.0-9.0); Specific Gravity - Urine 1.025 (1.005-1.025); Urine Blood Negative (Negative); Urine Ketones Negative (Negative); Urine Protein Negative (Neg-Trace)
[2024-06-03 08:14] LABS: Alanine Aminotransferase 21 U/L (0-31); Alkaline Phosphatase 86 U/L (39-117); Anion Gap 13 (12-20); Aspartate Amino Transferase 19 U/L (5-31); Bilirubin Total 0.4 mg/dL (0.0-1.0); Blood Urea Nitrogen 14 mg/dL (9-16); C Reactive Protein 1.42 mg/dL (< or = 0.50); Calcium 9.2 mg/dL (8.4-10.2); Carbon Dioxide 25 mmol/L (22-29); Chloride 106 mmol/L (96-108); Cholesterol 164 mg/dL (<200); Estimated Glomerular Filt Rate > 60; Glucose Fasting 149 mg/dL (60-99); HDL Cholesterol 39 mg/dL (>40); LDL Cholesterol Calculated 108 mg/dL (<100); Magnesium 1.9 mg/dL (1.6-2.6); Potassium 3.7 mmol/L (3.3-5.1); Rheumatoid Factor 43.3 IU/mL (<15.0); Sodium 140 mmol/L (135-145); Total Protein 7.5 g/dL (6.5-8.0); Triglycerides 87 mg/dL (<150)
[2024-06-03 08:16] LABS: Basophils Percent Auto 0.6 % (0-2); Eosinophils Absolute Auto 0.2 X10*3/uL (0.0-0.4); Eosinophils Percent Auto 3.2 % (0-4); Hematocrit 38.6 % (37.0-47.0); Hemoglobin 12.4 g/dl (12.0-16.0); Imm Gran Abs Auto 0.04 X10*3/uL (0.00-0.03); Imm Gran Pct Auto 0.6 % (0.0-0.4); Lymphocytes Absolute Auto 2.1 X10*3/uL (1.2-4.9); Lymphocytes Percent Auto 32.7 % (20-40); Mean Corpuscular HGB Conc 32.1 g/dl (31.0-35.0); Mean Corpuscular Volume 83.9 fL (80.0-98.0); Mean Platelet Volume 11.3 fL (9.4-12.3); Monocytes Absolute Auto 0.5 X10*3/uL (0.1-1.2); Monocytes Percent Auto 8.2 % (2-11); Neutrophils Absolute Auto 3.5 x10*3/uL (2.0-8.3); Neutrophils Percent Auto 54.7 % (45-73); Platelet Count 310 X10*3/uL (160-400); Red Cell Distribution Width 14.6 % (11.0-16.0); White Blood Count 6.3 X10*3/uL (4.8-10.8)
[2024-06-03 08:31] LABS: TSH reflex Free T4 1.65 uIU/mL (0.32-4.0); Vitamin D 25-OH Total 28.8 ng/mL (>30)
[2024-06-03 08:46] LABS: Folate 9.4 ng/mL (> or = 4.0); Vitamin B12 427 pg/mL (200-900)
[2024-06-03 09:03] LABS: Erythrocyte Sedimentation Rate 16 MM/HR (0-20)
[2024-06-07 11:24] LABS: Anti Nuclear Antibody Screen NEGATIVE (NEGATIVE)
[2024-06-07 15:18] LABS: Cyclic Citrullinated Peptide <16 UNITS
== END 2024-06-03 06:33 | disposition home or self-care (01) ==
LOC: HO.LAB 06:32
PROVIDERS: PCP Internal Medicine; Visit Provider Internal Medicine
DX: Z00.00 Encounter for general adult medical examination without abnormal findings (principal); M25.50 Pain in unspecified joint; E78.00 Pure hypercholesterolemia, unspecified; E11.9 Type 2 diabetes mellitus without complications; R30.0 Dysuria; E83.52 Hypercalcemia; I10 Essential (primary) hypertension; E53.8 Deficiency of other specified B group vitamins
CPT/HCPCS: 36415; 80053; 80061; 81003; 82306; 82607; 82746; 83036; 83735; 84443; 85025; 85652; 86038; 86140; 86200; 86431

== ENCOUNTER 2024-06-16 14:58 | Outpatient (AMB) | payer MEDICARE, MEDICAID, SELFPAY ==
[2024-06-16 15:03] VITALS: BP 112/80; PULSE 83; O2SAT 98; BMI 36.2
--- NOTE | 2024-06-16 15:03 | MHC.PC.OV ---
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 Required: No Accompanied by: Self / Same As Patient Allergies doxycycline Allergy (Unknown, Verified 06/17/24 08:48) itch and rash adalimumab [From Humira] Allergy (Verified 06/17/24 08:48) Rash Medication List - Last Reconciled 06/17/24 by Edward Lima MD albuterol sulfate 2.5 mg (3 mL) continuous nebulization .3 to 4 times daily PRN 30 days albuterol sulfate 90 mcg/actuation (ProAir HFA) 2 puffs inhalation Q6H PRN 30 days aspirin 81 mg PO DAILY blood sugar diagnostic (FreeStyle Lite Strips) As directed- To test blood sugar daily - ONCE A DAY clopidogrel (Plavix) 75 mg PO DAILY empagliflozin (Jardiance) 10 mg PO QAM 30 days lancets (FreeStyle Lancets) As directed- to test blood sugar daily - ONCE A DAY meclizine 25 mg PO TID PRN Tobacco use date assessed: 06/16/24 Dental Screening Dental Screen Date: 06/16/24 Did you have a dental visit in the last 12 months?: No Did you have a dental problem in the last 6 months where you did not have access to dental care?: No Was dental information given to patient?: No HPI F/up labs/ X-Ray problem to swallow HPI Details Patient comes in today for her follow up visit States that she continues to experience increased multiple joint pains, which have been slowly increasing lately Patient was diagnosed with seropositive RA (++RF,-ve CCP) back in 2018 and has been treated with numerous DMARDs, all of which were ineffective and/or she could not tolerate Over the past year and a half, patient has been off all DMARDs with subsequent improvement in her joint pains but she feels that her joint pains are now increasing again recently and would like to know what are her next options potentially Adds that she has also been experiencing on and off problems with her swallowing lately - states that this is more of a sensation of increased dryness in her throat that makes it difficult and painful to swallow She denies any recent cough or cold symptoms Denies any fever or symptoms or dry mouth or dry eyes Denies any headaches or dizziness Denies any chest pains, no increased SOB No nausea/vomiting, no abdominal pain No change in bowel habits noted She had her follow up labs done a couple of weeks ago - to discuss her results [facility] Medical History (Updated 06/17/24 @ 09:25 by Edward Lima MD) Obesity, Class II, BMI 35-39.9 Insomnia Fibromyalgia Non-insulin dependent diabetes mellitus Obesity Fatigue Seropositive rheumatoid arthritis Frequent headaches Depression Fibromyalgia Obesity (BMI 30-39.9) Diabetes mellitus Asthma Surgical History Hx of tubal ligation Hx of section History of tooth extraction Family History Father HTN (hypertension) Mother Asthma CVD (cardiovascular disease) Brain cancer Maternal Aunt Breast cancer Sister No problems noted. Sister No problems noted. Sister No problems noted. Son Arthritis Daughter Lupus Daughter No problems noted. Social History Housing: House Alcohol intake: never Patient Tobacco Use Status: Never used Tobacco Tobacco use type: Cigarette e-Cigarette/Vaping Use: Never Used Second Hand Smoke Exposure: Yes service: No Current occupational status: unemployed Cognitive needs: No Hearing needs: No Vision needs: No Female Reproductive History Menstrual Age of Menarche: 15 Questionnaire PHQ-9 Over the last 2 weeks, how often have you been bothered by any of the following problems? 1. Little interest or pleasure in doing things: nearly every day 2. Feeling down, depressed, or hopeless: not at all 3. Trouble falling or staying asleep, or sleeping too much: not at all 4. Feeling tired or having little energy: not at all 5. Poor appetite or overeating: not at all 6. Feeling bad about yourself - or that you are a failure or have let yourself or your family down: not at all 7. Trouble concentrating on things, such as reading the newspaper or watching television: not at all 8. Moving or speaking so slowly that other people could have noticed. Or the opposite - being so fidgety or restless that you have been moving around a lot more than usual: not at all 9. Thoughts that you would be better off or of hurting yourself in some way: not at all Total score: 3 Depression Screening Interpretation: Negative Depression Screening Done: Yes 48182 - PHQ-9 Billing: Yes Source: Developed by Drs. Philippe Root, Aimee Stevens, Samuel Patricio and colleagues, with an educational sadie from [employer]. Thrive Questionnaire Date Thrive assessed: 06/16/24 I am a: Patient What is your living situation today?: I choose not to answer this question Within the past 12 months, did the food you bought not last and you didn't have the money to get more?: I choose not to answer this question Within the past 12 months, did you worry whether your food would run out before you got money to buy more?: I choose not to answer this question Do you have trouble paying for medicines?: I choose not to answer this question Do you have trouble getting transportation to medical appointments?: I choose not to answer this question Do you have trouble paying your heating and electricity bill?: I choose not to answer this question Do you have trouble taking care of your child, family member or friend?: I choose not to answer this question Do you have trouble with day-to-day activities such as bathing, preparing meals, shopping, managing finances, etc.?: I choose not to answer this question Are you currently unemployed and looking for a job?: I choose not to answer this question Are you interested in more education?: I choose not to answer this question Please select the resources that you would like help with: None Currently or been in a relationship where the following occur: No concerns reported THRIVE Score: 0 AUDIT C Alcohol Use Questionnaire (AUDIT-C) 1. How often do you have a drink containing alcohol?: Never 3. How often do you have six or more drinks on one occasion?: Never Total Score: 0 Score Reviewed/Action Taken: Yes MARCOS-7 AMB Questionnaire MARCOS-7 Date MARCOS - 7 assessed: 06/16/24 Feeling nervous, anxious, or on edge: 0 = Not at all Not being able to stop or control worryin = Not at all Worrying too much about different things: 0 = Not at all Trouble relaxin = Not at all Being so restless that it is hard to sit still: 0 = Not at all Becoming easily annoyed or irritable: 0 = Not at all Feeling afraid as if something awful might happen: 0 = Not at all Total MARCOS-7 score (0-4 normal; 5-9 mild; 10-14 moderate; 15-21 severe): 0 Source: Developed by Drs. Philippe Root, Aimee Stevens, Samuel Patricio and colleagues, with an educational sadie from [employer]. Review of Systems Const Denies chills, Reports fatigue, Denies fever(s) and Denies headache(s) ENT Reports dysphagia (see HPI), Denies dizziness, Denies otalgia, Denies headache(s), Denies neck pain, Denies odynophagia and Denies sore throat Card Denies chest pain, Denies irregular heart rhythm, Denies palpitations and Denies dyspnea Resp Denies chest congestion, Denies cough and Denies dyspnea GI Denies abdominal pain, Denies constipation, Reports dysphagia (see HPI), Denies heartburn, Denies diarrhea, Denies nausea, Denies odynophagia and Denies vomiting Denies urinary frequency, Denies dysuria, Denies urinary incontinence and Denies urinary urgency Musc Denies back pain, Reports myalgias (diffuse), Reports arthralgias (involving multiple joints), Denies joint swelling, Reports muscle cramps (recurrent, often at night) and Denies neck pain Skin/Breast Denies rash Neuro Denies dizziness, Denies headache(s) and Denies paresthesias Psych Denies anxiety and Denies depression Endo Reports fatigue and Denies palpitations Kelvin/Lymph Reports easy bruising Physical exam (Primary Care) Vital Signs: Last Vital Signs Pulse 83 06/16/24 15:03 BP 112/80 06/16/24 15:03 Pulse Ox 98 06/16/24 15:03 Oxygen Delivery Method Room Air 06/16/24 15:03 BMI result Body Mass Index 36.2 Tobacco/Smoking Status: Tobacco use Status Tobacco use date assessed 06/16/24 06/16/24 15:07 Patient Tobacco Use Status Never used Tobacco 06/16/24 15:07 Tobacco use type Cigarette 06/16/24 15:07 e-Cigarette/Vaping Use Never Used 06/16/24 15:07 PHQ-9: PHQ-9 Score PHQ-9: Total score 3 06/16/24 15:38 Depression Screening Interpretation: Negative Thrive Assessment: Date of Thrive Assessment Date Thrive assessed 06/16/24 06/16/24 15:07 Currently or been in a relationship where the following occur: No concerns reported Const General: no acute distress and alert HENMT Ears: TM's normal bilaterally and EAC's normal Throat: Yes posterior oropharynx normal and Yes tonsils normal (no TP congestion) Neck Neck: Yes no lymphadenopathy and Yes supple Thyroid: Thyroid normal Resp Auscultation: clear to auscultation bilaterally, no rales and no wheezes Cardio Rate: regular rate Rhythm: regular rhythm Heart sounds: no murmurs GI Palpation (GI): Soft to palpation and nontender Auscultation: normal bowel sounds General: Yes no CVA tenderness Back/Spine/Pelvis Back: no CVA tenderness Thoracic/Lumbar Spine: lumbar spinal tenderness Skin Rashes: no rashes Extrem General: Yes no clubbing, cyanosis or edema Results Reviewed Results Reviewed: Laboratory Tests 06/03/24 06/03/24 06:34 06:48 WBC 6.3 Hgb 12.4 Hct 38.6 Plt Count 310 ESR 16 Sodium 140 Potassium 3.7 Creatinine 0.76 Estimated GFR > 60 Fasting Glucose 149 H Hemoglobin A1c % 6.5 H Calcium 9.2 D Magnesium 1.9 AST 19 ALT 21 C-Reactive Protein 1.42 H Triglycerides 87 Cholesterol 164 LDL Cholesterol, Calc 108 H HDL Cholesterol 39 L Vitamin B12 427 25-OH Vitamin D Total 28.8 L TSH 1.65 Ur Specific [place] 1.025 Urine Protein Negative Urine Glucose (UA) Negative Urine Blood Negative Urine Nitrite Negative Ur Leukocyte Esterase Negative Rheumatoid Factor 43.3 H Cycl Citrul Peptide IgG <16 NANCI Screen NEGATIVE Coding Level of Care Code Est Pt Level 4 (05568) Diagnoses Type 2 diabetes mellitus without complication, without long-term current use of insulin E11.9 Diabetes mellitus complication status: without complication Diabetes mellitus penitentiary insulin use: without joint terminal attack controller use Diabetes mellitus type: type 2 Moderate persistent asthma with acute exacerbation J45.41 Asthma severity: moderate Asthma persistence: persistent Asthma complication type: with acute exacerbation Headache R51.9 Headache chronicity pattern: unspecified pattern Headache type: unspecified Intractability: not intractable Seropositive rheumatoid arthritis M05.9 Dysphagia, unspecified type R13.10 Dysphagia type: unspecified Fibromyalgia M79.7 Lumbar back pain with radiculopathy affecting lower extremity M54.16 Vitamin D deficiency E55.9 Obesity, Class II, BMI 35-39.9 E66.812 Assessment & Plan Assessment & Plan (1) Diabetes mellitus: Code(s): E11.9 - Type 2 diabetes mellitus without complications Category: Medical Qualifiers: Diabetes mellitus complication status: without complication Diabetes mellitus penitentiary insulin use: without joint terminal attack controller use Diabetes mellitus type: type 2 Qualified Code(s): E11.9 - Type 2 diabetes mellitus without complications Plan: Her HgbA1c is now at 6.5% on her labs done a couple of weeks ago - HgbA1c was at 6.4% a few months ago but has been steadily rising over the past year Have advised patient that she is now a full-fledged diabetic and is no longer just a borderline diabetic Discussed diabetic diet Continue Metformin 500 mg QD Will start patient additionally on Jardiance 10 mg Q AM Will recheck her labs and HgbA1c in 3 months for follow up (2) Asthma: Code(s): J45.909 - Unspecified asthma, uncomplicated Category: Medical Qualifiers: Asthma severity: moderate Asthma persistence: persistent Asthma complication type: with acute exacerbation Qualified Code(s): J45.41 - Moderate persistent asthma with (acute) exacerbation Plan: Stable/controlled lately Continue Advair HFA 230-21 mcg 2 puffs BID and Albuterol HFA 2 inhalations every 6 hours PRN; she also uses her nebulizer when needed She was on Nucala 100 mg SQ Q 4 weeks previously but felt that the injection was actually making her asthma feel worse Follow up with pulmonary as scheduled (3) Headache: Code(s): R51.9 - Headache, unspecified Category: Medical Qualifiers: Headache chronicity pattern: unspecified pattern Headache type: unspecified Intractability: not intractable Qualified Code(s): R51.9 - Headache, unspecified Plan: Have advised patient previously that these are likely tension headaches or migraine headaches - she has never been diagnosed with migraines in the past although brain MRI done in 04/2022 revealed (+) scattered nonspecific subcortical white matter T2 hyperintensities in the cerebral hemispheres, that 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 Took 3 doses and was changed to Enbrel 11/2020 due to continued pain. Enbrel was stopped 11/2020 due to COVID and was discontinued in 06/2021 due to abdominal pain at the injection site. Restarted on Humira 09/2021 due to active synovitis on exam- stopped due to rash 01/2022. Code(s): M05.9 - Rheumatoid arthritis with rheumatoid factor, unspecified Category: Medical Plan: Patient has not been able to tolerate trials of several biologics and DMARDs so far, including MTx, Sulfasalazine, Leflunomide and Humira Labs done a few months ago revealed normal ESR although CRP was slightly elevated - similar findings were seen on her recent labs Patient was advised that she does not have any clinical evidence of joint inflammation and given her intolerance to multiple Tx options, rheumatology did not recommend any additional Tx at her last visit with them last year Patient has been off all DMARDs for the past year and a half, with subsequent improvement in her joint pains She has been advised to wear wrist splints at night regularly to see if her hand and wrist symptoms will improve; will otherwise have her get EMG & NCV for further evaluation of 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 Per request, will refer her back to rheumatology for continuing follow up and management (5) Dysphagia: Code(s): R13.10 - Dysphagia, unspecified Category: Medical Qualifiers: Dysphagia type: unspecified Qualified Code(s): R13.10 - Dysphagia, unspecified Plan: Will send patient for a barium swallow for further evaluation (6) Fibromyalgia: Code(s): M79.7 - Fibromyalgia Category: Medical Plan: Patient is encouraged again on regular exercise and physical activity to help manage her fibromyalgia symptoms more effectively She was on Cyclobenzaprine 10 mg every 8 hours PRN and Pregabalin 50 mg TID and previously on Gabapentin 600 mg TID in the past but none of these have helped much with her symptoms and she has been OFF all of these Rx for a while now (7) Lumbar back pain with radiculopathy affecting lower extremity: Code(s): M54.16 - Radiculopathy, lumbar region Category: Medical Plan: States that she had an MRI of the lumbar spine done through [facility] a few months ago although it appears to be actually of the pelvis for evaluation of some gynecologic issues She was being scheduled for a lumbar spine injection at [facility] but unclear if this went through, as we have not received any correspondence at all from [facility] for review despite requesting for them Follow up with [facility] as scheduled (8) Vitamin D deficiency: Code(s): E55.9 - Vitamin D deficiency, unspecified Category: Medical Plan: Continue Vitamin D3 5000 units QD (9) Obesity, Class II, BMI 35-39.9: Code(s): E66.812 - Obesity, class 2 Category: Medical Plan: Reinforced diet/exercise as tolerated/lose weight Follow up with [facility] [place] Plan Follow up in 3 months Orders: Orders TSH reflex Free T4 3 Months E78.00 - Pure hypercholesterolemia, unspecified UA CC w/rflx Micro + Cult 3 Months R30.0 - Dysuria C Reactive Protein 3 Months M05.9 - Rheumatoid arthritis with rheumatoid factor, unspecified [place] barium swallow 06/16/24 R13.10 - Dysphagia, unspecified Hemoglobin A1c 3 Months E11.9 - Type 2 diabetes mellitus without complications Lipid Panel 3 Months E78.00 - Pure hypercholesterolemia, unspecified Complete Blood Count Auto Diff 3 Months D64.9 - Anemia, unspecified Comprehensive [place]. Panel Fast 3 Months E78.00 - Pure hypercholesterolemia, unspecified Microalbumin, Random (w Creat) 3 Months E11.9 - Type 2 diabetes mellitus without complications Vitamin D 25-OH Total 3 Months E55.9 - Vitamin D deficiency, unspecified Vitamin B12 and Folate 3 Months E53.8 - Deficiency of other specified B group vitamins Erythrocyte Sedimentation Rate 3 Months M79.7 - Fibromyalgia Referrals Rheumatology Referral M05.9 - Rheumatoid arthritis with rheumatoid factor, unspecified Medications: New empagliflozin (Jardiance) 10 mg PO QAM 30 days 30 tabs 3RF E11.9 - Type 2 diabetes mellitus without complications
== END 2024-06-16 15:42 | disposition home or self-care (01) ==
PROVIDERS: PCP Internal Medicine; Visit Provider Internal Medicine
DX: E11.9 Type 2 diabetes mellitus without complications (principal); J45.41 Moderate persistent asthma with (acute) exacerbation; R51.9 Headache, unspecified; M05.9 Rheumatoid arthritis with rheumatoid factor, unspecified; R13.10 Dysphagia, unspecified; M79.7 Fibromyalgia; M54.16 Radiculopathy, lumbar region; E55.9 Vitamin D deficiency, unspecified; E66.812 Obesity, class 2

== ENCOUNTER → 2024-06-16 14:58 | Outpatient (BNVA) | payer MEDICARE, MEDICAID, SELFPAY | PROVIDERS: PCP Internal Medicine; Visit Provider Internal Medicine | DX: E11.9 Type 2 diabetes mellitus without complications (principal); J45.41 Moderate persistent asthma with (acute) exacerbation; R51.9 Headache, unspecified; M05.9 Rheumatoid arthritis with rheumatoid factor, unspecified; R13.10 Dysphagia, unspecified; M79.7 Fibromyalgia; M54.16 Radiculopathy, lumbar region; E55.9 Vitamin D deficiency, unspecified; E66.812 Obesity, class 2 | CPT/HCPCS: 99212 ==

== ENCOUNTER 2024-07-06 09:04 | Outpatient (AMB) | payer MEDICARE, MEDICAID, SELFPAY ==
--- NOTE | 2024-07-06 09:25 | AM.OFFWIN_ITS ---
Intake Vital Signs 07/06/24 09:26 Height 5 ft 6 in Weight 224 lb BMI 36.2 BP 120/80 Blood Pressure Location Rt brachial Position Sitting Pulse 82 Pulse Source Pulse Oximeter Temp 98.0 F Temp Source Oral Pulse Oximetry (%) 98 Intake Visit Reasons: EP-lower back pain Intake Note: pt is here for lower back pain, denies any fall or injury, ongoing for 1 week Patient Tobacco Use Status: Never used Tobacco Allergies doxycycline Allergy (Unknown, Verified 07/06/24 09:28) itch and rash adalimumab [From Humira] Allergy (Verified 07/06/24 09:28) Rash Do you need a note to return to daycare/school/sports/work: No HPI HPI Comments History of Present Illness Details 44 y/o female patient who presents to [facility] walk in clinic with c/o bilateral lower back pain x 1 week. Denies trauma or injury. Denies urinary or bowel symptoms. [facility] Medical History (Updated 07/06/24 @ 09:41 by Nida Alvarado NP) Obesity, Class II, BMI 35-39.9 Insomnia Fibromyalgia Non-insulin dependent diabetes mellitus Obesity Fatigue Seropositive rheumatoid arthritis Frequent headaches Depression Fibromyalgia Obesity (BMI 30-39.9) Diabetes mellitus Asthma Surgical History Hx of tubal ligation Hx of section History of tooth extraction Family History Father HTN (hypertension) Mother Asthma CVD (cardiovascular disease) Brain cancer Maternal Aunt Breast cancer Sister No problems noted. Sister No problems noted. Sister No problems noted. Son Arthritis Daughter Lupus Daughter No problems noted. Social History Housing: House Alcohol intake: never Patient Tobacco Use Status: Never used Tobacco Tobacco use type: Cigarette e-Cigarette/Vaping Use: Never Used Second Hand Smoke Exposure: Yes service: No Current occupational status: unemployed Cognitive needs: No Hearing needs: No Vision needs: No Female Reproductive History Menstrual Age of Menarche: 15 Review of Systems Const All systems reviewed & are unremarkable except as noted in HPI and below Physical Exam Vital Signs: Last Vital Signs Temp 98.0 F 07/06/24 09:26 Pulse 82 07/06/24 09:26 BP 120/80 07/06/24 09:26 Pulse Ox 98 07/06/24 09:26 BMI result Body Mass Index 36.2 Const General: cooperative and no acute distress Nutritional Appearance: obese Orientation/consciousness: patient oriented x3 Back/Spine/Pelvis Back: back tenderness Thoracic/Lumbar Spine: pain with thoraco-lumbar ROM, thoraco-lumbar spasm bilaterally, thoracic spinal tenderness at T12 and lumbar spinal tenderness at L1, at L2, at L3, at L4 and at L5 Neuro General: patient oriented x3 and moves all extremities Assessment & Plan Assessment & Plan (1) Low back pain: Code(s): M54.5 - Low back pain Qualifiers: Back pain laterality: bilateral Chronicity: acute Sciatica presence: without sciatica Qualified Code(s): M54.50 - Low back pain, unspecified Plan: Ordered PT Acetaminophen and NSAIDs for pain relief IceHot Ordered Muscle relaxants. RTC if pain not better. Orders: Orders PT Evaluation and Treatment Today M54.50 - Low back pain, unspecified Medications: New metaxalone 800 mg PO TID 30 tabs 0RF M54.50 - Low back pain, unspecified acetaminophen 1,000 mg (2 x 500 mg) PO Q6H PRN 60 caps 0RF pain M54.50 - Low back pain, unspecified lidocaine 5% leave on most painful area for up to 12 hrs 1 patch topical DAILY 30 ea 0RF M54.50 - Low back pain, unspecified Coding Level of Care Code Est Pt Level 3 (63760) Diagnoses Acute bilateral low back pain without sciatica M54.50 Back pain laterality: bilateral Chronicity: acute Sciatica presence: without sciatica Time Spent (min) 15
[2024-07-06 09:26] VITALS: BP 120/80; PULSE 82; TEMP 36.7; O2SAT 98; BMI 36.2
== END 2024-07-06 09:51 | disposition home or self-care (01) ==
PROVIDERS: PCP Internal Medicine; Visit Provider Nurse Practitioner Family
DX: M54.50 Low back pain, unspecified (principal)

== ENCOUNTER → 2024-07-06 09:04 | Outpatient (BNVA) | payer MEDICARE, MEDICAID, SELFPAY | PROVIDERS: PCP Internal Medicine; Visit Provider Nurse Practitioner Family | DX: M54.50 Low back pain, unspecified (principal) | CPT/HCPCS: 99212 ==

== ENCOUNTER 2024-07-20 08:02 | Outpatient (AMB) | payer MEDICARE, MEDICAID, SELFPAY ==
--- NOTE | 2024-07-20 08:12 | A.OFFVIS_ITS ---
Vital Signs 07/20/24 08:17 Height 5 ft 6 in Weight 221 lb 9.033 oz BMI 35.8 BP 115/80 Blood Pressure Location Rt brachial Position Sitting Pulse 75 Pulse Source Pulse Oximeter Pulse Oximetry (%) 99 Oxygen Delivery Method Room Air Intake Visit Reasons: Rheumatoid Arthritis/CM Intake Note: Patient presents for Rheumatoid Arthritis. Buffing Line Set Up Worker Required: Yes Buffing Line Set Up Worker Language: End Finder Twisting Department Services: Buffing Line Set Up Worker Present Buffing Line Set Up Worker Name: Mabel [id number] Information Interpreted: non-clinical & clinical Allergies doxycycline Allergy (Unknown, Verified 07/20/24 08:17) itch and rash adalimumab [From Humira] Allergy (Verified 07/20/24 08:17) Rash Medication List - Last Reconciled 07/20/24 by Cookie Carter MD acetaminophen 1,000 mg (2 x 500 mg) PO Q6H PRN albuterol sulfate 2.5 mg (3 mL) continuous nebulization .3 to 4 times daily PRN 30 days albuterol sulfate 90 mcg/actuation (ProAir HFA) 2 puffs inhalation Q6H PRN 30 days aspirin 81 mg PO DAILY blood sugar diagnostic (FreeStyle Lite Strips) As directed- To test blood sugar daily - ONCE A DAY clopidogrel (Plavix) 75 mg PO DAILY empagliflozin (Jardiance) 10 mg PO QAM 30 days lancets (FreeStyle Lancets) As directed- to test blood sugar daily - ONCE A DAY lidocaine 5% 1 patch topical DAILY meclizine 25 mg PO TID PRN metaxalone 800 mg PO TID HPI Comments Details: This is a 44-year-old female who was previously diagnosed with seropositive RA (++RF-ve CCP) presents for follow-up. She states that she has been having bilateral knee pain bilateral hip pain and low back pain. The knee pain is generally worse with going up and down the stairs. She has not noticed any swelling. [facility] Medical History Obesity, Class II, BMI 35-39.9 Insomnia Fibromyalgia Non-insulin dependent diabetes mellitus Obesity Fatigue Seropositive rheumatoid arthritis Frequent headaches Depression Fibromyalgia Obesity (BMI 30-39.9) Diabetes mellitus Asthma Surgical History Hx of tubal ligation Hx of section History of tooth extraction Family History Father HTN (hypertension) Mother Asthma CVD (cardiovascular disease) Brain cancer Maternal Aunt Breast cancer Sister No problems noted. Sister No problems noted. Sister No problems noted. Son Arthritis Daughter Lupus Daughter No problems noted. Social History Housing: House Alcohol intake: never Patient Tobacco Use Status: Never used Tobacco Tobacco use type: Cigarette e-Cigarette/Vaping Use: Never Used Second Hand Smoke Exposure: Yes service: No Current occupational status: unemployed Cognitive needs: No Hearing needs: No Vision needs: No Female Reproductive History Menstrual Age of Menarche: 15 Review of Systems Musc Reports back pain, Reports arthralgias, Denies joint swelling and Reports stiffness Physical Exam Vital Signs: Last Vital Signs Pulse 75 07/20/24 08:17 BP 115/80 07/20/24 08:17 Pulse Ox 99 07/20/24 08:17 Oxygen Delivery Method Room Air 07/20/24 08:17 BMI result Body Mass Index 35.8 Const General: cooperative, healthy appearing and comfortable Nutritional Appearance: obese Orientation/consciousness: patient oriented x3 Limitations: no limitations HEENT Head: Yes normocephalic and Yes atraumatic Mouth: moist mucous membranes Resp Effort & Inspection: normal respiratory effort and able to speak in complete sentences Neuro General: patient oriented x3 Extrem Other: No active synovitis Bilateral knee crepitus Left knee pain with flexion Normal nailfold capillaroscopy Assessment & Plan Assessment & Plan (1) Osteoarthritis of left knee: Code(s): M17.12 - Unilateral primary osteoarthritis, left knee Category: Medical Qualifiers: Osteoarthritis type: primary Qualified Code(s): M17.12 - Unilateral primary osteoarthritis, left knee Plan: This is a 42-year-old female was previously diagnosed with seropositive RA presents for follow-up. Patient was diagnosed with seropositive RA (++RF-ve CCP) in 2018. She has been on numerous DMARDs which were ineffective and could not be tolerated. She has been off all DMARDs for more than 2 years. Her symptoms today are rather consistent with generalized osteoarthritis and fibromyalgia. I referred patient to PT For osteoarthritis I suggested trying turmeric, Tylenol Arthritis and applying Voltaren gel on her knees Follow-up as needed Plan I spent 15 minutes reviewing patient's chart, evaluating patient, placing orders, counseling patient and documenting in the chart Orders: Orders PT Evaluation and Treatment Today M16.0 - Bilateral primary osteoarthritis of hip, M17.0 - Bilateral primary osteoarthritis of knee, M51.369 - Other intervertebral disc degeneration, lumbar region without mention of lumbar back pain or lower extremity pain Coding Level of Care Code Est Pt Level 3 (04685) Diagnoses Primary osteoarthritis of left knee M17.12 Osteoarthritis type: primary
[2024-07-20 08:17] VITALS: BP 115/80; PULSE 75; O2SAT 99; BMI 35.8
== END 2024-07-20 08:38 | disposition home or self-care (01) ==
PROVIDERS: PCP Internal Medicine; Visit Provider Student in an Organized Health Care Education/Training Program
DX: M17.12 Unilateral primary osteoarthritis, left knee (principal)
CPT/HCPCS: 99213

== ENCOUNTER → 2024-07-20 08:02 | Outpatient (BNVA) | payer MEDICARE, MEDICAID, SELFPAY | PROVIDERS: PCP Internal Medicine; Visit Provider Student in an Organized Health Care Education/Training Program | DX: M17.0 Bilateral primary osteoarthritis of knee (principal); M16.0 Bilateral primary osteoarthritis of hip; M51.369 Other intervertebral disc degeneration, lumbar region without mention of lumbar back pain or lower extremity pain | CPT/HCPCS: 99212 ==

== ENCOUNTER 2024-09-22 06:35 | Outpatient (REF) | payer MEDICARE, MEDICAID, SELFPAY ==
[2024-09-22 07:01] LABS: MANUAL DIFF FLAG NO
[2024-09-22 07:40] LABS: Estimated Average Glucose 128 mg/dL; Hemoglobin A1C 139.8104 umol/L; Hemoglobin A1c % 6.1 % (<6.0); Total Hemoglobin (HGBA1C) 3255.2832 umol/L
[2024-09-22 07:42] LABS: Basophils Percent Auto 0.6 % (0-2); Eosinophils Absolute Auto 0.2 X10*3/uL (0.0-0.4); Eosinophils Percent Auto 2.7 % (0-4); Hematocrit 38.7 % (37.0-47.0); Hemoglobin 12.4 g/dl (12.0-16.0); Imm Gran Abs Auto 0.03 X10*3/uL (0.00-0.03); Imm Gran Pct Auto 0.5 % (0.0-0.4); Lymphocytes Absolute Auto 1.6 X10*3/uL (1.2-4.9); Lymphocytes Percent Auto 23.6 % (20-40); Mean Corpuscular Hemoglobin 26.8 pg (27.0-33.0); Mean Corpuscular Volume 83.8 fL (80.0-98.0); Mean Platelet Volume 11.6 fL (9.4-12.3); Monocytes Absolute Auto 0.5 X10*3/uL (0.1-1.2); Monocytes Percent Auto 8.1 % (2-11); Neutrophils Absolute Auto 4.3 x10*3/uL (2.0-8.3); Neutrophils Percent Auto 64.5 % (45-73); Platelet Count 257 X10*3/uL (160-400); Red Blood Count 4.62 X10*6/uL (4.20-5.50); Red Cell Distribution Width 14.9 % (11.0-16.0); White Blood Count 6.7 X10*3/uL (4.8-10.8)
[2024-09-22 07:43] LABS: Appearance Urine Clear; Color Urine Yellow; Glucose Urine UA Negative (Negative); Leukocyte Esterase Urine Negative (Negative); Nitrite Urine Negative (Negative); Specific Gravity - Urine >= 1.030 (1.005-1.025); Urine Blood Negative (Negative); Urine Ketones Negative (Negative); Urine Protein Negative (Neg-Trace)
[2024-09-22 08:18] LABS: Alanine Aminotransferase 19 U/L (0-31); Albumin Level 4.1 g/dL (3.5-5.0); Alkaline Phosphatase 84 U/L (39-117); Anion Gap 13 (12-20); Aspartate Amino Transferase 23 U/L (5-31); Bilirubin Total 0.4 mg/dL (0.0-1.0); Blood Urea Nitrogen 13 mg/dL (9-16); C Reactive Protein 0.75 mg/dL (< or = 0.50); Calcium 9.4 mg/dL (8.4-10.2); Carbon Dioxide 25 mmol/L (22-29); Chloride 108 mmol/L (96-108); Cholesterol 159 mg/dL (<200); Estimated Glomerular Filt Rate > 60; Glucose Fasting 130 mg/dL (60-99); HDL Cholesterol 41 mg/dL (>40); LDL Cholesterol Calculated 104 mg/dL (<100); Potassium 4.5 mmol/L (3.3-5.1); Sodium 141 mmol/L (135-145); Total Protein 7.4 g/dL (6.5-8.0); Triglycerides 70 mg/dL (<150)
[2024-09-22 08:23] LABS: Creatinine Urine 174.45 mg/dL; Microalbum/Creatinine Ratio Ur 6.3 ug/mg cr (<30)
[2024-09-22 08:26] LABS: Syphilis Screen Nonreactive (Nonreactive)
[2024-09-22 08:28] LABS: HBS Num1 1.51 mIU/mL (0-7.99); HBsAGNum1 0.42 S/CO (0.00-0.99); HIV AB/AG Nonreactive (Nonreactive); HIV Num 1 0.05 S/CO (0.00-0.99); Hepatitis B Core Antibody Nonreactive (Nonreactive); Hepatitis B Surface Antigen Negative (Negative); ~HepC Num1 0.08 S/CO (0.00-0.79); ~Hepatitis B Surface Antibody NONREACTIVE (Nonreactive); ~Hepatitis C Antibody Nonreactive (Nonreactive)
[2024-09-22 08:34] LABS: Vitamin D 25-OH Total 16.5 ng/mL (>30)
[2024-09-22 08:36] LABS: Erythrocyte Sedimentation Rate 13 MM/HR (0-20)
[2024-09-22 08:38] LABS: Folate 6.5 ng/mL (> or = 4.0); Vitamin B12 389 pg/mL (200-900)
== END 2024-09-22 06:36 | disposition home or self-care (01) ==
LOC: HO.LAB 06:35
PROVIDERS: PCP Internal Medicine; Visit Provider Internal Medicine
DX: R30.0 Dysuria (principal); Z20.2 Contact with and (suspected) exposure to infections with a predominantly sexual mode of transmission; E11.9 Type 2 diabetes mellitus without complications; E78.00 Pure hypercholesterolemia, unspecified; D64.9 Anemia, unspecified; E55.9 Vitamin D deficiency, unspecified; M05.9 Rheumatoid arthritis with rheumatoid factor, unspecified; E53.8 Deficiency of other specified B group vitamins; M79.7 Fibromyalgia; Z11.59 Encounter for screening for other viral diseases; Z72.89 Other problems related to lifestyle
CPT/HCPCS: 36415; 80053; 80061; 81003; 82043; 82306; 82570; 82607; 82746; 83036; 84443; 85025; 85652; 86140; 86704; 86706; 86780; 86803; 87340; 87389

== ENCOUNTER 2024-09-23 07:00 | Outpatient (RCR) | payer MEDICARE, MEDICAID, SELFPAY ==
--- NOTE | 2024-08-16 09:53 | MHC.PT.EP ---
[facility] [place] Office [place] Office [place] Office [address] Nicholas Herrera [address] [phone] F: [phone] F: [phone] F: [phone] F: [phone] Physical Therapy Plan of Care Date of Evaluation: 08/16/24 Date of Surgery: Diagnosis: lumbar degenerative disc disease, hip pain Assessment: Patient is a 44 year old R handed female who presents with s/s consistent with lumbar degenerative disc disease and hip pain. She does nor work and is currently disabled living a fairly sedentary lifestyle. Patient past medical history includes fibromyalgia, obesity, and DM. Current impairments include pain, posture, flexibility, ROM, strength, activity tolerance and functional mobility. Functional limitations include decreased ability to walk, stand, transfer, squat, lift and be active in the community. Patient is motivated with good rehab potential. Skilled PT will address impairments and functional limitations in order to achieve goals. Frequency and Duration: The patient will be seen 2x/week for 5 weeks Short Term Goals: I with HEP - 2 weeks AROM rotation 75% and pain free - 3 weeks 90/90 lacking 20 or less and pain free - 3 weeks Senior Living Goals: Able to walk 20 minutes without increased pain - 5 weeks Max pain with ADLs 3/10 - 5 weeks Oswestry 20% or less - 5 weeks LEFS 44/80 - 5 weeks Treatment Plan: Modalities to reduce pain, spasms and effusion. Manual therapy to restore motion and function. Therapeutic exercise to improve strength and flexibility. Neuromuscular re-education for posture and balance. Therapeutic activities to return to functional activities of daily living. Electronically signed by: Eugenio Storey, PT Please sign and return to therapist. Thank you for your referral.
--- NOTE | 2024-11-26 12:18 | MHC.PT.DC ---
[facility] [place] [address] [place] [facility] [place] Office [address] Nicholas Herrera [address] [phone] F: [phone] F: [phone] F: [phone] F: [phone] Physical Therapy Discharge Report Diagnosis: lumbar degenerative disc disease, hip pain Date of Surgery: Date of Evaluation: 08/16/24 Date of Discharge: 10/17/24 Treatments to Date: 10 Cancellations to Date: No Shows to Date: Discharge Status: Improved Function Independent with HEP Patient Elected to Stop Discharge Summary: 09/23/24: pt is I with HEP. she has had modest progress on s/s but functional gains have been hard to achieve and sustain. at this time, I will d/c to HEP and refer back to MD for discernment of next best steps. She has met STGs however LTGs are unmet at this time as she has pain with walking 10 minutes, She has 7/10 pain during the day, Her oswestry is 52% and her LEFS is 17/80 at this time. 09/16/24: pt progress still minimal over last few weeks. I with HEP. we will transition to HEP NV. 09/09/24: pt progressing modestly on s/s the last couple of weeks. we discussed tapering to 1x/week and increased HEP performance. we will assess response to this. 09/07/24: pt s/s similar. we added manual intervention to address pain and tissue tension. assess response Nv. 09/03/24: pt progressing well still. only residual s/s is right sided tightness. addressing with stretching. continue to progress as tolerated. 08/30/24: progressing well. reduced s/s. I with HEP. we will progress strength NV. 08/25/24: pt progressing well. responding well to program and good carryover. we have been able to progress consistently. 08/23/24: pt progressing well overall. improved carryover and good motivation. continue to progress as tolerated. 08/18/24: pt progressing well. added stretching and strength. no adverse reactions. Patient is a 44 year old R handed female who presents with s/s consistent with lumbar degenerative disc disease and hip pain. She does nor work and is currently disabled living a fairly sedentary lifestyle. Patient past medical history includes fibromyalgia, obesity, and DM. Current impairments include pain, posture, flexibility, ROM, strength, activity tolerance and functional mobility. Functional limitations include decreased ability to walk, stand, transfer, squat, lift and be active in the community. Patient is motivated with good rehab potential. Skilled PT will address impairments and functional limitations in order to achieve goals. Electronically signed by: Eugenio Storey, PT Please sign and return to therapist. Thank you for your referral.
== END 2024-11-26 12:18 | disposition home or self-care (01) ==
LOC: HO.PTCHIC 07:00
PROVIDERS: PCP Internal Medicine; Visit Provider Student in an Organized Health Care Education/Training Program
DX: M17.0 Bilateral primary osteoarthritis of knee (principal); M16.0 Bilateral primary osteoarthritis of hip; M51.369 Other intervertebral disc degeneration, lumbar region without mention of lumbar back pain or lower extremity pain
CPT/HCPCS: 97110; 97140; 97162

== ENCOUNTER 2024-09-30 08:57 | Outpatient (REF) | payer MEDICARE, MEDICAID, SELFPAY ==
--- NOTE | ~2024-09-30 | FL_ITS ---
EXAMINATION: XR FLUOROSCOPY UPPER GI WITH AIR CLINICAL INFORMATION: Dysphagia. COMPARISON: Upper GI 2020 TECHNIQUE: Fluoroscopic air contrast upper GI examination was performed utilizing standard techniques with thin and thick barium and effervescent granules. Numerous spot images were obtained. FINDINGS: Lateral cine images of the oropharynx and hypopharynx demonstrate normal swallow mechanism with normal epiglottic inversion and soft palate elevation. No tracheal penetration, glottic or subglottic aspiration identified in the upright position, however, the patient vomited in the drinking prone/PICKARD position. Subsequent imaging demonstrated a very small amount of tracheal aspiration. No nasopharyngeal reflux present. Hypopharyngeal structures appear normal without evidence of mass or diverticulum. There was no significant cricopharyngeal achalasia. Dual and single contrast images of the esophagus demonstrate normal caliber, contour, and mucosal pattern. No evidence of stricture, mass, or ulcerations identified. Esophageal peristalsis was normal. A small type I hiatal hernia is present. Gastroesophageal reflux is seen in the distal esophagus. Dual contrast and single contrast images of the stomach demonstrated a normal contour. The areae gastricae have a thickened appearance, suggestive of gastritis. There are multiple tiny foci of contrast pooling in the fundus of the stomach that likely represent small mucosal erosions. Contrast freely passed into the gastric antrum and duodenal bulb without delay. Single and air-contrast images of the duodenal bulb demonstrate no abnormality. The duodenal sweep has a normal appearance, course, and mucosal fold appearance. The imaged proximal jejunum has a normal fold pattern and caliber. FLUOROSCOPY TIME: 3 minutes 13 seconds Number of Spot Images: 6 Number of Cine: 12 DOSE AREA PRODUCT: 1729 uGy-m2 (microgray-meter squared) FL/FL barium swallow IMPRESSION: 1. Patient vomited in the drinking prone/PICKARD position. Subsequent imaging demonstrated a very small amount of tracheal aspiration. 2. Small type I hiatal hernia with mild gastroesophageal reflux. 3. Thickened appearance of the areae gastricae. In addition there are multiple tiny foci of contrast pooling in the fundus of the stomach. These findings are suggestive of erosive gastritis. Recommend correlation with EGD. This procedure was performed by Aaron Allen PA-C, and supervised by Dr. Hinson Electronically signed by: Kem Hinson MD 09/30/2024 04:54 PM [facility]
== END 2024-09-30 08:58 | disposition home or self-care (01) ==
LOC: HO.XRAY 08:57
PROVIDERS: PCP Internal Medicine; Visit Provider Internal Medicine
DX: R13.10 Dysphagia, unspecified (principal)
CPT/HCPCS: 74220

== ENCOUNTER → 2024-09-30 09:00 | Outpatient (BNV) | payer MEDICARE, MEDICAID, SELFPAY | PROVIDERS: PCP Internal Medicine; Visit Provider Physician Assistant Surgical | DX: R13.10 Dysphagia, unspecified (principal) | CPT/HCPCS: 74246 ==

== ENCOUNTER 2024-10-13 10:48 | Outpatient (AMB) | payer MEDICARE, MEDICAID, SELFPAY ==
[2024-10-13 11:04] VITALS: BP 124/82; PULSE 74; O2SAT 98; BMI 34.2
--- NOTE | 2024-10-13 11:04 | MHC.PC.OV ---
Vital Signs 10/13/24 11:04 Height 5 ft 6 in Weight 212 lb 2 oz BMI 34.2 BP 124/82 Blood Pressure Location Lt brachial Position Sitting Pulse 74 Pulse Source Pulse Oximeter Pulse Oximetry (%) 98 Oxygen Delivery Method Room Air Intake Visit Reasons: 3mth f/u Amortization Schedule Clerk Required: No Accompanied by: Self / Same As Patient Allergies doxycycline Allergy (Unknown, Verified 10/13/24 11:35) itch and rash adalimumab [From Humira] Allergy (Verified 10/13/24 11:35) Rash Medication List - Last Reconciled 10/13/24 by Edward Lima MD acetaminophen 1,000 mg (2 x 500 mg) PO Q6H PRN albuterol sulfate 2.5 mg (3 mL) continuous nebulization .3 to 4 times daily PRN 30 days albuterol sulfate 90 mcg/actuation (ProAir HFA) 2 puffs inhalation Q6H PRN 30 days aspirin 81 mg PO DAILY blood sugar diagnostic (FreeStyle Lite Strips) As directed- To test blood sugar daily - ONCE A DAY clopidogrel (Plavix) 75 mg PO DAILY empagliflozin (Jardiance) 10 mg PO QAM 30 days lancets (FreeStyle Lancets) As directed- to test blood sugar daily - ONCE A DAY lidocaine 5% 1 patch topical DAILY meclizine 25 mg PO TID PRN metaxalone 800 mg PO TID Tobacco use date assessed: 10/13/24 Dental Screening Dental Screen Date: 10/13/24 Did you have a dental visit in the last 12 months?: Yes Did you have a dental problem in the last 6 months where you did not have access to dental care?: No Was dental information given to patient?: Patient has dentist HPI 3mth f/u HPI Details Patient comes in today for her follow-up visit States that she continue to experience recurrent sensation of dysphagia - she would like to know how her barium swallow done a couple of weeks ago came out She is also still experiencing recurrent bilateral hip pain - she denies any recent injury or trauma to her hips She denies any headaches or dizziness Denies any chest pains, no shortness of breath States that she has also noticed (+) pain in her hands and fingers often, especially in cold temperatures or cold weather No nausea/vomiting, no abdominal pain No change in bowel habits noted Adds that she has redundant skin folds over her lower abdomen that are a residual effect of her weight loss over the past few years States that she has been experiencing a recurrent itchy/irritated rash under her lower abdominal skin folds frequently and she would like to see a specialist about having these removed surgically She had follow-up labs done a few weeks ago - to discuss her desire [facility] Medical History Obesity, Class II, BMI 35-39.9 Insomnia Fibromyalgia Non-insulin dependent diabetes mellitus Obesity Fatigue Seropositive rheumatoid arthritis Frequent headaches Depression Fibromyalgia Obesity (BMI 30-39.9) Diabetes mellitus Asthma Surgical History Hx of tubal ligation Hx of section History of tooth extraction Family History Father HTN (hypertension) Mother Asthma CVD (cardiovascular disease) Brain cancer Maternal Aunt Breast cancer Sister No problems noted. Sister No problems noted. Sister No problems noted. Son Arthritis Daughter Lupus Daughter No problems noted. Social History Housing: House Alcohol intake: never Patient Tobacco Use Status: Never used Tobacco Tobacco use type: Cigarette e-Cigarette/Vaping Use: Never Used Second Hand Smoke Exposure: Yes service: No Current occupational status: unemployed Cognitive needs: No Hearing needs: No Vision needs: No Female Reproductive History Menstrual Age of Menarche: 15 Questionnaire PHQ-9 Over the last 2 weeks, how often have you been bothered by any of the following problems? 1. Little interest or pleasure in doing things: nearly every day 2. Feeling down, depressed, or hopeless: not at all 3. Trouble falling or staying asleep, or sleeping too much: not at all 4. Feeling tired or having little energy: not at all 5. Poor appetite or overeating: not at all 6. Feeling bad about yourself - or that you are a failure or have let yourself or your family down: not at all 7. Trouble concentrating on things, such as reading the newspaper or watching television: not at all 8. Moving or speaking so slowly that other people could have noticed. Or the opposite - being so fidgety or restless that you have been moving around a lot more than usual: not at all 9. Thoughts that you would be better off or of hurting yourself in some way: not at all Total score: 3 Depression Screening Interpretation: Negative Depression Screening Done: Yes 28765 - PHQ-9 Billing: Yes Source: Developed by Drs. Philippe Root, Aimee Stevens, Samuel Patricio and colleagues, with an educational sadie from [employer]. Thrive Questionnaire Date Thrive assessed: 10/13/24 I am a: Patient What is your living situation today?: I choose not to answer this question Within the past 12 months, did the food you bought not last and you didn't have the money to get more?: I choose not to answer this question Within the past 12 months, did you worry whether your food would run out before you got money to buy more?: I choose not to answer this question Do you have trouble paying for medicines?: I choose not to answer this question Do you have trouble getting transportation to medical appointments?: I choose not to answer this question Do you have trouble paying your heating and electricity bill?: I choose not to answer this question Do you have trouble taking care of your child, family member or friend?: I choose not to answer this question Do you have trouble with day-to-day activities such as bathing, preparing meals, shopping, managing finances, etc.?: I choose not to answer this question Are you currently unemployed and looking for a job?: I choose not to answer this question Are you interested in more education?: I choose not to answer this question Please select the resources that you would like help with: None Currently or been in a relationship where the following occur: No concerns reported THRIVE Score: 0 AUDIT C Alcohol Use Questionnaire (AUDIT-C) 1. How often do you have a drink containing alcohol?: Never 3. How often do you have six or more drinks on one occasion?: Never Total Score: 0 Score Reviewed/Action Taken: Yes MARCOS-7 AMB Questionnaire MARCOS-7 Date MARCOS - 7 assessed: 10/13/24 Feeling nervous, anxious, or on edge: 0 = Not at all Not being able to stop or control worryin = Not at all Worrying too much about different things: 0 = Not at all Trouble relaxin = Not at all Being so restless that it is hard to sit still: 0 = Not at all Becoming easily annoyed or irritable: 0 = Not at all Feeling afraid as if something awful might happen: 0 = Not at all Total MARCOS-7 score (0-4 normal; 5-9 mild; 10-14 moderate; 15-21 severe): 0 Source: Developed by Drs. Philippe Root, Aimee Stevens, Samuel Patricio and colleagues, with an educational sadie from [employer]. Review of Systems Const Denies chills, Reports fatigue, Denies fever(s) and Denies headache(s) ENT Denies dysphagia, Denies dizziness, Denies otalgia, Denies headache(s), Denies neck pain, Denies odynophagia and Denies sore throat Card Denies chest pain, Denies irregular heart rhythm, Denies palpitations and Denies dyspnea Resp Denies chest congestion, Denies cough and Denies dyspnea GI Denies abdominal pain, Denies constipation, Denies dysphagia, Denies heartburn, Denies diarrhea, Denies nausea, Denies odynophagia and Denies vomiting Denies urinary frequency, Denies dysuria, Denies urinary incontinence and Denies urinary urgency Musc Denies back pain, Reports myalgias (diffuse), Reports arthralgias (involving multiple joints, including over both hips), Denies joint swelling, Reports muscle cramps (recurrent, often at night), Denies neck pain and Reports stiffness Skin/Breast Details: (+) recurrent rash/irritation under the lower abdominal skin folds Neuro Denies dizziness, Denies headache(s) and Denies paresthesias Psych Denies anxiety and Denies depression Endo Reports fatigue and Denies palpitations Kelvin/Lymph Reports easy bruising Physical exam (Primary Care) Vital Signs: Last Vital Signs Pulse 74 10/13/24 11:04 BP 124/82 10/13/24 11:04 Pulse Ox 98 10/13/24 11:04 Oxygen Delivery Method Room Air 10/13/24 11:04 BMI result Body Mass Index 34.2 Tobacco/Smoking Status: Tobacco use Status Tobacco use date assessed 10/13/24 10/13/24 11:08 Patient Tobacco Use Status Never used Tobacco 10/13/24 11:08 Tobacco use type Cigarette 10/13/24 11:08 e-Cigarette/Vaping Use Never Used 10/13/24 11:08 PHQ-9: PHQ-9 Score PHQ-9: Total score 3 10/13/24 11:36 Depression Screening Interpretation: Negative Thrive Assessment: Date of Thrive Assessment Date Thrive assessed 10/13/24 10/13/24 11:08 Currently or been in a relationship where the following occur: No concerns reported Const General: no acute distress and alert HENMT Ears: TM's normal bilaterally and EAC's normal Throat: Yes posterior oropharynx normal and Yes tonsils normal (no TP congestion) Neck Neck: Yes supple and No lymphadenopathy Thyroid: Thyroid normal Resp Auscultation: clear to auscultation bilaterally, no rales and no wheezes Cardio Rate: regular rate Rhythm: regular rhythm Heart sounds: no murmurs GI Palpation (GI): Soft to palpation and nontender Auscultation: normal bowel sounds General: Yes no CVA tenderness Back/Spine/Pelvis Back: no CVA tenderness Thoracic/Lumbar Spine: lumbar spinal tenderness Skin Rashes: no rashes Extrem General: Yes no clubbing, cyanosis or edema Results Reviewed Results Reviewed: Laboratory Tests 09/22/24 09/22/24 06:44 06:59 WBC 6.7 Hgb 12.4 Hct 38.7 Plt Count 257 ESR 13 Sodium 141 Potassium 4.5 D Creatinine 0.67 Estimated GFR > 60 Fasting Glucose 130 H Hemoglobin A1c % 6.1 H Calcium 9.4 AST 23 ALT 19 Triglycerides 70 Cholesterol 159 LDL Cholesterol, Calc 104 H HDL Cholesterol 41 Vitamin B12 389 25-OH Vitamin D Total 16.5 L TSH 2.00 Ur Specific Lyman >= 1.030 H Urine Protein Negative Urine Glucose (UA) Negative Urine Blood Negative Urine Nitrite Negative Ur Leukocyte Esterase Negative Microalb/Creat Ratio 6.3 Coding Level of Care Code Est Pt Level 4 (07102) Diagnoses Type 2 diabetes mellitus without complication, without long-term current use of insulin E11.9 Diabetes mellitus complication status: without complication Diabetes mellitus half-way insulin use: without half-way use Diabetes mellitus type: type 2 Moderate persistent asthma with acute exacerbation J45.41 Asthma complication type: with acute exacerbation Asthma persistence: persistent Asthma severity: moderate Headache R51.9 Headache chronicity pattern: unspecified pattern Headache type: unspecified Intractability: not intractable Raynaud's disease without gangrene I73.00 Raynaud?s-associated gangrene presence: without gangrene Seropositive rheumatoid arthritis M05.9 Dysphagia, unspecified type R13.10 Dysphagia type: unspecified Fibromyalgia M79.7 Lumbar back pain with radiculopathy affecting lower extremity M54.16 Bilateral hip pain M25.551; M25.552 Vitamin D deficiency E55.9 Obesity, Class II, BMI 35-39.9 E66.812 Additional Codes PHQ-9 - 40790 - PHQ-9 Billing: Yes ([id number]) Assessment & Plan Assessment & Plan (1) Diabetes mellitus: Code(s): E11.9 - Type 2 diabetes mellitus without complications Category: Medical Qualifiers: Diabetes mellitus complication status: without complication Diabetes mellitus manager intermediate insulin use: without manager intermediate use Diabetes mellitus type: type 2 Qualified Code(s): E11.9 - Type 2 diabetes mellitus without complications Plan: Her HgbA1c was at 6.1% on her labs done a few weeks ago (was previously at 6.5% a few months ago) - goal is ideally <6.5% Reinforced diabetic diet Continue Metformin 500 mg QD and Jardiance 10 mg Q AM Will recheck her labs and HgbA1c in 3 months for follow up (2) Asthma: Code(s): J45.909 - Unspecified asthma, uncomplicated Category: Medical Qualifiers: Asthma complication type: with acute exacerbation Asthma persistence: persistent Asthma severity: moderate Qualified Code(s): J45.41 - Moderate persistent asthma with (acute) exacerbation Plan: Stable/controlled lately Continue Advair HFA 230-21 mcg 2 puffs BID and Albuterol HFA 2 inhalations every 6 hours PRN; she also uses her nebulizer when needed She was on Nucala 100 mg SQ Q 4 weeks previously but felt that the injection was actually making her asthma feel worse Follow up with pulmonary as scheduled (3) Headache: Code(s): R51.9 - Headache, unspecified Category: Medical Qualifiers: Headache chronicity pattern: unspecified pattern Headache type: unspecified Intractability: not intractable Qualified Code(s): R51.9 - Headache, unspecified Plan: Have advised patient previously that these are likely tension headaches or migraine headaches - she has never been diagnosed with migraines in the past although brain MRI done in 04/2022 revealed (+) scattered nonspecific subcortical white matter T2 hyperintensities in the cerebral hemispheres, that could reflect migraine-associated vasculopathy Will consider referring her to neurology for further evaluation and management if her headaches continue to recur but patient states that her headaches appear to have subsided lately (4) Raynaud's syndrome: Code(s): I73.00 - Raynaud's syndrome without gangrene Category: Medical Qualifiers: Raynaud?s-associated gangrene presence: without gangrene Qualified Code(s): I73.00 - Raynaud's syndrome without gangrene Plan: Per request, will refer her to rheumatology for further evaluation and management (5) Seropositive rheumatoid arthritis: Comment: Methotrexate 08/2018- 03/2019- GI upset Leflunomide 10/2018- 03/2019- GI upset Sulfasalzine 03/2019- 06/2019- GI upset 03/2019 - 09/2020 not seen in clinic 09/2020- Humira started due to synovitis on exam. Took 3 doses and was changed to Enbrel 11/2020 due to continued pain. Enbrel was stopped 11/2020 due to COVID and was discontinued in 06/2021 due to abdominal pain at the injection site. Restarted on Humira 09/2021 due to active synovitis on exam- stopped due to rash 01/2022. Code(s): M05.9 - Rheumatoid arthritis with rheumatoid factor, unspecified Category: Medical Plan: Patient has not been able to tolerate trials of several biologics and DMARDs so far, including MTx, Sulfasalazine, Leflunomide and Humira Labs done a few months ago revealed normal ESR although CRP was slightly elevated - similar findings were seen on her recent labs Patient was advised by rheumatology that she does not have any clinical evidence of joint inflammation and given her intolerance to multiple Tx options, rheumatology did not recommend any additional Tx at this time Patient has been off all DMARDs for the past year and a half, with subsequent improvement in her joint pains She has been advised to wear wrist splints at night regularly to see if her hand and wrist symptoms will improve; will otherwise have her get EMG & NCV for further evaluation of 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 There are also multiple tiny foci of contrast pooling in the fundus of the stomach, suggestive of erosive gastritis. Recommend correlation with EGD Will refer her to GI for further evaluation and consideration for EGD (7) Fibromyalgia: Code(s): M79.7 - Fibromyalgia Category: Medical Plan: Patient is encouraged again on regular exercise and physical activity to help manage her fibromyalgia symptoms more effectively She was on Cyclobenzaprine 10 mg every 8 hours PRN and Pregabalin 50 mg TID and previously on Gabapentin 600 mg TID in the past but none of these have helped much with her symptoms and she has been OFF all of these Rx for a while now (8) Lumbar back pain with radiculopathy affecting lower extremity: Code(s): M54.16 - Radiculopathy, lumbar region Category: Medical Plan: States that she had an MRI of the lumbar spine done through [facility] a few months ago although it appears to be actually of the pelvis for evaluation of some gynecologic issues She was being scheduled for a lumbar spine injection at [facility] but unclear if this went through, as we have not received any correspondence at all from [facility] for review despite requesting for them Follow up with [facility] as scheduled (9) Bilateral hip pain: Code(s): M25.551 - Pain in right hip; M25.552 - Pain in left hip Category: Medical Plan: Right hip x-rays done back in December 2023 came back normal Will refer patient to orthopedics for further evaluation and management (10) Vitamin D deficiency: Code(s): E55.9 - Vitamin D deficiency, unspecified Category: Medical Plan: Continue Vitamin D3 5000 units QD (11) Obesity, Class II, BMI 35-39.9: Code(s): E66.812 - Obesity, class 2 Category: Medical Plan: Reinforced diet/exercise as tolerated/lose weight Follow up with [facility] Management at [facility] as scheduled Plan Follow up in 3 months Orders: Orders Complete Blood Count Auto Diff 3 Months D64.9 - Anemia, unspecified Comprehensive [place]. Panel Fast 3 Months E78.00 - Pure hypercholesterolemia, unspecified Lipid Panel 3 Months E78.00 - Pure hypercholesterolemia, unspecified Hemoglobin A1c 3 Months E11.9 - Type 2 diabetes mellitus without complications Referrals Orthopedics Referral M25.551 - Pain in right hip, M25.552 - Pain in left hip Plastic Surgery Referral B37.2 - Candidiasis of skin and nail, E65 - Localized adiposity Gastroenterology Referral K29.60 - Other gastritis without bleeding Rheumatology Referral I73.00 - Raynaud's syndrome without gangrene, M05.9 - Rheumatoid arthritis with rheumatoid factor, unspecified
--- OUTSIDE RECORDS SUMMARY | 2024-10-13 11:59 | XMS_ITS | Clinical Summary ---
Author Organization [employer] [facility] Address [address] [place] [address] Care Team Providers Care Senior Science Consultant Name Role Phone Unavailable Primary Care Provider Unavailabl e Social History Tobacco Use Types Packs/Day Years Used Date Smoking Tobacco: Never Assessed Comments Unknown Sex and Gender Information Value Date Recorded Sex Assigned at Female 07/08/2022 10:17 AM EDT Legal Sex Female 10:17 AM EDT Gender Identity Female 07/08/2022 10:17 AM EDT Sexual Orientation Don't know 07/08/2022 10 :17 AM EDT Plan of Treatment Health Maintenance Due Date Last Done Comments Depression Screening 1980 HIV Screening 1980 SDOH Screening 1980 Alcohol/Substance Use Screening 1992 Tobacco Screening 1992 Family Planning (PISQ) 1995 Hepatitis C Screening 1998 DTaP/Tdap/Td Vaccines (1 - Tdap) 1999 Hepatitis B Vaccines (1 of 3 - 19+ 3-dose series) 1999 Pneumococcal Vaccine: Pediat rics (0 to 5 Years) and At-Risk Patients (6 to 49) Years) (1 of 2 - PCV) 1999 Pap Smear 2001 Cervical Cancer Screening 2010 HPV/Cotest 2010 Mammogram 2020 COVID-19 Vaccine ( - 2023-2 5 season) 2024 Influenza Vaccine (#1) 2024 08/28/2018 Zoster Vaccines (1 of 2) 2030 RSV Patients and Pa tients Aged 60 years or older (1 - 1-dose 75+ series) 2055 HIB Vaccines Aged Out No longer eligi ble based on patient's age to complete this topic HPV Vaccines Aged Out No longer eligi ble based on patient's age to complete this topic Hepatitis A Vaccines Aged Out No long er eligible based on patient's age to complete this topic IPV Vaccines Aged Out No longer eligi ble based on patient's age to complete this topic Meningococcal Vaccine Aged Out No agu[place] hanna eligible based on patient's age to complete this topic RSV under 20 months Aged Out No longe r eligible based on patient's age to complete this topic Rotavirus Vaccines Aged Out No longer eligible based on patient's age to complete this topic [address] [facility] STANDARD
== END 2024-10-13 11:50 | disposition home or self-care (01) ==
PROVIDERS: PCP Internal Medicine; Visit Provider Internal Medicine
DX: E11.9 Type 2 diabetes mellitus without complications (principal); M05.9 Rheumatoid arthritis with rheumatoid factor, unspecified; J45.41 Moderate persistent asthma with (acute) exacerbation; R51.9 Headache, unspecified; I73.00 Raynaud's syndrome without gangrene; R13.10 Dysphagia, unspecified; M79.7 Fibromyalgia; M54.16 Radiculopathy, lumbar region; M25.551 Pain in right hip; M25.552 Pain in left hip; E55.9 Vitamin D deficiency, unspecified; E66.812 Obesity, class 2

== ENCOUNTER → 2024-10-13 10:48 | Outpatient (BNVA) | payer MEDICARE, MEDICAID, SELFPAY | PROVIDERS: PCP Internal Medicine; Visit Provider Internal Medicine | DX: E11.9 Type 2 diabetes mellitus without complications (principal); J45.41 Moderate persistent asthma with (acute) exacerbation; R51.9 Headache, unspecified; I73.00 Raynaud's syndrome without gangrene; M05.9 Rheumatoid arthritis with rheumatoid factor, unspecified; R13.10 Dysphagia, unspecified; M79.7 Fibromyalgia; M54.16 Radiculopathy, lumbar region; M25.551 Pain in right hip; M25.552 Pain in left hip; E55.9 Vitamin D deficiency, unspecified; E66.812 Obesity, class 2 | CPT/HCPCS: 96127; 99212 ==

== ENCOUNTER 2024-11-01 16:14 | Outpatient (REF) | payer MEDICARE, MEDICAID, SELFPAY ==
[2024-11-02 12:59] LABS: Influenza A PCR NEGATIVE (Negative); Influenza B PCR NEGATIVE (Negative); Resp Syncy Virus RNA Qual PCR NEGATIVE (Negative); SARS COV2 PCR INHOUSE NEGATIVE (Negative)
== END 2024-11-01 16:15 | disposition home or self-care (01) ==
LOC: HO.LAB 16:14
PROVIDERS: PCP Internal Medicine; Visit Provider Physician Assistant
DX: J06.9 Acute upper respiratory infection, unspecified (principal); R09.89 Other specified symptoms and signs involving the circulatory and respiratory systems
CPT/HCPCS: 0241U; 99212

== ENCOUNTER 2024-11-01 16:14 | Outpatient (AMB) | payer MEDICARE, MEDICAID, SELFPAY ==
--- NOTE | 2024-11-01 16:17 | MHC.OFFWIV ---
Intake Vital Signs 11/01/24 16:18 Height 5 ft 6 in Weight 212 lb BMI 34.2 BP 118/80 Blood Pressure Location Lt brachial Position Sitting Pulse 86 Pulse Source Pulse Oximeter Temp 98.0 F Temp Source Oral Pulse Oximetry (%) 98 Oxygen Delivery Method Room Air Intake Visit Reasons: EP SOB, headache, cough Patient Tobacco Use Status: Never used Tobacco Allergies doxycycline Allergy (Unknown, Verified 11/01/24 16:17) itch and rash adalimumab [From Humira] Allergy (Verified 11/01/24 16:17) Rash Do you need a note to return to daycare/school/sports/work: No HPI HPI Comments History of Present Illness Details History - The patient is a 44-year-old female presenting with shortness of breath, headache, and cough. - Cough onset was yesterday, accompanied by shortness of breath and headache. - Patient has asthma, mitigated using both an inhaler and nebulizer machine every four to six hours as necessary. - Wheezing and shortness of breath are present, without fevers, ear or sinus pain Physical Exam General: Cooperative, healthy appearing, comfortable and no acute distress Orientation/consciousness: Patient oriented x3 Limitations: No limitations Head: Normal to inspection Ears: Hearing grossly normal bilaterally, external ears normal and TM's normal bilaterally Nose: Normal external nose present, Normal nares present and No nasal discharge present Face and sinus: Normal facial exam and Yes sinuses nontender Mouth: Normal oral and palatal mucosa present and moist mucous membranes Throat: Yes tonsils normal, Yes uvula midline. Posterior oropharynx erythema Eyes: Appearance normal, both eyes and all related structures Neck: Normal visual inspection Respiratory: Clear to auscultation bilaterally. Normal respiratory effort, able to speak in complete sentences, Actively coughing, no respiratory distress, not tachypneic, no tripod positioning and no use of accessory muscles Cardiovascular: Regular rate and rhythm. Normal S1 and S2 Skin: No rashes or lesions noted Neuro: Patient oriented x3 Extremities: Normal to inspection and Yes no clubbing, cyanosis or edema [facility] Medical History Obesity, Class II, BMI 35-39.9 Insomnia Fibromyalgia Non-insulin dependent diabetes mellitus Obesity Fatigue Seropositive rheumatoid arthritis Frequent headaches Depression Fibromyalgia Obesity (BMI 30-39.9) Diabetes mellitus Asthma Surgical History Hx of tubal ligation Hx of section History of tooth extraction Family History Father HTN (hypertension) Mother Asthma CVD (cardiovascular disease) Brain cancer Maternal Aunt Breast cancer Sister No problems noted. Sister No problems noted. Sister No problems noted. Son Arthritis Daughter Lupus Daughter No problems noted. Social History Housing: House Alcohol intake: never Patient Tobacco Use Status: Never used Tobacco Tobacco use type: Cigarette e-Cigarette/Vaping Use: Never Used Second Hand Smoke Exposure: Yes service: No Current occupational status: unemployed Cognitive needs: No Hearing needs: No Vision needs: No Female Reproductive History Menstrual Age of Menarche: 15 Review of Systems Const All systems reviewed & are unremarkable except as noted in HPI and below Physical Exam Vital Signs: Last Vital Signs Temp 98.0 F 11/01/24 16:18 Pulse 86 11/01/24 16:18 BP 118/80 11/01/24 16:18 Pulse Ox 98 11/01/24 16:18 Oxygen Delivery Method Room Air 11/01/24 16:18 BMI result Body Mass Index 34.2 Assessment & Plan Assessment & Plan (1) URI, acute: Code(s): J06.9 - Acute upper respiratory infection, unspecified Plan: The treatment involves continued use of her inhaler and nebulizer as needed for asthma management. Methylprednisolone Medrol Dosepak is prescribed to alleviate breathing difficulties, to be taken in the morning to avoid insomnia. At bedtime, the patient can use Tessalon Perles to manage nighttime coughs, aiding in restful sleep. Testing for influenza, COVID-19, and RSV is considered necessary due to symptom overlap. Caring measures include rest, hydration, and symptomatic support. Patient was informed and verbally consented to the use of an ambient scribe for clinic note documentation during this visit Orders: Orders SARS-CoV2/FLU/RSV Today R09.89 - Other specified symptoms and signs involving the circulatory and respiratory systems Medications: New methylprednisolone PO PER PKG DIR for 6 days 21 ea 0RF benzonatate 200 mg PO .QHS PRN 10 caps 0RF cough Coding Level of Care Code Est Pt Level 3 (19837) Diagnoses URI, acute J06.9
[2024-11-01 16:18] VITALS: BP 118/80; PULSE 86; TEMP 36.7; O2SAT 98; BMI 34.2
--- OUTSIDE RECORDS SUMMARY | 2024-11-01 18:19 | XMS_ITS | Clinical Summary ---
Author Organization [facility] Address [address] [place] [address] Care Team Providers Care Outer Diameter Grinder Name Role Phone Unavailable Primary Care Provider [...]
== END 2024-11-01 16:36 | disposition home or self-care (01) ==
PROVIDERS: PCP Internal Medicine; Visit Provider Physician Assistant
DX: J06.9 Acute upper respiratory infection, unspecified (principal)

== ENCOUNTER 2024-11-24 08:34 | Outpatient (REF) | payer MEDICARE, MEDICAID, SELFPAY ==
--- NOTE | ~2024-11-24 | XR_ITS ---
CLINICAL HISTORY: M05.9 - Rheumatoid arthritis with rheumatoid factor, unspecified 3 view left foot Comparison: None Findings: No fractures or dislocations. No significant arthritic change or erosions. No ankle effusion. No radiopaque foreign body. IMPRESSION: 1. No acute findings. This document has been electronically signed by: Timur Dey MD on 11/26/2024 07:11:37
--- NOTE | ~2024-11-24 | XR_ITS ---
CLINICAL HISTORY: M05.9 - Rheumatoid arthritis with rheumatoid factor, unspecified Three views each bilateral hands Comparison: None Findings: Bones intact. No dislocations. No erosions. No radiopaque foreign body. No significant arthritic change. IMPRESSION: 1. Unremarkable bilateral hands This document has been electronically signed by: Timur Dey MD on 11/26/2024 07:18:34
--- NOTE | ~2024-11-24 | XR_ITS ---
CLINICAL HISTORY: M05.9 - Rheumatoid arthritis with rheumatoid factor, unspecified 3 view right foot Comparison: None Findings: Bones intact. No dislocations. There are degenerative changes in the great toe with the metatarsophalangeal joint. There is a nonspecific plantar calcaneal spur. No ankle effusion. No radiopaque foreign body. IMPRESSION: 1. No acute findings. This document has been electronically signed by: Timur Dey MD on 11/26/2024 07:13:34
--- NOTE | ~2024-11-24 | XR_ITS ---
CLINICAL HISTORY: M17.0 - Bilateral primary osteoarthritis of knee 2 view bilateral knee Comparison: None Findings: No fractures or dislocations. Loss of medial compartment height, possible degenerative change. No joint effusion. No radiopaque foreign body. IMPRESSION: 1. No acute findings. This document has been electronically signed by: Timur Dey MD on 11/26/2024 07:12:13
--- NOTE | ~2024-11-24 | XR_ITS ---
CLINICAL HISTORY: M17.0 - Bilateral primary osteoarthritis of knee 2 view bilateral knee Comparison: None Findings: Bones intact. No dislocations. Are degenerative changes most pronounced in the medial compartment. No joint effusion. No radiopaque foreign body. IMPRESSION: 1. No acute findings. This document has been electronically signed by: Timur Dey MD on 11/26/2024 07:14:04
[2024-11-24 18:38] LABS: C Reactive Protein 2.81 mg/dL (< or = 0.50)
[2024-11-24 19:16] LABS: Erythrocyte Sedimentation Rate 34 MM/HR (0-20)
[2024-11-27 00:23] LABS: TS Negative Control Passed; TS Panel A 0; TS Panel B 0; TS Positive Control Passed; TSpotTB Negative (Negative)
[2024-11-29 21:24] LABS: Glucose-6-Phosphate Dehydrogen 14.6 U/g Hgb (7.0-20.5)
== END 2024-11-24 08:35 | disposition home or self-care (01) ==
LOC: HO.HKASLDS 08:34
PROVIDERS: PCP Internal Medicine; Visit Provider Internal Medicine Rheumatology
DX: M05.9 Rheumatoid arthritis with rheumatoid factor, unspecified (principal); M17.0 Bilateral primary osteoarthritis of knee; Z79.899 Other long term (current) drug therapy; I73.00 Raynaud's syndrome without gangrene; R21 Rash and other nonspecific skin eruption
CPT/HCPCS: 36415; 73130; 73560; 73630; 82955; 85652; 86140; 86481; 99212

== ENCOUNTER 2024-11-24 08:34 | Outpatient (AMB) | payer MEDICARE, MEDICAID, SELFPAY ==
--- NOTE | 2024-11-24 08:45 | MHC.OFFVIS ---
Vital Signs 11/24/24 08:48 Height 5 ft 6 in Weight 212 lb 8.41 oz BMI 34.3 BP 120/80 Blood Pressure Location Lt brachial Position Sitting Pulse 91 Pulse Source Pulse Oximeter Pulse Oximetry (%) 97 Oxygen Delivery Method Room Air Intake Visit Reasons: RA Intake Note: Patient presents for Rheumatoid Arthritis.pt states that her toes and fingers have been turning white along with numbess then heat and pain. Restaurant Expeditor Required: Yes Restaurant Expeditor Name: [id number] renetta Accompanied by: Self / Same As Patient Allergies doxycycline Allergy (Unknown, Verified 11/01/24 16:17) itch and rash adalimumab [From Humira] Allergy (Verified 11/01/24 16:17) Rash HPI HPI RA: Details: Maltese speaking patient. Video packing house laborer used. She has pain in hands. She has swelling in hands when she wakes up. MS 1 hour. She has swelling for about 2-3 hours. She has pain in different areas at different times. She has pain in knees and neck. SHe is not self medicating. She uses tumeric 2000mg daily. In September whenever fingertips turned white. In the summer she was in the car and she had a similar episode with her fingertips turning white. She had sensation of numbness. This has also occurred in her toes. [facility] Medical History Obesity, Class II, BMI 35-39.9 Insomnia Fibromyalgia Non-insulin dependent diabetes mellitus Obesity Fatigue Seropositive rheumatoid arthritis Frequent headaches Depression Fibromyalgia Obesity (BMI 30-39.9) Diabetes mellitus Asthma Surgical History Hx of tubal ligation Hx of section History of tooth extraction Family History Father HTN (hypertension) Mother Asthma CVD (cardiovascular disease) Brain cancer Maternal Aunt Breast cancer Sister No problems noted. Sister No problems noted. Sister No problems noted. Son Arthritis Daughter Lupus Daughter No problems noted. Social History Housing: House Alcohol intake: never Patient Tobacco Use Status: Never used Tobacco Tobacco use type: Cigarette e-Cigarette/Vaping Use: Never Used Second Hand Smoke Exposure: Yes service: No Current occupational status: unemployed Cognitive needs: No Hearing needs: No Vision needs: No Female Reproductive History Menstrual Age of Menarche: 15 Review of Systems Const All systems reviewed & are unremarkable except as noted in HPI and below Physical Exam Vital Signs: Last Vital Signs Pulse 91 11/24/24 08:48 BP 120/80 11/24/24 08:48 Pulse Ox 97 11/24/24 08:48 Oxygen Delivery Method Room Air 11/24/24 08:48 BMI result Body Mass Index 34.3 Const Other: General: Comfortable CVS: RRR Respiratory: clear to auscultation bilaterally. Good respiratory effort Skin: Slight malar erythema MSK: Tender right 5th PIP, and left 1st MCP. No synovitis of any joint. Normal range of motion of upper extremity and lower extremity. Bilateral hallux valgus deformity present with tenderness on palpation. Assessment & Plan Assessment & Plan (1) Seropositive rheumatoid arthritis: Comment: On clinical exam she has tenderness of a few joints without synovitis. She has morning stiffness of at least an hour. Labs reviewed, which reveal persistent elevation in CRP. I am ordering further workup with follow-up x-rays to see if there are any new changes associated with inflammatory arthritis prior to starting DMARD therapy such as hydroxychloroquine. Patient has preferred to treat her symptoms with natural methods but is willing to consider hydroxychloroquine. She has developed Raynaud's phenomenon on 1 occasion in September and during the summer triggered with cold exposure. Patient is concerned that she has lupus due to facial rash and swelling that she has had in the past. I have reviewed her serologies and she has had negative NANCI on at least 6 occasions without cytopenias and negative specific antibody anti antibody, and double-stranded DNA. I reassured her that she does not have lupus at this time. Rheumatology hx: Diagnosed with seropositive RA (RF 44). Methotrexate 08/2018- 03/2019- GI upset. Leflunomide 10/2018- 03/2019- GI upset. Sulfasalzine 03/2019- 06/2019- GI upset. 03/2019 - 09/2020 not seen in clinic. 09/2020- Humira started due to synovitis on exam. Took 3 doses and was changed to Enbrel 11/2020 due to continued pain. Enbrel was stopped 11/2020 due to COVID and was discontinued in 06/2021 due to abdominal pain at the injection site. Restarted on Humira 09/2021 due to active synovitis on exam- stopped due to rash 01/2022. Code(s): M05.9 - Rheumatoid arthritis with rheumatoid factor, unspecified Category: Medical Plan: Reduce tumeric 1000mg daily to reduce risk of side effects. Information on hydroxychloroquine given to patient in Maltese X-ray of bilateral hands and feet ordered T spot and inflammatory markers ordered Return to clinic in 1-2 months (2) Raynaud disease without gangrene: Comment: Onset 2023 Code(s): I73.00 - Raynaud's syndrome without gangrene Category: Medical Plan: Discussed conservative management Information on Raynaud's syndrome and Maltese given to patient RTC 3 months Orders: Orders XR hand LT min 3V Today M05.9 - Rheumatoid arthritis with rheumatoid factor, unspecified XR hand RT min 3V Today M05.9 - Rheumatoid arthritis with rheumatoid factor, unspecified XR foot RT min 3V Today M05.9 - Rheumatoid arthritis with rheumatoid factor, unspecified XR knee RT 2V Today M17.0 - Bilateral primary osteoarthritis of knee XR knee LT 2V Today M17.0 - Bilateral primary osteoarthritis of knee Erythrocyte Sedimentation Rate Today Z79.899 - Other intermediate (current) drug therapy XR foot LT min 3V Today M05.9 - Rheumatoid arthritis with rheumatoid factor, unspecified T Spot TB Today M05.9 - Rheumatoid arthritis with rheumatoid factor, unspecified C Reactive Protein Today Z79.899 - Other remote computer terminal operator (current) drug therapy [id number] Dehydrogen Today M05.9 - Rheumatoid arthritis with rheumatoid factor, unspecified Coding Level of Care Code Est Pt Level 4 (23399) Complex EM visit Add On G2211 Diagnoses Seropositive rheumatoid arthritis M05.9 Raynaud disease without gangrene I73.00
[2024-11-24 08:48] VITALS: BP 120/80; PULSE 91; O2SAT 97; BMI 34.3
--- OUTSIDE RECORDS SUMMARY | 2024-11-24 09:21 | XMS_ITS | Clinical Summary ---
Author Organization [facility] Address [address] [facility] [address] [place] [address] Care Team Providers Care Flight Nurse Name Role Phone Unavailable Primary Care Provider [...]
== END 2024-11-24 09:45 | disposition home or self-care (01) ==
LOC: HO.RHES 08:35
PROVIDERS: PCP Internal Medicine; Visit Provider Internal Medicine Rheumatology
DX: M05.9 Rheumatoid arthritis with rheumatoid factor, unspecified (principal); I73.00 Raynaud's syndrome without gangrene
CPT/HCPCS: 99214; G2211

== ENCOUNTER → 2024-11-24 10:34 | Outpatient (BNV) | payer MEDICARE, MEDICAID, SELFPAY | PROVIDERS: PCP Internal Medicine; Visit Provider Specialist | DX: M05.79 Rheumatoid arthritis with rheumatoid factor of multiple sites without organ or systems involvement (principal); M17.0 Bilateral primary osteoarthritis of knee | CPT/HCPCS: 73130; 73560; 73630 ==

== ENCOUNTER 2024-12-09 08:16 | Outpatient (REF) | payer MEDICARE, MEDICAID, SELFPAY ==
--- NOTE | ~2024-12-09 | XR_ITS ---
CLINICAL HISTORY: M53.3 - Sacrococcygeal disorders, not elsewhere classified 3 views sacroiliac joints Comparison: None Findings No acute fractures. No significant degenerative change. No erosions. IMPRESSION: No acute findings This document has been electronically signed by: Marilee Serrano MD on 12/09/2024 17:36:58
--- NOTE | ~2024-12-09 | XR_ITS ---
CLINICAL HISTORY: M16.12 - Unilateral primary osteoarthritis, left hip 2 view left hip Comparison: None Findings: The bones are intact. No significant arthritic change. The soft tissues are unremarkable. IMPRESSION: No acute findings. This document has been electronically signed by: Marilee Serrano MD on 12/09/2024 17:39:21
--- NOTE | ~2024-12-09 | XR_ITS ---
CLINICAL HISTORY: M54.9 - Dorsalgia, unspecified 3 views lumbar spine Comparison: CR/SR - XR LUMBAR SPINE 2-3V - 01/29/24 12:59 EDT Findings: Mild lateral curvature of the lumbar spine could be positional or represent mild scoliosis. Otherwise alignment is maintained with no subluxation. No acute fractures or dislocation. No significant degenerative change. Anterior endplate osteophyte formation at L1-2 and L2-3. IMPRESSION: No acute findings. This document has been electronically signed by: Marilee Serrano MD on 12/09/2024 17:43:46
--- OUTSIDE RECORDS SUMMARY | 2024-12-09 09:05 | XMS_ITS | Clinical Summary ---
Author Organization [facility] Address [address] [facility] [address] [facility] [address] [place] [address] Care Team Providers Care Junior Bookkeeper Name Role Phone Unavailable Primary Care Provider [...] age to complete this topic [address] [facility] STANDARD
== END 2024-12-09 08:17 | disposition home or self-care (01) ==
LOC: HO.HOSX 08:16
PROVIDERS: PCP Internal Medicine; Visit Provider Physical Medicine & Rehabilitation
DX: M54.9 Dorsalgia, unspecified (principal); M53.3 Sacrococcygeal disorders, not elsewhere classified; M16.12 Unilateral primary osteoarthritis, left hip; M25.551 Pain in right hip; G89.29 Other chronic pain
CPT/HCPCS: 72100; 72200; 73502; 99202

== ENCOUNTER 2024-12-09 08:16 | Outpatient (AMB) | payer MEDICARE, MEDICAID, SELFPAY ==
--- OUTSIDE RECORDS SUMMARY | 2024-12-09 08:22 | XMS_ITS | Clinical Summary ---
Author Organization [employer] [facility] Address [address] [facility] [address] [place] [address] Care Team Providers Care Juvenile Detention Officer Name Role Phone Unavailable Primary Care Provider [...] age to complete this topic [facility] [address] [facility] STANDARD
[2024-12-09 08:24] VITALS: BMI 34.2
--- NOTE | 2024-12-09 08:24 | A.OFFVIS_ITS ---
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 States pain started about 1 ago and has not improved. States her right side is worse, groin pain, feels tightness on lateral aspect of hip and radiates to buttock. No injury she can recall. She has tried P.T, aqua therapy and has had a injection about 2 years ago but is not sure if it was for her lumbar or hip pain. Hx of back pain. Has numbness and tingling on her right side of her body. Pickle Water Pump Operator Name: Laxmi SMITH LM Allergies doxycycline Allergy (Unknown, Verified 12/09/24 08:31) itch and rash adalimumab [From Humira] Allergy (Verified 12/09/24 08:31) Rash HPI Comments Details: States pain started about 1 ago and has not improved. States her side is worse, Si area to buttocksd to lateral hip to groin pain, feels tightness on lateral aspect of hip and radiates to buttock. No injury she can recall. She has tried P.T, aqua therapy and has had a injection about 2 years ago but is not sure if it was for her lumbar or hip. Numbness/pins/needles on right leg to the toes, but separate from the hip/back with the pain. History of DM, denies history of neuropathy. History of rheumatoid arthritis, follows with Rheumatology. History of fibromyalgia. Injections was back under [facility]. Does not think she's had MRI. Last PT in [facility] end of 2023. Last hip x-ray 2023 reported normal. Last lumbar x-ray 2023 as below. [facility] Medical History Obesity, Class II, BMI 35-39.9 Insomnia Fibromyalgia Non-insulin dependent diabetes mellitus Obesity Fatigue Seropositive rheumatoid arthritis Frequent headaches Depression Fibromyalgia Obesity (BMI 30-39.9) Diabetes mellitus Asthma Surgical History Hx of tubal ligation Hx of section History of tooth extraction Family History Father HTN (hypertension) Mother Asthma CVD (cardiovascular disease) Brain cancer Maternal Aunt Breast cancer Sister No problems noted. Sister No problems noted. Sister No problems noted. Son Arthritis Daughter Lupus Daughter No problems noted. Social History (Updated 12/09/24 @ 08:33 by SARAH Burgess) Housing: House Alcohol intake: never Patient Tobacco Use Status: Never used Tobacco Tobacco use type: Cigarette e-Cigarette/Vaping Use: Never Used Second Hand Smoke Exposure: Yes service: No Current occupational status: unemployed and disabled Current occupation: right hand Cognitive needs: No Hearing needs: No Vision needs: No Female Reproductive History Menstrual Age of Menarche: 15 Review of Systems Const All systems reviewed & are unremarkable except as noted in HPI and below Physical Exam Vital Signs: BMI result Body Mass Index 34.2 Constitutional: Patient appears to be in no acute distress, well nourished and well developed. Patient was appropriately conversant and oriented. Good historian. MSK: No specific abnormalities found on inspection of the spine and all extremities. No pain with palpation over the lumbar area. Tender on right SI joint and piriformis area. Lumbar ROM was full. Difficulty with right hip range of motion due to pain. Straight-leg raising test right side reported shooting pain to the heel. FABERE test could not do due to difficulty/pain in right hip. Strength is 5/5 in all muscle groups tested. No increased tone noted. Neurological: Neurologic examination of the upper and lower extremities was nonfocal with intact sensation, muscle stretch reflexes and without focal motor deficits . Swain?s negative bilaterally. Babinski was down going bilaterally. Clonus was negative. Gait is non-antalgic without loss of balance. Results Reviewed Results Reviewed: Ordering Physician: Beatriz Lim Date of Service: 01/29/24 Procedure(s): XR lumbar spine 2-3V Accession Number(s): [id number] cc: Edward Lima MD; Beatriz Lim~ EXAMINATION: XR LUMBOSACRAL SPINE CLINICAL INFORMATION: Pain. COMPARISON: Lumbar spine radiographs dated 09/28/2021. TECHNIQUE: Three views of the lumbosacral spine. FINDINGS: There are 5 nonrib-bearing lumbar vertebrae. There is mild curvature of the lumbar spine, concave towards the right side. In the sagittal projection, spinal alignment is anatomic. Vertebral body heights are maintained. There is mild degenerative disc disease at L5-S1. There is mild facet arthropathy at this level. No fracture. The sacroiliac joints are maintained. XR/XR lumbar spine 2-3V IMPRESSION: No acute osseous lumbar spine abnormality. Mild degenerative disease at L5-S1. Ordering Physician: Edward Lima MD Date of Service: 12/16/23 Procedure(s): XR hip RT min 2V Accession Number(s): [id number] cc: Edward Lima MD~ EXAMINATION: XR HIP, RIGHT CLINICAL INFORMATION: Right hip pain COMPARISON: None available. TECHNIQUE: Two views of the right hip. FINDINGS: No fracture. Alignment is anatomic. Hip joint space is maintained. Soft tissues are unremarkable. XR/XR hip RT min 2V IMPRESSION: Normal right hip. I reviewed records from the following: Rheumatology Assessment & Plan Assessment & Plan (1) Right hip pain: Code(s): M25.551 - Pain in right hip Category: Medical (2) Sacroiliac joint dysfunction of right side: Code(s): M53.3 - Sacrococcygeal disorders, not elsewhere classified Category: Medical (3) Chronic back pain: Code(s): M54.9 - Dorsalgia, unspecified; G89.29 - Other chronic pain Category: Medical Qualifiers: Back pain location: low back pain Back pain laterality: right Sciatica presence: with sciatica Sciatica laterality: sciatica of right side Qualified Code(s): M54.41 - Lumbago with sciatica, right side; G89.29 - Other chronic pain Plan Pain could be lumbar related versus SI joint versus hip joint. Difficulty assessing location due to level of pain and difficulty doing exam such as TRUDY test. We will repeat hip and lumbar x-rays today. We will add SI joint x-ray to evaluate for sacroiliitis, given history of rheumatoid arthritis. We will evaluate for need of further imaging such as MRI. Assessment and plan discussed with patient, and patient was agreeable. All questions were answered thoroughly. Follow up after results. Nidhi Dobbs MD, THERESA Board Certified, [place] Board of Physical Medicine and Rehabilitation (ABPMR) Board Certified, [place] Board of Electrodiagnostic Medicine (ABEM) Orders: Orders XR lumbar spine 2-3V Today M54.9 - Dorsalgia, unspecified XR sacroiliac joint 1-2V Today M53.3 - Sacrococcygeal disorders, not elsewhere classified XR hip LT min 2V Today M16.12 - Unilateral primary osteoarthritis, left hip Coding Level of Care Code New Pt Level 4 (45921) Diagnoses Right hip pain M25.551 Sacroiliac joint dysfunction of right side M53.3 Chronic right-sided low back pain with right-sided sciatica M54.41; G89.29 Back pain location: low back pain Back pain laterality: right Sciatica presence: with sciatica Sciatica laterality: sciatica of right side
== END 2024-12-09 09:13 | disposition home or self-care (01) ==
LOC: HO.HOS 08:17
PROVIDERS: PCP Internal Medicine; Visit Provider Physical Medicine & Rehabilitation
DX: M25.551 Pain in right hip (principal); M53.3 Sacrococcygeal disorders, not elsewhere classified; M54.41 Lumbago with sciatica, right side; G89.29 Other chronic pain
CPT/HCPCS: 99204

== ENCOUNTER → 2024-12-09 09:01 | Outpatient (BNV) | payer MEDICARE, MEDICAID, SELFPAY | PROVIDERS: PCP Internal Medicine; Visit Provider Specialist | DX: M54.50 Low back pain, unspecified (principal); M16.12 Unilateral primary osteoarthritis, left hip; M53.3 Sacrococcygeal disorders, not elsewhere classified | CPT/HCPCS: 72100; 72200; 73502 ==

== ENCOUNTER 2024-12-28 08:29 | Outpatient (AMB) | payer MEDICARE, MEDICAID, SELFPAY ==
--- NOTE | 2024-12-28 08:30 | AM.OFFWIN_ITS ---
Intake Vital Signs 12/28/24 08:31 Weight 211 lb BP 120/90 H Blood Pressure Location Lt brachial Position Sitting Pulse 68 Pulse Source Pulse Oximeter Temp 98.1 F Temp Source Oral Pulse Oximetry (%) 98 Oxygen Delivery Method Room Air Intake Visit Reasons: EP-arms and chest rash Intake Note: Patient here for rash on chest, back and hands that started last friday. She has not changed any lotions, body washes or detergents. Patient Tobacco Use Status: Never used Tobacco Allergies doxycycline Allergy (Unknown, Verified 12/28/24 08:32) itch and rash adalimumab [From Humira] Allergy (Verified 12/28/24 08:32) Rash Do you need a note to return to daycare/school/sports/work: No HPI HPI Comments History of Present Illness Details Greek Video coconut cooker used for this visit History of Present Illness - The patient is a 44-year-old female pr esenting with skin irritation and itchiness. - Onset one to two weeks ago with sympto ms beginning as mild and worsening over time. - Patient describes burning sensation an d palpation of 'balls' under the skin, exacerbated last night with itching. - Symptom onset correlated with possible sun exposure, previously causing mild reactions. - No febrile events have been noted in c onjunction with the condition. - Uses calamine and Vaseline for relief, denying any new topical products or exposure to known irritants. - Dietary changes were noted, but no dir ect correlation established. Physical Exam General: Cooperative, healthy appearing, comfortable, no acute distress and well developed Orientation: Patient oriented x3 Limitations: No limitations Head: Normal to inspection Ears: Hearing grossly normal bilaterally Nose: Normal External nose present Face and sinus: Normal facial exam Eyes: Appearance normal, both eyes and all related structures Neck: Normal visual inspection and Yes full ROM Respiratory: Normal respiratory effort and able to speak in complete sentences. Skin: Raised and erythematous confluent area starting at her crewneck collar of her T-shirt extending up to the mid neck, no warmth, no drainage, no ecchymosis Neuro: Patient oriented x3 Extremities: Normal to inspection [facility] Medical History Obesity, Class II, BMI 35-39.9 Insomnia Fibromyalgia Non-insulin dependent diabetes mellitus Obesity Fatigue Seropositive rheumatoid arthritis Frequent headaches Depression Fibromyalgia Obesity (BMI 30-39.9) Diabetes mellitus Asthma Surgical History Hx of tubal ligation Hx of section History of tooth extraction Family History Father HTN (hypertension) Mother Asthma CVD (cardiovascular disease) Brain cancer Maternal Aunt Breast cancer Sister No problems noted. Sister No problems noted. Sister No problems noted. Son Arthritis Daughter Lupus Daughter No problems noted. Social History (Updated 12/09/24 @ 08:33 by SARAH Burgess) Housing: House Alcohol intake: never Patient Tobacco Use Status: Never used Tobacco Tobacco use type: Cigarette e-Cigarette/Vaping Use: Never Used Second Hand Smoke Exposure: Yes service: No Current occupational status: unemployed and disabled Current occupation: right hand Cognitive needs: No Hearing needs: No Vision needs: No Female Reproductive History Menstrual Age of Menarche: 15 Review of Systems Const All systems reviewed & are unremarkable except as noted in HPI and below Physical Exam Vital Signs: Last Vital Signs Temp 98.1 F 12/28/24 08:31 Pulse 68 12/28/24 08:31 BP 120/90 H 12/28/24 08:31 Pulse Ox 98 12/28/24 08:31 Oxygen Delivery Method Room Air 12/28/24 08:31 Assessment & Plan Assessment & Plan (1) Contact dermatitis: Code(s): L25.9 - Unspecified contact dermatitis, unspecified cause Qualifiers: Contact dermatitis type: allergic Contact dermatitis trigger: unspecified trigger Qualified Code(s): L23.9 - Allergic contact dermatitis, unspecified cause Plan: Dermatitis possibly from sun exposure/phototoxic due to the distribution on the neck ending abruptly where her T shirt collar starts. And she said she has had issues like that in the past with too much sun exposure but this time is much worse than previous. The management strategy for the patient's contact dermatitis involves prescribing a strong topical corticosteroid for use twice daily to reduce inflammation. Additionally, oral diphenhydramine is advised nightly to control itching and aid in comfort during sleep. Emphasizing the importance of minimizing sun exposure with diligent sunscreen use to prevent further irritation was discussed in detail. Should the condition not show substantial improvement over the next week, a follow-up evaluation is planned for further a ssessment and treatment modification if necessary. Patient was informed and verbally consented to the use of an ambient scribe for clinic note documentation during this visit. Medications: New triamcinolone acetonide 0.1% 1 appl topical BID 80 grams 0RF Coding Level of Care Code Est Pt Level 3 (90886) Diagnoses Allergic contact dermatitis, unspecified trigger L23.9 Contact dermatitis type: allergic Contact dermatitis trigger: unspecified trigger
[2024-12-28 08:31] VITALS: BP 120/90; PULSE 68; TEMP 36.7; O2SAT 98
--- OUTSIDE RECORDS SUMMARY | 2024-12-28 08:50 | XMS_ITS | Clinical Summary ---
Author Organization [facility] Address [address] [place] [address] Care Team Providers Care Manufacturing Technology Analyst Name Role Phone Unavailable Primary Care Provider [...]
== END 2024-12-28 09:16 | disposition home or self-care (01) ==
PROVIDERS: PCP Internal Medicine; Visit Provider Physician Assistant
DX: L23.9 Allergic contact dermatitis, unspecified cause (principal)

== ENCOUNTER → 2024-12-28 08:29 | Outpatient (BNVA) | payer MEDICARE, MEDICAID, SELFPAY | PROVIDERS: PCP Internal Medicine; Visit Provider Physician Assistant | DX: L23.9 Allergic contact dermatitis, unspecified cause (principal) | CPT/HCPCS: 99212 ==

== ENCOUNTER 2025-01-12 08:39 | Outpatient (AMB) | payer MEDICARE, MEDICAID, SELFPAY ==
--- NOTE | 2025-01-12 08:41 | A.OFFVIS_ITS ---
Vital Signs 01/12/25 08:42 Height 5 ft 6 in Weight 217 lb 2.485 oz BMI 35.0 BP 130/80 Blood Pressure Location Rt brachial Position Sitting Pulse 81 Pulse Source Pulse Oximeter Pulse Oximetry (%) 98 Oxygen Delivery Method Room Air Intake Visit Reasons: 1-2 months Intake Note: Patient presents with lupus. Child Psychology Teacher Required: Yes Child Psychology Teacher Name: [id number] emperatriz Information Interpreted: non-clinical & clinical Allergies doxycycline Allergy (Unknown, Verified 01/12/25 08:42) itch and rash adalimumab [From Humira] Allergy (Verified 01/12/25 08:42) Rash HPI HPI 1-2 months: Details: Ukrainian speaking. 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 When she had labs last visit she had a cold. MS 45 minutes. Working hard to loose weight. Going to aquatic therapy at [facility]. [facility] Medical History Obesity, Class II, BMI 35-39.9 Insomnia Fibromyalgia Non-insulin dependent diabetes mellitus Obesity Fatigue Seropositive rheumatoid arthritis Frequent headaches Depression Fibromyalgia Obesity (BMI 30-39.9) Diabetes mellitus Asthma Surgical History Hx of tubal ligation Hx of section History of tooth extraction Family History Father HTN (hypertension) Mother Asthma CVD (cardiovascular disease) Brain cancer Maternal Aunt Breast cancer Sister No problems noted. Sister No problems noted. Sister No problems noted. Son Arthritis Daughter Lupus Daughter No problems noted. Social History Housing: House Alcohol intake: never Patient Tobacco Use Status: Never used Tobacco Tobacco use type: Cigarette e-Cigarette/Vaping Use: Never Used Second Hand Smoke Exposure: Yes service: No Current occupational status: unemployed and disabled Current occupation: right hand Cognitive needs: No Hearing needs: No Vision needs: No Female Reproductive History Menstrual Age of Menarche: 15 Physical Exam Vital Signs: Last Vital Signs Pulse 81 01/12/25 08:42 BP 130/80 01/12/25 08:42 Pulse Ox 98 01/12/25 08:42 Oxygen Delivery Method Room Air 01/12/25 08:42 BMI result Body Mass Index 35.0 Const Other: General: Comfortable CVS: RRR Respiratory: clear to auscultation bilaterally. Good respiratory effort Skin: Slight malar erythema MSK: No synovitis of any joint. Bilateral knee tenderness along joint line. Left knee mild effusion. Right ankle tenderness on palpation with mild edema present. Normal range of motion of upper extremity and lower extremity. Bilateral hallux valgus deformity present with tenderness on palpation. Results Reviewed Results Reviewed: Labs reviewed in [facility]pan[facility] X-rays bilateral hand, feet and knees reviewed 11/2024. Assessment & Plan Assessment & Plan (1) Seropositive rheumatoid arthritis: Comment: We discussed starting hydroxychloroquine. Discussed side effects, benefits and drug monitoring. At this time she has morning stiffness and discomfort in her hands in the morning. Exam is remarkable for pain in her knees secondary to osteoarthritis. Goal of hydroxychloroquine is reduce pain and stiffness in her hands. Rheumatology hx: Diagnosed with seropositive RA (RF 44). Methotrexate 08/2018- 03/2019- GI upset. Leflunomide 10/2018- 03/2019- GI upset. Sulfasalzine 03/2019- 06/2019- GI upset. 03/2019 - 09/2020 not seen in clinic. 09/2020- Humira started due to synovitis on exam. Took 3 doses and was changed to Enbrel 11/2020 due to continued pain. Enbrel was stopped 11/2020 due to COVID and was discontinued in 06/2021 due to abdominal pain at the injection site. Restarted on Humira 09/2021 due to active synovitis on exam- stopped due to rash 01/2022. Code(s): M05.9 - Rheumatoid arthritis with rheumatoid factor, unspecified Category: Medical Plan: Labs ordered baseline prior to starting HCQ Start HCQ 400mg daily Return to clinic in 3 months (2) Raynaud disease without gangrene: Comment: Onset 2023. Controlled with conservative management. Code(s): I73.00 - Raynaud's syndrome without gangrene Category: Medical Plan: RTC 3 months (3) Bilateral primary osteoarthritis of knee: Comment: Left worse than right. Personally reviewed x-ray with patient. She is actively trying to lose weight and participating in aquatic therapy at the [facility] with benefit. Code(s): M17.0 - Bilateral primary osteoarthritis of knee Category: Medical Plan: She agreed to PT for knee strengthening Continue aquatic therapy at the [facility] Continue eating healthy with goal of losing weight Start meloxicam 15 mg daily Return to clinic in 3 months Orders: Orders Creatinine Today Z79.60 - medical terminologist (current) use of unspecified immunomodulators and immunosuppressants C Reactive Protein Today Z79.899 - Other marine oil terminal superintendent (current) drug therapy PT Evaluation and Treatment Today M17.0 - Bilateral primary osteoarthritis of knee Alanine Aminotransferase Today Z79.60 - medical terminologist (current) use of unspecified immunomodulators and immunosuppressants Complete Blood Count Auto Diff Today Z79.60 - medical terminologist (current) use of unspecified immunomodulators and immunosuppressants Aspartate Amino Transferase Today Z79.60 - prison (current) use of unspecified immunomodulators and immunosuppressants Erythrocyte Sedimentation Rate Today Z79.899 - Other group home (current) drug therapy Medications: New hydroxychloroquine 400 mg (2 x 200 mg) PO DAILY 60 tabs 2RF meloxicam 15 mg PO DAILY 30 tabs 2RF Coding Level of Care Code Est Pt Level 4 (90285) Complex EM visit Add On G2211 Diagnoses Seropositive rheumatoid arthritis M05.9 Raynaud disease without gangrene I73.00 Bilateral primary osteoarthritis of knee M17.0
[2025-01-12 08:42] VITALS: BP 130/80; PULSE 81; O2SAT 98; BMI 35.0
--- OUTSIDE RECORDS SUMMARY | 2025-01-12 08:57 | XMS_ITS | Clinical Summary ---
Author Organization [employer] Address [address] [place] [address] Care Team Providers Care Medicaid Analyst Name Role Phone Unavailable Primary Care [...]
== END 2025-01-12 09:10 | disposition home or self-care (01) ==
LOC: HO.RHES 08:40
PROVIDERS: PCP Internal Medicine; Visit Provider Internal Medicine Rheumatology
DX: M05.9 Rheumatoid arthritis with rheumatoid factor, unspecified (principal); I73.00 Raynaud's syndrome without gangrene; M17.0 Bilateral primary osteoarthritis of knee
CPT/HCPCS: 99214; G2211

== ENCOUNTER → 2025-01-12 08:39 | Outpatient (BNVA) | payer MEDICARE, MEDICAID, SELFPAY | PROVIDERS: PCP Internal Medicine; Visit Provider Internal Medicine Rheumatology | DX: M05.9 Rheumatoid arthritis with rheumatoid factor, unspecified (principal); M17.0 Bilateral primary osteoarthritis of knee; I73.00 Raynaud's syndrome without gangrene | CPT/HCPCS: 99212 ==

== ENCOUNTER 2025-01-13 11:43 | Outpatient (AMB) | payer MEDICARE, MEDICAID, SELFPAY ==
[2025-01-13 11:48] VITALS: BP 118/82; PULSE 78; O2SAT 98; BMI 34.6
--- NOTE | 2025-01-13 11:48 | A.OFFPC_ITS ---
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 Required: No Accompanied by: Self / Same As Patient Allergies doxycycline Allergy (Unknown, Verified 01/13/25 12:27) itch and rash adalimumab [From Humira] Allergy (Verified 01/13/25 12:27) Rash Medication List - Last Reconciled 01/13/25 by Edward Lima MD acetaminophen 1,000 mg (2 x 500 mg) PO Q6H PRN albuterol sulfate 2.5 mg (3 mL) continuous nebulization .3 to 4 times daily PRN 30 days albuterol sulfate 90 mcg/actuation (ProAir HFA) 2 puffs inhalation Q6H PRN 30 days blood sugar diagnostic (FreeStyle Lite Strips) As directed- To test blood sugar daily - ONCE A DAY hydroxychloroquine 400 mg (2 x 200 mg) PO DAILY lancets (FreeStyle Lancets) As directed- to test blood sugar daily - ONCE A DAY meclizine 25 mg PO TID PRN meloxicam 15 mg PO DAILY triamcinolone acetonide 0.1% 1 appl topical BID Tobacco use date assessed: 01/13/25 Dental Screening Dental Screen Date: 01/13/25 Did you have a dental visit in the last 12 months?: Yes Did you have a dental problem in the last 6 months where you did not have access to dental care?: No Was dental information given to patient?: Patient has dentist HPI 3 month f/u HPI Details Patient comes in today for her follow up visit She continues to experience recurrent bilateral hip pain as well as (chronic) pain in her hands and fingers often She was seen by rheumatology recently for follow up and is considering starting her on Hydroxychloroquine Have recommended conservative management at this time as she has not been able to tolerate multiple medications that she has been tried on so far for her RA, including Enbrel and Humira She denies any headaches or dizziness Denies any chest pains, no shortness of breath No nausea/vomiting, no abdominal pain No change in bowel habits noted She has not been able to get her follow up labs done prior to her appointment today Adds that she needs a referral to see a new microcomputer support specialist - was seeing Dr. Fountain before for some recurrent rash around her neck area but was recently advised that they are no longer accepting her health insurance [facility] Medical History Obesity, Class II, BMI 35-39.9 Insomnia Fibromyalgia Non-insulin dependent diabetes mellitus Obesity Fatigue Seropositive rheumatoid arthritis Frequent headaches Depression Fibromyalgia Obesity (BMI 30-39.9) Diabetes mellitus Asthma Surgical History Hx of tubal ligation Hx of section History of tooth extraction Family History Father HTN (hypertension) Mother Asthma CVD (cardiovascular disease) Brain cancer Maternal Aunt Breast cancer Sister No problems noted. Sister No problems noted. Sister No problems noted. Son Arthritis Daughter Lupus Daughter No problems noted. Social History Housing: House Alcohol intake: never Patient Tobacco Use Status: Never used Tobacco Tobacco use type: Cigarette e-Cigarette/Vaping Use: Never Used Second Hand Smoke Exposure: Yes service: No Current occupational status: unemployed and disabled Current occupation: right hand Cognitive needs: No Hearing needs: No Vision needs: No Female Reproductive History Menstrual Age of Menarche: 15 Questionnaire PHQ-9 Over the last 2 weeks, how often have you been bothered by any of the following problems? 1. Little interest or pleasure in doing things: not at all 2. Feeling down, depressed, or hopeless: not at all 3. Trouble falling or staying asleep, or sleeping too much: not at all 4. Feeling tired or having little energy: not at all 5. Poor appetite or overeating: not at all 6. Feeling bad about yourself - or that you are a failure or have let yourself or your family down: not at all 7. Trouble concentrating on things, such as reading the newspaper or watching television: not at all 8. Moving or speaking so slowly that other people could have noticed. Or the opposite - being so fidgety or restless that you have been moving around a lot more than usual: not at all 9. Thoughts that you would be better off or of hurting yourself in some way: not at all Total score: 0 Depression Screening Interpretation: Negative Depression Screening Done: Yes 82185 - PHQ-9 Billing: Yes Source: Developed by Drs. Philippe Root, Samuel Zurita and colleagues, with an educational sadie from [employer]. Thrive Questionnaire Date Thrive assessed: 01/13/25 I am a: Patient What is your living situation today?: I have a place to live, but I am worried about losing it in the future Within the past 12 months, did the food you bought not last and you didn't have the money to get more?: I choose not to answer this question Within the past 12 months, did you worry whether your food would run out before you got money to buy more?: I choose not to answer this question Do you have trouble paying for medicines?: Yes Do you have trouble getting transportation to medical appointments?: No Do you have trouble paying your heating and electricity bill?: Yes Do you have trouble taking care of your child, family member or friend?: No Do you have trouble with day-to-day activities such as bathing, preparing meals, shopping, managing finances, etc.?: Yes Are you currently unemployed and looking for a job?: No Are you interested in more education?: No Please select the resources that you would like help with: Housing/Fci and Paying for medicine Currently or been in a relationship where the following occur: No concerns reported THRIVE Score: 2 AUDIT C Alcohol Use Questionnaire (AUDIT-C) 1. How often do you have a drink containing alcohol?: Never 3. How often do you have six or more drinks on one occasion?: Never Total Score: 0 Score Reviewed/Action Taken: Yes MARCOS-7 AMB Questionnaire MARCOS-7 Date MARCOS - 7 assessed: 01/13/25 Feeling nervous, anxious, or on edge: 0 = Not at all Not being able to stop or control worryin = Not at all Worrying too much about different things: 0 = Not at all Trouble relaxin = Not at all Source: Developed by Drs. Philippe Root, Samuel Zurita and colleagues, with an educational sadie from [employer]. Review of Systems Const Denies chills, Reports fatigue, Denies fever(s) and Denies headache(s) ENT Denies dysphagia, Denies dizziness, Denies otalgia, Denies headache(s), Denies neck pain, Denies odynophagia and Denies sore throat Card Denies chest pain, Denies irregular heart rhythm, Denies palpitations and Denies dyspnea Resp Denies chest congestion, Denies cough and Denies dyspnea GI Denies abdominal pain, Denies constipation, Denies dysphagia, Denies heartburn, Denies diarrhea, Denies nausea, Denies odynophagia and Denies vomiting Denies difficulty voiding, Denies dysuria, Denies urinary incontinence and Denies urinary urgency Musc Denies back pain, Reports myalgias (diffuse), Reports arthralgias (involving multiple joints, including over both hips), Denies joint swelling, Reports muscle cramps (recurrent, often at night), Denies neck pain and Reports stiffness Skin/Breast Details: (+) recurrent rash/irritation under the lower abdominal skin folds Neuro Denies dizziness, Denies headache(s) and Denies paresthesias Psych Denies anxiety and Denies depression Endo Reports fatigue and Denies palpitations Kelvin/Lymph Reports easy bruising Physical exam (Primary Care) Vital Signs: Last Vital Signs Pulse 78 01/13/25 11:48 BP 118/82 01/13/25 11:48 Pulse Ox 98 01/13/25 11:48 Oxygen Delivery Method Room Air 01/13/25 11:48 BMI result Body Mass Index 34.6 Tobacco/Smoking Status: Tobacco use Status Tobacco use date assessed 01/13/25 01/13/25 11:53 Patient Tobacco Use Status Never used Tobacco 01/13/25 11:53 Tobacco use type Cigarette 01/13/25 11:53 e-Cigarette/Vaping Use Never Used 01/13/25 11:53 PHQ-9: PHQ-9 Score PHQ-9: Total score 0 01/13/25 12:32 Depression Screening Interpretation: Negative Thrive Assessment: Date of Thrive Assessment Date Thrive assessed 01/13/25 01/13/25 11:53 Currently or been in a relationship where the following occur: No concerns reported Const General: no acute distress and alert HENMT Ears: TM's normal bilaterally and EAC's normal Throat: Yes posterior oropharynx normal and Yes tonsils normal (no TP congestion) Neck Neck: Yes supple and No lymphadenopathy Thyroid: Thyroid normal Resp Auscultation: clear to auscultation bilaterally, no rales and no wheezes Cardio Rate: regular rate Rhythm: regular rhythm Heart sounds: no murmurs GI Palpation (GI): Soft to palpation and nontender Auscultation: normal bowel sounds General: Yes no CVA tenderness Back/Spine/Pelvis Back: no CVA tenderness Thoracic/Lumbar Spine: lumbar spinal tenderness Skin Rashes: no rashes Extrem General: Yes no clubbing, cyanosis or edema Coding Level of Care Code Est Pt Level 4 (08958) Diagnoses Type 2 diabetes mellitus without complication, without long-term current use of insulin E11.9 Diabetes mellitus type: type 2 Diabetes mellitus longterm insulin use: without rn long term care use Diabetes mellitus complication status: without complication Moderate persistent asthma with acute exacerbation J45.41 Asthma severity: moderate Asthma persistence: persistent Asthma complication type: with acute exacerbation Headache R51.9 Headache chronicity pattern: unspecified pattern Headache type: unspecified Intractability: not intractable Raynaud's disease without gangrene I73.00 Raynaud?s-associated gangrene presence: without gangrene Seropositive rheumatoid arthritis M05.9 Dysphagia, unspecified type R13.10 Dysphagia type: unspecified Fibromyalgia M79.7 Lumbar back pain with radiculopathy affecting lower extremity M54.16 Bilateral hip pain M25.551; M25.552 Vitamin D deficiency E55.9 Rash of neck R21 Obesity, Class II, BMI 35-39.9 E66.812 Additional Codes PHQ-9 - 41157 - PHQ-9 Billing: Yes ([id number]) Assessment & Plan Assessment & Plan (1) Diabetes mellitus: Code(s): E11.9 - Type 2 diabetes mellitus without complications Category: Medical Qualifiers: Diabetes mellitus type: type 2 Diabetes mellitus rn long term care insulin use: without rn long term care use Diabetes mellitus complication status: without complication Qualified Code(s): E11.9 - Type 2 diabetes mellitus without complications Plan: Patient did not get her follow up labs done prior to her appointment today and is advised to get them done JESUS Her HgbA1c was at 6.1% on her labs done back in September 2024 - goal is ideally <6.5% Reinforced diabetic diet Continue Metformin 500 mg QD and Jardiance 10 mg Q AM Will recheck her labs and HgbA1c again in 4 months for follow up (2) Asthma: Code(s): J45.909 - Unspecified asthma, uncomplicated Category: Medical Qualifiers: Asthma severity: moderate Asthma persistence: persistent Asthma complication type: with acute exacerbation Qualified Code(s): J45.41 - Moderate persistent asthma with (acute) exacerbation Plan: Controlled lately Continue Advair HFA 230-21 mcg 2 puffs BID and Albuterol HFA 2 inhalations every 6 hours PRN; she also uses her nebulizer when needed She was on Nucala 100 mg SQ Q 4 weeks previously but felt that the injection was actually making her asthma feel worse so she stopped taking her injections Follow up with pulmonary as scheduled (3) Headache: Code(s): R51.9 - Headache, unspecified Category: Medical Qualifiers: Headache chronicity pattern: unspecified pattern Headache type: unspecified Intractability: not intractable Qualified Code(s): R51.9 - Headache, unspecified Plan: Have advised patient previously that these are likely tension headaches or migraine headaches - she has never been diagnosed with migraines in the past although brain MRI done in 04/2022 revealed (+) scattered nonspecific subcortical white matter T2 hyperintensities in the cerebral hemispheres, that could reflect migraine-associated vasculopathy Will consider referring her to neurology for further evaluation and management if her headaches continue to recur but patient states that her headaches seems to have calmed down and have not been bothering her as much over the past few months (4) Raynaud's syndrome: Code(s): I73.00 - Raynaud's syndrome without gangrene Category: Medical Qualifiers: Raynaud?s-associated gangrene presence: without gangrene Qualified Code(s): I73.00 - Raynaud's syndrome without gangrene Plan: Follow up with rheumatology as scheduled (5) Seropositive rheumatoid arthritis: Comment: We discussed starting hydroxychloroquine. Discussed side effects, benefits and drug monitoring. At this time she has morning stiffness and discomfort in her hands in the morning. Exam is remarkable for pain in her knees secondary to osteoarthritis. Goal of hydroxychloroquine is reduce pain and stiffness in her hands. Rheumatology hx: Diagnosed with seropositive RA (RF 44). Methotrexate 08/2018- 03/2019- GI upset. Leflunomide 10/2018- 03/2019- GI upset. Sulfasalzine 03/2019- 06/2019- GI upset. 03/2019 - 09/2020 not seen in clinic. 09/2020- Humira started due to synovitis on exam. Took 3 doses and was changed to Enbrel 11/2020 due to continued pain. Enbrel was stopped 11/2020 due to COVID and was discontinued in 06/2021 due to abdominal pain at the injection site. Restarted on Humira 09/2021 due to active synovitis on exam- stopped due to rash 01/2022. Code(s): M05.9 - Rheumatoid arthritis with rheumatoid factor, unspecified Category: Medical Plan: Patient has not been able to tolerate trials of several biologics and DMARDs so far, including MTx, Sulfasalazine, Leflunomide and Humira Labs done a few months ago revealed normal ESR although CRP was slightly elevated - similar findings were seen on her recent labs Patient was advised by rheumatology that she does not have any clinical evidence of joint inflammation and given her intolerance to multiple Tx options, rheumatology recommended conservative Tx She was recently advised of the option of Hydroxychloroquine, which patient is still considering Patient has been off all DMARDs for the past year and a half, with subsequent improvement in her joint pains She has been advised to wear wrist splints at night regularly to see if her hand and wrist symptoms will improve; will otherwise have her get EMG & NCV for further evaluation of 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 There are also multiple tiny foci of contrast pooling in the fundus of the stomach, suggestive of erosive gastritis. Recommend correlation with EGD She has been referred to GI for further evaluation and she is scheduled to see Dr. Hale in a week and a half on 01/24/2025 (7) Fibromyalgia: Code(s): M79.7 - Fibromyalgia Category: Medical Plan: Patient is encouraged again on regular exercise and physical activity to help manage her fibromyalgia symptoms more effectively She was on Cyclobenzaprine 10 mg every 8 hours PRN and Pregabalin 50 mg TID and previously on Gabapentin 600 mg TID in the past but none of these have helped much with her symptoms and she has been OFF all of these Rx for a while now (8) Lumbar back pain with radiculopathy affecting lower extremity: Code(s): M54.16 - Radiculopathy, lumbar region Category: Medical Plan: States that she had an MRI of the lumbar spine done through [facility] a few months ago although it appears to be actually of the pelvis for evaluation of some gynecologic issues She was being scheduled for a lumbar spine injection at [facility] but unclear if this went through, as we have not received any correspondence at all from [facility] for review despite requesting for them Follow up with [facility] as scheduled (9) Bilateral hip pain: Code(s): M25.551 - Pain in right hip; M25.552 - Pain in left hip Category: Medical Plan: Right hip x-rays done back in December 2023 came back normal Follow up with orthopedics as scheduled (10) Vitamin D deficiency: Code(s): E55.9 - Vitamin D deficiency, unspecified Category: Medical Plan: Continue Vitamin D3 5000 units QD (11) Rash of neck: Code(s): R21 - Rash and other nonspecific skin eruption Category: Medical Plan: She used to see Dr. Fountain but was recently advised that they are no longer accepting her health insurance Will refer her now to Dr. Gupta for dermatology management (12) Obesity, Class II, BMI 35-39.9: Code(s): E66.812 - Obesity, class 2 Category: Medical Plan: Reinforced diet/exercise as tolerated/lose weight Follow up with [facility] at [facility] as scheduled Plan Follow up in 4 months Orders: Orders Microalbumin, Random (w Creat) 4 Months E11.9 - Type 2 diabetes mellitus without complications Complete Blood Count Auto Diff 4 Months D64.9 - Anemia, unspecified Comprehensive [place]. Panel Fast 4 Months E78.00 - Pure hypercholesterolemia, unspecified Lipid Panel 4 Months E78.00 - Pure hypercholesterolemia, unspecified Hemoglobin A1c 4 Months E11.9 - Type 2 diabetes mellitus without complications UA CC w/rflx Micro + Cult 4 Months R30.0 - Dysuria TSH reflex Free T4 4 Months E78.00 - Pure hypercholesterolemia, unspecified Vitamin D 25-OH Total 4 Months E55.9 - Vitamin D deficiency, unspecified Referrals Dermatology Referral R21 - Rash and other nonspecific skin eruption
--- OUTSIDE RECORDS SUMMARY | 2025-01-13 13:14 | XMS_ITS | Clinical Summary ---
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
== END 2025-01-13 12:35 | disposition home or self-care (01) ==
LOC: HO.HMCH 11:44
PROVIDERS: PCP Internal Medicine; Visit Provider Internal Medicine
DX: E11.9 Type 2 diabetes mellitus without complications (principal); M05.9 Rheumatoid arthritis with rheumatoid factor, unspecified; E66.812 Obesity, class 2; Z68.34 Body mass index [BMI] 34.0-34.9, adult; J45.41 Moderate persistent asthma with (acute) exacerbation; R51.9 Headache, unspecified; I73.00 Raynaud's syndrome without gangrene; R13.10 Dysphagia, unspecified; M79.7 Fibromyalgia; M54.16 Radiculopathy, lumbar region; M25.551 Pain in right hip; M25.552 Pain in left hip

== ENCOUNTER → 2025-01-13 11:43 | Outpatient (BNVA) | payer MEDICARE, MEDICAID, SELFPAY | PROVIDERS: PCP Internal Medicine; Visit Provider Internal Medicine | DX: E11.9 Type 2 diabetes mellitus without complications (principal); J45.41 Moderate persistent asthma with (acute) exacerbation; R51.9 Headache, unspecified; I73.00 Raynaud's syndrome without gangrene; M05.9 Rheumatoid arthritis with rheumatoid factor, unspecified; R13.10 Dysphagia, unspecified; M79.7 Fibromyalgia; M54.16 Radiculopathy, lumbar region; M25.551 Pain in right hip; M25.552 Pain in left hip; E55.9 Vitamin D deficiency, unspecified; R21 Rash and other nonspecific skin eruption; E66.812 Obesity, class 2; Z68.34 Body mass index [BMI] 34.0-34.9, adult; Z71.3 Dietary counseling and surveillance | CPT/HCPCS: 96127; 99212 ==

== ENCOUNTER 2025-01-24 10:02 | Outpatient (AMB) | payer MEDICARE, MEDICAID, SELFPAY ==
--- NOTE | 2025-01-24 10:09 | MHC.OFFVIS ---
Vital Signs 01/24/25 10:12 Height 5 ft 6 in Weight 211 lb 10.3 oz BMI 34.2 BP 140/88 H Blood Pressure Location Lt brachial Position Sitting Pulse 70 Intake Visit Reasons: errosive gastritis Intake Note: Candace presents in the office as a new patient for erosive gastritis. CC: She states that she is feeling okay. She denies any GI concerns - no stomach pains, irregular bowels movements or reflux. She had diarrhea and pains in the stomach that lasted for 3 days and she states that she is okay now. It started on Friday and lasted until Friday. Vp Cardiovascular Service Line Required: Yes Allergies doxycycline Allergy (Unknown, Verified 01/24/25 10:25) itch and rash adalimumab [From Humira] Allergy (Verified 01/24/25 10:25) Rash HPI HPI errosive gastritis: Details: HPI 44 yr old f w/ obesity and RA here for assessment for GI sx She had ba swallow by pcp due to dysphagia for a long time 09/2024 only to solids this revealed GERD and small hiatal hernia, possible erosive gastritis not taking any meds denies taking nsaids she has diarrhea for years or soft stools worse with cheese and dairy she stopped using metformin and maybe helped a little ROS: Constitutional : No Weight loss, No Fever, No Chills ENT/Mouth : No sore throat, No Rhinorrhea Eyes: No Swelling, No Redness Cardiovascular : No Chest Pain, No SOB, No Edema Respiratory : No Cough, No Sputum, No Wheezing Gastrointestinal : see HPI Genitourinary : NO Dysuria, No Urinary Frequency, No Hematuria, No Urgency Musculoskeletal : + joint pain, No Myalgias, No Joint Swelling Skin : No Skin Lesions, No rash Neuro : No Weakness, No Numbness, No Dizziness, No Headache Psych : No Anxiety/Panic, No Depression Heme/Lymph: No Bruising, No Lymphadenopathy Endocrine : No Polyuria, No Polydipsia All other systems reviewed and are negative. Medical History Asthma Depression Diabetes mellitus Fatigue Fibromyalgia Frequent headaches Insomnia Non-insulin dependent diabetes mellitus Obesity Obesity (BMI 30-39.9) Seropositive rheumatoid arthritis Surgical History History of tooth extraction Hx of section Family History Father HTN (hypertension) Mother Asthma CVD (cardiovascular disease) Brain cancer Maternal Aunt Breast cancer Sister No problems noted. Sister No problems noted. Sister No problems noted. Son Arthritis Daughter Lupus Daughter No problems noted. Social History Housing: House Alcohol intake: never Patient Tobacco Use Status: Never used Tobacco e-Cigarette/Vaping Use: Never Used Second Hand Smoke Exposure: Yes service: No Current occupational status: unemployed Cognitive needs: No Hearing needs: No Vision needs: No EXAM: GENERAL: The patient is well developed and nontoxic. VITAL SIGNS:see workflow HEENT: Nonicteric sclerae, PERRLA, EOMI. Oropharynx clear. Moist mucous membranes. Conjunctivae appear well perfused. No thyroid mass. CHEST: Chest wall is nontender. HEART: Regular rate and rhythm without murmurs. LUNGS: Clear to auscultation bilaterally. ABDOMEN: Soft, positive bowel sounds, nontender, no organomegaly.no flank tenderness SKIN: No rash, no excessive bruising, petechiae, or purpura. NEUROLOGIC: Cranial nerves II-XII intact without motor/sensory deficit. Psych: normal affect A/P: 1/ Abn bowel habit, maybe due to medication, lactose intolerance 2/ possible gastritis on ba swallow maybe from H pylori 3/ dysphagia, prob 2.2 GERD PLAN: 1/ EGD and colo--suprep 2/ H pylori breath test 3/ trial of PPI PFSH Medical History Obesity, Class II, BMI 35-39.9 Insomnia Fibromyalgia Non-insulin dependent diabetes mellitus Obesity Fatigue Seropositive rheumatoid arthritis Frequent headaches Depression Fibromyalgia Obesity (BMI 30-39.9) Diabetes mellitus Asthma Surgical History Hx of tubal ligation Hx of section History of tooth extraction Family History Father HTN (hypertension) Mother Asthma CVD (cardiovascular disease) Brain cancer Maternal Aunt Breast cancer Sister No problems noted. Sister No problems noted. Sister No problems noted. Son Arthritis Daughter Lupus Daughter No problems noted. Social History Housing: House Alcohol intake: never Patient Tobacco Use Status: Never used Tobacco Tobacco use type: Cigarette e-Cigarette/Vaping Use: Never Used Second Hand Smoke Exposure: Yes service: No Current occupational status: unemployed and disabled Current occupation: right hand Cognitive needs: No Hearing needs: No Vision needs: No Female Reproductive History Menstrual Age of Menarche: 15 Physical Exam Vital Signs: Last Vital Signs Pulse 70 01/24/25 10:12 BP 140/88 H 01/24/25 10:12 BMI result Body Mass Index 34.2 Assessment & Plan Assessment & Plan (1) Dysphagia: Code(s): R13.10 - Dysphagia, unspecified Category: Medical Qualifiers: Dysphagia type: unspecified Qualified Code(s): R13.10 - Dysphagia, unspecified Plan: as above (2) Abnormal bowel habits: Code(s): R19.8 - Other specified symptoms and signs involving the digestive system and abdomen Category: Medical Plan: as above Medications: New sodium,potassium,mag sulfates 17.5-3.13-1.6 gram (Suprep Bowel Prep Kit) DILUTE; drink 1/2 at 6-8 pm and half at 11 PM- 1AM 354 mL 0RF esomeprazole magnesium 20 mg PO DAILY 90 caps 1RF Coding Level of Care Code New Pt Level 4 (34095) Diagnoses Dysphagia, unspecified type R13.10 Dysphagia type: unspecified Abnormal bowel habits R19.8
[2025-01-24 10:12] VITALS: BP 140/88; PULSE 70; BMI 34.2
--- OUTSIDE RECORDS SUMMARY | 2025-01-24 10:28 | XMS_ITS | Clinical Summary ---
Author Organization [employer] Address [address] [place] [address] Care Team Providers Care National Secretary Name Role Phone Unavailable Primary Care Provider [...] patient's age to complete this topic Meningococcal B Vaccine Aged Out No l onger eligible based on patient's age to complete [...]
== END 2025-01-24 11:29 | disposition home or self-care (01) ==
LOC: HO.HGI 10:02
PROVIDERS: PCP Internal Medicine; Visit Provider Internal Medicine Gastroenterology
DX: R13.10 Dysphagia, unspecified (principal); R19.8 Other specified symptoms and signs involving the digestive system and abdomen
CPT/HCPCS: 99204

== ENCOUNTER 2025-01-24 10:02 | Outpatient (REF) | payer MEDICARE, MEDICAID, SELFPAY ==
--- OUTSIDE RECORDS SUMMARY | 2025-01-24 12:23 | XMS_ITS | Clinical Summary ---
Author Organization [employer] Address [address] [facility] [address] [place] [address] Care Team Providers Care Packaging Operator Name Role Phone Unavailable Primary Care Provider [...]
== END 2025-01-24 10:03 | disposition home or self-care (01) ==
LOC: HO.LAB 10:02
PROVIDERS: PCP Internal Medicine; Visit Provider Internal Medicine Gastroenterology
DX: Z13.89 Encounter for screening for other disorder (principal)
CPT/HCPCS: 99202

== ENCOUNTER 2025-01-24 11:00 | Outpatient (REF) | payer MEDICARE, MEDICAID, SELFPAY ==
--- OUTSIDE RECORDS SUMMARY | 2025-01-25 16:10 | XMS_ITS | Clinical Summary ---
Author Organization [employer] Address [address] [facility] [address] [place] [address] Care Team Providers Care Spring Machine Operator Name Role Phone Unavailable Primary Care [...] 1980 HIV Screening 1980 SDOH Screening 1980 Disability Screening 1980 Alcohol/Substance Use Screening 1992 Tobacco [...] 2010 HPV/Cotest 2010 Mammogram 2020 COVID-19 Vaccine (1 - 2023-2 5 season) 2024 Influenza Vaccine [...] patient's age to complete this topic Insurance [facility] STANDARD
[2025-01-26 08:50] LABS: H Pylori Breath Test Negative (Negative)
== END 2025-01-24 11:01 | disposition home or self-care (01) ==
LOC: HO.LNP 11:00
PROVIDERS: Visit Provider Internal Medicine Gastroenterology
DX: R10.13 Epigastric pain (principal); R19.8 Other specified symptoms and signs involving the digestive system and abdomen; K29.60 Other gastritis without bleeding; K52.9 Noninfective gastroenteritis and colitis, unspecified
CPT/HCPCS: 83013; 99202

== ENCOUNTER 2025-04-27 09:00 | Outpatient (REF) | payer MEDICARE, SELFPAY ==
[2025-04-27 12:32] LABS: MANUAL DIFF FLAG NO
[2025-04-27 12:38] LABS: Hematocrit 39.2 % (37.0-47.0); Hemoglobin 12.6 g/dl (12.0-16.0); Imm Gran Abs Auto 0.03 X10*3/uL (0.00-0.03); Imm Gran Pct Auto 0.4 % (0.0-0.4); Lymphocytes Absolute Auto 1.8 X10*3/uL (1.2-4.9); Mean Corpuscular HGB Conc 32.1 g/dl (31.0-35.0); Mean Corpuscular Hemoglobin 27.5 pg (27.0-33.0); Mean Corpuscular Volume 85.6 fL (80.0-98.0); NRBC Abs Auto 0.000 X10*3/uL (0.0-0.012); NRBC Pct Auto 0.0 /100WBC (0.0-0.2); Platelet Count 274 X10*3/uL (160-400); Red Blood Count 4.58 X10*6/uL (4.20-5.50); White Blood Count 7.0 X10*3/uL (4.8-10.8)
[2025-04-27 12:55] LABS: Alanine Aminotransferase 17 U/L (0-31); Aspartate Amino Transferase 23 U/L (5-31); Estimated Glomerular Filt Rate > 60
== END 2025-04-27 09:01 | disposition home or self-care (01) ==
LOC: HO.HKASLDS 09:00
PROVIDERS: PCP Internal Medicine; Visit Provider Internal Medicine Rheumatology
DX: M05.9 Rheumatoid arthritis with rheumatoid factor, unspecified (principal); I73.00 Raynaud's syndrome without gangrene; M17.0 Bilateral primary osteoarthritis of knee; Z79.899 Other long term (current) drug therapy
CPT/HCPCS: 36415; 82565; 84450; 84460; 85025; 85652; 86140; 99212

== ENCOUNTER 2025-04-27 09:00 | Outpatient (AMB) | payer MEDICARE, SELFPAY ==
[2025-04-27 09:04] VITALS: BP 140/80; PULSE 72; O2SAT 99; BMI 35.2
--- NOTE | 2025-04-27 09:04 | A.OFFVIS_ITS ---
Vital Signs 04/27/25 09:04 Height 5 ft 6 in Weight 218 lb 0.595 oz BMI 35.2 BP 140/80 H Blood Pressure Location Lt brachial Position Sitting Pulse 72 Pulse Source Pulse Oximeter Pulse Oximetry (%) 99 Oxygen Delivery Method Room Air Intake Visit Reasons: 3 Months Intake Note: Patient presents with lupus. Multigraph Operator Required: Yes Multigraph Operator Name: [id number] spenser Accompanied by: Self / Same As Patient Allergies doxycycline Allergy (Unknown, Verified 04/27/25 09:07) itch and rash adalimumab (From Humira) Allergy (Verified 04/27/25 09:07) Rash HPI HPI 3 Months: Details: Maltese video translator interpreter used. She used HCQ for a month intermittently. She stopped taking HCQ after feeling better. She took natural teas, which helped her. Denies joint pain or swelling. PT did not call her to set up appt. She has improvement in going up and down stairs. ON LICENSE OF [facility] Medical History Obesity, Class II, BMI 35-39.9 Insomnia Fibromyalgia Non-insulin dependent diabetes mellitus Obesity Fatigue Seropositive rheumatoid arthritis Frequent headaches Depression Fibromyalgia Obesity (BMI 30-39.9) Diabetes mellitus Asthma Surgical History Hx of tubal ligation Hx of section History of tooth extraction Family History Father HTN (hypertension) Mother Asthma CVD (cardiovascular disease) Brain cancer Maternal Aunt Breast cancer Sister No problems noted. Sister No problems noted. Sister No problems noted. Son Arthritis Daughter Lupus Daughter No problems noted. Social History Housing: House Alcohol intake: never Patient Tobacco Use Status: Never used Tobacco Tobacco use type: Cigarette e-Cigarette/Vaping Use: Never Used Second Hand Smoke Exposure: Yes service: No Current occupational status: unemployed and disabled Current occupation: right hand Cognitive needs: No Hearing needs: No Vision needs: No Female Reproductive History Menstrual Age of Menarche: 15 Physical Exam Vital Signs: Last Vital Signs Pulse 72 04/27/25 09:04 BP 140/80 H 04/27/25 09:04 Pulse Ox 99 04/27/25 09:04 Oxygen Delivery Method Room Air 08/20/25 09:04 BMI result Body Mass Index 35.2 Const Other: General: Comfortable CVS: RRR Respiratory: clear to auscultation bilaterally. Good respiratory effort Skin: Slight malar erythema MSK: Tender left 2nd MCP and PIP. Mild chronic synovial thickness of left 2nd MCP. Bilateral knee tenderness along joint line. Left knee mild effusion. Right ankle tenderness on palpation with mild edema present. Normal range of motion of upper extremity and lower extremity. Bilateral hallux valgus deformit y present with tenderness on palpation. Assessment & Plan Assessment & Plan (1) Seropositive rheumatoid arthritis: Comment: She was inconsistent with taking HCQ. She feels improved stiffness and pain. We discussed importance of being on DMARD therapy for RA treatment to prevent pro gression of disease and to obtain more control as she has mild synovitis of left 2nd MCP on exam. Discussed side effects of HCQ. Patient agrees with plan. Rheumatology hx: Diagnosed with seropositive RA (RF 44). Methotrexate 08/2018- 03/2019- GI upset. Leflunomide 10/2018- 03/2019- GI upset. Sulfasalzine 03/2019- 06/2019- GI upset. 03/2019 - 09/2020 not seen in clinic. 09/2020- Humira started due to synovitis on exam. Took 3 doses and was changed to Enbrel 11/2020 due to continued pain. Enbrel was stopped 11/2020 due to COVID and was discontinued in 06/2021 due to abdominal pain at the injection site. Restarted on Humira 09/2021 due to active synovitis on exam- stopped due to rash 01/2022. Tolerated HCQ but took it intermittently for a month until she felt better (less stiffness). Code(s): M05.9 - Rheumatoid arthritis with rheumatoid factor, unspecified Category: Medical Plan: Start HCQ 400mg daily. Schedule eye exam for HCQ surveillance Check labs today for drug monitoring Return to clinic in 3 months (2) Raynaud disease without gangrene: Comment: Onset 2023. Controlled with conservative management. Code(s): I73.00 - Raynaud's syndrome without gangrene Category: Medical Plan: RTC 3 months (3) Bilateral primary osteoarthritis of knee: Comment: Improved pain. Left worse than right. Code(s): M17.0 - Bilateral primary osteoarthritis of knee Category: Medical Plan: She agreed to PT for knee strengthening Continue aquatic therapy at the [facility] Continue eating healthy with goal of losing weight Return to clinic in 3 months Orders: Orders Alanine Aminotransferase Today Z79.899 - [facility] [place] [facility] (current[facility] drug therapy Creatinine Today Z79.899 - Other exterminator (current) drug therapy C Reactive Protein Today Z79.899 - [facility] [place] [facility] (current) drug therapy Erythrocyte Sedimentation Rate Today Z79.899 - Other exterminator (current) drug therapy Complete Blood Count Auto Diff Today Z79.899 - Other exterminator (current) drug therapy Aspartate Amino Transferase Today Z79.899 - Other [place] [facility] (current[facility] drug therapy Medications: Refilled hydroxychloroquine 400 mg (2 x 200 mg) PO DAILY 60 tabs 2RF Discontinued meloxicam Discontinued Reason: Doctor's Order 15 mg PO DAILY 30 tabs 2RF Coding Level of Care Code Est Pt Level 4 (33478) Complex EM visit Add On G2211 Diagnoses Seropositive rheumatoid arthritis M05.9 Raynaud disease without gangrene I73.00 Bilateral primary osteoarthritis of knee M17.0
--- OUTSIDE RECORDS SUMMARY | 2025-04-27 09:44 | XMS_ITS | Clinical Summary ---
Author Organization [facility] [employer] Address [address] [facility] [address] [place] [address] Care Team Providers Care Dishwasher Busser Name Role Phone Unavailable Primary Care Provider [...] Tobacco Screening 1992 Family Planning (PISQ) 1995 HPV Vaccines (1 - 3-dose series) 1995 Hepatitis C Screening 1998 DTaP/Tdap/Td Vaccines (1 - Tdap) 1999 Hepatitis B Vaccines (1 of 3 - 19+ 3-dose series) 1999 Pneumococcal Vaccine: Pediat rics (0 to 5 Years) and At-Risk Patients (6 to 49) Years (1 of 2 - PCV) 1999 Pap Smear 2001 Cervical Cancer Screening 2010 HPV/Cotest 2010 Mammogram 2020 COVID-19 Vaccine ( - 2023-2 5 season) 2024 Influenza Vaccine (#1) 2025 08/28/2018 Zoster Vaccines (1 of 2) 2030 [...]
== END 2025-04-27 09:35 | disposition home or self-care (01) ==
LOC: HO.RHES 09:01
PROVIDERS: PCP Internal Medicine; Visit Provider Internal Medicine Rheumatology
DX: M05.9 Rheumatoid arthritis with rheumatoid factor, unspecified (principal); I73.00 Raynaud's syndrome without gangrene; M17.0 Bilateral primary osteoarthritis of knee
CPT/HCPCS: 99214; G2211

== ENCOUNTER 2025-05-25 10:14 | Outpatient (AMB) | payer MEDICARE, MEDICAID, SELFPAY ==
[2025-05-25 10:31] VITALS: BP 110/80; PULSE 81; O2SAT 96; BMI 35.1
--- NOTE | 2025-05-25 10:31 | MHC.PC.OV ---
Vital Signs 05/25/25 10:31 Height 5 ft 6 in Weight 217 lb 8 oz BMI 35.1 BP 110/80 Blood Pressure Location Lt femoral Position Standing Pulse 81 Pulse Source Pulse Oximeter Pulse Oximetry (%) 96 Oxygen Delivery Method Room Air Intake Visit Reasons: 4 Mnth f/u Build And Deployment Engineer Required: No Accompanied by: Self / Same As Patient Allergies doxycycline Allergy (Unknown, Verified 05/29/25 21:46) itch and rash adalimumab (From Humira) Allergy (Verified 05/29/25 21:46) Rash Medication List - Last Reconciled 05/29/25 by Edward Lima MD acetaminophen 1,000 mg (2 x 500 mg) PO Q6H PRN albuterol sulfate 2.5 mg (3 mL) continuous nebulization .3 to 4 times daily PRN 30 days albuterol sulfate 90 mcg/actuation (ProAir HFA) 2 puffs inhalation Q6H PRN 30 days blood sugar diagnostic (FreeStyle Lite Strips) As directed- To test blood sugar daily - ONCE A DAY clobetasol 0.05% 1 appl topical BID PRN 2 weeks esomeprazole magnesium 20 mg PO DAILY hydroxychloroquine 400 mg (2 x 200 mg) PO DAILY lancets (FreeStyle Lancets) As directed- to test blood sugar daily - ONCE A DAY meclizine 25 mg PO TID PRN sodium,potassium,mag sulfates 17.5-3.13-1.6 gram (Suprep Bowel Prep Kit) DILUTE; drink 1/2 at 6-8 pm and half at 11 PM- 1AM triamcinolone acetonide 0.1% 1 appl topical BID Tobacco use date assessed: 05/25/25 Dental Screening Dental Screen Date: 05/25/25 Did you have a dental visit in the last 12 months?: Yes Did you have a dental problem in the last 6 months where you did not have access to dental care?: No Was dental information given to patient?: Patient has dentist HPI 4 Mn f/u HPI Details Patient comes in today for her follow up visit States that she feels okay She denies any headaches or dizziness Denies any chest pains, no increased SOB No nausea/vomiting, no abdominal pain No change in bowel habits noted She continues to experience recurrent bilateral hip pain as well as (chronic) pain in her hands and fingers often She is currently on Hydroxychloroquine 400 mg QD for her rheumatoid arthritis - she has not been able to tolerate multiple medications that she has been tried on so far for her RA, including Enbrel and Humira She also still has a recurrent rash around her neck area and her appointment to see dermatology (Dr. Gupta) for this is scheduled out into September 2025 She had her follow up labs done last month - to discuss her results [facility] Medical History Obesity, Class II, BMI 35-39.9 Insomnia Fibromyalgia Non-insulin dependent diabetes mellitus Obesity Fatigue Seropositive rheumatoid arthritis Frequent headaches Depression Fibromyalgia Obesity (BMI 30-39.9) Diabetes mellitus Asthma Surgical History Hx of tubal ligation Hx of section History of tooth extraction Family History Father HTN (hypertension) Mother Asthma CVD (cardiovascular disease) Brain cancer Maternal Aunt Breast cancer Sister No problems noted. Sister No problems noted. Sister No problems noted. Son Arthritis Daughter Lupus Daughter No problems noted. Social History Housing: House Alcohol intake: never Patient Tobacco Use Status: Never used Tobacco Tobacco use type: Cigarette e-Cigarette/Vaping Use: Never Used Second Hand Smoke Exposure: Yes service: No Current occupational status: unemployed and disabled Current occupation: right hand Cognitive needs: No Hearing needs: No Vision needs: No Female Reproductive History Menstrual Age of Menarche: 15 Questionnaire PHQ-9 Over the last 2 weeks, how often have you been bothered by any of the following problems? Depression Screening Interpretation: Negative Depression Screening Done: Yes Source: Developed by Drs. Philippe Root, Aimee Stevens, Samuel Patricio and colleagues, with an educational sadie from [employer]. Thrive Questionnaire Date Thrive assessed: 01/13/25 I am a: Patient What is your living situation today?: I have a place to live, but I am worried about losing it in the future Within the past 12 months, did the food you bought not last and you didn't have the money to get more?: I choose not to answer this question Within the past 12 months, did you worry whether your food would run out before you got money to buy more?: I choose not to answer this question Do you have trouble paying for medicines?: Yes Do you have trouble getting transportation to medical appointments?: No Do you have trouble paying your heating and electricity bill?: Yes Do you have trouble taking care of your child, family member or friend?: No Do you have trouble with day-to-day activities such as bathing, preparing meals, shopping, managing finances, etc.?: Yes Are you currently unemployed and looking for a job?: No Are you interested in more education?: No Currently or been in a relationship where the following occur: No concerns reported THRIVE Score: 2 AUDIT C Alcohol Use Questionnaire (AUDIT-C) 1. How often do you have a drink containing alcohol?: Never 3. How often do you have six or more drinks on one occasion?: Never Total Score: 0 Score Reviewed/Action Taken: Yes MARCOS-7 AMB Questionnaire MARCOS-7 Date MARCOS - 7 assessed: 01/13/25 Being so restless that it is hard to sit still: 3 = Nearly every day Becoming easily annoyed or irritable: 2 = More than half the days Feeling afraid as if something awful might happen: 0 = Not at all Source: Developed by Drs. Philippe Root, Aimee Stevens, Samuel Patricio and colleagues, with an educational sadie from [employer]. Review of Systems Const Denies chills, Reports fatigue, Denies fever(s) and Denies headache(s) ENT Denies dysphagia, Denies dizziness, Denies otalgia, Denies headache(s), Denies neck pain, Denies odynophagia and Denies sore throat Card Denies chest pain, Denies irregular heart rhythm, Denies palpitations and Denies dyspnea Resp Denies chest congestion, Denies cough and Denies dyspnea GI Denies abdominal pain, Denies constipation, Denies dysphagia, Denies heartburn, Denies diarrhea, Denies nausea, Denies odynophagia and Denies vomiting Denies difficulty voiding, Denies dysuria, Denies urinary incontinence and Denies urinary urgency Musc Denies back pain, Reports myalgias (diffuse), Reports arthralgias (involving multiple joints, including over both hips), Denies joint swelling, Reports muscle cramps (recurrent, often at night), Denies neck pain and Reports stiffness Skin/Breast Details: (+) recurrent rash around her neck area, especially anteriorly and under her lower abdominal skin folds Neuro Denies dizziness, Denies headache(s) and Denies paresthesias Psych Denies anxiety and Denies depression Endo Reports fatigue and Denies palpitations Kelvin/Lymph Reports easy bruising Physical exam (Primary Care) Vital Signs: Last Vital Signs Pulse 81 05/25/25 10:31 BP 110/80 05/25/25 10:31 Pulse Ox 96 05/25/25 10:31 Oxygen Delivery Method Room Air 05/25/25 10:31 BMI result Body Mass Index 35.1 Tobacco/Smoking Status: Tobacco use Status Tobacco use date assessed 05/25/25 05/25/25 10:35 Patient Tobacco Use Status Never used Tobacco 05/25/25 10:35 Tobacco use type Cigarette 05/25/25 10:35 e-Cigarette/Vaping Use Never Used 05/25/25 10:35 PHQ-9: PHQ-9 Score PHQ-9: Total score 0 05/25/25 10:35 Depression Screening Interpretation: Negative Thrive Assessment: Date of Thrive Assessment Date Thrive assessed 01/13/25 05/25/25 10:35 Currently or been in a relationship where the following occur: No concerns reported Const General: no acute distress and alert HENMT Ears: TM's normal bilaterally and EAC's normal Throat: Yes posterior oropharynx normal and Yes tonsils normal (no TP congestion) Neck Neck: Yes supple and No lymphadenopathy Thyroid: Thyroid normal Resp Auscultation: clear to auscultation bilaterally, no rales and no wheezes Cardio Rate: regular rate Rhythm: regular rhythm Heart sounds: no murmurs GI Palpation (GI): Soft to palpation and nontender Auscultation: normal bowel sounds General: Yes no CVA tenderness Back/Spine/Pelvis Back: no CVA tenderness Thoracic/Lumbar Spine: lumbar spinal tenderness Skin Other: (+) large patchy erythematous rash over the anterior neck area Extrem General: Yes no clubbing, cyanosis or edema Results Reviewed Results Reviewed: Laboratory Tests 04/27/25 09:42 WBC 7.0 Hgb 12.6 Hct 39.2 Plt Count 274 ESR 16 Creatinine 0.61 Estimated GFR > 60 AST 23 ALT 17 C-Reactive Protein 1.05 H Coding Level of Care Code Est Pt Level 4 (16493) Diagnoses Type 2 diabetes mellitus without complication, without long-term current use of insulin E11.9 Diabetes mellitus type: type 2 Diabetes mellitus technician terminal and repeater insulin use: without penitentiary use Diabetes mellitus complication status: without complication Moderate persistent asthma with acute exacerbation J45.41 Asthma severity: moderate Asthma persistence: persistent Asthma complication type: with acute exacerbation Headache R51.9 Headache chronicity pattern: unspecified pattern Headache type: unspecified Intractability: not intractable Raynaud's disease without gangrene I73.00 Raynaud?s-associated gangrene presence: without gangrene Seropositive rheumatoid arthritis M05.9 Fibromyalgia M79.7 Lumbar back pain with radiculopathy affecting lower extremity M54.16 Bilateral hip pain M25.551; M25.552 Vitamin D deficiency E55.9 Rash of neck R21 Obesity, Class II, BMI 35-39.9 E66.812 Assessment & Plan Assessment & Plan (1) Diabetes mellitus: Code(s): E11.9 - Type 2 diabetes mellitus without complications Category: Medical Qualifiers: Diabetes mellitus type: type 2 Diabetes mellitus penitentiary insulin use: without technician terminal and repeater use Diabetes mellitus complication status: without complication Qualified Code(s): E11.9 - Type 2 diabetes mellitus without complications Plan: Her HgbA1c was at 6.1% when last checked in September 2024 - goal is ideally <6.5% Reinforced diabetic diet Continue Metformin 500 mg QD and Jardiance 10 mg Q AM She is advised to get her previously ordered labs done before she returns for her annual physical next week (2) Asthma: Code(s): J45.909 - Unspecified asthma, uncomplicated Category: Medical Qualifiers: Asthma severity: moderate Asthma persistence: persistent Asthma complication type: with acute exacerbation Qualified Code(s): J45.41 - Moderate persistent asthma with (acute) exacerbation Plan: Controlled Continue Advair HFA 230-21 mcg 2 puffs BID and Albuterol HFA 2 inhalations every 6 hours PRN; she also uses her nebulizer when needed She was on Nucala 100 mg SQ Q 4 weeks previously but felt that the injection was actually making her asthma feel worse so she stopped taking her injections Follow up with pulmonary as scheduled (3) Headache: Code(s): R51.9 - Headache, unspecified Category: Medical Qualifiers: Headache chronicity pattern: unspecified pattern Headache type: unspecified Intractability: not intractable Qualified Code(s): R51.9 - Headache, unspecified Plan: Have advised patient previously that these are likely tension headaches or migraine headaches - she has never been diagnosed with migraines in the past although brain MRI done in 04/2022 revealed (+) scattered nonspecific subcortical white matter T2 hyperintensities in the cerebral hemispheres, that could reflect migraine-associated vasculopathy Will consider referring her to neurology for further evaluation and management if her headaches continue to recur but patient states that her headaches seems to have calmed down and have not been bothering her as much over the past few months (4) Raynaud's syndrome: Code(s): I73.00 - Raynaud's syndrome without gangrene Category: Medical Qualifiers: Raynaud?s-associated gangrene presence: without gangrene Qualified Code(s): I73.00 - Raynaud's syndrome without gangrene Plan: Follow up with rheumatology as scheduled (5) Seropositive rheumatoid arthritis: Comment: She was inconsistent with taking HCQ. She feels improved stiffness and pain. We discussed importance of being on DMARD therapy for RA treatment to prevent progression of disease and to obtain more control as she has mild synovitis of left 2nd MCP on exam. Discussed side effects of HCQ. Patient agrees with plan. Rheumatology hx: Diagnosed with seropositive RA (RF 44). Methotrexate 08/2018- 03/2019- GI upset. Leflunomide 10/2018- 03/2019- GI upset. Sulfasalzine 03/2019- 06/2019- GI upset. 03/2019 - 09/2020 not seen in clinic. 09/2020- Humira started due to synovitis on exam. Took 3 doses and was changed to Enbrel 11/2020 due to continued pain. Enbrel was stopped 11/2020 due to COVID and was discontinued in 06/2021 due to abdominal pain at the injection site. Restarted on Humira 09/2021 due to active synovitis on exam- stopped due to rash 01/2022. Tolerated HCQ but took it intermittently for a month until she felt better (less stiffness). Code(s): M05.9 - Rheumatoid arthritis with rheumatoid factor, unspecified Category: Medical Plan: Continue Hydroxychloroquine 400 mg QD Patient has not been able to tolerate trials of several biologics and DMARDs so far, including MTx, Sulfasalazine, Leflunomide and Humira Patient was advised by rheumatology that she does not have any clinical evidence of joint inflammation and given her intolerance to multiple Tx options, rheumatology recommended conservative Tx Follow up with rheumatology as scheduled (6) Fibromyalgia: Code(s): M79.7 - Fibromyalgia Category: Medical Plan: Patient is encouraged again on regular exercise and physical activity to help manage her fibromyalgia symptoms more effectively She was on Cyclobenzaprine 10 mg every 8 hours PRN and Pregabalin 50 mg TID and previously on Gabapentin 600 mg TID in the past but none of these have helped much with her symptoms and she has been OFF all of these Rx for a while now (7) Lumbar back pain with radiculopathy affecting lower extremity: Code(s): M54.16 - Radiculopathy, lumbar region Category: Medical Plan: States that she had an MRI of the lumbar spine done through [facility] a few months ago although it appears to be actually of the pelvis for evaluation of some gynecologic issues She was being scheduled for a lumbar spine injection at [facility] but unclear if this went through, as we have not received any correspondence at all from [facility] for review despite requesting for them Follow up with [facility] as scheduled (8) Bilateral hip pain: Code(s): M25.551 - Pain in right hip; M25.552 - Pain in left hip Category: Medical Plan: Right hip x-rays done back in December 2023 came back normal Follow up with orthopedics as scheduled (9) Vitamin D deficiency: Code(s): E55.9 - Vitamin D deficiency, unspecified Category: Medical Plan: Continue Vitamin D3 5000 units QD (10) Rash of neck: Code(s): R21 - Rash and other nonspecific skin eruption Category: Medical Plan: She used to see Dr. Fountain but her practice is no longer accepting her health insurance She was previously referred to Dr. Gupta for dermatology management and her initial appointment with him is scheduled sometime next September 2025 Per request, will try starting her on Clobetasol 0.05% cream to the rash over her anterior neck area BID PRN (11) Obesity, Class II, BMI 35-39.9: Code(s): E66.812 - Obesity, class 2 Category: Medical Plan: Reinforced diet/exercise as tolerated/lose weight Follow up with [facility] Management at [facility] as scheduled Plan To return as scheduled next week for her annual physical exam Patient is reminded to get her previously ordered labs done before she comes back next week for her appointment Medications: New clobetasol 0.05% 1 appl topical BID PRN 45 grams 0RF rash 2 weeks
--- OUTSIDE RECORDS SUMMARY | 2025-05-25 12:29 | XMS_ITS | Clinical Summary ---
Author Organization [facility] [employer] Address [address] [facility] [address] [place] [address] Care Team Providers Care Software Quality Specialist Name Role Phone Unavailable Primary Care Provider [...] COVID-19 Vaccine (1 - 2023-2 5 season) 2025 Influenza Vaccine (#1) 2025 08/28/2018 Zoster Vaccines [...] age to complete this topic [facility] [address] [facility] [address] [facility] STANDARD
== END 2025-05-25 11:17 | disposition home or self-care (01) ==
LOC: HO.HMCH 10:15
PROVIDERS: PCP Internal Medicine; Visit Provider Internal Medicine
DX: E11.9 Type 2 diabetes mellitus without complications (principal); M05.9 Rheumatoid arthritis with rheumatoid factor, unspecified; E66.812 Obesity, class 2; Z68.35 Body mass index [BMI] 35.0-35.9, adult; J45.41 Moderate persistent asthma with (acute) exacerbation; R51.9 Headache, unspecified; I73.00 Raynaud's syndrome without gangrene; M79.7 Fibromyalgia; M54.16 Radiculopathy, lumbar region; M25.551 Pain in right hip; M25.552 Pain in left hip; E55.9 Vitamin D deficiency, unspecified

== ENCOUNTER → 2025-05-25 10:14 | Outpatient (BNVA) | payer MEDICARE, SELFPAY | PROVIDERS: PCP Internal Medicine; Visit Provider Internal Medicine | DX: E11.9 Type 2 diabetes mellitus without complications (principal); J45.41 Moderate persistent asthma with (acute) exacerbation; R51.9 Headache, unspecified; I73.00 Raynaud's syndrome without gangrene; M05.9 Rheumatoid arthritis with rheumatoid factor, unspecified; M79.7 Fibromyalgia; M54.16 Radiculopathy, lumbar region; M25.551 Pain in right hip; M25.552 Pain in left hip; E55.9 Vitamin D deficiency, unspecified; R21 Rash and other nonspecific skin eruption; E66.812 Obesity, class 2; Z68.35 Body mass index [BMI] 35.0-35.9, adult; Z71.3 Dietary counseling and surveillance | CPT/HCPCS: 99212 ==

== ENCOUNTER 2025-05-30 06:34 | Outpatient (REF) | payer MEDICARE, SELFPAY ==
--- OUTSIDE RECORDS SUMMARY | 2025-05-30 06:37 | XMS_ITS | Clinical Summary ---
Author Organization [facility] [employer] Address [address] [facility] [address] [place] [address] Care Team Providers Care Tile Mechanic Helper Name Role Phone Unavailable Primary Care Provider [...]
[2025-05-30 06:58] LABS: MANUAL DIFF FLAG NO
[2025-05-30 07:38] LABS: Hematocrit 38.8 % (37.0-47.0); Hemoglobin 12.8 g/dl (12.0-16.0); Imm Gran Abs Auto 0.02 X10*3/uL (0.00-0.03); Imm Gran Pct Auto 0.4 % (0.0-0.4); Lymphocytes Absolute Auto 1.7 X10*3/uL (1.2-4.9); Mean Corpuscular HGB Conc 33.0 g/dl (31.0-35.0); Mean Corpuscular Hemoglobin 27.8 pg (27.0-33.0); Mean Corpuscular Volume 84.2 fL (80.0-98.0); NRBC Abs Auto 0.000 X10*3/uL (0.0-0.012); NRBC Pct Auto 0.0 /100WBC (0.0-0.2); Platelet Count 211 X10*3/uL (160-400); Red Blood Count 4.61 X10*6/uL (4.20-5.50); White Blood Count 5.7 X10*3/uL (4.8-10.8)
[2025-05-30 07:41] LABS: Hemoglobin A1C 155.7129 umol/L; Total Hemoglobin (HGBA1C) 3334.2032 umol/L
[2025-05-30 07:53] LABS: Appearance Urine Clear; Glucose Urine UA Negative (Negative); PH 5.5 (5.0-9.0); Specific Gravity - Urine 1.025 (1.005-1.025)
[2025-05-30 08:09] LABS: Alanine Aminotransferase 14 U/L (0-31); Aspartate Amino Transferase 19 U/L (5-31)
[2025-05-30 08:13] LABS: Alanine Aminotransferase 16 U/L (0-31); Albumin Level 4.2 g/dL (3.5-5.0); Alkaline Phosphatase 91 U/L (39-117); Anion Gap 10 (12-20); Aspartate Amino Transferase 21 U/L (5-31); Blood Urea Nitrogen 16 mg/dL (9-16); Calcium 8.9 mg/dL (8.4-10.2); Carbon Dioxide 25 mmol/L (22-29); Chloride 108 mmol/L (96-108); Cholesterol 166 mg/dL (<200); Estimated Glomerular Filt Rate > 60; HDL Cholesterol 42 mg/dL (>40); Potassium 4.4 mmol/L (3.3-5.1); Sodium 139 mmol/L (135-145); Total Protein 7.4 g/dL (6.5-8.0); Triglycerides 75 mg/dL (<150)
[2025-05-30 08:30] LABS: Microalbum/Creatinine Ratio Ur 7.7 ug/mg cr (<30)
== END 2025-05-30 06:35 | disposition home or self-care (01) ==
LOC: HO.LAB 06:34
PROVIDERS: Absent Provider Internal Medicine Rheumatology; PCP Internal Medicine; Visit Provider Internal Medicine
DX: E11.9 Type 2 diabetes mellitus without complications (principal); E78.00 Pure hypercholesterolemia, unspecified; E55.9 Vitamin D deficiency, unspecified; D64.9 Anemia, unspecified; R30.0 Dysuria; Z79.899 Other long term (current) drug therapy; Z79.60 Long term (current) use of unspecified immunomodulators and immunosuppressants
CPT/HCPCS: 36415; 80053; 80061; 81003; 82043; 82306; 82570; 83036; 84443; 84450; 84460; 85025; 85652; 86140

== ENCOUNTER 2025-07-21 07:51 | Outpatient (AMB) | payer MEDICARE, MEDICAID, SELFPAY ==
--- OUTSIDE RECORDS SUMMARY | 2025-07-21 07:54 | XMS_ITS | Clinical Summary ---
Author Organization [employer] Address [address] [place] [address] Care Team Providers Care Mechanical Systems Design Engineer Name Role Phone Unavailable Primary Care Provider [...] Health Maintenance Due Date Last Done Comments CT Colonography 1980 Colonoscopy 1980 Colorectal Cancer Screening 1980 Depression Screening 1980 FIT DNA/Cologuard 1980 FIT 1980 FOBT 1980 HIV Screening 1980 SDOH Screening 1980 Sigmoidoscopy 1980 Disability Screening 1980 Alcohol/Substance Use Screening [...] 2010 Mammogram 2020 COVID-19 Vaccine (1 - 2024-2 6 season) 2025 Influenza Vaccine (#1) 2025 08/28/2018 [...] patient's age to complete this topic Insurance [facility]
[2025-07-21 07:55] VITALS: BP 118/80; PULSE 87; O2SAT 97; BMI 35.8
--- NOTE | 2025-07-21 07:55 | MHC.OFFWIV ---
Intake Vital Signs 07/21/25 07:55 Height 5 ft 6 in Weight 222 lb BMI 35.8 BP 118/80 Blood Pressure Location Rt brachial Position Sitting Pulse 87 Pulse Source Pulse Oximeter Pulse Oximetry (%) 97 Oxygen Delivery Method Room Air Intake Visit Reasons: ep pain in left leg and numbness Intake Note: Patient presents c/o bilateral leg pain but left leg is the worst. Numbness, tingling noted also. Ongoing issue for over a year. Patient Tobacco Use Status: Never used Tobacco Allergies doxycycline Allergy (Unknown, Verified 07/21/25 07:58) itch and rash adalimumab (From Humira) Allergy (Verified 07/21/25 07:58) Rash Do you need a note to return to daycare/school/sports/work: No HPI HPI Comments History of Present Illness Details 45 y/o Female patient presents to the walk-in clinic with c/o bilateral leg pain for 1 year, worse on the right leg. Reports associated numbness and tingling. Denies recent trauma or injury. Patient has a known history of seropositive Rheumatoid Arthritis (RA) and is being followed by Rheumatology. She reports being noncompliant with prescribed Hydroxychloroquine (HCQ) because she felt better and stopped taking it. States she has been using natural herbal remedies OTC for her RA management. Imaging: Previous lower extremity X-rays unremarkable. [facility]LY [facility] Medical History (Updated 07/21/25 @ 08:36 by Nida Alvarado NP) Lower extremity numbness Obesity, Class II, BMI 35-39.9 Insomnia Fibromyalgia Non-insulin dependent diabetes mellitus Obesity Fatigue Seropositive rheumatoid arthritis Frequent headaches Depression Fibromyalgia Obesity (BMI 30-39.9) Diabetes mellitus Asthma Surgical History Hx of tubal ligation Hx of section History of tooth extraction Family History Father HTN (hypertension) Mother Asthma CVD (cardiovascular disease) Brain cancer Maternal Aunt Breast cancer Sister No problems noted. Sister No problems noted. Sister No problems noted. Son Arthritis Daughter Lupus Daughter No problems noted. Social History Housing: House Alcohol intake: never Patient Tobacco Use Status: Never used Tobacco Tobacco use type: Cigarette e-Cigarette/Vaping Use: Never Used Second Hand Smoke Exposure: Yes service: No Current occupational status: unemployed and disabled Current occupation: right hand Cognitive needs: No Hearing needs: No Vision needs: No Female Reproductive History Menstrual Age of Menarche: 15 Physical Exam Vital Signs: Last Vital Signs Pulse 87 07/21/25 07:55 BP 118/80 07/21/25 07:55 Pulse Ox 97 07/21/25 07:55 Oxygen Delivery Method Room Air 07/21/25 07:55 BMI result Body Mass Index 35.8 Const General: no acute distress Nutritional Appearance: obese Orientation/consciousness: patient oriented x3 Limitations: language barrier Neuro Other: Sensation intact to light touch, but patient reports subjective numbness/tingling in both legs. General: patient oriented x3 Extrem Other: Mild tenderness noted to bilateral lower extremities, no swelling, erythema, or deformity. Full range of motion. No joint effusion. Psych Speech and movement: Normal speech and movement present Assessment & Plan Assessment & Plan (1) Lower extremity numbness: Code(s): R20.0 - Anesthesia of skin Plan: Bilateral leg pain ? chronic, likely related to underlying RA Seropositive Rheumatoid Arthritis ? medication noncompliance Peripheral neuropathy symptoms ? possible secondary to RA or medication nonuse. Advised to resume Hydroxychloroquine (HCQ) 400 mg daily as prescribed by Rheumatology. Educated patient on importance of medication adherence to prevent disease progression and joint damage. Continue follow-up with Rheumatology as scheduled. Advised to discontinue OTC herbal supplements unless approved by her Open Developer Operator due to possible interactions. Encourage use of warm compresses and gentle stretching for symptomatic relief. Coding Level of Care Code Est Pt Level 4 (72635) Diagnoses Lower extremity numbness R20.0 Time Spent (min) 20
== END 2025-07-21 08:28 | disposition home or self-care (01) ==
PROVIDERS: PCP Internal Medicine; Visit Provider Nurse Practitioner Family
DX: R20.0 Anesthesia of skin (principal)

== ENCOUNTER 2025-07-21 09:38 | Emergency (ER) | payer MEDICARE, MEDICAID, SELFPAY ==
--- NOTE | ~2025-07-21 | CT_ITS ---
EXAMINATION: CT HEAD NECK ANGIOGRAPHY WITH IV CONTRAST CLINICAL INFORMATION: left leg weakness COMPARISON: Head CT on October 07, 2020. Brain MRI on April 12, 2022 TECHNIQUE: The degree of stenosis determined by NASCET criteria. This CT examination was performed using dose optimization techniques as appropriate, variously including the following: *Automated exposure control *Adjustment of mA and/or kV according to patient size (this includes techniques or standardized protocols for targeted exams where dose is matched to indication/reason for exam; i.e. extremities or head) *Use of iterative reconstruction technique FINDINGS: Motion degrades some images. Head CT: Brain parenchyma: No shift of midline structures. No evidence of acute territorial infarct, mass effect or parenchymal hemorrhage. No abnormal parenchymal enhancement. Ventricles/extra-axial spaces: No hydrocephalus. No extra-axial fluid collection. Skull/extracranial structures: No calvarial lesion. Bilateral orbital globes are unremarkable. Paranasal sinuses and mastoid air cells are clear. CTA of the head: Anterior circulation: No aneurysm, arteriovenous malformation or occlusion. Intracranial internal carotid arteries are patent. Anterior and middle cerebral arteries are patent. Anterior communicating artery is present. Posterior circulation: No aneurysm, arteriovenous malformation or occlusion. Intracranial vertebral arteries and basilar artery are patent. Posterior cerebral arteries are patent. Posterior communicating arteries are present bilaterally. Venous structures: No thrombosis. CTA of the neck: Aortic arch: Left sided three-vessel aortic arch. Right carotid arteries: Patent. No stenosis or occlusion (0% stenosis per Nascet criteria). Left carotid arteries: Patent. No stenosis or occlusion (0% stenosis per Nascet criteria). Vertebral arteries: Origin and proximal segments are not well evaluated due to motion. Remainder segments are patent. Nonvascular findings: No thyroid nodules. No concerning soft tissue abnormality. No lymphadenopathy. No apical pneumothorax or confluent consolidation in the upper lungs. Minimal centrilobular emphysema. No acute osseous abnormality. CT/CT angio head neck IMPRESSION: 1. No acute intracranial abnormality. 2. No aneurysm, arteriovenous malformation or vascular occlusions. Electronically signed by: Cristiane Chandler MD 07/21/2025 01:08 PM [facility] [place]
--- NOTE | ~2025-07-21 | MR_ITS ---
EXAMINATION: MR BRAIN WITHOUT CONTRAST CLINICAL INFORMATION: left leg weakness COMPARISON: CT of the head and CT angiogram of head and neck obtained earlier on the same day. MR of the brain on April 12, 2022. TECHNIQUE: MRI of the brain was obtained using routine sequences without contrast. FINDINGS: Motion degrades some sequences. Brain parenchyma: No shift of midline structures. No evidence of acute infarct, parenchymal hemorrhage or mass lesion. Scattered nonspecific T2/FLAIR hyperintense white matter foci are not significantly progressed from 2021. Ventricles/extra-axial spaces: No hydrocephalus. No extra-axial fluid collection. Extracranial structures: Arterial flow voids in the skull base are preserved. Paranasal sinuses and mastoid air cells are essentially clear. Bilateral orbital globes are unremarkable. MR/MR head/brain wo con IMPRESSION: 1. No evidence of acute infarct or other acute findings. 2. Nonspecific scattered white matter changes are not significantly progressed from 2021. Electronically signed by: Cristiane Chandler MD 07/21/2025 03:31 PM [facility] [place]
[2025-07-21 09:47] VITALS: BP 143/83; PULSE 95; RESP 18; TEMP 36.6; O2SAT 100; BMI 36.9
--- NOTE | 2025-07-21 09:53 | ECG_ITS ---
Test Reason : chest pain Blood Pressure : */* mmHG Vent. Rate : 92 BPM Atrial Rate : 92 BPM P-R Int : 148 ms QRS Dur : 94 ms QT Int : 346 ms P-R-T Axes : 49 -18 -10 degrees QTcB Int : 427 ms Normal sinus rhythm Nonspecific T wave abnormality Abnormal ECG When compared with ECG of 28-May-2022 06:53, Nonspecific T wave abnormality now evident in Anterior leads Referred By: Generic ED Physician Electronically Signed By: DONTE HERNANDEZ MD
[2025-07-21 10:07] LABS: MANUAL DIFF FLAG NO
[2025-07-21 10:10] VITALS: BP 143/84; PULSE 85; RESP 16; TEMP 37.2; O2SAT 99
[2025-07-21 10:12] LABS: Hematocrit 41.3 % (37.0-47.0); Hemoglobin 13.2 g/dl (12.0-16.0); Imm Gran Abs Auto 0.02 X10*3/uL (0.00-0.03); Imm Gran Pct Auto 0.3 % (0.0-0.4); Lymphocytes Absolute Auto 2.0 X10*3/uL (1.2-4.9); Mean Corpuscular HGB Conc 32.0 g/dl (31.0-35.0); Mean Corpuscular Hemoglobin 27.4 pg (27.0-33.0); Mean Corpuscular Volume 85.7 fL (80.0-98.0); NRBC Abs Auto 0.000 X10*3/uL (0.0-0.012); NRBC Pct Auto 0.0 /100WBC (0.0-0.2); Platelet Count 236 X10*3/uL (160-400); Red Blood Count 4.82 X10*6/uL (4.20-5.50); White Blood Count 6.2 X10*3/uL (4.8-10.8)
[2025-07-21 10:26] LABS: Alanine Aminotransferase 27 U/L (0-31); Albumin Level 4.4 g/dL (3.5-5.0); Alkaline Phosphatase 99 U/L (39-117); Anion Gap 13 (12-20); Aspartate Amino Transferase 23 U/L (5-31); Blood Urea Nitrogen 10 mg/dL (9-16); Calcium 9.4 mg/dL (8.4-10.2); Carbon Dioxide 25 mmol/L (22-29); Chloride 106 mmol/L (96-108); Creatinine Clr Calc Pharmacy 139.1; Estimated Glomerular Filt Rate > 60; Magnesium 1.8 mg/dL (1.6-2.6); Potassium 4.2 mmol/L (3.3-5.1); Sodium 140 mmol/L (135-145); Total Protein 7.6 g/dL (6.5-8.0)
[2025-07-21 10:42] LABS: Troponin-I High Sensitivity < 2.7 ng/L (<3.5-17.0)
--- NOTE | 2025-07-21 11:27 | ED_ITS ---
HPI - General Adult General Chief complaint: General Medical Stated complaint: heavy numbness feeling in legs and r arm Time Seen by Provider: 07/21/25 11:46 Source: patient and family Mode of arrival: ambulatory Limitations: no limitations History of Present Illness ED Provider: DR. Wynn HPI narrative: 45-year-old female came in for evaluation of multiple symptoms including left leg heaviness and left leg numbness patient's symptoms started long time ago (over a year ago) But on Friday patient felt that the left leg numbness and weakness is becoming worse, he has been feeling headache and dizziness ( room spinning), left jaw tingling and pain. Yesterday patient felt chest pain and headache that is resolved now, no nausea, no vomiting, no shortness of breath. Patient feels subjective weakness and numbness on the left lower extremity. Related Data Home Medications ?Medication ?Instructions ?Recorded ?Confirmed meclizine 25 mg tablet 25 mg PO TID PRN 05/27/24 Previous Rx's ?Medication ?Instructions ?Recorded albuterol sulfate 2.5 mg/3 mL 2.5 mg (3 mL) continuous 01/21/23 (0.083 %) solution for nebulization nebulization .3 to 4 times daily PRN shortness of breath or wheezing 30 days #180 mL albuterol sulfate 90 mcg/actuation 2 puff inhalation Q 6H PRN 06/24/23 aerosol inhaler (ProAir HFA) shortness of breath or wh eezing 30 days #8.5 grams acetaminophen 500 mg capsule 1,000 mg (2 x 500 mg) PO Q6H PRN 07/06/24 pain #60 caps blood sugar diagnostic (FreeStyle #100 ea 10/27/24 Lite Strips) lancets 28 gauge (FreeStyle #100 ea 10/27/24 Lancets) esomeprazole magnesium 20 mg 20 mg PO DAILY #90 caps 0 01/24/25 capsule,delayed release clobetasol 0.05 % topical cream 1 appl topical BID PRN rash 2 05/25/25 weeks #45 grams Allergies Allergy/AdvReac Type Severity Reaction Status Date / Time doxycycline Allergy Unknown itch and Verified 07/21/25 09:52 rash adalimumab (From Humira) Allergy Rash Verified 07/21/25 09:52 Review of Systems 2 Review of Systems: all other systems are reviewed and are negative Constitutional: Reports as per HPI and Reports no additional constitutional complaints Eyes: Reports as per HPI and Reports no additional eye complaints Reports system reviewed and no additional complaints, except as documented Cardiovascular: Reports as per HPI and Reports no additional cardiovascular complaints Respiratory: Reports as per HPI and Reports no additional respiratory complaints Gastrointestinal: Reports as per HPI and Reports no additional gastrointestinal complaints Genitourinary: Reports no additional female genitourinary complaints Musculoskeletal: Reports no additional musculoskeletal complaints Skin/Breast: Reports system reviewed and no additional complaints, except as docu Psychiatric: Reports no additional psychiatric complaints Endocrine: Reports no additional endocrine complaints Hematologic/Lymphatic: Reports no additional hematologic/lymphatic complaints Allergic/Immunologic: Reports no additional allergic/immunologic complaints Reports system reviewed and no additional complaints, except as documented and Reports Abnormal speech present [facility] Past Medical History Medical History Lower extremity numbness Obesity, Class II, BMI 35-39.9 Insomnia Fibromyalgia Non-insulin dependent diabetes mellitus Obesity Fatigue Seropositive rheumatoid arthritis Frequent headaches Depression Fibromyalgia Obesity (BMI 30-39.9) Diabetes mellitus Asthma Surgical History Hx of tubal ligation Hx of section History of tooth extraction Family History Family History Father HTN (hypertension) Mother Asthma CVD (cardiovascular disease) Brain cancer Maternal Aunt Breast cancer Sister No problems noted. Sister No problems noted. Sister No problems noted. Son Arthritis Daughter Lupus Daughter No problems noted. Social History Social History Housing: House Alcohol intake: never Patient Tobacco Use Status: Never used Tobacco Tobacco use type: Cigarette Smoked in Last 30 Days: No e-Cigarette/Vaping Use: Never Used Second Hand Smoke Exposure: Yes Use of substances other than those prescribed or required for medical reasons: No Advance Directives: No Advance Directives Information Provided: No Patient : No service: No Current occupational status: unemployed and disabled Current occupation: right hand Cognitive needs: No Hearing needs: No Vision needs: No Physical Exam ED Vital Signs: Vital Signs - 24 hr 07/21/25 09:47 07/21/25 10:10 07/21/25 12:38 Temperature 97.8 F 99.0 F 97.8 F Pulse Rate 95 85 66 Respiratory Rate 18 16 14 Blood Pressure 143/83 H 143/84 H 129/88 Pulse Oximetry 100 99 Oxygen Delivery Method Room Air Room Air Room Air BMI result Body Mass Index 36.9 Vital signs have been reviewed and appear to be correct. Blood pressure elevated. Heart rate normal. Respiratory rate normal. Temperature normal. Oxygen saturation normal. Appearance: Alert. Oriented X3. No acute distress. Head: Normal external exam. Normocephalic. Atraumatic. No Moreira signs noted. No raccoon eyes noted Eyes: PERRLA. EOMI. Conjunctiva and sclera normal. Eyelids normal. ENT: TM's Normal. Pharynx normal. Uvula midline. Moist mucous membranes. No trismus noted. No drooling noted. No muffled voice noted. Neck: Normal inspection. Neck supple. FROM. No adenopathy. Thyroid Normal. No meningeal signs. No neck mass noted. CVS: Normal heart rate and rhythm. Heart sound normal. No murmurs noted. Pulses normal throughout. Respiratory: No respiratory distress. Painless inspiration. Breath sounds normal. No wheezes/rales/rhonchi noted. Chest nontender. No accessory muscle usage noted or decreased air movement noted. Abdomen: Soft and nontender. Bowel sounds normal in all 4 quadrants. No distention noted. No organomegaly noted. No visible injury noted. Back: No CVA tenderness. Full range of motion noted. Skin: Skin warm and dry. Normal skin color. Normal skin turgor. No rashes/lesions/lacerations noted. Extremities: No lower extremity edema. Extremities exhibit normal range of motion. Extremities nontender. Neuro: Mental status: Normal attention, orientation, memory, and affect. Cranial nerves: Pupils are equal, round and reactive to light, EOMI, visual pascal are fall, face is symmetric, facial sensations are normal. Motor examination normal muscle tone, strength to 4 extremities. DTR are +2, planter's are flexor. Sensory exam; normal coordination, no ataxia, gait stable. Cerebellar exam: [id number] and [id number]-[id number] is normal. Extrapyramidal system: No tremors, no rigidity with normal facial expressions. Pronator drift not present NIH Stroke Scale Time: 11:45 Level of Consciousness: Alert Level of Consciousness Questions: Answers both questions correctly Level of Consciousness Commands: Performs both tasks correctly Best Gaze: Normal Visual: No visual loss Facial Palsy: Normal Motor Arm (Right): No drift Motor Arm (Left): No drift Motor Leg (Right): No drift Motor Leg (Left): No drift Limb Ataxia: Absent Sensory: Normal Best Language: No aphasia Dysarthia: Normal Extinction and Inattention: No abnormality Score: 0 Course Reevaluation(s) Reevaluation #1: 45-year-old female came in with multiple symptoms evaluation. 1. Chest pain started yesterday resolved today, patient currently has no chest pain, unremarkable EKG, troponin is negative. 2. Left leg heaviness numbness NIH score is 0, symptoms started a week ago, CT/ CTA head and neck / MRI of the head are unremarkable for acute stroke. Time: 16:25 Medications Administered Discontinued Medications Generic Name Dose Route Start Last Admin Trade Name Freq PRN Reason Stop Dose Admin Iohexol 100 ml 07/21/25 11:51 07/21/25 11:51 Iohexol 350 Mg/Ml 100 Ml Infus..Btl IV 07/21/25 11:52 70 ml ONCE ONE Administration Medical Decision Making Differential Diagnosis Differential Diagnoses: The differential diagnosis associated with the presentation includes ( CVA stroke, peripheral neuropathy, electrolyte derangement, severe anemia, ACS.) Admission/Observation Consideration of admission/observation: Escalation of care including admission/observation considered Lab Data MDM Lab Attestation statement: I reviewed the patient's lab results. 07/21/25 10:03 07/21/25 10:03 Labs: Lab Results 07/21/25 Range/Units 10:03 WBC 6.2 (4.8-10.8) X10*3/uL RBC 4.82 (4.20-5.50) X10*6/uL Hgb 13.2 (12.0-16.0) g/dl Hct 41.3 (37.0-47.0) % MCV 85.7 (80.0-98.0) fL MCH 27.4 (27.0-33.0) pg MCHC 32.0 (31.0-35.0) g/dl RDW 14.5 (11.0-16.0) % Plt Count 236 (160-400) X10*3/uL MPV 11.2 (9.4-12.3) fL Immature Gran % (Auto) 0.3 (0.0-0.4) % Neut % (Auto) 57.0 (45-73) % Lymph % (Auto) 32.6 (20-40) % Cr[place]enden % (Auto) 6.6 (2-11) % Eos % (Auto) 2.9 (0-4) % Baso % (Auto) 0.6 (0-2) % Lymph # (Auto) 2.0 (1.2-4.9) X10*3/uL [place] # (Auto) 0.4 (0.1-1.2) X10*3/uL Eos # (Auto) 0.2 (0.0-0.4) X10*3/uL Baso # (Auto) 0.0 (0.0-0.2) X10*3/uL Abs Immat Gran (auto) 0.02 (0.00-0.03) X10*3/uL Absolute Neuts (auto) 3.5 (2.0-8.3) x10*3/uL Absolute Nucleated RBC 0.000 (0.0-0.012) X10*3/uL Nucleated RBC % (auto) 0.0 (0.0-0.2) /100WBC Sodium 140 (135-145) mmol/L Potassium 4.2 (3.3-5.1) mmol/L Chloride 106 (96-108) mmol/L Carbon Dioxide 25 (22-29) mmol/L Anion Gap 13 (12-20) BUN 10 (9-16) mg/dL Creatinine 0.60 (0.5-1.4) mg/dL Estim Creat Clear Calc 139.1 Estimated GFR > 60 Random Glucose 161 H (60-115) mg/dL Calcium 9.4 (8.4-10.2) mg/dL Magnesium 1.8 (1.6-2.6) mg/dL Total Bilirubin 0.4 (0.0-1.0) mg/dL AST 23 (5-31) U/L ALT 27 (0-31) U/L Alkaline Phosphatase 99 (39-117) U/L Troponin I High Sens < 2.7 (<3.5-17.0) ng/L Total Protein 7.6 (6.5-8.0) g/dL Albumin 4.4 (3.5-5.0) g/dL Independent Interpretation I performed an independent interpretation of an: CT Scan ( Head/neck CTA:. No acute intracranial abnormality. 2. No aneurysm, arteriovenous malformation or vascular occlusions. ) and MRI ( Brain:. No evidence of acute infarct or other acute findings. 2. Nonspecific scattered white matter changes are not significantly progressed from 2021. ) Radiology Impression Discussion of test interpretation with radiology: I have reviewed the radiologist's reading. Discharge Plan Discharge Clinical Impression: Chest pain, Paresthesia Patient Disposition: Home, Self-Care Instructions: Chest Pain (ED), Paresthesia (ED) Prescriptions: No Action albuterol sulfate [ProAir HFA] 90 mcg/actuation HFA aerosol inhaler 2 puff inhalation Q6H PRN (Reason: shortness of breath or wheezing) 30 Days Qty: 8.5 0RF (DME) lancets [FreeStyle Lancets] 28 gauge misc See Rx Instructions .Route Qty: 100 12RF Rx Instructions: As directed- to test blood sugar daily - ONCE A DAY (DME) FreeStyle Lite Strips Strip See Rx Instructions .Route Qty: 100 12RF Rx Instructions: As directed- To test blood sugar daily - ONCE A DAY albuterol sulfate 2.5 mg /3 mL (0.083 %) solution for nebulization 2.5 mg continuous nebulization .3 to 4 times daily PRN (Reason: shortness of breath or wheezing) 30 Days Qty: 180 3RF acetaminophen 500 mg capsule 1,000 mg PO Q6H PRN (Reason: pain) Qty: 60 0RF clobetasol 0.05 % cream 1 appl topical BID PRN (Reason: rash) 14 Days Qty: 45 0RF meclizine 25 mg tablet 25 mg PO TID PRN esomeprazole magnesium 20 mg capsule,delayed release(DR/EC) 20 mg PO DAILY Qty: 90 1RF Referrals: Edward Lima MD [Primary Care Provider, Internal Medicine] Uma Humphrey MD [Physician, Neurology] Print Language: Sinhala
[2025-07-21] MEDS: iohexoL 350 MG/ML 100 ML INFUS..BTL IV (11:51)
[2025-07-21 12:38] VITALS: BP 129/88; PULSE 66; RESP 14; TEMP 36.6
[2025-07-21 16:34] VITALS: BP 126/85; PULSE 75; RESP 14; TEMP 36.2; O2SAT 98
[2025-07-21 17:19] LABS: Troponin-I High Sensitivity < 2.7 ng/L (<3.5-17.0)
[2025-07-21 18:37] VITALS: BP 148/90; PULSE 72; RESP 16; TEMP 36.9; O2SAT 99
== END 2025-07-21 18:37 | disposition home or self-care (01) ==
PROVIDERS: Emergency Provider Emergency Medicine; PCP Internal Medicine
DX: R07.89 Other chest pain (principal); R20.0 Anesthesia of skin; R51.9 Headache, unspecified; R42 Dizziness and giddiness; M62.81 Muscle weakness (generalized); Z79.899 Other long term (current) drug therapy
CPT/HCPCS: 36415; 70496; 70498; 70551; 80053; 83735; 84484; 85025; 93005; 99212; 99284; Q9967

== ENCOUNTER → 2025-07-21 09:53 | Outpatient (BNV) | payer MEDICARE, MEDICAID, SELFPAY | PROVIDERS: Emergency Provider Emergency Medicine; PCP Internal Medicine; Visit Provider Internal Medicine Cardiovascular Disease | DX: R94.31 Abnormal electrocardiogram [ECG] [EKG] (principal); R07.9 Chest pain, unspecified | CPT/HCPCS: 93010 ==

== ENCOUNTER → 2025-07-21 11:36 | Outpatient (BNV) | payer MEDICARE, MEDICAID, SELFPAY | PROVIDERS: Emergency Provider Emergency Medicine; PCP Internal Medicine; Visit Provider Radiology Body Imaging | DX: R53.1 Weakness (principal); R20.2 Paresthesia of skin | CPT/HCPCS: 70496; 70498; 70551 ==

== ENCOUNTER 2025-07-25 16:30 | Outpatient (AMB) | payer MEDICARE, MEDICAID, SELFPAY ==
--- NOTE | 2025-07-25 16:40 | MHC.PC.OV ---
Vital Signs 07/25/25 16:41 Height 5 ft 5 in Weight 224 lb 6 oz BMI 37.3 BP 124/88 Blood Pressure Location Lt brachial Position Sitting Pulse 97 Pulse Source Pulse Oximeter Pulse Oximetry (%) 98 Oxygen Delivery Method Room Air Intake Visit Reasons: Pain and heaviness in legs Inside Channel Account Manager Required: No Accompanied by: Self / Same As Patient Allergies doxycycline Allergy (Unknown, Verified 08/03/25 12:51) itch and rash adalimumab (From Humira) Allergy (Verified 08/03/25 12:51) Rash Medication List - Last Reconciled 08/03/25 by Edward Lima MD acetaminophen 1,000 mg (2 x 500 mg) PO Q6H PRN albuterol sulfate 2.5 mg (3 mL) continuous nebulization .3 to 4 times daily PRN 30 days albuterol sulfate 90 mcg/actuation (ProAir HFA) 2 puffs inhalation Q6H PRN 30 days blood sugar diagnostic (FreeStyle Lite Strips) As directed- To test blood sugar daily - ONCE A DAY clobetasol 0.05% 1 appl topical BID PRN 2 weeks esomeprazole magnesium 20 mg PO DAILY lancets (FreeStyle Lancets) As directed- to test blood sugar daily - ONCE A DAY meclizine 25 mg PO TID PRN Tobacco use date assessed: 07/25/25 Dental Screening Dental Screen Date: 07/25/25 Did you have a dental visit in the last 12 months?: No Did you have a dental problem in the last 6 months where you did not have access to dental care?: No Was dental information given to patient?: No HPI Pain and heaviness in legs HPI Details The patient is a 45-year-old female presenting with heaviness and pain in her legs. The symptoms started on Friday (2 days ago), with the right leg more affected, and are associated with numbness and significant pain. She also reports feeling some unusual numbness on her face and heaviness in her right arm. Associated symptoms include toes changing color to white and a history of frequent bruising. The leg symptoms are alleviated by elevating the legs with pillows. Patient has a history of rheumatoid arthritis and is currently only on Hydroxychloroquine - she has not been able to tolerate multiple other medications tried in the past due to side effects She has a scheduled follow-up with rheumatology in a few days on 07/28/25 She denies any headaches or dizziness Denies any chest pains, no increased shortness of breath No nausea/vomiting, no abdominal pain No change in bowel habits noted She had her follow up labs done a few days ago - her recent lab results showed an A1c of 6.4, normal blood count, and normal kidney and liver function. Cholesterol levels were noted as 104-109. [facility] Medical History Lower extremity numbness Obesity, Class II, BMI 35-39.9 Insomnia Fibromyalgia Non-insulin dependent diabetes mellitus Obesity Fatigue Seropositive rheumatoid arthritis Frequent headaches Depression Fibromyalgia Obesity (BMI 30-39.9) Diabetes mellitus Asthma Surgical History Hx of tubal ligation Hx of section History of tooth extraction Family History Father HTN (hypertension) Mother Asthma CVD (cardiovascular disease) Brain cancer Maternal Aunt Breast cancer Sister No problems noted. Sister No problems noted. Sister No problems noted. Son Arthritis Daughter Lupus Daughter No problems noted. Social History Housing: House Alcohol intake: never Patient Tobacco Use Status: Never used Tobacco Tobacco use type: Cigarette e-Cigarette/Vaping Use: Never Used Second Hand Smoke Exposure: Yes service: No Current occupational status: unemployed and disabled Current occupation: right hand Cognitive needs: No Hearing needs: No Vision needs: No Female Reproductive History Menstrual Age of Menarche: 15 Questionnaire PHQ-9 Over the last 2 weeks, how often have you been bothered by any of the following problems? 1. Little interest or pleasure in doing things: not at all 2. Feeling down, depressed, or hopeless: not at all 3. Trouble falling or staying asleep, or sleeping too much: not at all 4. Feeling tired or having little energy: not at all 5. Poor appetite or overeating: not at all 6. Feeling bad about yourself - or that you are a failure or have let yourself or your family down: not at all 7. Trouble concentrating on things, such as reading the newspaper or watching television: not at all 8. Moving or speaking so slowly that other people could have noticed. Or the opposite - being so fidgety or restless that you have been moving around a lot more than usual: not at all 9. Thoughts that you would be better off or of hurting yourself in some way: not at all Total score: 0 Depression Screening Interpretation: Negative Depression Screening Done: Yes 34421 - PHQ-9 Billing: Yes Source: Developed by Drs. Philippe Root, Aimee Stevens, Samuel Patricio and colleagues, with an educational sadie from [employer]. Thrive Questionnaire Date Thrive assessed: 07/25/25 I am a: Patient What is your living situation today?: I have a place to live, but I am worried about losing it in the future Within the past 12 months, did the food you bought not last and you didn't have the money to get more?: I choose not to answer this question Within the past 12 months, did you worry whether your food would run out before you got money to buy more?: I choose not to answer this question Do you have trouble paying for medicines?: Yes Do you have trouble getting transportation to medical appointments?: No Do you have trouble paying your heating and electricity bill?: Yes Do you have trouble taking care of your child, family member or friend?: No Do you have trouble with day-to-day activities such as bathing, preparing meals, shopping, managing finances, etc.?: Yes Are you currently unemployed and looking for a job?: No Are you interested in more education?: No Please select the resources that you would like help with: None Currently or been in a relationship where the following occur: No concerns reported THRIVE Score: 2 AUDIT C Alcohol Use Questionnaire (AUDIT-C) 1. How often do you have a drink containing alcohol?: Never 3. How often do you have six or more drinks on one occasion?: Never Total Score: 0 Score Reviewed/Action Taken: Yes MARCOS-7 AMB Questionnaire MARCOS-7 Date MARCOS - 7 assessed: 07/25/25 Feeling nervous, anxious, or on edge: 0 = Not at all Not being able to stop or control worryin = Not at all Worrying too much about different things: 0 = Not at all Trouble relaxin = Not at all Being so restless that it is hard to sit still: 3 = Nearly every day Becoming easily annoyed or irritable: 2 = More than half the days Feeling afraid as if something awful might happen: 0 = Not at all Total MARCOS-7 score (0-4 normal; 5-9 mild; 10-14 moderate; 15-21 severe): 5 Source: Developed by Drs. Philippe Root, Aimee Stevens, Samuel Patricio and colleagues, with an educational sadie from [employer]. Review of Systems Const Denies chills, Reports fatigue, Denies fever(s) and Denies headache(s) ENT Denies dysphagia, Denies dizziness, Denies otalgia, Denies headache(s), Denies neck pain, Denies odynophagia and Denies sore throat Card Denies chest pain, Denies irregular heart rhythm, Denies palpitations and Denies dyspnea Resp Denies chest congestion, Denies cough and Denies dyspnea GI Denies abdominal pain, Denies constipation, Denies dysphagia, Denies heartburn, Denies diarrhea, Denies nausea, Denies odynophagia and Denies vomiting Denies difficulty voiding, Denies dysuria, Denies urinary incontinence and Denies urinary urgency Musc Details: (+) on and off sensation of heaviness in the right arm and in both legs Reports as per HPI, Denies back pain, Reports myalgias (diffuse), Reports arthralgias (involving multiple joints, including over both hips), Denies joint swelling, Reports muscle cramps (recurrent, often at night), Denies neck pain, Reports numbness (on and off in both legs, in the right arm and on the face - see HPI) and Reports stiffness Skin/Breast Details: (+) recurrent rash around her neck area, especially anteriorly and under her lower abdominal skin folds Neuro Denies dizziness, Denies headache(s), Reports numbness (on and off in both legs, in the right arm and on the face - see HPI) and Denies paresthesias Psych Denies anxiety and Denies depression Endo Reports fatigue and Denies palpitations Kelvin/Lymph Reports easy bruising Physical exam (Primary Care) Vital Signs: Last Vital Signs Pulse 97 07/25/25 16:41 BP 124/88 07/25/25 16:41 Pulse Ox 98 11/17/25 16:41 Oxygen Delivery Method Room Air 07/25/25 16:41 BMI result Body Mass Index 37.3 Tobacco/Smoking Status: Tobacco use Status Tobacco use date assessed 07/25/25 07/25/25 16:42 Patient Tobacco Use Status Never used Tobacco 07/25/25 16:42 Tobacco use type Cigarette 07/25/25 16:42 e-Cigarette/Vaping Use Never Used 07/25/25 16:42 PHQ-9: PHQ-9 Score PHQ-9: Total score 0 08/03/25 12:53 Depression Screening Interpretation: Negative Thrive Assessment: Date of Thrive Assessment Date Thrive assessed 07/25/25 07/25/25 16:42 Currently or been in a relationship where the following occur: No concerns reported Const General: no acute distress and alert HENMT Ears: TM's normal bilaterally and EAC's normal Throat: Yes posterior oropharynx normal and Yes tonsils normal (no TP congestion) Neck Neck: Yes supple and No lymphadenopathy Thyroid: Thyroid normal Resp Auscultation: clear to auscultation bilaterally, no rales and no wheezes Cardio Rate: regular rate Rhythm: regular rhythm Heart sounds: no murmurs GI Palpation (GI): Soft to palpation and nontender Auscultation: normal bowel sounds General: Yes no CVA tenderness Back/Spine/Pelvis Back: no CVA tenderness Thoracic/Lumbar Spine: lumbar spinal tenderness Skin Other: (+) large patchy erythematous rash over the anterior neck area Extrem General: Yes no clubbing, cyanosis or edema Results Reviewed Results Reviewed: Laboratory Tests 05/30/25 05/30/25 07/21/25 06:49 06:56 10:03 WBC 6.2 Hgb 13.2 Hct 41.3 Plt Count 236 ESR 10 Sodium 140 Potassium 4.2 Creatinine 0.60 Estimated GFR > 60 Random Glucose 161 H Fasting Glucose 144 H Hemoglobin A1c % 6.4 H Calcium 9.4 Magnesium 1.8 AST 23 ALT 27 C-Reactive Protein 0.55 H Triglycerides 75 Cholesterol 166 LDL Cholesterol, Calc 109 H HDL Cholesterol 42 25-OH Vitamin D Total 29.6 L TSH 2.85 Ur Specific [place] 1.025 Urine Protein Negative Urine Glucose (UA) Negative Urine Blood Negative Urine Nitrite Negative Ur Leukocyte Esterase Negative Microalb/Creat Ratio 7.7 Coding Level of Care Code Est Pt Level 4 (79028) Diagnoses Type 2 diabetes mellitus without complication, without long-term current use of insulin E11.9 Diabetes mellitus complication status: without complication Diabetes mellitus buttermaker continuous churn insulin use: without buttermaker continuous churn use Diabetes mellitus type: type 2 Moderate persistent asthma with acute exacerbation J45.41 Asthma complication type: with acute exacerbation Asthma persistence: persistent Asthma severity: moderate Headache R51.9 Headache chronicity pattern: unspecified pattern Headache type: unspecified Intractability: not intractable Raynaud's disease without gangrene I73.00 Raynaud?s-associated gangrene presence: without gangrene Seropositive rheumatoid arthritis M05.9 Fibromyalgia M79.7 Lumbar back pain with radiculopathy affecting lower extremity M54.16 Bilateral hip pain M25.551; M25.552 Lower extremity pain, bilateral M79.604; M79.605 Vitamin D deficiency E55.9 Rash of neck R21 Obesity, Class II, BMI 35-39.9 E66.812 Additional Codes PHQ-9 - 84862 - PHQ-9 Billing: Yes ([id number]) Assessment & Plan Assessment & Plan (1) Diabetes mellitus: Code(s): E11.9 - Type 2 diabetes mellitus without complications Category: Medical Qualifiers: Diabetes mellitus complication status: without complication Diabetes mellitus skilled nursing insulin use: without buttermaker continuous churn use Diabetes mellitus type: type 2 Qualified Code(s): E11.9 - Type 2 diabetes mellitus without complications Plan: Her HgbA1c was at 6.4% when last checked a couple of months ago in May 2025; was previously at 6.1% back in September 2024 - goal is ideally <6.5% Reinforced diabetic diet Continue Metformin 500 mg QD and Jardiance 10 mg Q AM Will have patient recheck her HgbA1c and follow-up labs in September 2025 just before her scheduled annual physical examination (2) Asthma: Code(s): J45.909 - Unspecified asthma, uncomplicated Category: Medical Qualifiers: Asthma complication type: with acute exacerbation Asthma persistence: persistent Asthma severity: moderate Qualified Code(s): J45.41 - Moderate persistent asthma with (acute) exacerbation Plan: Controlled Continue Advair HFA 230-21 mcg 2 puffs BID and Albuterol HFA 2 inhalations every 6 hours PRN; she also uses her nebulizer when needed She was on Nucala 100 mg SQ Q 4 weeks previously but felt that the injection was actually making her asthma feel worse so she stopped taking her injections Follow up with pulmonary as scheduled (3) Headache: Code(s): R51.9 - Headache, unspecified Category: Medical Qualifiers: Headache chronicity pattern: unspecified pattern Headache type: unspecified Intractability: not intractable Qualified Code(s): R51.9 - Headache, unspecified Plan: Have advised patient previously that these are likely tension headaches or migraine headaches - she has never been diagnosed with migraines in the past although brain MRI done in 04/2022 revealed (+) scattered nonspecific subcortical white matter T2 hyperintensities in the cerebral hemispheres, that could reflect migraine-associated vasculopathy Will consider referring her to neurology for further evaluation and management if her headaches continue to recur but patient states that her headaches seems to have calmed down and have not been bothering her as much over the past few months (4) Raynaud's syndrome: Code(s): I73.00 - Raynaud's syndrome without gangrene Category: Medical Qualifiers: Raynaud?s-associated gangrene presence: without gangrene Qualified Code(s): I73.00 - Raynaud's syndrome without gangrene Plan: Follow up with rheumatology as scheduled (5) Seropositive rheumatoid arthritis: Comment: She was inconsistent with taking HCQ. She feels improved stiffness and pain. We discussed importance of being on DMARD therapy for RA treatment to prevent progression of disease and to obtain more control as she has mild synovitis of left 2nd MCP on exam. Discussed side effects of HCQ. Patient agrees with plan. Rheumatology hx: Diagnosed with seropositive RA (RF 44). Methotrexate 08/2018- 03/2019- GI upset. Leflunomide 10/2018- 03/2019- GI upset. Sulfasalzine 03/2019- 06/2019- GI upset. 03/2019 - 09/2020 not seen in clinic. 09/2020- Humira started due to synovitis on exam. Took 3 doses and was changed to Enbrel 11/2020 due to continued pain. Enbrel was stopped 11/2020 due to COVID and was discontinued in 06/2021 due to abdominal pain at the injection site. Restarted on Humira 09/2021 due to active synovitis on exam- stopped due to rash 01/2022. Tolerated HCQ but took it intermittently for a month until she felt better (less stiffness). Code(s): M05.9 - Rheumatoid arthritis with rheumatoid factor, unspecified Category: Medical Plan: Continue Hydroxychloroquine 400 mg QD Patient has not been able to tolerate trials of several biologics and DMARDs so far, including MTx, Sulfasalazine, Leflunomide and Humira Patient was advised by rheumatology that she does not have any clinical evidence of joint inflammation and given her intolerance to multiple Tx options, rheumatology recommended conservative Tx Follow up with rheumatology as scheduled (6) Fibromyalgia: Code(s): M79.7 - Fibromyalgia Category: Medical Plan: Patient is encouraged again on regular exercise and physical activity to help manage her fibromyalgia symptoms more effectively She was on Cyclobenzaprine 10 mg every 8 hours PRN and Pregabalin 50 mg TID and previously on Gabapentin 600 mg TID in the past but none of these have helped much with her symptoms and she has been OFF all of these Rx for a while now (7) Lumbar back pain with radiculopathy affecting lower extremity: Code(s): M54.16 - Radiculopathy, lumbar region Category: Medical Plan: States that she had an MRI of the lumbar spine done through [facility] a few months ago although it appears to be actually of the pelvis for evaluation of some gynecologic issues She was being scheduled for a lumbar spine injection at [facility] but unclear if this went through, as we have not received any correspondence at all from [facility] for review despite requesting for them Follow up with [facility] as scheduled (8) Bilateral hip pain: Code(s): M25.551 - Pain in right hip; M25.552 - Pain in left hip Category: Medical Plan: Right hip x-rays done back in December 2023 came back normal Follow up with orthopedics as scheduled (9) Lower extremity pain, bilateral: Code(s): M79.604 - Pain in right leg; M79.605 - Pain in left leg Category: Medical Plan: Will send patient for EMG and NCV of both lower extremities for further evaluation (10) Vitamin D deficiency: Code(s): E55.9 - Vitamin D deficiency, unspecified Category: Medical Plan: Continue Vitamin D3 5000 units QD (11) Rash of neck: Code(s): R21 - Rash and other nonspecific skin eruption Category: Medical Plan: She used to see Dr. Fountain but her practice is no longer accepting her health insurance She was previously referred to Dr. Gupta for dermatology management and her initial appointment with him is scheduled sometime next September 2025 Continue Clobetasol 0.05% cream to the rash over her anterior neck area BID PRN (12) Obesity, Class II, BMI 35-39.9: Code(s): E66.812 - Obesity, class 2 Category: Medical Plan: Reinforced diet/exercise as tolerated/lose weight Follow up with [facility] Management at [facility] [place] as scheduled Plan To return as scheduled in September 2025 for her annual physical examination Orders: Orders NE nerve conduction velocity 07/25/25 M79.604 - Pain in right leg, M79.605 - Pain in left leg Complete Blood Count Auto Diff 09/17/25 D64.9 - Anemia, unspecified Comprehensive [place]. Panel Fast 09/17/25 E78.00 - Pure hypercholesterolemia, unspecified Hemoglobin A1c 09/17/25 E11.9 - Type 2 diabetes mellitus without complications UA CC w/rflx Micro + Cult 09/17/25 R30.0 - Dysuria NE electromyogram (EMG) 07/25/25 M79.604 - Pain in right leg, M79.605 - Pain in left leg Lipid Panel 09/17/25 E78.00 - Pure hypercholesterolemia, unspecified
[2025-07-25 16:41] VITALS: BP 124/88; PULSE 97; O2SAT 98; BMI 37.3
== END 2025-07-25 17:30 | disposition home or self-care (01) ==
LOC: HO.HMCH 16:31
PROVIDERS: PCP Internal Medicine; Visit Provider Internal Medicine
DX: E11.9 Type 2 diabetes mellitus without complications (principal); M05.9 Rheumatoid arthritis with rheumatoid factor, unspecified; E66.812 Obesity, class 2; Z68.37 Body mass index [BMI] 37.0-37.9, adult; R51.9 Headache, unspecified; J45.41 Moderate persistent asthma with (acute) exacerbation; I73.00 Raynaud's syndrome without gangrene; M79.7 Fibromyalgia; M54.16 Radiculopathy, lumbar region; M25.551 Pain in right hip; M25.552 Pain in left hip; M79.604 Pain in right leg; M79.605 Pain in left leg; E55.9 Vitamin D deficiency, unspecified; R21 Rash and other nonspecific skin eruption

== ENCOUNTER → 2025-07-25 16:30 | Outpatient (BNVA) | payer MEDICARE, SELFPAY | PROVIDERS: PCP Internal Medicine; Visit Provider Internal Medicine | DX: E11.9 Type 2 diabetes mellitus without complications (principal); J45.41 Moderate persistent asthma with (acute) exacerbation; R51.9 Headache, unspecified; I73.00 Raynaud's syndrome without gangrene; M05.9 Rheumatoid arthritis with rheumatoid factor, unspecified; M79.7 Fibromyalgia; M54.16 Radiculopathy, lumbar region; M25.551 Pain in right hip; M25.552 Pain in left hip; M79.604 Pain in right leg; M79.605 Pain in left leg; E55.9 Vitamin D deficiency, unspecified; R21 Rash and other nonspecific skin eruption; E66.812 Obesity, class 2; Z68.37 Body mass index [BMI] 37.0-37.9, adult; Z71.3 Dietary counseling and surveillance | CPT/HCPCS: 96127; 99212 ==

== ENCOUNTER 2025-08-16 07:44 | Outpatient (REF) | payer MEDICARE, SELFPAY ==
--- NOTE | 2025-08-16 07:47 | EMG_ITS ---
Chief complaint: Bilateral pain in lower extremities Referred by:?Edward Wood MD Procedure done: Bilateral lower extremities NCS/EMG Bilateral tibial and peroneal motor studies were performed with F responses and tibial H reflexes. Bilateral superficial peroneal and sural sensory studies were performed and median and lateral mixed plantars sensory studies were performed and needle examination was performed. Findings: Superficial peroneal amplitudes were significantly diminished with moderately slow conduction velocity. Similar pattern was noted with sural studies. Left peroneal motor study revealed mild slowing across the knee. Bilateral median and lateral mixed plantars sensory amplitudes were also diminished. 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 [place] 22453 2 extremities MTDD
== END 2025-08-16 07:45 | disposition home or self-care (01) ==
LOC: HO.NEURO 07:44
PROVIDERS: PCP Internal Medicine; Visit Provider Internal Medicine
DX: M79.604 Pain in right leg (principal); M79.605 Pain in left leg
CPT/HCPCS: 95886; 95913

== ENCOUNTER → 2025-08-16 07:47 | Outpatient (BNV) | payer MEDICARE, MEDICAID, SELFPAY | PROVIDERS: PCP Internal Medicine; Visit Provider Psychiatry & Neurology Neurology | DX: G57.63 Lesion of plantar nerve, bilateral lower limbs (principal); M79.604 Pain in right leg; M79.605 Pain in left leg | CPT/HCPCS: 95886; 95912 ==